=== PATIENT | male | born 1935 | race Caucasian/White ===

== ENCOUNTER → 2023-07-24 11:23 | Outpatient (REF) | payer OTHER, SELFPAY ==
[2023-07-24 15:39] LABS: INR 1.21; PT 15.4 Sec (11.4-14.6)
[2023-07-24 15:40] LABS: APTT 44.7 Sec (23.4-35.0)
== END ==
LOC: HWLAB 11:23
PROVIDERS: ATTENDING PHYSICIAN Internal Medicine Critical Care Medicine; FAMILY PHYSICIAN Student in an Organized Health Care Education/Training Program
DX: Z01.812 Encounter for preprocedural laboratory examination (principal)
CPT/HCPCS: 36415; 85610; 85730

== ENCOUNTER → 2023-09-29 08:44 | Outpatient (REF) | payer OTHER, SELFPAY ==
[2023-09-29 12:34] LABS: Hemoglobin 13.7 g/dL (13.0-18.0)
[2023-09-29 12:56] LABS: Blood Urea Nitrogen 29 mg/dl (9-20); Calcium 9.5 mg/dl (8.4-10.2); Carbon Dioxide 24 mmol/L (22-30); Chloride 104 mmol/L (98-107); Glucose 150 mg/dl (70-99); Phosphorus 3.7 mg/dl (2.5-4.5); Potassium 4.3 mmol/L (3.5-5.1); Sodium 135 mmol/L (135-145); eGFR 36.43
[2023-10-01 10:42] LABS: Intact PTH 110.9 pg/ml (13.6-85.8)
== END ==
LOC: HWLAB 08:44
PROVIDERS: ATTENDING PHYSICIAN Specialist; FAMILY PHYSICIAN Student in an Organized Health Care Education/Training Program
DX: N18.32 Chronic kidney disease, stage 3b (principal); I10 Essential (primary) hypertension; N25.81 Secondary hyperparathyroidism of renal origin
CPT/HCPCS: 36415; 80048; 83970; 84100; 85018

== ENCOUNTER → 2023-10-22 10:33 | Outpatient (REF) | payer OTHER, SELFPAY | LOC: RAD 10:33 | PROVIDERS: ATTENDING PHYSICIAN Internal Medicine; FAMILY PHYSICIAN Student in an Organized Health Care Education/Training Program | DX: I71.43 Infrarenal abdominal aortic aneurysm, without rupture (principal) | CPT/HCPCS: 76770 ==

== ENCOUNTER → 2023-11-05 09:59 | Outpatient (REF) | payer OTHER, SELFPAY | LOC: HWRAD 09:59 | PROVIDERS: ATTENDING PHYSICIAN Internal Medicine Critical Care Medicine; FAMILY PHYSICIAN Student in an Organized Health Care Education/Training Program | DX: R91.1 Solitary pulmonary nodule (principal); J94.8 Other specified pleural conditions; R94.2 Abnormal results of pulmonary function studies | CPT/HCPCS: 71250 ==

== ENCOUNTER → 2023-11-14 15:44 | Outpatient (REF) | payer OTHER, SELFPAY | LOC: HWRCS 15:44 | PROVIDERS: ATTENDING PHYSICIAN Internal Medicine; FAMILY PHYSICIAN Student in an Organized Health Care Education/Training Program | DX: R55 Syncope and collapse (principal) | CPT/HCPCS: 93306 ==

== ENCOUNTER → 2023-11-21 13:05 | Outpatient (REF) | payer OTHER, SELFPAY | LOC: RAD 13:05 | PROVIDERS: ATTENDING PHYSICIAN Surgery Vascular Surgery; FAMILY PHYSICIAN Student in an Organized Health Care Education/Training Program | DX: I73.9 Peripheral vascular disease, unspecified (principal); R55 Syncope and collapse | CPT/HCPCS: 93880; 93922; 93925 ==

== ENCOUNTER 2023-11-30 14:27 | Emergency (ER) | payer OTHER, SELFPAY ==
[2023-11-30] VITALS (9 sets, daily range): BP systolic 100–144; BP diastolic 58–69; PULSE 72–76; BMI 26.7
[2023-11-30 14:59] LABS: % Basophils 0.6 % (0-2); % Eosinophils 3.4 % (0-6); % Immature Granulocytes 0.6 % (0-0.5); % Lymphocytes 22.6 % (20.5-51.1); % Monocytes 11.8 % (1.7-9.3); Absolute Basophils 0.1 10^3/uL (0-0.2); Absolute Eosinophils 0.3 10^3/uL (0-0.7); Absolute Immature Granulocytes 0.1 10^3/uL (0-0.05); Absolute Lymphocytes 2.2 10^3/uL (1.2-3.4); Absolute Monocytes 1.1 10^3/uL (0.1-0.6); Absolute Neutrophils 5.8 10^3/uL (1.4-6.5); Hematocrit 38.8 % (39.0-52.0); Hemoglobin 13.8 g/dL (13.0-18.0); Mean Corp Hgb Conc. 35.6 g/dL (33.0-37.0); Mean Corpuscular Hgb 31.9 pg (27.0-31.0); Mean Corpuscular Volume 89.8 fL (80.0-94.0); Mean Platelet Volume 10.4 fL (7.4-10.4); Nucleated Red Blood Cells % 0 % (-); Platelet Count 177 10^3/uL (130-400); Red Blood Cell Count 4.32 10^6/uL (4.70-6.10); Red Cell Dist. Width 13.7 % (11.5-14.5); White Blood Cell Count 9.5 10^3/uL (4.8-10.8)
[2023-11-30 15:14] LABS: INR 1.17; PT 14.7 Sec (11.4-14.6)
[2023-11-30 15:20] LABS: ALT (SGPT) 20 U/L (0-50); AST (SGOT) 29 U/L (17-59); Albumin 4.3 g/dl (3.5-5.0); Alkaline Phosphatase 83 U/L (38-126); Blood Urea Nitrogen 34 mg/dl (9-20); Calcium 9.7 mg/dl (8.4-10.2); Carbon Dioxide 21 mmol/L (22-30); Chloride 104 mmol/L (98-107); Glucose 119 mg/dl (70-99); Potassium 4.2 mmol/L (3.5-5.1); Sodium 139 mmol/L (135-145); Total Bilirubin 0.9 mg/dl (0.2-1.3); Total Protein 7.7 g/dl (6.3-8.2); eGFR 33.93
[2023-11-30 15:25] LABS: Troponin I 0.016 ng/ml
--- NOTE | 2023-11-30 16:33 | ED.GENMED ---
History of Present Illness
General
Chief Complaint: Dizziness
Source: patient
Exam Limitations: none
Time Seen by Provider: 11/30/23 16:06
Travel History
Have you had any contact with someone who has COVID-19?: No
Do you have any symptoms of coronavirus? Fever > 100 degrees, chills, cough, shortness of breath, sore throat, loss of taste or smell, muscle aches, or headache?: No
History of Present Illness
History of Present Illness:
88-year-old male presents lightheadedness with exertion and chest discomfort starting this morning. He does have a history of atrial fibrillation on Eliquis follows with Dr. Candelaria. He states while sitting he has no symptoms of discomfort or
lightheadedness. He does have a history of heart failure. He recently finished wearing a heart monitor for 2 weeks and is awaiting the results. He last had an echocardiogram last month.
Past History
Past History
ED Past Medical History: Arrthythmia (Bigeminy), CAD, CHF, COPD, HTN, Hypercholesterolemia and NIDDM
ED Past Surgical History: Cholecystectomy
Social History
Tobacco: Former smoker
Phy Exam
Physical Exam
Physical Exam:
General: Well-appearing male no acute respiratory distress
HEENT: Normocephalic atraumatic neck is supple
Heart: Regular rate and rhythm with holosystolic ejection murmur noted
Lungs: Clear no wheeze or rales
Abdomen is soft nontender
Extremities: No cyanosis or edema
Course
Orders/Labs/Results
Orders:
Orders
11/30/23 14:40
Electrocardiogram (*1) Urgent
Reason for Study: Chest Pain
EKG- Treatment ONCE
11/30/23 14:46
Complete Blood Count/With Diff Urgent
Comprehensive Metabolic Panel Urgent
Prothrombin Time Urgent
Troponin I Urgent
11/30/23 16:27
Orthostatic VS- Treatment ONCE
Nursing to Place Non Medication Order As Directed
Physician Order: Ambulate with pulse ox
Above order entered?: Yes
CR Chest - 2 Views Urgent
Comment:
Reason For Exam: gold
Abnormal Lab Results
11/30/23
14:46
RBC 4.32 L 10^6/uL
(4.70-6.10)
Hct 38.8 L %
(39.0-52.0)
MCH 31.9 H pg
(27.0-31.0)
Abs Immat Gran (auto) 0.1 H 10^3/uL
(0-0.05)
Absolute Monos (auto) 1.1 H 10^3/uL
(0.1-0.6)
Immature Gran % 0.6 H %
(0-0.5)
Monocytes % 11.8 H %
(1.7-9.3)
PT 14.7 H Sec
(11.4-14.6)
Carbon Dioxide 21 L mmol/L
(22-30)
BUN 34 H mg/dl
(9-20)
Creatinine 1.9 H mg/dL
(0.7-1.3)
Glucose 119 H mg/dl
(70-99)
11/30/23 14:46
11/30/23 14:46
Vital Signs
Initial and Last Documented VS:
Initial Vital Signs
Temp Pulse Resp BP Pulse Ox
97.6 F 86 16 112/58 96
11/30/23 14:36 11/30/23 14:36 11/30/23 14:36 11/30/23 14:36 11/30/23 14:36
Last Documented Vital Signs
Temp Pulse Resp BP Pulse Ox
97.6 F 72 14 135/68 98
11/30/23 14:36 11/30/23 18:35 11/30/23 18:35 11/30/23 18:35 11/30/23 17:45
MDM/Problems Addressed
Differential Diagnosis Includes:
Lightheadedness and discomfort with exertion. Consider arrhythmia versus volume depletion versus hypotension versus anemia.
I reviewed prior hospital records which demonstrates an echocardiogram that was done about 2 weeks ago which showed ejection fraction about 50% but mild to moderate aortic stenosis.
He has a history of atrial fibrillation but is not currently in atrial fibrillation now he is in sinus rhythm. He is rate controlled. Will check labs to assess kidney function and check x-ray. Orthostatic vital signs pending patient will ambulate
as well
*Critical Care Note
Total Time (30-74mins, 75-104mins- exclusive of procedures): Not Applicable
Update Note
Update Note:
Chest x-ray clear. No acute findings noted on the chest x-ray. Patient ambulatory here without any symptoms. Orthostatic vital signs reviewed. I suspect symptoms may be multifactorial including overdiuresis and potential worsening aortic
stenosis. Had long discussion with patient and daughter regarding treatment options. Prefers to go home. Risks and benefits were both were discussed. Will tie-in cardiology team through discharge. Advised patient avoid morning dose of Lasix
tomorrow morning.
ED Attending Note
-
Portions of this chart may have been created with voice recognition software.� Occasional wrong word or��sound alike� substitutions may have occurred due to the inherent limitations of voice recognition software.
Discharge Plan
Departure
Patient Disposition: Home (Routine Discharge)
Date of Disposition: 11/30/23
Time of Disposition: 18:57
Patient with high blood pressure during this ER visit?: No
Discharge Problem:
Lightheadedness
Instructions: Chest Pain CBC Follow Up
Prescriptions:
No Action
cyanocobalamin (vitamin B-12) 1,000 MCG tablet
1,000 mcg PO DAILY
cholecalciferol (vitamin D3) 2,000 UNITS tablet
2,000 units PO DAILY
diphenhydramine HCl [Banophen] 25 MG capsule
25 mg PO HS
atorvastatin 80 MG tablet
80 mg PO HS
metoprolol succinate 50 mg Tablet Extended Release 24 Hr
50 mg PO BID
furosemide [Lasix] 40 mg Tablet
40 mg PO DAILY
Jardiance 25 mg Tablet
12.5 mg PO DAILY
Rx Instructions:
[facility] using the [facility]
glipizide 5 mg Tablet Extended Release 24hr
5 mg PO DAILY
terazosin 2 mg Capsule
2 mg PO HS
finasteride 5 mg Tablet
5 mg PO DAILY
Eliquis 2.5 mg Tablet
2.5 mg PO BID Qty: 30 0RF
zinc acetate 50 mg (zinc) Capsule
50 mg PO DAILY
omega 2-ivd-xpk-fish oil [Fish Oil] 1,000 mg (120 mg-180 mg) Capsule
1 cap PO BID
Referrals:
Kenia Correa DO [Family Provider] -
Activity Restrictions/Additional Instructions:
Avoid Lasix tomorrow morning. Follow-up with cardiology team for further evaluation. Return here for worsening symptoms.
Interventions
Interventions:
*Risk Screen - Suicide Last Done: 11/30/23 16:39
*General Assessment Last Done: 11/30/23 14:36
*Neglect/Abuse Screening Last Done: 11/30/23 16:39
ED- Fall Risk Assessment Last Done: 11/30/23 16:39
*ED COVID-19 Vaccine History Last Done: 11/30/23 14:36
ED- Cardiac Assessment Last Done: 11/30/23 16:39
ED- Neurological Assessment Last Done: 11/30/23 16:39
ED Swallowing Screen Last Done: 11/30/23 16:39
Discharge Date and Time
Print Language: JAPANESE
== END 2023-11-30 19:25 | disposition home or self-care (01) ==
LOC: EMR 14:27
PROVIDERS: EMERGENCY PHYSICIAN Emergency Medicine; FAMILY PHYSICIAN Student in an Organized Health Care Education/Training Program
DX: R42 Dizziness and giddiness (principal); I48.91 Unspecified atrial fibrillation; I50.9 Heart failure, unspecified; Z87.891 Personal history of nicotine dependence; Z79.01 Long term (current) use of anticoagulants
CPT/HCPCS: 99285; 71046; 80053; 84484; 85025; 85610; 93005

== ENCOUNTER → 2023-12-16 07:35 | Outpatient (REF) | payer OTHER, SELFPAY ==
[2023-12-16 09:33] LABS: % Basophils 0.7 % (0-2); % Immature Granulocytes 0.5 % (0-0.5); % Lymphocytes 19.7 % (20.5-51.1); % Monocytes 10.6 % (1.7-9.3); % Neutrophils 63.5 % (42.2-75.2); Absolute Basophils 0.1 10^3/uL (0-0.2); Absolute Eosinophils 0.5 10^3/uL (0-0.7); Absolute Immature Granulocytes 0.1 10^3/uL (0-0.05); Absolute Monocytes 1.1 10^3/uL (0.1-0.6); Absolute Neutrophils 6.5 10^3/uL (1.4-6.5); Hematocrit 39.6 % (39.0-52.0); Mean Corp Hgb Conc. 32.8 g/dL (33.0-37.0); Mean Corpuscular Hgb 31.3 pg (27.0-31.0); Mean Corpuscular Volume 95.4 fL (80.0-94.0); Mean Platelet Volume 10.8 fL (7.4-10.4); Nucleated Red Blood Cells % 0 % (-); Platelet Count 181 10^3/uL (130-400); Red Blood Cell Count 4.15 10^6/uL (4.70-6.10); Red Cell Dist. Width 13.9 % (11.5-14.5); White Blood Cell Count 10.2 10^3/uL (4.8-10.8)
[2023-12-16 10:06] LABS: ALT (SGPT) 19 U/L (0-50); AST (SGOT) 29 U/L (17-59); Alkaline Phosphatase 131 U/L (38-126); Blood Urea Nitrogen 35 mg/dl (9-20); Calcium 9.6 mg/dl (8.4-10.2); Carbon Dioxide 21 mmol/L (22-30); Chloride 110 mmol/L (98-107); Glucose 147 mg/dl (70-99); HDL Cholesterol 36 mg/dl; LDL Cholesterol, Calculated 47 mg/dl; Potassium 4.8 mmol/L (3.5-5.1); Sodium 142 mmol/L (135-145); Total Bilirubin 0.7 mg/dl (0.2-1.3); Total Cholesterol 114 mg/dl (50-199); Triglyceride 158 mg/dl (10-149); Very Low Density Lipoprotein 31 mg/dl (0-30); eGFR 36.21
[2023-12-16 10:17] LABS: Microalbumin, Random Urine 5.5 mg/dl (0.6-1.7); Microalbumin/creatinine Ratio 50.9 mg/g
[2023-12-16 10:31] LABS: TSH Reflex To Free T4 2.73 uIU/ml (0.47-4.68)
[2023-12-16 11:18] LABS: Glycohemoglobin (HgbA1c) 6.4 % (4.0-5.6)
== END ==
LOC: HWLAB 07:35
PROVIDERS: ATTENDING PHYSICIAN Student in an Organized Health Care Education/Training Program
DX: E11.22 Type 2 diabetes mellitus with diabetic chronic kidney disease (principal); I50.32 Chronic diastolic (congestive) heart failure; I70.91 Generalized atherosclerosis; I10 Essential (primary) hypertension; I48.0 Paroxysmal atrial fibrillation
CPT/HCPCS: 36415; 80053; 80061; 82043; 82570; 83036; 84443; 85025

== ENCOUNTER → 2024-01-06 11:16 | Day surgery (SDC) | payer OTHER, SELFPAY ==
--- NOTE | 2024-01-06 12:58 | ITS.CL.IMPLP ---
Pack Out Operator - Implant Loop
Implant Loop
Procedure Report:
Procedure: Insertion of Loop Recorder.�
Date of the procedure: 01/06/24
Procedure Physician: Romina Moore MD [facility]
Indication: Syncope and atrial fibrillation
Description of the procedure:
Patient was brought to the holding area after informed consent was obtained from the patient. The time out was performed immediately before the procedure.
The left parasternal chest area was prepped and draped in sterile fashion with chlorhexidine prep x 3 times. Lidocaine 1% was injected subcutaneously for local anesthesia. The loop recorder was tunneled and then injected into the subcutaneous
tissue. The tunneling tool was removed leaving the loop recorder in place. The dermis was closed with steristrips and a pressure Tegaderm dressing was placed. There were no immediate complications.
Post procedure, the device was interrogated and showed good detectable P and R waves.
There were no immediate complications.
Device:
OCP CollectiveQII; Model: [id number]; Serial #:[id number]
R wave amplitude: 0.42 mV
Final Programming:
��������������� Tachycardia Detection: >182 bpm for 16 beats
��������������� Bradycardia Detection: 30 bpm for 12 beats, Asystole for 5 seconds.
��������������� Atrial fibrillation detection: On with > 10 min duration
Conclusion:
Successful insertion of loop recorder.
Recommendation:
Routine post-insert loop care.
== END | disposition home or self-care (01) ==
LOC: CATH 11:16
PROVIDERS: ATTENDING PHYSICIAN Internal Medicine Cardiovascular Disease; FAMILY PHYSICIAN Student in an Organized Health Care Education/Training Program; OTHER PHYSICIAN Internal Medicine
DX: Z09 Encounter for follow-up examination after completed treatment for conditions other than malignant neoplasm (principal); R55 Syncope and collapse; I48.0 Paroxysmal atrial fibrillation; I25.10 Atherosclerotic heart disease of native coronary artery without angina pectoris; I11.0 Hypertensive heart disease with heart failure; I50.9 Heart failure, unspecified; E78.5 Hyperlipidemia, unspecified; E11.9 Type 2 diabetes mellitus without complications; Z87.891 Personal history of nicotine dependence; Z79.84 Long term (current) use of oral hypoglycemic drugs; Z79.01 Long term (current) use of anticoagulants
CPT/HCPCS: 33285; C1764

== ENCOUNTER → 2024-02-16 12:42 | Outpatient (REF) | payer OTHER, SELFPAY | LOC: RAD 12:42 | PROVIDERS: ATTENDING PHYSICIAN Family Medicine | DX: R06.02 Shortness of breath (principal) | CPT/HCPCS: 71046 ==

== ENCOUNTER → 2024-02-20 13:09 | Outpatient (REF) | payer OTHER, SELFPAY | LOC: RAD 13:09 | PROVIDERS: ATTENDING PHYSICIAN Nurse Practitioner Family; FAMILY PHYSICIAN Family Medicine | DX: R06.02 Shortness of breath (principal) | CPT/HCPCS: 71046; 78582; A9540; A9567 ==

== ENCOUNTER → 2024-03-08 09:22 | Outpatient (REF) | payer OTHER, SELFPAY | LOC: HWRAD 09:22 | PROVIDERS: ATTENDING PHYSICIAN Internal Medicine Critical Care Medicine; FAMILY PHYSICIAN Family Medicine | DX: R91.8 Other nonspecific abnormal finding of lung field (principal) | CPT/HCPCS: 71250 ==

== ENCOUNTER 2024-03-13 19:18 | Inpatient (IN) | payer OTHER, SELFPAY ==
[2024-03-13] VITALS (9 sets, daily range): BP systolic 136–176; BP diastolic 76–90; PULSE 76–84; BMI 25.6; BMI 25.7
[2024-03-13 15:27] LABS: % Basophils 0.5 % (0-2); % Immature Granulocytes 0.7 % (0-0.5); % Lymphocytes 15.1 % (20.5-51.1); % Monocytes 12.7 % (1.7-9.3); Absolute Eosinophils 0.4 10^3/uL (0-0.7); Absolute Immature Granulocytes 0.1 10^3/uL (0-0.05); Absolute Lymphocytes 1.3 10^3/uL (1.2-3.4); Absolute Monocytes 1.1 10^3/uL (0.1-0.6); Absolute Neutrophils 5.8 10^3/uL (1.4-6.5); Hematocrit 39.9 % (39.0-52.0); Hemoglobin 13.6 g/dL (13.0-18.0); Mean Corp Hgb Conc. 34.1 g/dL (33.0-37.0); Mean Corpuscular Hgb 31.8 pg (27.0-31.0); Mean Corpuscular Volume 93.2 fL (80.0-94.0); Mean Platelet Volume 10.5 fL (7.4-10.4); Nucleated Red Blood Cells % 0 % (-); Platelet Count 161 10^3/uL (130-400); Red Blood Cell Count 4.28 10^6/uL (4.70-6.10); Red Cell Dist. Width 13.9 % (11.5-14.5); White Blood Cell Count 8.7 10^3/uL (4.8-10.8)
--- NOTE | 2024-03-13 15:38 | ED.GENMED ---
History of Present Illness
General
Chief Complaint: Fainting/Passed Out
Source: patient
Exam Limitations: none
Time Seen by Provider: 03/13/24 14:52
Nursing documentation reviewed up to this point in time: agreed with
History of Present Illness
History of Present Illness:
88-year-old male presents emergency room complaining of a syncope episode while he was at grocery store. He is wearing a cardiac sonographer.
Past History
Past History
ED Past Medical History: Arrthythmia (Bigeminy), CAD, CHF, COPD, HTN, Hypercholesterolemia and NIDDM
ED Past Surgical History: Cholecystectomy
Social History
Tobacco: Former smoker
Alcohol: None
Drug: None
Employment: Retired
Review of Systems
Review of Systems
Allergies reviewed?: Yes
All Other Systems: Not applicable
EENT: Reports no symptoms
Respiratory: Reports no symptoms
Cardiac: Reports syncope
ABD/GI: Reports no symptoms
: Reports incontinence
Musculoskeletal: Reports no symptoms
Skin: Reports no symptoms
Neurological: Reports no symptoms
Endocrine: Reports no symptoms
Hematologic/Lymphatic: Reports no symptoms
Psychiatric: Reports no symptoms
Phy Exam
Physical Exam
Physical Exam:
Physical Exam
General: no apparent distress, not acutely ill
Neck: supple. no meningeal signs. normal posterior pharynx
Heart: s1/s2 regular rate and rhythm, no murmur. equal radial
pulses.
HEENT: Pupils equal round reactive to light, EOMI
Lungs: no acute respiratory distress. clear bilaterally
Abdomen: normal bowel sounds. not tender. no CVAT
Neuro: alert and oriented. no focal neurological deficits cranial nerves II through XII intact
Skin: no rash
Psychiatric: well kept. interactive and cooperative
Extremities: no edema. no calf tenderness. negative homans. good distal pulses
Course
Orders/Labs/Results
Orders:
Orders
03/13/24 14:35
Electrocardiogram (*1) Urgent
Reason for Study: Syncope
EKG- Treatment ONCE
03/13/24 Dinner
Cholesterol Lowering
At Your Request: Limited Participation
Does patient need a safe tray?: No
Cholesterol Lowering: Sodium, 2 Gram
03/13/24 15:10
Complete Blood Count/With Diff Urgent
Comprehensive Metabolic Panel Urgent
03/13/24 15:34
CT Cervical Spine W/o Iv Contr Urgent
Comment:
Reason For Exam: fall, syncope, neck pain
03/13/24 15:37
CT Head W/o Iv Contrast Urgent
Comment:
Reason For Exam: fall, syncope
03/13/24 18:37
Admit/Transfer Patient As Directed
Co-Sign Provider:
Level of Care: Inpatient admission
Assign to:: Telemetry
Physician / Group: gavino
Diagnosis: syncope
Reason for Telemetry: Arrhythmia
Date to Stop Telemetry: 03/16/24
Time to Stop Telemetry: 11:00
Reason for Hospitalization: syncope
Expected length of stay greater than two midnights?: Yes
ELOS- Estimated Length of Stay in days: 2
I certify the patient meets the requirements for IP care: Yes
03/13/24 18:38
Code Status As Directed
Resuscitation Status: Full Code
PRN Pain Medication Management As Directed
May give lesser potent ordered pain med per pt: Yes
preference::
Protocol:: Medication orders for pain may be administered in a
manner that supports deferring to patient preference
when the pt is:
- Requesting an ordered lesser potent pain medication.
Least to most potent pain medications are defined
as: acetaminophen < NSAID < tramadol < opioids
(morphine, oxycodone, hydromorphone).
- Requesting a lesser dose of the same medication IF
ORDERED.
- Requesting a less intrusive route of administration
if both routes are prescribed by the provider (PO <
IV).
03/13/24 19:55
Dextrose 50%-Water [Dextrose 50% Syringe] 12.5 grams IV [id number] PRN
Glucagon [GlucaGen] 1 mg IM PRN PRN
03/13/24 19:55
VTE Contraindication Routine
VTE Mechanical Device Contraindication: Medical Contraindication
Pharmocologic Contraindication: Medical Contraindication
Activity As Directed
Activity Level: As Tolerated
Bedside Glucose Monitoring As Directed
Frequency: AC&HS
Additional Instructions:: Change to q6h if pt on TPN, tube feeding or not eating
Orthostatic Vital Signs As Directed
Orthostatic VS Frequency: Daily
Vital Signs As Directed
Frequency: Per unit guidelines
03/13/24 20:00
Apixaban [Eliquis] 2.5 mg PO BID
Metoprolol Xl [Toprol Xl] 50 mg PO BID
03/13/24 22:00
Atorvastatin [Lipitor] 80 mg PO HS
Diphenhydramine [Benadryl] 25 mg PO HS
03/14/24 06:00
Complete Blood Count/With Diff IN AM
Comprehensive Metabolic Panel IN AM
Glycohemoglobin (HgbA1c) IN AM
03/14/24 07:30
Insulin Aspart Corrective Low [Novolog Flexpen-Low Resistance] See Protocol SC AC
03/14/24 08:00
Cholecalciferol (Vitamin D3) [VITAMIN D3 (cholecalciferol)] 50 mcg PO DAILY
Cyanocobalamin [Vitamin B-12] 1,000 mcg PO DAILY
Dapagliflozin [Farxiga] 10 mg PO DAILY
Finasteride [Proscar] 5 mg PO DAILY
Furosemide [Lasix] 20 mg PO DAILY
Glipizide Extended Release [Glucotrol Xl (Extended Release)] 5 mg PO DAILY
Zinc 50mg (Zinc Sulfate 220mg) [Zinc] 50 mg PO DAILY
03/14/24 21:00
Metformin Extended Release [Glucophage Xr Extended Release] 500 mg PO BID@0800,1700
03/16/24 11:00
DC Protocol for Telemetry ONCE
Abnormal Lab Results
03/13/24
15:10
RBC 4.28 L 10^6/uL
(4.70-6.10)
MCH 31.8 H pg
(27.0-31.0)
MPV 10.5 H fL
(7.4-10.4)
Abs Immat Gran (auto) 0.1 H 10^3/uL
(0-0.05)
Absolute Monos (auto) 1.1 H 10^3/uL
(0.1-0.6)
Immature Gran % 0.7 H %
(0-0.5)
Lymphocytes % 15.1 L %
(20.5-51.1)
Monocytes % 12.7 H %
(1.7-9.3)
BUN 24 H mg/dl
(9-20)
Creatinine 1.7 H mg/dL
(0.7-1.3)
Glucose 119 H mg/dl
(70-99)
03/13/24 15:10
03/13/24 15:10
Vital Signs
Initial and Last Documented VS:
Initial Vital Signs
Pulse Resp BP
85 20 144/78
03/13/24 14:35 03/13/24 14:35 03/13/24 14:35
Last Documented Vital Signs
Temp Pulse Resp BP Pulse Ox
97.5 F 87 18 163/91 92
03/13/24 19:55 03/13/24 21:26 03/13/24 19:55 03/13/24 21:26 03/13/24 19:55
MDM/Problems Addressed
Differential Diagnosis Includes:
Dysrhythmia, hypotension
MDM/Problems Addressed:
88-year-old male with syncope episode, unclear etiology. No signs of dysrhythmia. Admit to hospitalist for further evaluation.
Chronic conditions affecting care: COPD
*Radiology
Radiology exam reviewed: radiology read reviewed (CT head and cervical spine no acute findings)
*Pulse Oximetry
Patient hypoxic: no
*EKG
Interpreted by ED Provider?: Yes
EKG Intrepretation Date: 03/13/24
EKG Intrepretation Time: 14:51
Interpretation: abnormal
Comparison EKG: no changes
Heart Rate: 80
Rate: normal
Rhythm: sinus
Tiline: normal axis
Interval: normal interval
QRS Pattern: right bundle branch block
Ischemia: no ischemia
*[employer] Interpretation
Rate: normal
Interpretation: normal
Heart Rate: 80
Rhythm: sinus
*Critical Care Note
Total Time (30-74mins, 75-104mins- exclusive of procedures): Not Applicable
Data Reviewed
Review of Other/Old Records Reveals: Labs
Patient Management
Social determinants of health affecting care: Living situation
Escalation/DeEscalation of care consider admission/obs:
admit indicated
ED Attending Note
-
Portions of this chart may have been created with voice recognition software.� Occasional wrong word or��sound alike� substitutions may have occurred due to the inherent limitations of voice recognition software.
Discharge Plan
Departure
Patient Disposition: Admit
Date of Disposition: 03/13/24
Time of Disposition: 18:07
Admit to: Telemetry
Presentation/result/management discussed w/ accepting MD/DO: Hospitalist
Patient with high blood pressure during this ER visit?: Yes
Condition: Good
Discharge Problem:
Syncope, Stage 3b chronic kidney disease
Interventions
Interventions:
*Risk Screen - Suicide Last Done: 03/13/24 14:43
*General Assessment Last Done: 03/13/24 14:43
*Neglect/Abuse Screening Last Done: 03/13/24 14:43
ED- Fall Risk Assessment Last Done: 03/13/24 19:45
*ED COVID-19 Vaccine History Last Done: 03/13/24 15:01
*Nursing Disposition Last Done: 03/13/24 19:45
ED- Cardiac Assessment Last Done: 03/13/24 15:01
ED- Neurological Assessment Last Done: 03/13/24 15:01
Discharge Date and Time
Discharge Date/Time: 03/13/24 19:48
[2024-03-13 15:40] LABS: ALT (SGPT) 21 U/L (0-50); AST (SGOT) 30 U/L (17-59); Albumin 3.9 g/dl (3.5-5.0); Alkaline Phosphatase 85 U/L (38-126); Blood Urea Nitrogen 24 mg/dl (9-20); Calcium 9.4 mg/dl (8.4-10.2); Carbon Dioxide 23 mmol/L (22-30); Chloride 105 mmol/L (98-107); Estimated Creatinine Clearance 32 ml/min; Glucose 119 mg/dl (70-99); Sodium 140 mmol/L (135-145); Total Bilirubin 0.9 mg/dl (0.2-1.3); Total Protein 6.7 g/dl (6.3-8.2); eGFR 38.78
--- NOTE | 2024-03-13 18:40 | HPS.HSE ---
Family Physician
-
Family Physician: Haresh Lilly DO
Chief Complaint
-
syncope
History of Present Illness
88-year-old male past medical history paroxysmal atrial fibrillation, ventricular tachycardia status post ablation, PVCs,, CAD with stent in 2003, HFpEF, PAD with iliac stents, COPD, hypertension, hypercholesteremia, diabetes, BPH CKD 3, lung cancer
status post radiation, enterococcal bacteremia, spinal stenosis, presenting with syncopal Episode while he was at the grocery store.
Patient has been having recurrent shortness of breath and lightheadedness with exertion. Today while exerting himself he had a syncopal episode and passed out. Afterwards he denies any pain in his head or neck.
He has had a history of multiple syncopal episodes. He had ventricular tachycardia/PVCs status post ablation last year. This December he had a loop recorder to evaluate for further arrhythmias.
He was recommended by his palliative care doctor to be hypoxic with ambulation and wants to be evaluated for home oxygen. He has chronic cough which is at baseline. He denies any chest pain. Denies any new recent medications.
He is a former smoker. Denies alcohol use.
Medical History
Past Medical History
Past Medical History: Reports Other (paroxysmal atrial fibrillation, ventricular tachycardia status post ablation, PVCs,, CAD with stent in 2003, HFpEF, PAD with iliac stents, COPD, hypertension, hypercholesteremia, diabetes, BPH CKD 3, lung cancer
status post radiation, enterococcal bacteremia, spinal stenosis,)
Past Surgical History: Reports Other (Cholecystectomy, CAD with stent, right groin stent, eye surgery, heart ablation)
Social History
Tobacco: Former Smoker
Alcohol: None
Drug: None
Family History
Family History: Not pertinent
Allergies / Home Medications
Allergies reflects when Allergies were last updated in [place].
Home Medications with original date entered in [place]
Allergy/Medication List:
Allergies
Allergy/AdvReac Type Severity Reaction Status Date / Time
No Known Allergies Allergy Verified 03/13/24 14:42
Home Medications
cyanocobalamin (vitamin B-12) 1,000 mcg tablet 1,000 mcg PO DAILY Supplement 08/23/18
diphenhydramine HCl 25 mg capsule (Banophen) 25 mg PO HS Allergies 02/02/19
atorvastatin 80 mg tablet 80 mg PO HS High cholesterol 03/20/20
empagliflozin 25 mg tablet (Jardiance) 12.5 mg PO DAILY Diabetes 09/04/22
metoprolol succinate 50 mg tablet,extended release 24 hr 50 mg PO BID Blood Pressure 09/10/22
finasteride 5 mg tablet 5 mg PO DAILY prostate issue 03/11/23
glipizide 5 mg tablet, extended release 24 hr 5 mg PO DAILY Diabetes 03/11/23
apixaban 2.5 mg tablet (Eliquis) 2.5 mg PO BID #30 tabs 06/17/23
omega 4-ykl-gqz-fish oil 1,000 mg (120 mg-180 mg) capsule (Fish Oil) 1 cap PO BID 07/24/23
zinc acetate 50 mg (zinc) capsule 50 mg PO DAILY 07/24/23
cholecalciferol (vitamin D3) 50 mcg (2,000 unit) tablet 50 mcg PO DAILY 03/13/24
furosemide 20 mg tablet 20 mg PO DAILY 03/13/24
metformin 500 mg tablet,extended release 24 hr 500 mg PO BID 03/13/24
Review of Systems
-
History Source: Patient
A 12 point ROS was completed and negative except as noted: Yes
Constitutional: Reports No Symptoms
EENT: Reports No Symptoms
Respiratory: Reports See HPI
Cardiac: Reports See HPI
Abdomen/GI: Reports No Symptoms
: Reports No Symptoms
Musculoskeletal: Reports No Symptoms
Skin: Reports No Symptoms
Neurological: Reports No Symptoms
Endocrine: Reports No Symptoms
Hematologic/Lymphatic: Reports No Symptoms
Psych: Reports No Symptoms
Physical Exam
Vital Signs
Vital Signs
Temp Pulse Resp BP Pulse Ox
97.6 F 74 25 152/84 95
03/13/24 14:43 03/13/24 18:15 03/13/24 18:15 03/13/24 18:00 03/13/24 18:15
Physical Exam
General: Well Developed, Well Nourished and No Apparent Distress
HEENT: NormoCephalic, Moist mucous membranes and Atraumatic
Respiratory: Clear
Cardiac: S1/S2 and Regular Rhythm; No Murmur or Rub
GI: Soft, Non Tender, Non Distended and Normal Bowel Sounds; No Organomegaly
Rectal: Deferred by Provider
Musculoskeletal: No Clubbing, No Cyanosis and No Edema
Skin: No Rash
Neuro: Nonfocal/grossly intact
Laboratory Results
-
03/13/24 15:10
03/13/24 15:10
Laboratory Results
Total Bilirubin 0.9 mg/dl (0.2-1.3) 03/13/24 15:10
AST 30 U/L (17-59) 03/13/24 15:10
ALT 21 U/L (0-50) 03/13/24 15:10
Alkaline Phosphatase 85 U/L (38-126) 03/13/24 15:10
Data Reviewed
-
Lab Data: Labs Reviewed by me
Old Records: Reviewed
Impression/Plan
-
IMPRESSION:
PLAN:
# Recurrent syncopal episodes/Exertional dyspnea/lightheadedness unclear etiology possibly could be multifactorial due to hypoxemia secondary to COPD/mild to moderate aortic stenosis
# History of syncopal episode secondary to ventricular tachycardia/PVCs status post ablation with loop recorder
-Loop recorder shows no events at this time
-CT head, C-spine shows no acute abnormality
-EKG shows sinus rhythm with first-degree AV block, right bundle branch block which is old
-Recently had echo in October, do not think repeat is necessary
-Check orthostatic vital signs
-Evaluate for home oxygen
-Cardiology consulted
-Pulmonology consulted
Moderate aortic stenosis
Paroxysmal atrial fibrillation
-Continue Eliquis
CAD with stenting 2003
-Continue metoprolol
Chronic HFpEF
-Continue Lasix
Chronic right bundle branch block
PAD with history of iliac stents
COPD
Essential hypertension
Hypercholesterolemia
-Continue statin
Type 2 diabetes
-Continue glipizide
-Continue metformin
-Continue Jardiance
-Insulin sliding scale
BPH
-Continue finasteride
CKD 3b
-Renal function at baseline
Lung cancer status post radiation
History of enterococcal bacteremia
Spinal stenosis
Full code
DVT prophylaxis-Eliquis
Cardiac/diabetic diet
[2024-03-13] MEDS: LIPITOR 80 MG PO (21:23)
[2024-03-13] MEDS: TOPROL XL 50 MG PO (21:26)
[2024-03-13] MEDS: ELIQUIS 2.5 MG PO (21:26)
[2024-03-13 21:46] LABS: Glucose - Point of Care 100 mg/dl (70-99)
--- NOTE | 2024-03-13 21:49 | PTCARENOTE ---
Receive pt from ER. Pt alert oriented X3, pleasant and cooperative. Pt has no complaint of dizziness, chest pain, or headache. Pt reports dyspnea on exertion. Pt assist X1 to his bed. Reports weakness to B/L legs. Pt oriented to the room, call pierce
within reach. Pt on NSR w/first degree HB on telemonitor. WC=564/83, HR=81, SpO2=92-93% on RA, T=97.5, RR=18. Pt's blood cccgg=443, asks for something to eat. Bernie provided. Pt resting comfortably in his bed. Will monitor the pt.
[2024-03-13] MEDS: BENADRYL 25 MG PO (23:02)
[2024-03-14] VITALS (7 sets, daily range): BP systolic 131–161; BP diastolic 63–88; PULSE 70–75; BMI 25.8
[2024-03-14 07:18] LABS: Glucose - Point of Care 113 mg/dl (70-99)
--- NOTE | 2024-03-14 07:19 | CON.PUL ---
Consultation
Consultation Request
Date/Time Consultation Requested: 03/14/2024-7 AM
Date/Time Consultation Performed: 03/14/2024-8 AM
Requesting Provider: Hospitalist
Performing Provider: Dr. Jessica
Reason for Consultation: Shortness of breath and syncope
Medical History
-
Chief Complaint: Syncope, shortness of breath
History of Present Illness:
88-year-old male with a history of lung cancer status post radiation, COPD, hypertension, hyperlipidemia, diabetes, atrial fibrillation, ventricular tachycardia/ablation presented with progressive shortness of breath and syncopal episode-pulmonary
consulted for his underlying COPD/abnormal pulmonary radiographs and syncope 03/14/2024. Patient reports that he had significant shortness of breath when walking in the grocery store but was not 'panting' and he needed to sit down, upon trying to
walk again he syncopized. It did not appear as though there was an obvious pulmonary etiology to his syncope. He currently denies any shortness of breath at rest, chest pain, chest tightness, pleurisy, productive cough, mopped assist, abdominal
pain, nausea, weakness or increased lower extremity swelling.
Past Medical History
Past Medical History: None (Hypertension. Hyperlipidemia. Diabetes. BPH. CAD/stent. Atrial fibrillation. Ventricular tachycardia/ablation. Heart failure preserved EF. PAD/iliac stents. COPD. Lung cancer status post XRT. Pulmonary nodules.
Spinal stenosis. Enterococcal bacteremia.)
Past Surgical History: None (Cholecystectomy. CAD stents. Right groin stent. Eye surgery. Heart ablation.)
Social History
Tobacco: Former Smoker (Quit 32 years ago)
Alcohol: None
Drug: None
Living: With Family
Occupational Exposures: No known asbestos exposure
Environmental Exposures: No known tuberculosis exposure
Family History
Family History: Reviewed & Not Pertinent and Other (Father-CAD. Mother-aortic aneurysm. Sister-lung cancer)
Allergies / Home Medications
Allergies
Allergy/AdvReac Type Severity Reaction Status Date / Time
No Known Allergies Allergy Verified 03/13/24 14:42
Home Medications
�Medication �Instructions �Recorded �Confirmed �Last Taken �Type
cyanocobalamin (vitamin B-12) 1,000 mcg PO DAILY Supplement 08/23/18 03/13/24 03/13/24 History
1,000 mcg tablet
diphenhydramine HCl 25 mg capsule 25 mg PO HS Allergies 02/02/19 03/13/24 03/12/24 History
(Banophen)
atorvastatin 80 mg tablet 80 mg PO HS High cholesterol 03/20/20 03/13/24 03/12/24 History
empagliflozin 25 mg tablet 12.5 mg PO DAILY Diabetes 09/04/22 03/13/24 03/13/24 History
(Jardiance)
metoprolol succinate 50 mg 50 mg PO BID Blood Pressure 09/10/22 03/13/24 03/13/24 History
tablet,extended release 24 hr
finasteride 5 mg tablet 5 mg PO DAILY prostate issue 03/11/23 03/13/24 03/13/24 History
glipizide 5 mg tablet, extended 5 mg PO DAILY Diabetes 03/11/23 03/13/24 03/13/24 History
release 24 hr
apixaban 2.5 mg tablet (Eliquis) 2.5 mg PO BID #30 tabs 06/17/23 03/13/24 03/13/24 Rx
omega 9-zcf-afi-fish oil 1,000 mg 1 cap PO BID 07/24/23 03/13/24 03/13/24 History
(120 mg-180 mg) capsule (Fish Oil)
zinc acetate 50 mg (zinc) capsule 50 mg PO DAILY 07/24/23 03/13/24 03/13/24 History
cholecalciferol (vitamin D3) 50 50 mcg PO DAILY 03/13/24 03/13/24 03/13/24 History
mcg (2,000 unit) tablet
furosemide 20 mg tablet 20 mg PO DAILY 03/13/24 03/13/24 03/13/24 History
metformin 500 mg tablet,extended 500 mg PO BID 03/13/24 03/13/24 03/13/24 History
release 24 hr
Review of Systems
-
Unable to Obtain full review of systems at this time due to: Other (Per HPI)
Vitals / Labs / Diagnostic Testing
Vital Signs
Temp Pulse Resp BP Pulse Ox
97.8 F 72 18 157/81 92
03/14/24 03:46 03/14/24 03:46 03/14/24 03:46 03/14/24 03:46 03/14/24 03:46
Diagnostic Testing:
Physical Exam
-
Exam:
Well-nourished and well-developed in no apparent distress
HEENT-atraumatic, normocephalic
Neck-supple, no JVD, no bruit
Heart-regular rate and rhythm-no murmurs, rubs or gallops
Chest with diminished breath sounds, rare basilar crackles and no wheezes
Back without tenderness
Abdomen-soft, nontender, nondistended, no hepatosplenomegaly
Extremities-no cyanosis, clubbing, trace lower extremity edema
Integument-intact, no rashes, lesions or ecchymosis
Neurology-alert and oriented, nonfocal motor and sensory exam
Assessment
-
88-year-old male with a history of lung cancer status post radiation, COPD, hypertension, hyperlipidemia, diabetes, atrial fibrillation, ventricular tachycardia/ablation presented with progressive shortness of breath and syncopal episode-pulmonary
consulted for his underlying COPD/abnormal pulmonary radiographs and syncope 03/14/2024.
Recurrent syncopal episodes
Has a loop recorder-no obvious arrhythmias during these episodes
Doubt pulmonary etiology-yes has lung disease with dyspnea on exertion but not panting or in severe distress when syncope occurs
Hyperglycemia
Conditions present prior to admission:
Hypertension.
Hyperlipidemia.
Diabetes.
BPH.
CAD/stent.
Atrial fibrillation
Ventricular tachycardia status post ablation
Aortic stenosis-moderate
Chronic kidney disease-stage III
AAA
Heart failure preserved EF.
PAD/iliac stents.
COPD.
Lung cancer status post XRT.
Pulmonary nodules.
Spinal stenosis.
Left renal cyst
Enterococcal bacteremia.
Recovering alcoholic
Cholecystectomy 2008. CAD stents 2003. Right groin stent. Eye surgery 2020. Heart ablation 2022.
Plan
The patient has a long and complicated pulmonary history and is radiographs which include chest x-rays, CTs of the chest, PET scans, lung biopsies, pulmonary function tests, and cardiac workup are summarized below
He does have lung disease that causes dyspnea on exertion, ever, it is not clear to me that he exerts himself to a point where he syncopized because of underlying lung disease
Assess discharge supplemental oxygen needs-he has been assessed multiple times in the outpatient setting and has not 'qualified'
He reports noticing on his pulse oximetry that he drops up to 84%-hopefully we can qualify him for oxygen and discharge him on home oxygen
Nebulizers if needed-currently not bronchospastic
Aspiration precautions
Incentive spirometry
Cardiology evaluation
Loop recorder information reviewed-no events were recorded or detected
Repeat orthostatics-if positive trial off Lasix
Nuclear stress test 03/15/2024
Monitor blood sugar
Insulin supplementation as needed
Avoid hypoglycemia
DVT prophylaxis-on Eliquis 2.5 mg twice daily
Patient has known nodule and CT chest, PET scan are summarized below-very difficult location for biopsy-currently stable and will be watched radiographically
Patient was last seen by Dr. Jessica 11/07/2023 and Ciara Leigh NP on 02/18/2024-has appointment 03/15/2024 at 9 AM with PFT-will need to cancel as in the hospital-told to reschedule in the next 2 weeks
Diagnostic data:
Chest x-ray 02/04/19-, No pneumothorax, unchanged right upper lobe lung nodule and left lower lobe subsegmental atelectasis.���
Chest x-ray 02/20/2024-postradiation changes, no acute cardiopulmonary process����
PET scan 07/01/19-Right upper lobe nodule has initial time point. Maximum SUV value of present exam without change from previous with decrrease in maximum SUV value on delayed imaging, which would suggest biological response to radiation therapy, mild
patchy groundglass mild increased uptake in the adjacent right upper lung, no evidence for FDG avid metastases. The rest of the scan.�������
PET scan 02/10/20-Minimal/mild diffuse FDG uptake throughout the large portion of the upper lobe of the right lung corresponding to interstitial groundglass opacifications which anatomically has significantly progressed in comparison to prior PET
scan most likely representing progression of post radiation changes, no new significant focus of FDG uptake suspicious for malignancy.�������
CT chest 03/20/20-Small ill-defined known right upper lobe lung malignancy without overall significant change, coronary artery calcifications seen, no pneumothorax�������
Perfusion lung scan 03/20/20-Nonsegmental zone of decreased perfusion right upper lobe, most likely corresponding, with suspected post radiation changes�������
Lower extremity ultrasound 03/20/20-No sonographic evidence for lower extremity venous thrombosis�������
CT chest 08/30/20-Complex appearance of the right upper lobe in the area of known malignancy and previous radiation therapy, overall no significant change, no new areas of abnormalities, no new masses or adenopathy.�������
Chest x-ray 10/02/21-NAD.�������
Chest x-ray 03/13/22-Stable bandlike chronic scarring/treated neoplasm. The right upper lobe�������
Chest x-ray 08/03/22 with right upper lobe consolidation and perihilar interstitial infiltrate�������
CT of the chest 08/04/22 with right upper lobe masslike consolidation measuring 4.7 x 4.3 cm with adjacent bronchial dilation. Recommended follow-up in 4-6 weeks to demonstrate resolution. Diffuse pulmonary edema as well as small right and trace left
pleural effusions.�������
Chest x-ray 09/04/22-Band of scarring right upper lobe without change, no new focal rectum opacifications .�������
CT chest ION 07/16/23-4 x 5 x 1.5 cm nodular and bandlike area of parenchymal opacification right upper lobe significantly enlarged compared to 08/30/20-patient notified-bronchoscopic biopsy recommended-tentatively arranged for 07/28/23-will see
Jaskaran in office 07/25/23 .�������
PET scan 08/07/23-right upper lobe bandlike density without significant uptake-SUV 2.4, probable scarring, right upper lobe anterior and superior to this region near pleura increased uptake suspicious for recurrence-SUV 3.2, delayed 3.7, new left
lower lobe nodular uptake suspicious for malignancy-SUV 4.1, delayed 6.2-patient notified-Dr. Jessica, reviewed findings, increased uptake and recommended biopsy-Dr. Carrington will review PET scan and see if biopsy via bronchoscopy is possible�������
CT chest- ION -11/05/23-grossly unchanged irregular solid and cystic nodule medial left lower lobe measuring up to 12 mm, which demonstrated FDG activity. On prior PET, unchanged focal thickening of the anterior pleural surface adjacent to the right
upper lobe measuring 8.8 mm in thickness also similar compared to prior CT which also revealed increased FDG activity, unchanged masslike band of scarring/airspace disease, right upper lobe compatible with radiation fibrosis, no gross hilar
lymphadenopathy-patiient notify-repeat in 4 months-prescription sent
CT chest ION 03/08/2024-stable appearance of treated lung cancer with nodular bandlike opacifications right upper lobe unchanged, stable 1.2 cm cavitary medial left lower lobe lesion
CT cervical spine 03/13/2024-no acute fracture or dislocation
CT head 03/13/2024-no acute intracranial abnormalities
VQ scan 02/20/2024-low probability for pulmonary embolism
Spirometry 04/26/22-FEV1 3 L-114%, FVC 3.95 L-104%. Normal spirometry.�������
PFT 06/26/22-FEV1 2.92 L-111%, FVC 3.99 L-106%, TLC 91%, RV 81%, DLCO 39%. Normal spirometry, normal lung volumes and severe reduction in diffusing capacity.�������
Spirometry08/07/22- FEV1 2.56-97%,FVC 3.56 or 94%, Ratio 71�������
Spirometry 10/16/22-FEV1 2.22-84%, FVC 3.56-94%, no significant BD response. Mild obstruction.�������
PFT 04/04/23-FEV1 2.94-113%, FVC 3.95-106%, TLC 89%, RV 58%, DLCO 41%, DLCO/VA 49%. Moderate reduction in diffusing capacity.�������
Spirometry 07/25/23-FEV1 2.66-105%, FVC3.5-96%. Normal spirometry.
Echocardiogram 04/19/22-EF 60-65%, normal right ventricular size and function, PA systolic 56, increased from 34 on 09/27/20�������
Nuclear stress test 04/19/22-EF 66%, moderate risk study�����������
ECHO 08/07/22- normal left ventricular size and function. EF of 60%. Aortic valve is trileaflet with moderate sclerosis. Mild aortic valve stenosis. Tricuspid valve regurgitation. RVSP is moderately elevated at 55 mmHg. Left atrium is severely
dilated. Right atrium is moderately dilated.�������
Echocardiogram 09/05/22-EF 50-55%, mild biatrial dilation, mild mitral regurgitation, Moderate aortic stenosis,PA systolic 47
Echocardiogram 11/14/2023-�����EF 55-60%, moderate aortic stenosis, PA systolic 40, aortic stenosis has progressed from mild to moderate
Cardiac [id number]-7/21/23-symptomatic high PVC burden 47%
CT needle biopsy right upper lobe mass 02/02/19-scattered foci poorly differentiated carcinoma, PD-L1-not expressed
Data Reviewed
-
PFT: Report reviewed by me
EKG: Report reviewed by me
Radiology: Report reviewed by me
CT Scan: Image personally visualized and interpreted and Report reviewed by me
Medical Tests (Nuc Med, Echo etc): Report reviewed by me
Labs: Labs reviewed by me
Old Records: Reviewed
Total Time Spent with Patient (in minutes): 65
[2024-03-14] MEDS: ELIQUIS 2.5 MG PO ×2 (08:38→20:51)
[2024-03-14] MEDS: VITAMIN B-12 1000 MCG PO (08:39)
[2024-03-14] MEDS: GLUCOTROL XL (EXTENDED RELEASE) 5 MG PO (08:39)
[2024-03-14] MEDS: ZINC 50 MG PO (08:39)
[2024-03-14] MEDS: LASIX 20 MG PO (08:39)
[2024-03-14] MEDS: FARXIGA 10 MG PO (08:39)
[2024-03-14] MEDS: PROSCAR 5 MG PO (08:39)
[2024-03-14] MEDS: TOPROL XL 50 MG PO ×2 (08:39→20:52)
[2024-03-14] MEDS: VITAMIN D3 (cholecalciferol) 50 MCG PO (08:39)
[2024-03-14 08:42] LABS: % Basophils 0.5 % (0-2); % Eosinophils 4.3 % (0-6); % Immature Granulocytes 0.5 % (0-0.5); % Lymphocytes 18.8 % (20.5-51.1); % Monocytes 13.5 % (1.7-9.3); % Neutrophils 62.4 % (42.2-75.2); Absolute Basophils 0.1 10^3/uL (0-0.2); Absolute Eosinophils 0.4 10^3/uL (0-0.7); Absolute Immature Granulocytes 0.1 10^3/uL (0-0.05); Absolute Lymphocytes 1.9 10^3/uL (1.2-3.4); Absolute Monocytes 1.3 10^3/uL (0.1-0.6); Absolute Neutrophils 6.1 10^3/uL (1.4-6.5); Hematocrit 38.6 % (39.0-52.0); Hemoglobin 13.3 g/dL (13.0-18.0); Mean Corp Hgb Conc. 34.5 g/dL (33.0-37.0); Mean Corpuscular Hgb 30.8 pg (27.0-31.0); Mean Corpuscular Volume 89.4 fL (80.0-94.0); Mean Platelet Volume 10.6 fL (7.4-10.4); Nucleated Red Blood Cells % 0 % (-); Platelet Count 173 10^3/uL (130-400); Red Blood Cell Count 4.32 10^6/uL (4.70-6.10); Red Cell Dist. Width 13.7 % (11.5-14.5); White Blood Cell Count 9.8 10^3/uL (4.8-10.8)
[2024-03-14 09:18] LABS: ALT (SGPT) 20 U/L (0-50); AST (SGOT) 31 U/L (17-59); Albumin 3.8 g/dl (3.5-5.0); Alkaline Phosphatase 81 U/L (38-126); Blood Urea Nitrogen 25 mg/dl (9-20); Calcium 9.2 mg/dl (8.4-10.2); Carbon Dioxide 20 mmol/L (22-30); Chloride 102 mmol/L (98-107); Estimated Creatinine Clearance 37 ml/min; Glucose 173 mg/dl (70-99); Sodium 136 mmol/L (135-145); Total Bilirubin 1.1 mg/dl (0.2-1.3); Total Protein 6.6 g/dl (6.3-8.2); eGFR 45.06
--- NOTE | 2024-03-14 09:39 | CON.CAR ---
Consultation
Consultation Request
Date/Time Consultation Requested: 03/14/24, 8am
Date/Time Consultation Performed: 03/14/24, 845am
Requesting Provider: Miguelito
Performing Provider: Bari
Reason for Consultation: syncope
Medical History
-
Chief Complaint: syncope
History of Present Illness:
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
He was shopping at the grocery store. [place] dizzy and SOB. No chest pain. Sat down; felt a little better; then stood up and passed out.
He does have an ILR/LINQ in place: no events were detected.
Past Medical History
Past Medical History: Arrhythmias (PVC's, paroxysmal A fib), CHF (chronic HFPEF), COPD, HTN, Hypercholesterolemia, NIDDM, Renal Failure (CKD3b) and Valvular Disease (mild/moderate )
Past Surgical History: Cardiac (ILR implant, iliac stenting) and Other (gallbladder resection)
Social History
Tobacco: Former Smoker
Family History
Family History: Other (aortic aneurysm in mother)
Allergies / Home Medications
Allergy/AdvReac Type Severity Reaction Status Date / Time
No Known Allergies Allergy Verified 03/13/24 14:42
�Medication �Instructions �Recorded �Confirmed �Type
cyanocobalamin (vitamin B-12) 1,000 mcg PO DAILY Supplement 08/23/18 03/13/24 History
1,000 mcg tablet
diphenhydramine HCl 25 mg capsule 25 mg PO HS Allergies 02/02/19 03/13/24 History
(Banophen)
atorvastatin 80 mg tablet 80 mg PO HS High cholesterol 03/20/20 03/13/24 History
empagliflozin 25 mg tablet 12.5 mg PO DAILY Diabetes 09/04/22 03/13/24 History
(Jardiance)
metoprolol succinate 50 mg 50 mg PO BID Blood Pressure 09/10/22 03/13/24 History
tablet,extended release 24 hr
finasteride 5 mg tablet 5 mg PO DAILY prostate issue 03/11/23 03/13/24 History
glipizide 5 mg tablet, extended 5 mg PO DAILY Diabetes 03/11/23 03/13/24 History
release 24 hr
apixaban 2.5 mg tablet (Eliquis) 2.5 mg PO BID #30 tabs 06/17/23 03/13/24 Rx
omega 7-kki-bvz-fish oil 1,000 mg 1 cap PO BID 07/24/23 03/13/24 History
(120 mg-180 mg) capsule (Fish Oil)
zinc acetate 50 mg (zinc) capsule 50 mg PO DAILY 07/24/23 03/13/24 History
cholecalciferol (vitamin D3) 50 50 mcg PO DAILY 03/13/24 03/13/24 History
mcg (2,000 unit) tablet
furosemide 20 mg tablet 20 mg PO DAILY 03/13/24 03/13/24 History
metformin 500 mg tablet,extended 500 mg PO BID 03/13/24 03/13/24 History
release 24 hr
Review of Systems
-
History Source: Patient
Constitutional: Fatigue
Respiratory: Trouble Breathing
Cardiac: Syncope
Neurological: Dizzy and Weakness
Physical Exam
Vital Signs
Temp Pulse Resp BP Pulse Ox
97.5 F 76 20 160/85 95
03/14/24 08:35 03/14/24 08:35 03/14/24 08:35 03/14/24 08:35 03/14/24 08:35
Lab Results
03/14/24 08:01
03/14/24 08:01
Physical Exam
General: Well Developed and Well Nourished
HEENT: Normocephalic
Respiratory: Clear and Non Labored Respirations
Cardiac: S1/S2 (normal), Regular Rhythm, Murmur (II/ systolic at RUSB), Peripheral Edema (none) and JVD (none)
Musculoskeletal: No Clubbing, No Cyanosis and No Edema
Skin: Warm and Dry
Neuro: AO x 3
Psych: Calm
Impression / Plan
-
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
He was shopping at the grocery store. [place] dizzy and SOB. No chest pain. Sat down; felt a little better; then stood up and passed out. He does have an ILR/LINQ in place: no events were detected.
# Syncope
-recurrent
-no events on ILR
-may be due to orthostatic hypotension
-HTN at baseline with drop from SBP 173 to 148 on admit; but did not report sxs at the time
-repeat orthostatics today
-if remain positive, can do trial off of lasix
-echo 10/2023: EF 55-60%, mild/moderate (33/17, 1.3)
-given exertional component and known CAD, will arrange for nuclear stress tomorrow
# CAD s/p stenting over 15 yrs ago
-stress testing as above
-not on ASA since on eliquis for A fib
-cont statin
# Left carotid stenosis
-greater than 70%, but right is under 50%, and antegrade flow noted in vertebrals; so not thought to be etiology of syncope
-managed by vascular
#Paroxysmal A fib. NSR on tele. Continue Toprol XL 50mg bid. CHADS2-VASC = 6. Eliquis 2.5 mg bid (age, Cr).
#s/p PVC ablation. Stable. Continue Toprol XL 50mg bid.
#Chronic HFPEF. With mild/moderate and mild/mod TR. Continue lasix 20mg daily and SGLT2i (also with DM and CKD3b).
#CAD: stable without angina. Not on ASA since on eliquis for A fib. Continue atorvastatin 80mg for lipid management.
#AAA. Small infrarenal 3.5 cm. Chronic
#PAD stable. Continue statin. Not on ASA since on eliquis for A fib.
# 1st degree AVB, RBBB: chronic
Data Reviewed
-
EKG: Tracing Personally Visualized and interpreted (SR, 1st degree AVB, RBBB)
Medical Tests (Nuc Med, Echo etc): Report Reviewed by me (echo 10/2023: EF 55-60%, mild/moderate (33/17, 1.3))
Labs: Labs Reviewed by me
Old Records: Reviewed
[2024-03-14 11:02] LABS: Troponin I 0.036 ng/ml
[2024-03-14 12:00] LABS: Glucose - Point of Care 118 mg/dl (70-99)
[2024-03-14 12:59] LABS: Glycohemoglobin (HgbA1c) 6.2 % (4.0-5.6)
--- NOTE | 2024-03-14 15:08 | W.PN.UPDATE ---
Update Note
Progress Note Update
Seen and examined by me independently in collaboration with the medical health researcher.
Lab data and imaging data reviewed.
Addendum as below :
Patient presented with syncope
He has a history of prior recurrent syncope has a Linq in place ; disease status post ablation 2022. History of paroxysmal atrial fibrillation on Eliquis. Also has CAD s/p prior stenting.
At this time he was in his usual state of health. Went out grocery shopping. After third round in the [place] he felt a little woozy lightheaded. He checked out his groceries and they went onset and a large ended sort of passed. He stood up again
and then he immediately felt lightheaded passed out onto the floor he thinks less than a minute. He was immediately aware about his surroundings.
His orthostatics are positive here on further questioning he does admit to having lightheadedness wooziness sometimes when he gets up first thing in the morning from the bed and as noted at other x 2. But never given a diagnosis of orthostatic
hypotension.
No palpitations. No rapid A-fib here. He seems to be in sinus rhythm.
Syncope possibly related orthostatic hypotension related or cardiac. Doubt any acute pulmonary issues ongoing. Not hypoxic. No active bronchospasms. No prodrome of respiratory symptoms. No extra renal losses. Complete cardiac workup. Put on
sequential teds. Check TSH and cortisol. If all turns negative will consider midodrine. Little worried about supine hypertension at this time to start midodrine. Will follow the blood pressures closely.
--- NOTE | 2024-03-14 15:37 | W.PN.HOSP.TC ---
Today's Communication/Plan
-
f/u telemetry
f/u orthostatic vitals
Assessment / Plan
Assessment / Plan
Syncope
Cardiac vs orthostatic vs endocrine:
- Keep checking supine blood pressure and observe before administering midodrine
- ordered sequential TEDS (03/14)
- Ordered TSH and cortisol (03/14)
- Orthostatic vitals are positive (03/14)
- Has a history of prior recurrent syncope
- Has a history of Afib on Eliquis, no rapid afib on telemetry, seems to be in sinus rhythm.
Hypertension:
- Todays blood pressure is 143/70
- Currently on metoprolol succinate 50 mg
- Trend the blood pressure closely over next couple of days
PMH:
Hypertension.
Hyperlipidemia.
Diabetes.
BPH.
CAD/stent.
trial fibrillation. V
entricular tachycardia/ablation.
Heart failure preserved EF.
PAD/iliac stents.
COPD.
Lung cancer status post XRT.
Pulmonary nodules.
Spinal stenosis.
Enterococcal bacteremia.)
Anticipated Discharge: 24 - 48 hours
Subjective/Interval History
-
Date of Service: March 14, 2024
Went grocery shopping when he started feeling lightheaded, sat down, stood back up and immediately felt lightheaded then followed an episode of syncope.
Objective Data
-
Labs:
Laboratory Results
03/14/24
08:01
WBC 9.8
Hgb 13.3
Hct 38.6 L
Plt Count 173
Sodium 136
Potassium 4.0
Chloride 102
Carbon Dioxide 20 L
BUN 25 H
Creatinine 1.5 H
Glucose 173 H
Calcium 9.2
Total Bilirubin 1.1
AST 31
ALT 20
Alkaline Phosphatase 81
Vital Signs:
Vital Signs
Temp Pulse Resp BP Pulse Ox
98.2 F 69 16 143/70 93
03/14/24 11:50 03/14/24 11:50 03/14/24 11:50 03/14/24 11:50 03/14/24 11:50
I&O
03/13/24 03/14/24 03/15/24
06:59 06:59 06:59
Intake Total 480 / 480
Output Total 600 / 600
Balance -120 / -120
Review of Systems
-
History Source: Patient
Constitutional: Reports Fatigue
Cardiac: Reports Syncope
Neuro: Reports Dizzy and Weakness
Physical Exam
-
General: Well Developed and Well Nourished
HEENT: Normocephalic
Respiratory: Clear to Auscultation
Cardiac: Regular Rhythm, S1/S2 and Murmur (systolic at the aortic area )
Musculoskeletal: No Clubbing, No Cyanosis and No Edema
Skin: Warm and Dry
Neuro: Awake, Alert, Oriented and AO x 3
Psych: Calm
Data Reviewed
-
Labs: Labs Reviewed by me and Discussed with Physician
--- NOTE | 2024-03-14 15:43 | CM ---
Patient seen at bedside. Patient stated that he lives with his daughter and grandson. Patient stated it is a town home and he stays on the first floor. Patient has a cleaning lady and a cane. Patient PCP is dr. Curtis and [facility] [place]. Patient states he qualified for home O2, however, unable to locate documentation. Nursing to look as well patient does not have any preference for provider. CM will send referral for home health O2 as soon
as documentation obtained. Patient wants a [employer] as he is to go on a trip with [place] friends in March. CM will continue to follow for discharge planning needs.
Plan; home with VN and watch for O2 documentation
[2024-03-14 17:13] LABS: Glucose - Point of Care 130 mg/dl (70-99)
[2024-03-14] MEDS: GLUCOPHAGE XR EXTENDED RELEASE 500 MG PO (20:52)
[2024-03-14] MEDS: LIPITOR 80 MG PO (21:01)
[2024-03-14] MEDS: BENADRYL 25 MG PO (21:07)
[2024-03-14 21:18] LABS: Glucose - Point of Care 122 mg/dl (70-99)
[2024-03-15 02:47] VITALS: BP 130/71
[2024-03-15 06:00] VITALS: BMI 25.5
--- NOTE | 2024-03-15 07:22 | W.PN.HOSP.TC ---
Addendum entered and electronically signed by Winsome Dudley MD 03/15/24 17:40:
I saw and evaluated the patient independently. I reviewed the resident�s note and agree with findings and plan as documented by Dr. Marcos.
GENERAL: well developed, well nourished, male in no apparent distress
HEENT: NC/AT
HEART: regular rate and rhythm, +S1, +S2
LUNGS : clear to auscultation bilaterally
ABDOM: soft, nontender, nondistended, + bowel sounds
EXT: no cyanosis, clubbing, or edema
NEUROLOGIC: grossly intact
Syncope--likely due to vasovagal/orthostatic hypotension--spoke with pt that stress test negative and pt should wear compression stockings, slow changes with position and not push himself--TSH and cortisol are negative--has known left carotid
stenosis but not thought to be causing symptoms
Paroxysmal atrial fibrillation and V. tach--s/p ablation in past--cont on Eliquis, no rapid afib on telemetry, seems to be in sinus rhythm
Essential Hypertension--cont on metoprolol succinate 50 mg--lasix stopped and changed to as needed
acute hypoxemic resp failure--pt meets criteria for oxygen with exertion due to room air pulse ox down to 87%--follow up with pulm as outpt--getting O2 for d/c home at this time
HLD--cont statin
Type 2 Diabetes mellitus--cont jardiance, glipizide, metformin
BPH-- cont finasteride
CAD/stent--stress test neg for ischemia
Heart failure preserved EF-- no exacerbation
code status -- DNR
OK for d/c
Original Note:
Today's Communication/Plan
-
Hold lasix, nuclear stress test resulted negative, home oxygen use was recommended to the patient.
Assessment / Plan
Assessment / Plan
Assessment and Plan
Impression: 88 yo old male who presented to ER complaining from unexplained syncope. He was admitted to the hospital due these recurrent episodes and had further studies. The patient diagnosed with Orthostatic hypotension and chronic hypoxemia.
Assessment:
Syncope
CAD with stent
Atrial fibrillation. Ventricular tachycardia post ablation.
Heart Failure preserved EF
PAD/iliac stents
COPD
Hypoxemia
Lung cancer status post XRT.
Pulmonary nodules.
Hypertension
Hyperlipidemia
Diabetes
BPH
Spinal stenosis
Plan:
Syncope: (Cardiac vs orthostatic vs endocrine)
-Regarding Endocrine issues:TSH and cortisol levels are in normal limits
-Regarding cardiac assessment:
Paroxysmal AF and Ventricular tachycardia post ablation: no events on ILR, on Eliquis, Continue Toprol XL 50mg bid.
CAD with stent: nuclear stress test shows no evidence of ischemia on 03/15, continue statin
Heart failure preserved EF: echo 10/2023: EF 55-60%, mild/moderate (33/17, 1.3)
Orthostatic hypotension: HTN at baseline with drop from SBP 173 to 148 on admit; but did not report symptoms at the time, hold lasix
DM:Continue SGLT2i ( Jardiance 12.5 mg), glipizide 5 mg, metformin 500 mg BID
Hypoxemia:Patient is in need of oxygen on exertion due to pulse oximetry of 95% on room air at rest; 87% on room air with exertion.
Patient was placed on 2L O2 via nasal cannula with saturation of 95%. Oxygen will help to improve hypoxemia.
Patient is mobile within the home. Albuterol therapy has been discussed and is ineffective in treating hypoxemia-related symptoms.
Oxygen will improve the patient's symptoms.
DVT Prophylaxis: TEDS
BPH:Finasteride 5mg
HL:Atorvastatin 80 mg
Anticipated Discharge: Today
Subjective/Interval History
-
Date of Service: March 15, 2024
The patient has tress test today and results come back negative.
Objective Data
-
Vital Signs:
Vital Signs
Temp Pulse Resp BP Pulse Ox
98.2 F 65 18 130/71 96
03/15/24 02:47 03/15/24 02:47 03/15/24 02:47 03/15/24 02:47 03/15/24 02:47
I&O
03/14/24 03/15/24 03/16/24
06:59 06:59 06:59
Intake Total 480 / 480 480 / 480
Output Total 600 / 600 2825 / 2825
Balance -120 / -120 -2345 / -2345
Review of Systems
-
Respiratory: Reports No Symptoms
Cardiac: Reports No Symptoms
Abdomen/GI: Reports No Symptoms
Neuro: Reports No Symptoms
Physical Exam
-
HEENT: Normocephalic and Atraumatic
Respiratory: Clear to Auscultation
Cardiac: Regular Rhythm
GI: Soft and Nontender
Skin: Warm and Dry
Neuro: Awake, Alert, Oriented and AO x 3
--- NOTE | 2024-03-15 09:28 | W.PN.PUL3 ---
Today's Communication / Plan
-
O2 eval showing need for home O2 use with exertion, CM to set up
Stress testing results pending, cards management for meds, likely vasovagal
Further w/u as OP can be done, reviewed with patient and son
Discharge planning per team
Outpatient FU with Dr Jessica to be rescheduled
Assessment
-
88-year-old male with a history of lung cancer status post radiation, COPD, hypertension, hyperlipidemia, diabetes, atrial fibrillation, ventricular tachycardia/ablation presented with progressive shortness of breath and syncopal episode-pulmonary
consulted for his underlying COPD/abnormal pulmonary radiographs and syncope 03/14/2024.
Recurrent syncopal episodes
Has a loop recorder-no obvious arrhythmias during these episodes
Doubt pulmonary etiology-yes has lung disease with dyspnea on exertion but not panting or in severe distress when syncope occurs
Hyperglycemia
Conditions present prior to admission:
Hypertension.
Hyperlipidemia.
Diabetes.
BPH.
CAD/stent.
Atrial fibrillation
Ventricular tachycardia status post ablation
Aortic stenosis-moderate
Chronic kidney disease-stage III
AAA
Heart failure preserved EF.
PAD/iliac stents.
COPD.
Lung cancer status post XRT.
Pulmonary nodules.
Spinal stenosis.
Left renal cyst
Enterococcal bacteremia.
Recovering alcoholic
Cholecystectomy 2008. CAD stents 2003. Right groin stent. Eye surgery 2020. Heart ablation 2022.
Plan
The patient has a long and complicated pulmonary history and is radiographs which include chest x-rays, CTs of the chest, PET scans, lung biopsies, pulmonary function tests, and cardiac workup are summarized below
He does have lung disease that causes dyspnea on exertion, ever, it is not clear to me that he exerts himself to a point where he syncopized because of underlying lung disease
We had a long discussion regarding cause, with son present
Overexertion and vasovagal syncope seems most likely, but can seek neurologic eval as OP as well for completeness
Assess discharge supplemental oxygen needs-he has been assessed multiple times in the outpatient setting and has not 'qualified'
He reports noticing on his pulse oximetry that he drops up to 84%
Home O2 eval reviewed: 94% on RA, 87% alessandro noted, 2L needed to maintain sat >90%
Can set up O2 at home, family requested POC
CM to set up
Nebulizers if needed-currently not bronchospastic
Aspiration precautions
Incentive spirometry
Cardiology evaluation
Loop recorder information reviewed-no events were recorded or detected
Repeat orthostatics-if positive trial off Lasix
Nuclear stress test 03/15/2024, results pending
Monitor blood sugar
Insulin supplementation as needed
Avoid hypoglycemia
DVT prophylaxis-on Eliquis 2.5 mg twice daily
Patient has known nodule and CT chest, PET scan are summarized below-very difficult location for biopsy-currently stable and will be watched radiographically
Patient was last seen by Dr. Jessica 11/07/2023 and Ciara Leigh NP on 02/18/2024-has appointment 03/15/2024 at 9 AM with PFT-will need to cancel as in the hospital-told to reschedule in the next 2 weeks
Diagnostic data:
Chest x-ray 02/04/19-, No pneumothorax, unchanged right upper lobe lung nodule and left lower lobe subsegmental atelectasis.���
Chest x-ray 02/20/2024-postradiation changes, no acute cardiopulmonary process����
PET scan 07/01/19-Right upper lobe nodule has initial time point. Maximum SUV value of present exam without change from previous with decrrease in maximum SUV value on delayed imaging, which would suggest biological response to radiation therapy, mild
patchy groundglass mild increased uptake in the adjacent right upper lung, no evidence for FDG avid metastases. The rest of the scan.�������
PET scan 02/10/20-Minimal/mild diffuse FDG uptake throughout the large portion of the upper lobe of the right lung corresponding to interstitial groundglass opacifications which anatomically has significantly progressed in comparison to prior PET
scan most likely representing progression of post radiation changes, no new significant focus of FDG uptake suspicious for malignancy.�������
CT chest 03/20/20-Small ill-defined known right upper lobe lung malignancy without overall significant change, coronary artery calcifications seen, no pneumothorax�������
Perfusion lung scan 03/20/20-Nonsegmental zone of decreased perfusion right upper lobe, most likely corresponding, with suspected post radiation changes�������
Lower extremity ultrasound 03/20/20-No sonographic evidence for lower extremity venous thrombosis�������
CT chest 08/30/20-Complex appearance of the right upper lobe in the area of known malignancy and previous radiation therapy, overall no significant change, no new areas of abnormalities, no new masses or adenopathy.�������
Chest x-ray 10/02/21-NAD.�������
Chest x-ray 03/13/22-Stable bandlike chronic scarring/treated neoplasm. The right upper lobe�������
Chest x-ray 08/03/22 with right upper lobe consolidation and perihilar interstitial infiltrate�������
CT of the chest 08/04/22 with right upper lobe masslike consolidation measuring 4.7 x 4.3 cm with adjacent bronchial dilation. Recommended follow-up in 4-6 weeks to demonstrate resolution. Diffuse pulmonary edema as well as small right and trace left
pleural effusions.�������
Chest x-ray 09/04/22-Band of scarring right upper lobe without change, no new focal rectum opacifications .�������
CT chest ION 07/16/23-4 x 5 x 1.5 cm nodular and bandlike area of parenchymal opacification right upper lobe significantly enlarged compared to 08/30/20-patient notified-bronchoscopic biopsy recommended-tentatively arranged for 07/28/23-will see
Jaskaran in office 07/25/23 .�������
PET scan 08/07/23-right upper lobe bandlike density without significant uptake-SUV 2.4, probable scarring, right upper lobe anterior and superior to this region near pleura increased uptake suspicious for recurrence-SUV 3.2, delayed 3.7, new left
lower lobe nodular uptake suspicious for malignancy-SUV 4.1, delayed 6.2-patient notified-Dr. Jessica, reviewed findings, increased uptake and recommended biopsy-Dr. Carrington will review PET scan and see if biopsy via bronchoscopy is possible�������
CT chest- ION -11/05/23-grossly unchanged irregular solid and cystic nodule medial left lower lobe measuring up to 12 mm, which demonstrated FDG activity. On prior PET, unchanged focal thickening of the anterior pleural surface adjacent to the right
upper lobe measuring 8.8 mm in thickness also similar compared to prior CT which also revealed increased FDG activity, unchanged masslike band of scarring/airspace disease, right upper lobe compatible with radiation fibrosis, no gross hilar
lymphadenopathy-patiient notify-repeat in 4 months-prescription sent
CT chest ION 03/08/2024-stable appearance of treated lung cancer with nodular bandlike opacifications right upper lobe unchanged, stable 1.2 cm cavitary medial left lower lobe lesion
CT cervical spine 03/13/2024-no acute fracture or dislocation
CT head 03/13/2024-no acute intracranial abnormalities
VQ scan 02/20/2024-low probability for pulmonary embolism
Spirometry 04/26/22-FEV1 3 L-114%, FVC 3.95 L-104%. Normal spirometry.�������
PFT 06/26/22-FEV1 2.92 L-111%, FVC 3.99 L-106%, TLC 91%, RV 81%, DLCO 39%. Normal spirometry, normal lung volumes and severe reduction in diffusing capacity.�������
Spirometry08/07/22- FEV1 2.56-97%,FVC 3.56 or 94%, Ratio 71�������
Spirometry 10/16/22-FEV1 2.22-84%, FVC 3.56-94%, no significant BD response. Mild obstruction.�������
PFT 04/04/23-FEV1 2.94-113%, FVC 3.95-106%, TLC 89%, RV 58%, DLCO 41%, DLCO/VA 49%. Moderate reduction in diffusing capacity.�������
Spirometry 07/25/23-FEV1 2.66-105%, FVC3.5-96%. Normal spirometry.
Echocardiogram 04/19/22-EF 60-65%, normal right ventricular size and function, PA systolic 56, increased from 34 on 09/27/20�������
Nuclear stress test 04/19/22-EF 66%, moderate risk study�����������
ECHO 08/07/22- normal left ventricular size and function. EF of 60%. Aortic valve is trileaflet with moderate sclerosis. Mild aortic valve stenosis. Tricuspid valve regurgitation. RVSP is moderately elevated at 55 mmHg. Left atrium is severely
dilated. Right atrium is moderately dilated.�������
Echocardiogram 09/05/22-EF 50-55%, mild biatrial dilation, mild mitral regurgitation, Moderate aortic stenosis,PA systolic 47
Echocardiogram 11/14/2023-�����EF 55-60%, moderate aortic stenosis, PA systolic 40, aortic stenosis has progressed from mild to moderate
Cardiac htlzkcprehefyuj-hzxatzlw-5/21/23-symptomatic high PVC burden 47%
CT needle biopsy right upper lobe mass 02/02/19-scattered foci poorly differentiated carcinoma, PD-L1-not expressed
Subjective Data
-
Date of Service:
Date of Service: March 15, 2024
Chief Complaint: Pulmonary Follow Up
Subjective:
No acute events ON, remains stable on RA at rest, ambulatory testing showed need for O2 with exertion
Otherwise, no new complaints
Son at bedside
Objective Data
Data Reviewed
Vital Signs / I&O / Oxygen:
Vital Signs
Temp Pulse Resp BP Pulse Ox
98.2 F 65 18 130/71 96
03/15/24 02:47 03/15/24 02:47 03/15/24 02:47 03/15/24 02:47 03/15/24 02:47
Intake and Output
03/14/24 03/15/24 03/16/24
06:59 06:59 06:59
Intake Total 480 / 480 480 / 480
Output Total 600 / 600 2825 / 2825
Balance -120 / -120 -2345 / -2345
SaO2 96
Nasal Cannula flow liters per 2
minute
Physical Exam
General: Comfortable and Other (NAD)
HEENT: Normocephalic, Anicteric and Moist Mucous Membranes
Cardiovascular: S1-S2 and Regular Rhythm
Respiratory: Clear and Non-Labored Respirations
GI: Soft, Non Distended and Non Tender
Neurology: Awake, Alert, Oriented, AO x 3 and No Motor Deficits
Skin: Warm, Dry and Good Color
Labs/Micro/Reports
Lab Data
03/14/24 08:01
03/14/24 08:01
--- NOTE | 2024-03-15 09:58 | W.PN.CD ---
Today's Communication / Plan
-
hold lasix
nuclear stress test
Impression / Plan
-
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
He was shopping at the grocery store. Strawberry dizzy and SOB. No chest pain. Sat down; felt a little better; then stood up and passed out. He does have an ILR/LINQ in place: no events were detected.
# Syncope
-recurrent
-no events on ILR
-echo 10/2023: EF 55-60%, mild/moderate (33/17, 1.3)
-may be due to orthostatic hypotension
-HTN at baseline with drop from SBP 173 to 148 on admit; but did not report sxs at the time
-hold lasix
-echo 10/2023: EF 55-60%, mild/moderate (33/17, 1.3)
-given exertional component and known CAD, will arrange for nuclear stress tomorrow
# CAD s/p stenting over 15 yrs ago
-stress testing as above
-not on ASA since on eliquis for A fib
-cont statin
# Left carotid stenosis
-greater than 70%, but right is under 50%, and antegrade flow noted in vertebrals; so not thought to be etiology of syncope
-managed by vascular
#Paroxysmal A fib. NSR on tele. Continue Toprol XL 50mg bid. CHADS2-VASC = 6. Eliquis 2.5 mg bid (age, Cr).
#s/p PVC ablation. Stable. Continue Toprol XL 50mg bid.
#Chronic HFPEF. With mild/moderate and mild/mod TR. Hold lasix; continue SGLT2i (also with DM and CKD3b).
#CAD: stable without angina. Not on ASA since on eliquis for A fib. Continue atorvastatin 80mg for lipid management.
#AAA. Small infrarenal 3.5 cm. Chronic
#PAD stable. Continue statin. Not on ASA since on eliquis for A fib.
# 1st degree AVB, RBBB: chronic
Physical Exam
Vital Signs/Labs
Vital Signs
Temp Pulse Resp BP Pulse Ox
98.2 F 65 18 130/71 96
03/15/24 02:47 03/15/24 02:47 03/15/24 02:47 03/15/24 02:47 03/15/24 02:47
03/14/24 03/15/24 03/16/24
06:59 06:59 06:59
Actual Weight 81.42 kg 80.558 kg
03/14/24 08:01
03/14/24 08:01
LAB Results
03/14/24
09:41
Troponin I 0.036 H*
Physical Exam
Constitutional: No acute distress and Comfortable
EENT: Moist mucous membranes
Cardiovascular: Rhythm & rate is regular, Pedal edema is absent, JVD pressure is normal and Systolic murmur present
Respiratory: Respiratory effort normal and Lungs clear to auscul.
Neuro/Psych: AO x 3
Data Reviewed
-
Date of Service: March 15, 2024
EKG: Other (Tele: SR 70s)
[2024-03-15] MEDS: LEXISCAN 0.4 MG IV (10:26)
[2024-03-15] MEDS: ZINC 50 MG PO (12:01)
[2024-03-15] MEDS: TOPROL XL 50 MG PO (12:02)
[2024-03-15] MEDS: GLUCOTROL XL (EXTENDED RELEASE) 5 MG PO (12:02)
[2024-03-15] MEDS: VITAMIN B-12 1000 MCG PO (12:02)
[2024-03-15] MEDS: PROSCAR 5 MG PO (12:02)
[2024-03-15] MEDS: VITAMIN D3 (cholecalciferol) 50 MCG PO (12:02)
[2024-03-15] MEDS: GLUCOPHAGE XR EXTENDED RELEASE 500 MG PO (12:02)
[2024-03-15] MEDS: ELIQUIS 2.5 MG PO (12:02)
[2024-03-15] MEDS: FARXIGA 10 MG PO (12:03)
--- NOTE | 2024-03-15 12:27 | W.PN.UPDATE ---
Update Note
Progress Note Update
nuclear stress test shows no evidence of ischemia. full report to follow.
--- NOTE | 2024-03-15 12:30 | CM ---
Addendum entered by Gemini Krishnamurthy 03/15/24 16:23:
Per [facility] oxygen delivered.
Plan: home with [facility]
IMM completed.
Addendum entered by Gemini Krishnamurthy 03/15/24 13:47:
Patient had [facility] in the past and [facility] prior to that. He would prefer [facility]. referral via [facility].
Addendum entered by Gemini Krishnamurthy 03/15/24 13:41:
Unable to get in touch with [facility].
Referral sent to [facility].
Patient would like referral for VN.
Original Note:
Patient seen bedside.
Spoke with daughter Areli, she wants a portable concentrator for her dad. CM explained, the portable would need to be done outpatient, however she again said she wants it done prior to discharge.
TC to [facility], [facility] [employer], and [facility] [employer], they do not accept his insurance.
TC to [facility] portable concentrators out of stock for approx 6 months.
Referral to be faxed to [facility], await physician documentation.
Plan: home with oxygen and VN.
[2024-03-15 13:01] VITALS: BP 140/81
[2024-03-15 13:01] LABS: TSH 2.66 uIU/ml (0.47-4.68)
[2024-03-15 13:22] LABS: Glucose - Point of Care 160 mg/dl (70-99)
--- NOTE | 2024-03-15 14:20 | VNURNOTE ---
Home Health Liaison met with patient and Tayler at 1600 to discuss [facility] nurse/therapy, visits, schedule and homebound status. Patient is agreeable and understands that visits at home will be 2-3 x per week to assess and teach medical
management. Patient being set up w/[facility]. [facility] brochure provided with contact information. Patient is aware that [facility] will contact them for start of care in 1-2 days after discharge from . [facility] referral completed in [facility]
Port.
[2024-03-15 15:14] LABS: Cortisol, Random 11.7 ug/dl
--- NOTE | 2024-03-15 15:57 | W.DCSUMMARY ---
Addendum entered and electronically signed by Winsome Dudley MD 03/15/24 18:27:
Read, reviewed, and agree. See same day progress note for additional details. Time spent coordinating care, DC planning, review of DC plan of care with resident, transition of care, review of records in EMR, med rec, consults, notes, d/w
consultants, nursing, family, and CM = 45 minutes.
Principal Discharge diagnosis : Syncope, acute hypoxemic respiratory failure
Chronic Discharge diagnosis : Paroxysmal atrial fibrillation and history of ventricular tachycardia status post ablation in past, essential hypertension, hyperlipidemia, type 2 diabetes mellitus, benign prostatic hyperplasia, coronary artery disease
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
Hospital Course : Patient was an 88-year-old male with the above medical issues who presented with recurrent shortness of breath and lightheadedness with exertion. While exerting himself he had a syncopal episode and passed out. He denied any neck
or head pain. He stated he has had a history of multiple syncopal episodes. He has had ventricular tachycardia in the past with premature ventricular complexes and had an ablation last year. In December of this year, he had a loop recorder to
evaluate for further arrhythmias. Apparently, there were no arrhythmias noted which would cause his symptoms. Patient was admitted.
Problem #1: Syncope. Multiple etiologies were considered. Patient did not have any signs of a stroke, with normal imaging studies on admission. Patient did drop his blood pressure and became orthostatic. For completeness, stress test was
obtained through cardiology. This showed no ischemic issues. Based on this finding, cardiology has decided to hold his Lasix to be given only as needed. No other medications were changed. I also spoke to the patient regarding not to change
positions quickly but to stay in a seated position and/or standing position prior to getting up and moving. We also discussed the possibility of using compression stockings to help. He has known left carotid stenosis and is followed by vascular;
but this was thought not to be causing his symptoms. 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
preserved ejection fraction.
Problem #2: Acute hypoxemic respiratory failure. Patient has a history of lung cancer status post radiation therapy and was assessed for home oxygen needs. He was also seen in consultation by pulmonary. His assessment for oxygen indicated that he
does qualify for oxygen with exertion as his room air pulse ox was 87% with exertion. Case management was consulted to assist with obtaining home oxygen at discharge. Patient and his family have been instructed regarding [employer] versus regular
oxygen tanks. He can follow-up with pulmonology as an outpatient to consider trying to obtain the imaging through insurance.
Problem #3: All other medical issues. These include Paroxysmal atrial fibrillation and history of ventricular tachycardia status post ablation in past, essential hypertension, hyperlipidemia, type 2 diabetes mellitus, benign prostatic hyperplasia,
coronary artery disease status post stent placement in the past, chronic congestive heart failure with preserved ejection fraction without exacerbation. These medical issues were stable during his hospitalization. Medications were continued as
able.
Patient is stable for discharge home at this time with oxygen. If there are any questions regarding this dictation or his hospital stay, please not hesitate to call. Our office number is [phone].
Time for discharge 45 minutes.
Important imaging findings :
HEAD CT IMPRESSION: No acute intracranial abnormality.
CERVICAL SPINE CT SCAN IMPRESSION:
1. No acute fracture or dislocation.
2. 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
Original Note:
Discharge Summary
Discharge Data
Date of Admission: 03/13/24
Date of Discharge: 03/15/24
-
Pending Results: No
Hospital Course
The patient is a 88-year-old male with a history of lung cancer status post radiation, COPD, hypertension, hyperlipidemia, diabetes, atrial fibrillation, ventricular tachycardia/ablation presented with progressive shortness of breath and syncopal
episode. He had a head CT in ER and it showed:No acute intracranial abnormality. The patient was admitted for further studies. Cardiology and pulmonology assessed the patient. Cardiology did a stress test today and the results come back negative,
likely vasovagal syncope was considered and Lasix decided to be stopped. He has been carrying a loop recorder-no obvious arrhythmias were sen during these syncope episodes. Additionally a neurologic evaluation was recommended for the patient as
OP as well for completeness. Pulmonology did assess the patient and recommended supplemental oxygen with POC and use Incentive spirometry.
Problem list:
Syncope: (Cardiac vs orthostatic vs endocrine)
-Regarding Endocrine issues:TSH and cortisol levels are in normal limits
-Regarding cardiac assessment:
Paroxysmal AF and Ventricular tachycardia post ablation: no events on ILR, on Eliquis, Continue Toprol XL 50mg bid.no rapid afib on telemetry, seems to be in sinus rhythm
CAD with stent: nuclear stress test shows no evidence of ischemia on 03/15, continue statin
Heart failure preserved EF: echo 10/2023: EF 55-60%, mild/moderate (33/17, 1.3)
Orthostatic hypotension: HTN at baseline with drop from SBP 173 to 148 on admit; but did not report symptoms at the time, hold lasix
Essential Hypertension--cont on metoprolol succinate 50 mg--lasix stopped and changed to as needed
DM:Continue SGLT2i ( Jardiance 12.5 mg), glipizide 5 mg, metformin 500 mg BID
Hypoxemia:Patient is in need of oxygen on exertion due to pulse oximetry of 95% on room air at rest; 87% on room air with exertion.
Patient was placed on 2L O2 via nasal cannula with saturation of 95%. Oxygen will help to improve hypoxemia.
Patient is mobile within the home. Albuterol therapy has been discussed and is ineffective in treating hypoxemia-related symptoms.
Oxygen will improve the patient's symptoms.
hypoxemic resp failure--pt meets criteria for oxygen with exertion due to room air pulse ox down to 87%
DVT Prophylaxis: TEDS
BPH:Finasteride 5mg
HL:Atorvastatin 80 mg
Discharge Plan
-
Patient Disposition: Home (Routine Discharge)
Discharge Diagnosis/Procedures: Syncope-think vasovagal/orthostatic, essential hypertension, hyperlipidemia, type 2 diabetes mellitus, benign prostatic hyperplasia, coronary artery disease status post stent, paroxysmal atrial fibrillation, chronic
heart failure with preserved ejection fraction, peripheral arterial disease status post iliac stents, chronic obstructive pulmonary disease, history of lung cancer status post radiation therapy, stage IIIb chronic kidney disease,
Condition: Good
Diet: 2 Gram Sodium
Activity: As tolerated
Driving Restrictions: As prior to admission
Bathing Restrictions: None
Other Services: VN
Specialty Instructions: Weigh Daily- Call MD for wt gain/loss 3 lbs overnight/5 lbs in 1 week
Referrals:
Awilda Lopez CRNP [Specified Professional Personl] - 03/31/24 8:40 am
Haresh Lilly DO [Family Provider] - in less than 1 week
Rizwan Jessica MD [Active] - in two to three weeks (PFTs, 6MWT)
Additional Discharge Medication Instructions: Your furosemide (Lasix) will be changed to as needed. You will take it if you gain 2-3 pounds overnight or 5 pounds in 5 days.
Prescriptions:
Continued
cyanocobalamin (vitamin B-12) 1,000 MCG tablet
1,000 mcg PO DAILY
diphenhydramine HCl [Banophen] 25 MG capsule
25 mg PO HS
atorvastatin 80 MG tablet
80 mg PO HS
metoprolol succinate 50 mg Tablet Extended Release 24 Hr
50 mg PO BID
Jardiance 25 mg Tablet
12.5 mg PO DAILY
Rx Instructions:
[facility]
glipizide 5 mg Tablet Extended Release 24hr
5 mg PO DAILY
finasteride 5 mg Tablet
5 mg PO DAILY
Eliquis 2.5 mg Tablet
2.5 mg PO BID Qty: 30 0RF
zinc acetate 50 mg (zinc) Capsule
50 mg PO DAILY
omega 1-gzh-bsw-fish oil [Fish Oil] 1,000 mg (120 mg-180 mg) Capsule
1 cap PO BID
metformin 500 mg tablet extended release 24 hr
500 mg PO BID
cholecalciferol (vitamin D3) 50 mcg (2,000 unit) Tablet
50 mcg PO DAILY
Discontinued
furosemide 20 mg tablet
20 mg PO DAILY
Discharge Orders:
Discharge Patient (As Directed); Ordered 03/15/24
Ordered By: Dori Marcos
Discharge Date and Time
Discharge Date/Time: 03/15/24 17:03
Print Language: MALTESE
[2024-03-15 16:33] VITALS: BP 140/74
== END 2024-03-15 17:03 | disposition home health service (06) | DRG 312 ==
LOC: 4 EAST ACU 19:18
PROVIDERS: Internal Medicine; Student in an Organized Health Care Education/Training Program; ADMITTING PHYSICIAN Hospitalist; ATTENDING PHYSICIAN Internal Medicine; CONSULT PHYSICIAN Internal Medicine; CONSULT PHYSICIAN Internal Medicine Critical Care Medicine; EMERGENCY PHYSICIAN Emergency Medicine; FAMILY PHYSICIAN Family Medicine
DX: I95.1 Orthostatic hypotension (principal); J96.01 Acute respiratory failure with hypoxia; I13.0 Hypertensive heart and chronic kidney disease with heart failure and stage 1 through stage 4 chronic kidney disease, or unspecified chronic kidney disease; I50.32 Chronic diastolic (congestive) heart failure; I08.2 Rheumatic disorders of both aortic and tricuspid valves; E11.22 Type 2 diabetes mellitus with diabetic chronic kidney disease; E11.51 Type 2 diabetes mellitus with diabetic peripheral angiopathy without gangrene; E11.65 Type 2 diabetes mellitus with hyperglycemia; F10.21 Alcohol dependence, in remission; I65.22 Occlusion and stenosis of left carotid artery; I71.40 Abdominal aortic aneurysm, without rupture, unspecified; J44.9 Chronic obstructive pulmonary disease, unspecified; N18.32 Chronic kidney disease, stage 3b; E78.00 Pure hypercholesterolemia, unspecified; I25.10 Atherosclerotic heart disease of native coronary artery without angina pectoris; Z95.5 Presence of coronary angioplasty implant and graft; I44.0 Atrioventricular block, first degree; I45.10 Unspecified right bundle-branch block; I48.0 Paroxysmal atrial fibrillation; M47.812 Spondylosis without myelopathy or radiculopathy, cervical region; N28.1 Cyst of kidney, acquired; N40.0 Benign prostatic hyperplasia without lower urinary tract symptoms; Z79.01 Long term (current) use of anticoagulants; Z79.84 Long term (current) use of oral hypoglycemic drugs; Z79.899 Other long term (current) drug therapy; Z86.19 Personal history of other infectious and parasitic diseases; Z85.118 Personal history of other malignant neoplasm of bronchus and lung; Z86.79 Personal history of other diseases of the circulatory system; Z80.1 Family history of malignant neoplasm of trachea, bronchus and lung; Z87.891 Personal history of nicotine dependence; Z90.49 Acquired absence of other specified parts of digestive tract; Z92.3 Personal history of irradiation
CPT/HCPCS: 70450; 72125; 78452; 80053; 82533; 82962; 83036; 84443; 84484; 85025; 93005; 93017; 99285; A9500; J2785

== ENCOUNTER 2024-04-27 13:10 | Inpatient (IN) | payer OTHER, SELFPAY ==
[2024-04-27] VITALS (7 sets, daily range): BP systolic 113–171; BP diastolic 59–129; PULSE 76–80; BMI 25.7; BMI 25.0
[2024-04-27 08:29] LABS: % Basophils 0.6 % (0-2); % Eosinophils 3.8 % (0-6); % Immature Granulocytes 0.5 % (0-0.5); % Monocytes 10.2 % (1.7-9.3); % Neutrophils 64.9 % (42.2-75.2); Absolute Basophils 0.1 10^3/uL (0-0.2); Absolute Eosinophils 0.3 10^3/uL (0-0.7); Absolute Lymphocytes 1.7 10^3/uL (1.2-3.4); Absolute Monocytes 0.9 10^3/uL (0.1-0.6); Absolute Neutrophils 5.5 10^3/uL (1.4-6.5); Hematocrit 39.5 % (39.0-52.0); Hemoglobin 13.9 g/dL (13.0-18.0); Mean Corp Hgb Conc. 35.2 g/dL (33.0-37.0); Mean Corpuscular Hgb 32.2 pg (27.0-31.0); Mean Corpuscular Volume 91.4 fL (80.0-94.0); Mean Platelet Volume 10.5 fL (7.4-10.4); Nucleated Red Blood Cells % 0 % (-); Platelet Count 190 10^3/uL (130-400); Red Blood Cell Count 4.32 10^6/uL (4.70-6.10); Red Cell Dist. Width 14.1 % (11.5-14.5); White Blood Cell Count 8.5 10^3/uL (4.8-10.8)
--- NOTE | 2024-04-27 08:48 | ED.GENMED ---
History of Present Illness
General
Chief Complaint: Breathing Problem
Source: patient
Exam Limitations: none
Time Seen by Provider: 04/27/24 08:28
Nursing documentation reviewed up to this point in time: agreed with
History of Present Illness
History of Present Illness:
88-year-old male with past medical history of previous A-fib CHF hypertension hyperlipidemia, previous lung cancer presenting to the emergency department with an episode of chest pressure lightheadedness shortness of breath pulse ox in the 70s with
a small amount of ambulation today. He claims that he has had this many times in the past but it has been gradually worsening recently. Denies ongoing chest pain now that he is resting.
Past History
Past History
ED Past Medical History: Arrthythmia (Bigeminy), CAD, CHF, COPD, HTN, Hypercholesterolemia and NIDDM
ED Past Surgical History: Cholecystectomy
Social History
Tobacco: Former smoker
Alcohol: None
Drug: None
Employment: Retired
Review of Systems
Review of Systems
Allergies reviewed?: Yes
All Other Systems: ROS reviewed and negative except as documented in HPI and ROS
Phy Exam
Physical Exam
Physical Exam:
GENERAL: Alert , in no apparent distress
EYE: pupils equal and reactive
NECK: Supple, no significant adenopathy.
ENT: o/p clr, mmm.
CARDIAC: Pansystolic murmur, regular rate and rhythm .
LUNGS: Clear breath sounds bilaterally, no acute respiratory distress, no wheezes/rales/rhonchi
ABDOMEN: Soft, without focal tenderness, no r/g, no cvat
NEUROLOGICAL: Alert and oriented, no focal neuro deficits
SKIN: Warm and dry, skin intact.
MUSCULOSKELETAL: No edema, well perfused.
PSYCH: Normal and appropriate interaction.
Scores
Heart Failure Risk
Heart Failure Risk Score: Not Applicable
Course
Orders/Labs/Results
Orders:
Orders
04/27/24 08:15
Electrocardiogram (*1) Urgent
Reason for Study: Shortness of Breath
04/27/24 08:16
EKG- Treatment ONCE
04/27/24 08:18
Complete Blood Count/With Diff Urgent
Comprehensive Metabolic Panel Urgent
Magnesium Urgent
Comment: ADD ON
Pro-BNP [NT-proBNP] Urgent
Troponin I Urgent
04/27/24 08:24
TSH Reflex To Free T4 Urgent
Comment: ADD ON
04/27/24 08:29
Chest [CR Chest - 2 Views ] Urgent
Comment:
Reason For Exam: cp
04/27/24 12:06
Troponin I Urgent
04/27/24 12:23
Orthostatic Vital Signs As Directed
Orthostatic VS Frequency: Now
04/27/24 12:25
Admit/Transfer Patient As Directed
Co-Sign Provider:
Level of Care: Inpatient admission
Assign to:: Telemetry
Physician / Group: abhishek mancia
Diagnosis: cp w/ lightheadedness concern cad,sob hypoxia likely due to CHF
Reason for Telemetry: Arrhythmia
Date to Stop Telemetry: 04/30/24
Time to Stop Telemetry: 11:00
Reason for Hospitalization: cp w/ lightheadedness concern cad,sob hypoxia likely due to CHF
Expected length of stay greater than two midnights?: Yes
ELOS- Estimated Length of Stay in days: 4
I certify the patient meets the requirements for IP care: Yes
04/27/24 12:27
Code Status As Directed
Resuscitation Status: Full Code
04/27/24 12:31
PRN Pain Medication Management As Directed
May give lesser potent ordered pain med per pt: Yes
preference::
Protocol:: Medication orders for pain may be administered in a
manner that supports deferring to patient preference
when the pt is:
- Requesting an ordered lesser potent pain medication.
Least to most potent pain medications are defined
as: acetaminophen < NSAID < tramadol < opioids
(morphine, oxycodone, hydromorphone).
- Requesting a lesser dose of the same medication IF
ORDERED.
- Requesting a less intrusive route of administration
if both routes are prescribed by the provider (PO <
IV).
04/27/24 12:33
Add On- LAB Urgent
Tests Added?: tsh with free t4 reflex, magnesium level
04/30/24 11:00
DC Protocol for Telemetry ONCE
Abnormal Lab Results
04/27/24
08:18
RBC 4.32 L 10^6/uL
(4.70-6.10)
MCH 32.2 H pg
(27.0-31.0)
MPV 10.5 H fL
(7.4-10.4)
Absolute Monos (auto) 0.9 H 10^3/uL
(0.1-0.6)
Lymphocytes % 20.0 L %
(20.5-51.1)
Monocytes % 10.2 H %
(1.7-9.3)
Carbon Dioxide 18 L mmol/L
(22-30)
BUN 23 H mg/dl
(9-20)
Creatinine 1.6 H mg/dL
(0.7-1.3)
Glucose 143 H mg/dl
(70-99)
04/27/24 08:18
04/27/24 08:18
Vital Signs
Initial and Last Documented VS:
Initial Vital Signs
Pulse Resp BP
78 21 156/78
04/27/24 08:16 04/27/24 08:16 04/27/24 08:16
Last Documented Vital Signs
Temp Pulse Resp BP Pulse Ox
97.6 F 67 14 127/82 94
04/27/24 08:19 04/27/24 09:00 04/27/24 09:00 04/27/24 09:00 04/27/24 10:40
MDM/Problems Addressed
MDM/Problems Addressed:
88-year-old male presenting to the emergency department today with concerns of chest pressure lightheadedness shortness of breath associated with a small mount of activity including going to the bathroom and brushing his teeth. Upon arrival here
vital signs are normal patient no distress pulse ox in the low 90s. He claims that he is had similar symptoms in the past but it has been gradually worsening to the point where his exercise tolerance is very minimal. Here BNP elevated in the
3000's above his baseline troponin negative chest x-ray without acute abnormalities. EKG without specific changes other than new PACs. Concern the patient significant decreased exercise tolerance and the fact that he is alone for most of the day
in a private residence plan to admit for further assessment.
*Critical Care Note
Total Time (30-74mins, 75-104mins- exclusive of procedures): Not Applicable
ED Attending Note
-
Portions of this chart may have been created with voice recognition software.� Occasional wrong word or��sound alike� substitutions may have occurred due to the inherent limitations of voice recognition software.
Discharge Plan
Departure
Patient Disposition: Admit
Date of Disposition: 04/27/24
Time of Disposition: 12:54
Admit to: Telemetry
Admit to doctor: Beau
Presentation/result/management discussed w/ accepting MD/DO: Hospitalist
Patient with high blood pressure during this ER visit?: No
Condition: Good
Covid-19: Not Applicable
Discharge Problem:
Chest pain, Shortness of breath
Prescriptions:
No Action
cyanocobalamin (vitamin B-12) 1,000 MCG tablet
1,000 mcg PO DAILY
diphenhydramine HCl [Banophen] 25 MG capsule
25 mg PO HS
atorvastatin 80 MG tablet
80 mg PO HS
metoprolol succinate 50 mg Tablet Extended Release 24 Hr
50 mg PO BID
Jardiance 25 mg Tablet
12.5 mg PO DAILY
Rx Instructions:
[facility]
glipizide 5 mg Tablet Extended Release 24hr
5 mg PO DAILY
finasteride 5 mg Tablet
5 mg PO DAILY
Eliquis 2.5 mg Tablet
2.5 mg PO BID Qty: 30 0RF
zinc acetate 50 mg (zinc) Capsule
50 mg PO DAILY
omega 3-bqn-qnf-fish oil [Fish Oil] 1,000 mg (120 mg-180 mg) Capsule
1 cap PO BID
metformin 500 mg tablet extended release 24 hr
500 mg PO BID
cholecalciferol (vitamin D3) 50 mcg (2,000 unit) Tablet
50 mcg PO DAILY
Referrals:
Giles Nails DO [Family Provider] -
Interventions
Interventions:
*Risk Screen - Suicide Last Done: 04/27/24 08:19
*General Assessment Last Done: 04/27/24 08:19
*Neglect/Abuse Screening Last Done: 04/27/24 08:19
ED- Fall Risk Assessment Last Done: 04/27/24 10:40
*ED COVID-19 Vaccine History Last Done: 04/27/24 08:19
ED- Cardiac Assessment Last Done: 04/27/24 10:40
ED- Pulmonary Assessment Last Done: 04/27/24 10:40
Discharge Date and Time
Print Language: UKRAINIAN
[2024-04-27 08:56] LABS: ALT (SGPT) 19 U/L (0-50); AST (SGOT) 25 U/L (17-59); Albumin 3.6 g/dl (3.5-5.0); Alkaline Phosphatase 78 U/L (38-126); Blood Urea Nitrogen 23 mg/dl (9-20); Calcium 9.2 mg/dl (8.4-10.2); Carbon Dioxide 18 mmol/L (22-30); Chloride 106 mmol/L (98-107); Estimated Creatinine Clearance 34 ml/min; Glucose 143 mg/dl (70-99); Potassium 4.4 mmol/L (3.5-5.1); Sodium 137 mmol/L (135-145); Total Protein 6.4 g/dl (6.3-8.2)
[2024-04-27 08:57] LABS: NT-proBNP 3960 pg/ml; Troponin I 0.018 ng/ml
[2024-04-27 12:46] LABS: Troponin I 0.019 ng/ml
--- NOTE | 2024-04-27 12:48 | HPS.HSE ---
Family Physician
-
Family Physician: Giles Nails
Chief Complaint
-
shortness of breath
History of Present Illness
This is an addendum to the H&P written by Zee Puentes on 04/27/2024
88-year-old male past medical history paroxysmal atrial fibrillation, ventricular tachycardia status post ablation, PVCs,, CAD with stent in 2003, HFpEF, PAD with iliac stents, COPD, hypertension, hypercholesteremia, diabetes, BPH CKD 3, lung cancer
status post radiation, enterococcal bacteremia, spinal stenosis, presenting for continued symptoms of dizziness, near syncope and shortness of breath on exertion with chest pressure. He was at [employer] the other day and almost passed out. His
symptoms have been getting worse. He had hypoxemia 79% at home.
Patient was recently admitted for shortness of breath and lightheadedness with exertion resulting in a syncopal episode and passing out. Was found to be orthostatic. Cardiology was consulted and stress test was performed which was unremarkable.
Lasix was held and decided to be given only as needed. Orthostatic precautions were recommended.
Patient states that his weight has been stable. He denies any lower extremity edema except 1 send he took 1 dose of Lasix.
Patient was also seen by pulmonary due to hypoxemic respiratory failure. He did qualify for home oxygen which she has been using.
Medical History
Past Medical History
Past Medical History: Reports Other (paroxysmal atrial fibrillation, ventricular tachycardia status post ablation, PVCs,, CAD with stent in 2003, HFpEF, PAD with iliac stents, COPD, hypertension, hypercholesteremia, diabetes, BPH CKD 3, lung cancer
status post radiation, enterococcal bacteremia, spinal stenosis,)
Past Surgical History: Reports Cholecystectomy and Other ((Cholecystectomy, CAD with stent, right groin stent, eye surgery, heart ablation))
Social History
Tobacco: Non-smoker
Alcohol: None
Drug: None
Family History
Family History: Not pertinent
Allergies / Home Medications
Allergies reflects when Allergies were last updated in [employer].
Home Medications with original date entered in [employer] [facility] [employer]
Allergy/Medication List:
Allergies
Allergy/AdvReac Type Severity Reaction Status Date / Time
No Known Allergies Allergy Verified 03/13/24 14:42
Home Medications
cyanocobalamin (vitamin B-12) 1,000 mcg tablet 1,000 mcg PO DAILY Supplement 08/23/18
diphenhydramine HCl 25 mg capsule (Banophen) 25 mg PO HS Allergies 02/02/19
atorvastatin 80 mg tablet 80 mg PO HS High cholesterol 03/20/20
empagliflozin 25 mg tablet (Jardiance) 12.5 mg PO DAILY Diabetes 09/04/22
metoprolol succinate 50 mg tablet,extended release 24 hr 50 mg PO BID Blood Pressure 09/10/22
finasteride 5 mg tablet 5 mg PO DAILY prostate issue 03/11/23
glipizide 5 mg tablet, extended release 24 hr 5 mg PO DAILY Diabetes 03/11/23
apixaban 2.5 mg tablet (Eliquis) 2.5 mg PO BID #30 tabs 06/17/23
omega 0-cwt-fck-fish oil 1,000 mg (120 mg-180 mg) capsule (Fish Oil) 1 cap PO BID Supplement 07/24/23
zinc acetate 50 mg (zinc) capsule 50 mg PO DAILY Supplement 07/24/23
cholecalciferol (vitamin D3) 50 mcg (2,000 unit) tablet 50 mcg PO DAILY Supplement 03/13/24
metformin 500 mg tablet,extended release 24 hr 500 mg PO BID Diabetes 03/13/24
Review of Systems
-
History Source: Patient
A 12 point ROS was completed and negative except as noted: Yes
Constitutional: Reports No Symptoms
EENT: Reports No Symptoms
Respiratory: Reports See HPI
Cardiac: Reports See HPI
Abdomen/GI: Reports No Symptoms
: Reports No Symptoms
Musculoskeletal: Reports No Symptoms
Skin: Reports No Symptoms
Neurological: Reports No Symptoms
Endocrine: Reports No Symptoms
Hematologic/Lymphatic: Reports No Symptoms
Psych: Reports No Symptoms
Physical Exam
Vital Signs
Vital Signs
Temp Pulse Resp BP Pulse Ox
97.6 F 67 14 127/82 94
04/27/24 08:19 04/27/24 09:00 04/27/24 09:00 04/27/24 09:00 04/27/24 10:40
Physical Exam
General: Well Developed, Well Nourished and No Apparent Distress
HEENT: NormoCephalic, Moist mucous membranes and Atraumatic
Respiratory: Clear
Cardiac: S1/S2 and Regular Rhythm; No Murmur or Rub
GI: Soft, Non Tender, Non Distended and Normal Bowel Sounds; No Organomegaly
Rectal: Deferred by Provider
Musculoskeletal: No Clubbing, No Cyanosis and No Edema
Skin: No Rash
Neuro: Nonfocal/grossly intact
Laboratory Results
-
04/27/24 08:18
04/27/24 08:18
Laboratory Results
Total Bilirubin 1.0 mg/dl (0.2-1.3) 04/27/24 08:18
AST 25 U/L (17-59) 04/27/24 08:18
ALT 19 U/L (0-50) 04/27/24 08:18
Alkaline Phosphatase 78 U/L (38-126) 04/27/24 08:18
Troponin I 0.019 ng/ml 04/27/24 12:06
Data Reviewed
-
Lab Data: Labs Reviewed by me
Old Records: Reviewed
Impression/Plan
-
IMPRESSION:
PLAN:
# Ongoing dizziness/near syncope/exertional dyspnea with chest pressure unclear etiology possibly multifactorial secondary to underlying lung cancer status post radiation/COPD versus orthostatic hypotension/CHF/moderate aortic stenosis
-Lungs sound clear
-Cardiac BNP of 4000 although weight has been stable with no edema
-Chest x-ray without evidence of cardiopulmonary disease
-Interrogate loop recorder
-EKG shows sinus rhythm with first-degree AV block, right bundle branch block which is old with PVCs
-Patiently recently had stress test which was unremarkable for ischemia
-Check orthostatics
-Trend troponins
-Hesitant to diurese given orthostatic hypotension and prone to syncopal episodes
-Patient recently qualified for home oxygen and using 2L
-Cardiology consulted
-Pulmonary consulted
# History of syncopal episode secondary to ventricular tachycardia/PVCs status post ablation with loop recorder
# History of syncopal episodes secondary to orthostatic hypotension
Moderate aortic stenosis
Paroxysmal atrial fibrillation
-Continue Eliquis
History of PVCs status post ablation
CAD with stenting 2003
-Continue metoprolol
-Continue statin
Left carotid stenosis
Chronic HFpEF
-hold lasix
Chronic right bundle branch block
Small infrarenal abdominal aortic aneurysm
PAD with history of iliac stents
COPD
Essential hypertension
Hypercholesterolemia
-Continue statin
Type 2 diabetes
-hold glipizide
-hold metformin
-hold Jardiance
-Insulin sliding scale
BPH
-Continue finasteride
CKD 3b
-Renal function at baseline
Lung cancer status post radiation
History of enterococcal bacteremia
Spinal stenosis
Full code
DVT prophylaxis-Eliquis
Cardiac/diabetic diet
--- NOTE | 2024-04-27 13:03 | CON.CAR ---
Addendum entered and electronically signed by Santiago Washington MD 04/27/24 21:44:
-
-
I reviewed case with Dr. Box and discussed with interventional cardiology. I have offered Mr. Dial cath/possible PCI. I do not think him to be an acceptable candidate for open heart surgery. I explained to the patient the rational to
proceed, the increased risks of complications including kidney failure. He wishes to proceed. Pulmonary thinks a RHC will add important information and that seems appropriate and I will review with interventional cardiology.
Addendum entered and electronically signed by Santiago Washington MD 04/27/24 14:56:
I saw and examined the patient.
The SCHOOL CLERK's note was reviewed and I agree with the note.
Comment: He has had recurrent symptoms of exertional CP/dyspnea/lightheadedness since at least 2018. He has had unremarkable stress tests and echos. Orthostatic vital signs show modest orthostatic hypotension w/o symptoms.
I would suggest PT/OT and more exercise at home. We await the interrogation results of his Linq to exclude arrhythmia (none seen with Feb 2024 admit with same symptoms).
At 88 with stable symptoms I would be reluctant to send to him to the laboratory chief but that can be considered. For now we will trend troponin/EKG in AM. Both Dr. Candelaria and Dr. Box have seen the patient in the office and I will reach out to them to
see if they have thoughts.
Original Note:
Consultation
Consultation Request
Date/Time Consultation Requested: 04/27/2024 12:50
Date/Time Consultation Performed: 04/27/2024 13:00
Requesting Provider: NATALI Tong
Performing Provider: NATALI Pavon for Dr. Washington
Reason for Consultation: Hypoxia
Medical History
-
Chief Complaint: Shortness of breath, presyncope/lightheadedness
History of Present Illness:
Ric Dial is an 88 year old male (known to Dr. Box & Dr. 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
PAD s/p bilateral iliac stenting, chronic HFPEF, mild/moderate , mild/mod TR, HTN, dyslipidemia, 1st degree AVB, RBBB, AAA (3.4cm, infrarenal), DM, CKD3b, COPD, former tobacco, RUL lung cancer s/p radiation presented with dizziness, near syncope,
and CAMPA. He had a recent admission in February with syncope. No events on ILR. He had a Lexiscan nuclear stress test which did not demonstrate ischemia. His presentation today was for dizziness with near syncope. He endorsed associated
shortness of breath. He reports his pulse ox was 79% at home. He is currently asymptomatic laying in the stretcher. SpO2 94% at rest on room air in the emergency department. He is chest pain-free.
Past Medical History
Past Medical History: Arrhythmias (PVC status post ablation, paroxysmal atrial fibrillation), CAD, Cancer (Lung s/p XRT), CHF (chronic HFPEF), COPD, HTN, Hypercholesterolemia, NIDDM, Renal Failure (CKD3b), Valvular Disease (mild/moderate ,
mild/moderate TR) and Other (Recurrent syncope with ILR)
Past Surgical History: Cardiac (ILR implant, iliac stenting) and Cholecystectomy
Social History
Tobacco: Former Smoker
Alcohol: Former (Sobriety for nearly 40 years.)
Personal: (Since 2021)
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
Family History
Family History: Other (Aortic aneurysm in mother)
Allergies / Home Medications
Allergy/AdvReac Type Severity Reaction Status Date / Time
No Known Allergies Allergy Verified 03/13/24 14:42
�Medication �Instructions �Recorded �Confirmed �Type
cyanocobalamin (vitamin B-12) 1,000 mcg PO DAILY Supplement 08/23/18 03/13/24 History
1,000 mcg tablet
diphenhydramine HCl 25 mg capsule 25 mg PO HS Allergies 02/02/19 03/13/24 History
(Banophen)
atorvastatin 80 mg tablet 80 mg PO HS High cholesterol 03/20/20 03/13/24 History
empagliflozin 25 mg tablet 12.5 mg PO DAILY Diabetes 09/04/22 03/13/24 History
(Jardiance)
metoprolol succinate 50 mg 50 mg PO BID Blood Pressure 09/10/22 03/13/24 History
tablet,extended release 24 hr
finasteride 5 mg tablet 5 mg PO DAILY prostate issue 03/11/23 03/13/24 History
glipizide 5 mg tablet, extended 5 mg PO DAILY Diabetes 03/11/23 03/13/24 History
release 24 hr
apixaban 2.5 mg tablet (Eliquis) 2.5 mg PO BID #30 tabs 06/17/23 03/13/24 Rx
omega 8-vhv-ugd-fish oil 1,000 mg 1 cap PO BID Supplement 07/24/23 03/13/24 History
(120 mg-180 mg) capsule (Fish Oil)
zinc acetate 50 mg (zinc) capsule 50 mg PO DAILY Supplement 07/24/23 03/13/24 History
cholecalciferol (vitamin D3) 50 50 mcg PO DAILY Supplement 03/13/24 03/13/24 History
mcg (2,000 unit) tablet
metformin 500 mg tablet,extended 500 mg PO BID Diabetes 03/13/24 03/13/24 History
release 24 hr
Review of Systems
-
History Source: Patient
All other systems: Negative unless noted
Constitutional: Fatigue
EENT: No Symptoms
Respiratory: Trouble Breathing
Cardiac: No Symptoms
Abdomen/GI: No Symptoms
: No Symptoms
Musculoskeletal: No Symptoms
Skin: No Symptoms
Neurological: Dizzy and Weakness
Endocrine: No Symptoms
Hematologic/Lymphatic: No Symptoms
Physical Exam
Vital Signs
Temp Pulse Resp BP Pulse Ox
97.6 F 67 14 127/82 94
04/27/24 08:19 04/27/24 09:00 04/27/24 09:00 04/27/24 09:00 04/27/24 10:40
Lab Results
04/27/24 08:18
04/27/24 08:18
Troponin I 0.019 ng/ml 04/27/24 12:06
Lyp-S-Zuxpqymnats Pept 3960 pg/ml 04/27/24 08:18
Physical Exam
General: Well Developed, Well Nourished, No Apparent Distress and Comfortable
HEENT: Normocephalic, Anicteric and Moist Mucous Membranes
Respiratory: Clear and Non Labored Respirations
Cardiac: S1/S2, Regular Rhythm and Murmur (II/)
Breast: Deferred by me
GI: Soft, Non Tender, Non Distended and Normal Bowel Sounds
Rectal: Deferred by Provider
Genito-urinary: No Costovertebral Tender
Musculoskeletal: No Clubbing, No Cyanosis and No Edema
Skin: Warm and Dry
Neuro: AO x 3
Hematologic/Lymphatic: No Lymphadenopathy
Psych: Calm
Impression / Plan
-
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
, mild/mod TR, HTN, dyslipidemia, 1st degree AVB, RBBB, AAA (3.4cm, infrarenal), DM, CKD3b, COPD, former tobacco, RUL lung cancer s/p radiation presented with dizziness, near syncope, and CAMPA with hypoxia
IMPRESSION/PLAN:
Exertional dyspnea
-On home oxygen
-No hypoxia at rest in the emergency department
HFpEF, chronic
-Furosemide as needed, he only required one dose since prior discharge
-proBNP above baseline but he denies PND and orthopnea
-On SGLT2i, continue
Presyncope
-ILR to be interrogated
-Orthostatic vital signs ordered by primary service, incomplete
-Lower extremity compression was recommended at his most recent office visit for the possibility of orthostasis
-Echocardiogram pending
CAD
-Ischemic evaluation in February
-Denies chest pain, EKG stable
Paroxysmal atrial fibrillation
-Stable in sinus rhythm
-Oral Anticoagulation: Apixaban 2.5 mg twice daily (age 88, creatinine >1.5), he denies missed doses and abnormal bleeding
-[id number]: Score at least 6 (Heart failure, HTN, age 75 or more, Diabetes Mellitus, Vascular disease)
Moderate aortic stenosis, update echocardiogram
PVCs, status post ablation
Decreased lung capacity, on home O2, follows with Dr. Jessica
CKD, stage IIIb, follows with Dr. Huff
Left carotid artery stenosis
AAA (3.5 cm infrarenal)
NIDDM, per primary
Right upper lobe lung cancer status post XRT, managed by Dr. Feliz
Data Reviewed
-
EKG: Report Reviewed by me (Sinus rhythm, PACs, RBBB, rate 68)
Radiology: Report Reviewed by me (CXR: No acute cardiopulmonary process)
Labs: Labs Reviewed by me
Old Records: Reviewed
[2024-04-27 13:17] LABS: Magnesium 1.6 mg/dl (1.6-2.3)
--- NOTE | 2024-04-27 15:08 | CON.PUL ---
Consultation
Consultation Request
Date/Time Consultation Requested: 04/27/2024 - 1425
Date/Time Consultation Performed: 04/27/2024 - 150
Requesting Provider: NATALI Tong
Performing Provider: Awais Blake MD
Reason for Consultation: Hypoxia
Medical History
-
Chief Complaint: Chest pressure, dizziness and shortness of breath
History of Present Illness:
88-year-old male former tobacco smoker ([id number]-[id number] history, quit 30 years ago) with a past medical history of CAD s/p stents, chronic HFpEF, AAA, chronic hypoxic respiratory failure on 2 L/min with activity, PAD s/p stent to right groin,
hypertension, hyperlipidemia, former alcoholic, history of RUL lung cancer s/p XRT, PH, CKD, DM type II, A-fib on Eliquis with history of ablation, history of COPD, and history of enterococcal bacteremia who presents with chest pressure, dizziness
and shortness of breath. His oxygen levels apparently dropped to the 70s on room air. He was brought here to the ER for further evaluation. He apparently was at the grocery store the other day and almost passed out, and his symptoms have been
progressively worsening. In the ER he was afebrile to 97.6 �F, pulse rate 78, breathing at 21 breaths/min, BP 156/78 and saturating 94% on room air. Labs showed Hb 13.9, WBC 8.5, absolute eosinophil count 300, creatinine 1.6, glucose 143, proBNP
3960, troponin negative at 0.018, and TSH WNL at 2.39. CXR showed no acute cardiopulmonary process with evidence of previously treated RUL lung cancer. He was admitted to telemetry under the hospitalist and pulmonary service consulted for
additional management/recommendations.
When I saw the patient he was on room air breathing comfortably. He says has been short of breath with activity with accompanying chest heaviness which wiped him out. He even gets symptoms despite being on oxygen. He says he also gets his 'hot
feeling' when his symptoms start. He denies any lower extremity swelling, abdominal swelling, or engorged neck veins. No recent sick contacts, no recent travel, no cough, fevers or chills. I thoroughly discussed his case with his daughter,
Areli over the phone and answered all of her questions.
Of note patient follows with us in the [facility] office with Dr. Jessica, last visit on 03/18/2024. His respiratory status was stable at that time. He was on albuterol as needed. He was advised to continue with supplemental oxygen 2 L/min with
activity. He has tried inhalers and mucus clearing devices in the past which did not improve him clinically. He follows with Dr. Candelaria from cardiology and his Lasix has been adjusted given his history of orthostatic hypotension. He has a history
of ablation for symptomatic PVCs. He had an episode of CHF requiring hospitalization at [facility] in September 2023. He has had imaging with recent CT chest on 03/08/2024 showing a stable 1.2 cm cavitary lesion in the medial left lower lobe with evidence of
treated lung cancer with nodular bandlike opacification in the right upper lobe. He is continuing with radiographic surveillance. He has been advised to enroll into pulmonary or cardiac rehab however he says that he does 'not like to exercise' and
has declined rehab. He was told to follow-up in May 2024 with repeat PFT at that time. Last PFT performed on 03/18/2024 showed no evidence of obstruction or restriction, with severely reduced gas exchange capacity (DLco: 39%) with DLco/VA: 45%
predicted. Prior PFT on 04/04/2023 showed no evidence of obstruction, no restriction, and moderate gas exchange capacity defect (DLco: 41%; DLco/VA: 49% predicted).
PMHx: History of RUL lung cancer s/p XRT, pulmonary hypertension, former tobacco smoker, CAD s/p stents, hypertension, CKD, PAD, DM type II, hyperlipidemia, former alcoholic, orthostatic hypotension, CHF, AAA, PAD s/p stent to right groin, COPD,
lumbar spinal stenosis, aortic stenosis, history of A-fib on Eliquis, left kidney cyst, history of enterococcal bacteremia
PSHx: Cholecystectomy (2008), coronary stent (2003), right groin stent, eye surgery, cardiac ablation (08/2022), loop recorder procedure (December 2023)
Past Medical History
Past Medical History: Other (Above as per HPI)
Past Surgical History: Other (Above as per HPI)
Social History
Tobacco: Former Smoker (72-[id number] history, quit 38 years ago)
Alcohol: Former
Drug: None
Personal: ( in 2021 - ovarian cancer)
Employment: Retired (Worked in [employer])
Occupational Exposures: Former [employer]
Family History
Family History: CAD (Father) and Cancer (Sister: Lung cancer)
Allergies / Home Medications
Allergies
Allergy/AdvReac Type Severity Reaction Status Date / Time
No Known Allergies Allergy Verified 03/13/24 14:42
Home Medications
�Medication �Instructions �Recorded �Confirmed �Last Taken �Type
cyanocobalamin (vitamin B-12) 1,000 mcg PO DAILY Supplement 08/23/18 04/27/24 04/26/24 History
1,000 mcg tablet
diphenhydramine HCl 25 mg capsule 25 mg PO HS Allergies 02/02/19 04/27/24 04/26/24 History
(Banophen)
atorvastatin 80 mg tablet 80 mg PO HS High cholesterol 03/20/20 04/27/24 04/26/24 History
empagliflozin 25 mg tablet 12.5 mg PO DAILY Diabetes 09/04/22 04/27/24 04/26/24 History
(Jardiance)
metoprolol succinate 50 mg 50 mg PO BID Blood Pressure 09/10/22 04/27/24 04/26/24 History
tablet,extended release 24 hr
finasteride 5 mg tablet 5 mg PO DAILY prostate issue 03/11/23 04/27/24 04/26/24 History
glipizide 5 mg tablet, extended 5 mg PO DAILY Diabetes 03/11/23 04/27/24 04/26/24 History
release 24 hr
apixaban 2.5 mg tablet (Eliquis) 2.5 mg PO BID #30 tabs 06/17/23 04/27/24 04/26/24 Rx
omega 2-kww-pcn-fish oil 1,000 mg 1 cap PO BID Supplement 07/24/23 04/27/24 04/26/24 History
(120 mg-180 mg) capsule (Fish Oil)
zinc acetate 50 mg (zinc) capsule 50 mg PO DAILY Supplement 07/24/23 04/27/24 04/26/24 History
cholecalciferol (vitamin D3) 50 50 mcg PO DAILY Supplement 03/13/24 04/27/24 04/26/24 History
mcg (2,000 unit) tablet
metformin 500 mg tablet,extended 500 mg PO BID Diabetes 03/13/24 04/27/24 04/26/24 History
release 24 hr
Review of Systems
-
History Source: Patient
All other systems: Negative unless noted
Vitals / Labs / Diagnostic Testing
Vital Signs
Temp Pulse Resp BP Pulse Ox
98.3 F 80 18 171/79 95
04/27/24 14:21 04/27/24 14:21 04/27/24 14:21 04/27/24 14:21 04/27/24 15:13
Lab Data
04/27/24 08:18
04/27/24 08:18
Diagnostic Testing:
Physical Exam
-
HEENT: Normocephalic and Anicteric
Cardiovascular: S1/S2 and Peripheral Edema (negative)
Respiratory: Wheeze (negative), Rales (negative), Rhonchi (negative) and Non-Labored Respirations
GI: Soft, Non Distended, Non Tender and Normal Bowel Sounds
Neurology: AO x 3 and Tremors (negative)
Skin: Warm and Dry
General: Respiratory Distress (negative), Comfortable, Fever (negative) and Chills (negative)
Assessment
-
Assessment: 88-year-old male former tobacco smoker (77-[id number]-dkym history, quit 30 years ago) with a past medical history of CAD s/p stents, chronic HFpEF, AAA, chronic hypoxic respiratory failure on 2 L/min with activity, PAD s/p stent to right
groin, hypertension, hyperlipidemia, former alcoholic, history of RUL lung cancer s/p XRT, PH, CKD, DM type II, A-fib on Eliquis with history of ablation, history of COPD, and history of enterococcal bacteremia who presents with chest pressure,
dizziness and shortness of breath. His oxygen levels apparently dropped to the 70s on room air. He was brought here to the ER for further evaluation. He apparently was at the grocery store the other day and almost passed out, and his symptoms
have been progressively worsening. In the ER he was afebrile to 97.6 �F, pulse rate 78, breathing at 21 breaths/min, BP 156/78 and saturating 94% on room air. Labs showed Hb 13.9, WBC 8.5, absolute eosinophil count 300, creatinine 1.6, glucose
143, proBNP 3960, troponin negative at 0.018, and TSH WNL at 2.39. CXR showed no acute cardiopulmonary process with evidence of previously treated RUL lung cancer. He was admitted to telemetry under the hospitalist and pulmonary service consulted
for additional management/recommendations.
Chronic conditions SCHEDULE MANAGER: History of RUL lung cancer s/p XRT, pulmonary hypertension, former tobacco smoker, CAD s/p stents, hypertension, CKD, PAD, DM type II, hyperlipidemia, former alcoholic, orthostatic hypotension, CHF, AAA, PAD s/p stent to
right groin, COPD, lumbar spinal stenosis, aortic stenosis, history of A-fib on Eliquis, left kidney cyst, history of enterococcal bacteremia
Impression:
#Presyncope with lightheadedness and dyspnea on exertion with orthostatic positive vital signs on admission
#Elevated proBNP (3960 on 04/27/2024 which is the highest that he has been compared to prior lab measurements over the past several years) - could be due to worsening PH as he clinically is not behaving as left sided heart failure
#Chronic diastolic heart failure with stage II diastolic dysfunction with moderate aortic stenosis and moderate pulmonary hypertension (no significant echocardiographic changes compared to prior TTE in October 2023)
#CKD (baseline creatinine 1.4�1.7)
#Centrilobular/paraseptal emphysema
#Former tobacco smoker (79-[id number] history, quit 30 years ago)
#History of RUL lung cancer s/p XRT with stable postradiation changes seen on imaging (measures approximately 4.4 x 5.4 x 1.4 cm)
#Subpleural reticular opacities with bronchial wall thickening in the lower lobes with stable 1.2 cm cavitary lesion in the medial LLL
#Paroxysmal A-fib currently in NSR on Eliquis
#Moderate aortic stenosis with history of heavy posterior mitral annular calcification with trace MR
Plan:
- Patient is orthostatic positive with SBP dropping >20 mmHg upon standing
- Given his elevated proBNP, would encourage PO intake and consider midodrine with holding parameters if symptoms continue
- He is also denying PND or orthopnea hence no need to initiate diuresis at this time
- He may benefit from small bolus of IVF, however a RHC would be useful to better assess volume status and PH severity
- Cardiology consulted and recommendations appreciated
- Echo performed today shows preserved LVEF at 50% with stage II diastolic function and moderate aortic stenosis, with PASP 40 mmHg. No significant change compared to prior TTE in October 2023
- Interrogation of ILR is pending
- Awaiting C tomorrow; keep NPO past midnight
- Continue ASA + lipitor
- Although he has a reported history of COPD, his last several pulmonary function tests did not show any evidence of COPD/obstructive lung defect or restrictive lung defect, although his gas exchange capacity was moderate�severely reduced
- He does have moderate-severity pulmonary hypertension but it is stable compared to prior echo in October 2023. Current TTE from today shows an intact interatrial septum hence a PFO is also unlikely
- He is not anemic hence this is not what is driving down his diffusing capacity
- I do not see that he is ever obtained a right heart catheterization but I would recommend this to assess severity of PH and obtain mPAP, PVR, CO, CI and PCWP values, as right-sided heart failure will cause DLco to decrease; however clinically he
is not presenting with acute right sided heart failure
- Maintain SpO2 >90-94% with supplemental O2 as needed
- Incentive spirometer encouraged
- Replete electrolytes with K>4, Mg>2
- Maintain euglycemia with goal BG >100 and <180
- prn nebulized bronchodilators - not currently bronchospastic
- He does not qualify for lung cancer screening given he quit smoking >15 years ago
- DVT ppx: Eliquis
I extensively discussed the patient's case with the daughter, Areli ([phone]), and answered all of her questions. She would like to be updated throughout his hospitalization.
Pulmonary service will continue to follow along. We will arrange for post-hospitalization follow-up with our office as last visit was on 03/18/[address] Jessica.
Data:
Transthoracic echocardiogram 04/27/2024:
Low normal left ventricular systolic function.
Left ventricular ejection fraction is 50%.
Stage II diastolic dysfunction suggestive of abnormal relaxation and increased
filling pressures.
Mild biatrial enlargement.
Mild mitral regurgitation.
Moderate aortic stenosis (mean 20 mmHg, TAVIA 1.1 cmsq).
Estimated PASP 40 mmHg, assuming a right atrial pressure of 3 mmHg.
No significant change since the prior study of 11/14/2023 when the mean gradient
was 17 mmHg and the TAVIA was estimated at 1.3 cm2.
CXR 04/27/2024:
No active cardiopulmonary disease.
Stable treated neoplasm in the right upper lobe
Total time spent today was 57 minutes for this encounter. Time includes reviewing laboratory test/imaging results, reviewing pertinent medical records, obtaining and reviewing medical history, performing an appropriate exam, ordering medications,
tests and procedures. Time also includes documentation of this encounter, coordinating patient care and communicating with other healthcare professionals. Total time does not include separately billed tests performed on this date of service.
--- NOTE | 2024-04-27 15:09 | PTCARENOTE ---
Received pt from ER.Pt awake,alert and oriented x3. Pt has no c/o chest pain at this time, does c/o some right above the knee pain, tolerable at this time. Thinks its from a previous fall. Pt Orthos completed as ordered bp initially 171/79 lying,
166/129 sitting but did drop to 139 with standing. Pts other VSS 95% on RA. Pt NSR with 1st degree av block and BBBc on tele. Pt oriented to room, call pierce within reach, instructed to ring for assistance, verbalized understanding. Pt oriented to
room, call pierce within reach, plan of care continues.
[2024-04-27 15:19] LABS: TSH Reflex To Free T4 2.39 uIU/ml (0.47-4.68)
[2024-04-27 16:17] LABS: Glucose - Point of Care 117 mg/dl (70-99)
[2024-04-27] MEDS: NOVOLOG FLEXPEN-LOW RESISTANCE SC (16:41)
[2024-04-27] MEDS: LOW STRENGTH ASPIRIN 324 MG PO (16:41)
--- NOTE | 2024-04-27 17:57 | VATNOTE ---
first pt stated IV was started in ambulance and then said IV was started in our ED. Son confirmed it was started in ED. However ER record states IV was started prior to arrival. Current IV left in per pt's request.
[2024-04-27 18:33] LABS: Troponin I 0.015 ng/ml
[2024-04-27] MEDS: TOPROL XL 50 MG PO (20:09)
[2024-04-27] MEDS: ELIQUIS 2.5 MG PO (20:09)
[2024-04-27] MEDS: LIPITOR 80 MG PO (20:10)
[2024-04-27] MEDS: BENADRYL 25 MG PO (20:10)
[2024-04-27 21:09] LABS: Glucose - Point of Care 126 mg/dl (70-99)
[2024-04-28] VITALS (15 sets, daily range): BP systolic 114–167; BP diastolic 57–93; PULSE 64–89; O2SAT 92–93; BMI 25.4
[2024-04-28 05:43] LABS: Glucose - Point of Care 115 mg/dl (70-99)
[2024-04-28] MEDS: NOVOLOG FLEXPEN-LOW RESISTANCE SC ×3 (07:30→16:45)
[2024-04-28 07:33] LABS: % Basophils 0.5 % (0-2); % Eosinophils 4.1 % (0-6); % Immature Granulocytes 0.5 % (0-0.5); % Lymphocytes 17.8 % (20.5-51.1); % Monocytes 9.3 % (1.7-9.3); % Neutrophils 67.8 % (42.2-75.2); Absolute Basophils 0.1 10^3/uL (0-0.2); Absolute Eosinophils 0.5 10^3/uL (0-0.7); Absolute Immature Granulocytes 0.1 10^3/uL (0-0.05); Absolute Neutrophils 7.4 10^3/uL (1.4-6.5); Hematocrit 40.6 % (39.0-52.0); Hemoglobin 14.2 g/dL (13.0-18.0); Mean Corpuscular Hgb 31.6 pg (27.0-31.0); Mean Corpuscular Volume 90.2 fL (80.0-94.0); Mean Platelet Volume 10.5 fL (7.4-10.4); Nucleated Red Blood Cells % 0 % (-); Platelet Count 186 10^3/uL (130-400); Red Cell Dist. Width 14.3 % (11.5-14.5)
[2024-04-28 08:01] LABS: ALT (SGPT) 20 U/L (0-50); AST (SGOT) 26 U/L (17-59); Albumin 3.7 g/dl (3.5-5.0); Alkaline Phosphatase 84 U/L (38-126); Blood Urea Nitrogen 26 mg/dl (9-20); Calcium 9.1 mg/dl (8.4-10.2); Carbon Dioxide 20 mmol/L (22-30); Chloride 106 mmol/L (98-107); Estimated Creatinine Clearance 37 ml/min; Glucose 123 mg/dl (70-99); HDL Cholesterol 35 mg/dl; LDL Cholesterol, Calculated 56 mg/dl; Potassium 4.5 mmol/L (3.5-5.1); Sodium 139 mmol/L (135-145); Total Cholesterol 110 mg/dl (50-199); Total Protein 6.7 g/dl (6.3-8.2); Triglyceride 96 mg/dl (10-149); Very Low Density Lipoprotein 19 mg/dl (0-30); eGFR 45.06
--- NOTE | 2024-04-28 08:36 | W.PN.HOSP.TC ---
Today's Communication/Plan
-
Plan for cardiac cath
Assessment / Plan
Assessment / Plan
Physical exam:
General: Well Developed, Well Nourished and No Apparent Distress
HEENT: Normocephalic, Atraumatic and Moist Mucous Membranes
Respiratory: Clear to Auscultation; Negative Wheezes, Rales or Rhonchi
Cardiac: Regular Rhythm and S1/S2
GI: Soft, Nontender and Nondistended
Musculoskeletal: No Clubbing, No Cyanosis and No Edema
Neuro: Awake, Alert and Oriented
Psych: Calm
A/P:
Dyspnea:
Workup in progress
Cardiology & pulmonary consult
Plan for echo
Plan for cardiac cath
Syncope:
Plan to interrogate ILR
Plan for echocardiogram
Cardiac monitoring
Chronic HFpEF:
Continue diuresis as needed
Continue beta-blockers
Continue SGLT2 inhibitor
CAD:
Plan for cardiac cath
Continue antiplatelet, beta-iram, anticoagulant, and statin
Paroxysmal atrial fibrillation:
Continue rate control, metoprolol succinate 50 mg twice a day
Continue anticoagulant, Eliquis 2.5 mg twice a day
Moderate aortic stenosis:
Plan to update echo
CKD stage IIIb:
Avoid nephrotoxic
Monitor renal function
Lung cancer, RUL:
Status post radiation
Diabetes mellitus type 2:
Insulin sliding scale
DVT prophylaxis:
Eliquis
CODE STATUS:
Full code
Anticipated Discharge: 24 - 48 hours
Subjective/Interval History
-
Date of Service: April 28, 2024
Patient complains of exertional dyspnea. No chest pain at rest. Afebrile
Objective Data
-
Labs:
Laboratory Results
04/28/24
07:21
WBC 11.0 H
Hgb 14.2
Hct 40.6
Plt Count 186
Sodium 139
Potassium 4.5
Chloride 106
Carbon Dioxide 20 L
BUN 26 H
Creatinine 1.5 H
Glucose 123 H
Calcium 9.1
Total Bilirubin 1.0
AST 26
ALT 20
Alkaline Phosphatase 84
Vital Signs:
Vital Signs
Temp Pulse Resp BP Pulse Ox
97.5 F 69 18 163/85 94
04/28/24 07:25 04/28/24 07:25 04/28/24 07:25 04/28/24 07:25 04/28/24 07:25
I&O
04/27/24 04/28/24 04/29/24
06:59 06:59 06:59
Intake Total 240 / 240
Output Total 1250 / 1250
Balance -1010 / -1010
[2024-04-28] MEDS: TOPROL XL 50 MG PO ×2 (08:54→20:31)
[2024-04-28] MEDS: ASPIR LOW (ENTERIC COATED) 81 MG PO (08:54)
[2024-04-28] MEDS: VITAMIN D3 (cholecalciferol) 50 MCG PO (08:54)
[2024-04-28] MEDS: VITAMIN B-12 1000 MCG PO (08:54)
[2024-04-28] MEDS: ZINC 50 MG PO (08:54)
[2024-04-28 08:55] LABS: Glycohemoglobin (HgbA1c) 6.1 % (4.0-5.6)
--- NOTE | 2024-04-28 09:10 | VNURNOTE ---
Chart reviewed.� [facility] is [facility] and [facility].� Will continue to follow hospital course and DC plans.
--- NOTE | 2024-04-28 09:37 | W.PN.PUL3 ---
Today's Communication / Plan
-
Patient has moderate severity PH with severe symptoms --> start pulmonary vasodilator with low-dose labetalol and monitor for improved clinical status
Currently he appears to be functional class III
Outpatient follow-up with the pulmonary hypertension treatment center at [place] which hopefully can be expedited
All RHC/LHC tracings and paperwork from today should be transferred to [place] for they review, in addition to our consult notes, echo findings, blood work and imaging
Check an ambulatory pulse oximetry prior to discharge
Defer workup for TAVR to cardiology
Pulmonary service will continue to follow along
Assessment
-
Assessment: 88-year-old male former tobacco smoker ([id number] history, quit 30 years ago) with a past medical history of CAD s/p stents, chronic HFpEF, AAA, chronic hypoxic respiratory failure on 2 L/min with activity, PAD s/p stent to right
groin, hypertension, hyperlipidemia, former alcoholic, history of RUL lung cancer s/p XRT, PH, CKD, DM type II, A-fib on Eliquis with history of ablation, history of COPD, and history of enterococcal bacteremia who presents with chest pressure,
dizziness and shortness of breath. His oxygen levels apparently dropped to the 70s on room air. He was brought here to the ER for further evaluation. He apparently was at the grocery store the other day and almost passed out, and his symptoms
have been progressively worsening. In the ER he was afebrile to 97.6 �F, pulse rate 78, breathing at 21 breaths/min, BP 156/78 and saturating 94% on room air. Labs showed Hb 13.9, WBC 8.5, absolute eosinophil count 300, creatinine 1.6, glucose
143, proBNP 3960, troponin negative at 0.018, and TSH WNL at 2.39. CXR showed no acute cardiopulmonary process with evidence of previously treated RUL lung cancer. He was admitted to telemetry under the hospitalist and pulmonary service consulted
for additional management/recommendations.
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
right groin, COPD, lumbar spinal stenosis, aortic stenosis, history of A-fib on Eliquis, left kidney cyst, history of enterococcal bacteremia
Impression:
#Presyncope with lightheadedness and dyspnea on exertion with orthostatic positive vital signs on admission - due to PH
#PH with severe symptoms - PH etiology appears mixed between group I (suspected idiopathic), II (valvular heart disease + diastolic CHF) and III (emphysema)
#Elevated proBNP (3960 on 04/27/2024 which is the highest that he has been compared to prior lab measurements over the past several years) - likely due to worsening PH as he clinically is not behaving as left sided heart failure
#Chronic diastolic heart failure with stage II diastolic dysfunction with moderate aortic stenosis and moderate pulmonary hypertension (no significant echocardiographic changes compared to prior TTE in October 2023)
#CKD (baseline creatinine 1.4�1.7)
#Centrilobular/paraseptal emphysema
#Former tobacco smoker ([id number] history, quit 30 years ago)
#History of RUL lung cancer s/p XRT with stable postradiation changes seen on imaging (measures approximately 4.4 x 5.4 x 1.4 cm)
#Subpleural reticular opacities with bronchial wall thickening in the lower lobes with stable 1.2 cm cavitary lesion in the medial LLL
#Paroxysmal A-fib currently in NSR on Eliquis
#Moderate aortic stenosis with history of heavy posterior mitral annular calcification with trace MR -concern for paradoxical low-flow, low gradient aortic valve stenosis s/p LHC/RHC on 04/28/2024
Plan:
- On admission, patient was orthostatic positive with SBP dropping >20 mmHg upon standing
- Given his elevated proBNP, would encourage PO intake and consider midodrine with holding parameters if symptoms continue
- He was denying PND or orthopnea hence no need to initiate diuresis at this time
- LHC/RHC performed today showing moderate severity pulmonary hypertension with an PAP: 43 mmHg with PVR 6.6 Wood units and TP mmHg, with LVEDP 10 mmHg + PCWP: 15 mmHg. Coronary artery show no culprit lesion with patent stent in the body of
OM 2 and 30% lesion in the distal RCA. CO/CI is 4.25/2.14 and there is concern for paradoxical low-flow, low gradient
- I attempted to transfer patient to [facility] at [place], and spoke with PH specialist, Dr. Zavala, and we have agreed to start sildenafil, and perform CTD workup and also check TSH and HIV
- If Sx persist despite being started on sildenafil, then would consider small bolus of IVF given he was orthostatic positive on admission
- Cardiology consulted and recommendations appreciated
- Echo performed on 04/27/2024, showing preserved LVEF at 50% with stage II diastolic function and moderate aortic stenosis, with PASP 40 mmHg. No significant change compared to prior TTE in October 2023
- Interrogation of ILR done today showing low burden of A-fib with no pauses
- Continue ASA + lipitor
- Defer TAVR workup to cardiology
- Although he has a reported history of COPD, his last several pulmonary function tests did not show any evidence of COPD/obstructive lung defect or restrictive lung defect, although his gas exchange capacity was moderate�severely reduced
- He does have moderate-severity pulmonary hypertension but it is stable compared to prior echo in October 2023. Current TTE from 04/27/2024 shows an intact interatrial septum hence a PFO is also unlikely
- He is not anemic hence this is not what is driving down his diffusing capacity
- Low DLco is due to PH
- Maintain SpO2 >90-94% with supplemental O2 as needed; re-check ambulatory pulse oximetry prior to discharge
- Incentive spirometer encouraged
- Replete electrolytes with K>4, Mg>2
- Maintain euglycemia with goal BG >100 and <180
- prn nebulized bronchodilators - not currently bronchospastic
- He does not qualify for lung cancer screening given he quit smoking >15 years ago
- PT/OT --> rec'd home health
- DVT ppx: Eliquis
I extensively discussed the patient's case with the daughter, Areli ([phone]), and answered all of her questions. She would like to be updated throughout his hospitalization.
If patient feels improved tomorrow on sildenafil with no pre-syncope, chest discomfort or shortness of breath, then he can be discharged with planned outpatient follow-up with our office and the pulmonary hypertension treatment center at [place]. I
supplied the patient with the number for the PH center at [place] so that he can call tomorrow and make an appointment which hopefully can be expedited per my discussion today with Dr. Zavala.
Pulmonary service will continue to follow along. We will arrange for post-hospitalization follow-up with our office as last visit was on 03/18/[address] Jessica.
Data:
Transthoracic echocardiogram 04/27/2024:
Low normal left ventricular systolic function.
Left ventricular ejection fraction is 50%.
Stage II diastolic dysfunction suggestive of abnormal relaxation and increased
filling pressures.
Mild biatrial enlargement.
Mild mitral regurgitation.
Moderate aortic stenosis (mean 20 mmHg, TAVIA 1.1 cmsq).
Estimated PASP 40 mmHg, assuming a right atrial pressure of 3 mmHg.
No significant change since the prior study of 11/14/2023 when the mean gradient
was 17 mmHg and the TAVIA was estimated at 1.3 cm2.
CXR 04/27/2024:
No active cardiopulmonary disease.
Stable treated neoplasm in the right upper lobe
Total time spent today was 51 minutes for this encounter. Time includes reviewing laboratory test/imaging results, reviewing pertinent medical records, obtaining and reviewing medical history, performing an appropriate exam, ordering medications,
tests and procedures. Time also includes documentation of this encounter, coordinating patient care and communicating with other healthcare professionals. Total time does not include separately billed tests performed on this date of service.
Subjective Data
-
Date of Service:
Date of Service: April 28, 2024
Chief Complaint: Pulmonary Follow Up
Subjective:
Patient was seen and evaluated this morning. Currently on room air breathing comfortably and says he feels fine. He normally has no issues at rest, it is only when he exerts himself when he feels like he is going to pass out, gets chest discomfort
with severe generalized weakness. Currently denies nausea, vomiting, cough, fevers or chills.
Review of Systems
General: Other (Negative unless mentioned above)
Objective Data
Data Reviewed
Vital Signs / I&O / Oxygen:
Vital Signs
Temp Pulse Resp BP Pulse Ox
97.5 F 70 18 164/85 94
04/28/24 07:25 04/28/24 08:54 04/28/24 07:25 04/28/24 08:54 04/28/24 07:25
Intake and Output
04/27/24 04/28/24 04/29/24
06:59 06:59 06:59
Intake Total 240 / 240
Output Total 1250 / 1250
Balance -1010 / -1010
SaO2 94
Physical Exam
General: Respiratory Distress (negative), Comfortable, Chills (negative) and Sweats (negative)
HEENT: Normocephalic and Anicteric
Cardiovascular: S1-S2 and Murmur (SELVIN heard across precordium, greatest in RUSB)
Respiratory: Wheeze (negative), Crackles (Faint rales heard in bibasilar regions (L>R)), Rhonchi (negative) and Non-Labored Respirations
GI: Soft, Non Distended, Non Tender and Normal Bowel Sounds
Neurology: AO x 3 and Tremors (negative)
Skin: Warm, Dry, Cyanosis (negative) and Jaundice (negative)
Labs/Micro/Reports
Lab Data
04/28/24 07:21
04/28/24 07:21
--- NOTE | 2024-04-28 11:09 | W.PN.CD ---
Today's Communication / Plan
-
R/L cardiac catheterization today.
Further medical management pending these results.
Impression / Plan
-
Impression/Plan: 88M unexplained syncope s/p ILR, frequent PVC's s/p ablation 09/10/22, PAC's, paroxysmal atrial fibrillation (on apixaban), CAD s/p stent 15 yrs ago, left carotid stenosis, PAD s/p bilateral iliac stenting, chronic HFPEF,
mild/moderate , mild/mod TR, HTN, dyslipidemia, 1st degree AVB, RBBB, AAA (3.4cm, infrarenal), DM, CKD3b, COPD, former tobacco, RUL lung cancer s/p radiation presented with dizziness, near syncope, and CAMPA with hypoxia.
#Exertional dyspnea
-On home oxygen (2LNC with activity).
-No hypoxia at rest.
-Pulmonology following.
#HFpEF
-Chronic. Unclear volume status in the context of hypoxic respiratory failure and primary pulmonary disease.
-Furosemide as needed, he only required one dose since prior discharge.
-GDMT as hemodynamics will tolerate. Continue
-Invasive clarification of volume/hemodynamics today.
#Presyncope
-ILR to be interrogated.
-Orthostatic vital signs are positive, but the patient is not hypotensive.
-Lower extremity compression was recommended at his most recent office visit for the possibility of orthostasis.
-Echocardiogram pending.
#CAD
-Chronic.
-Prior PCI.
-Ischemic evaluation in February stable.
-Denies chest pain, EKG stable.
-Clarification of coronary anatomy today.
#Paroxysmal atrial fibrillation
-Currently stable in sinus rhythm.
-Rate/rhythm control with metoprolol.
-[id number]: Score at least 6 (Heart failure, HTN, age 75 or more, Diabetes Mellitus, Vascular disease)
-Oral Anticoagulation: Apixaban 2.5 mg twice daily (age 88, creatinine >1.5), he denies missed doses and abnormal bleeding
#Moderate aortic stenosis
-Chronic, stable.
-Updated echocardiogram shows TAVIA 1.1 cm2, mean gradient 20 mmHg.
-Invasive evaluation today.
#PVCs
-Chronic, stable.
-Status post ablation.
#Decreased lung capacity
-Chronic.
-On home O2.
-Clarify filling pressures, pulmonary pressures today.
-Follows with Dr. Jessica.
#CKD
-Chronic, stage IIIb
-Follows with Dr. Huff.
#Left carotid artery stenosis
#AAA (3.5 cm infrarenal)
#NIDDM, per primary
#Right upper lobe lung cancer status post XRT, managed by Dr. Feliz
Subjective/Interval History:
Weight is stable.
Orthostatic vital signs are positive (laying = 161/87, 64; sitting = 166/129, 76; standing = 139/72, 77).
Feels well this AM.
DATA:
TTE, 04/27/2024:
CONCLUSIONS
Low normal left ventricular systolic function.
Left ventricular ejection fraction is 50%.
Stage II diastolic dysfunction suggestive of abnormal relaxation and increased
filling pressures.
Mild biatrial enlargement.
Mild mitral regurgitation.
Moderate aortic stenosis (mean 20 mmHg, TAVIA 1.1 cmsq).
Estimated PASP 40 mmHg, assuming a right atrial pressure of 3 mmHg.
No significant change since the prior study of 11/14/2023 when the mean gradient
was 17 mmHg and the TAVIA was estimated at 1.3 cm2.
Physical Exam
Vital Signs/Labs
Vital Signs
Temp Pulse Resp BP Pulse Ox
36.4 C 70 18 164/85 94
04/28/24 07:25 04/28/24 08:54 04/28/24 07:25 04/28/24 08:54 04/28/24 07:25
04/26/24 04/27/24 04/28/24
11:59 11:59 11:59
Actual Weight 81.3 kg 80.314 kg
04/28/24 07:21
04/28/24 07:21
Magnesium 1.6 mg/dl (1.6-2.3) 04/27/24 08:18
Triglycerides 96 mg/dl (10-149) 04/28/24 07:21
LDL Cholesterol, Calc 56 mg/dl 04/28/24 07:21
VLDL Cholesterol, Calc 19 mg/dl (0-30) 04/28/24 07:21
HDL Cholesterol 35 mg/dl 04/28/24 07:21
04/27/24
08:18
Npr-I-[id number] Pept 3960
LAB Results
04/27/24 04/27/24 04/27/24
08:18 12:06 18:00
Troponin I 0.018 0.019 0.015
Physical Exam
Constitutional: No acute distress and Comfortable
EENT: Anicteric and Moist mucous membranes
Cardiovascular: Rhythm & rate is regular, Pedal edema is absent, JVD pressure is normal, Systolic murmur present and S1S2 is normal
Respiratory: Respiratory effort normal and Other (Decreased throughout.)
GI: Soft, Distention absent, Flat, Non tender and Normal bowel sounds
Neuro/Psych: AO x 3
Data Reviewed
-
Date of Service: April 28, 2024
Medical Decision Making: Reviewed Test Results, Independent Historian Assessment and Test Interpretation
EKG: Tracing Personally Visualized and interpreted and Report Reviewed by me
Echo: Tracing Personally Visualized and interpreted and Report Reviewed by me
X-Ray/CT/US/MRI/NUC/PET: Image Personally Visualized and interpreted and Report Reviewed by me
Medical Tests (PFT, Pathology etc): Image Personally Visualized and interpreted and Report Reviewed by me
Labs: Labs Reviewed by me
Old Records: Reviewed
--- NOTE | 2024-04-28 12:20 | CM ---
CONTRERAS met with Ric at bedside to complete IA. He lives with his daughter and grandson in a 1 story home and stays on the first floor.
DME: [facility]
PCP: Dr. Marquez
Pharmacy: [facility] or [facility] in [place].
--- NOTE | 2024-04-28 12:51 | ITS.CL.CATH ---
Metrology Technician - Catheterization
Cardiac Catheterization
Procedure Report:
CARDIAC CATHETERIZATION REPORT
Date of Procedure: 04/28/2024
Referring: Santiago Washington M.D.
Indication: Known coronary artery disease, exertional chest pressure/syncope.
PROCEDURE:
1. Right heart catheterization.
2. Left heart catheterization.
3. Coronary angiography.
4. Aortic valve interrogation.
ACCESS:
6 Burkinan right radial artery.
5 Burkinan right antecubital vein.
CATHETERS:
1. 5 Burkinan balloon wedge.
2. 5 Burkinan JL 3.5.
3. 5 Burkinan JR4.
4. 6 Burkinan Harvard dual-lumen pigtail.
HEMODYNAMIC DATA
Weight (kg): 80.3
AO (s/d/x mmHg): 130/60/89
LV (s/x mmHg): 165/10
PCWP (a/v/x mmHg): 16/16/15
PA (s/d/x mmHg): 74/28/43
RV (s/x mmHg): 74/11
RA (a/v/x mmHg): 13/11
SVC SvO2 (%): 69.3
PA SvO2 (%): 63.7
SaO2 (%): 90.4
Hbg (g/dL): 14.8
CO (L/min): 4.25
CI (L/min/m2): 2.14
TPG (mmHg): 28
PVR (Cai Units): 6.6
SVR (dynes*seconds*cm^-5): 1468
AVO2 Diff (Volume %): 5.37
AV gradient (x, mmHg): 22.1
AV area (cm2): 1.0
LEFT VENTRICULOGRAPHY: Not performed.
CORONARY ANGIOGRAPHY
Dominance: Right.
Left Main: Normal size, bifurcating vessel. There is no coronary artery disease.
LAD: Normal size vessel giving rise to 1 significant diagonal. There are minor luminal irregularities.
Ramus: Congenitally absent.
Circumflex: Normal size, nondominant vessel that is essentially 2 obtuse marginals. A patent stent is visible in the body of OM 2. There is no other coronary artery disease.
RCA: Large size, dominant vessel with a small RPDA. The distal inferoseptum is supplied by a branch from the RV marginal. There is a 30% lesion in the distal RCA, proximal to the RPDA origin.
INTERVENTIONS
None.
Closure Device: Vascular band for the right radial artery, manual pressure for the right antecubital vein.
Radiation dose (mGy): 375.81
DAP (cm2.Gy): 35.8041
Fluoroscopy time (minutes): 4.7
Sedation time (minutes): 7
CONCLUSIONS:
1. Right dominant circulation with a 30% lesion in the distal RCA, a patent stent in the body of OM 2 and luminal irregularities in the LAD.
2. Normal filling pressures (LVEDP = 10 mmHg, PCWP = 15 mmHg at 80.3 kg).
3. Moderate to severe, paradoxical low-flow, low gradient aortic valve stenosis (mean gradient = 22.1 mmHg, TAVIA = 1.0 cm�, SVI = 32.5 mL, LVEF = 50% on TTE).
4. 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
RECOMMENDATIONS:
1. Expectant management after cardiac catheterization via right radial/antecubital approach.
2. Limited weight bearing on the right wrist for one week.
3. Continue aggressive secondary prevention with high-dose, high potency statin.
4. No obvious ischemic culprit for chest pressure/exertional syncope.
5. Pulmonary hypertension would explain chest pressure and presyncope with exertion. Consider sildenafil and referral to pulmonary hypertension center.
Copy to: Santiago Washington M.D., Giles Nails D.O.
Joni Victoria DO, FACC, FACP
[2024-04-28 13:20] LABS: Glucose - Point of Care 107 mg/dl (70-99)
[2024-04-28] MEDS: PROSCAR 5 MG PO (14:02)
--- NOTE | 2024-04-28 15:40 | W.PN.UPDATE ---
Addendum entered and electronically signed by Awais Blake MD 04/28/24 16:36:
Spoke with pulmonary HTN specialist, Dr. Nancy Zavala at [facility]. Right heart cath data personally reviewed with her. She suspects given the borderline elevated PCWP that there is likely a component of postcapillary pH also ongoing.
Given he is not class IV functional status and on room air at rest, believes that this should be addressed in the office to better facilitate a thoughtful plan. Recommended to start sildenafil 20 mg TID in the interim as well as perform
rheumatological workup with CTD panel, HIV + TSH. I will advise to the family to call the PH center at [place] ([phone]) to make an appointment. A note will be put into the patient's chart documenting that I spoke with them today and that
outpatient follow-up is pending. This will be discussed with the patient and daughter. Primary hospitalist made aware.
Original Note:
Update Note
Progress Note Update
LHC plus RHC data personally reviewed showing moderate severity pulmonary hypertension with PAP: 43 mmHg with high PVR of 6.6 Wood units. TP mmHg indicating precapillary pulmonary hypertension. Coronary vasculature shows patent stent in the
body of the OM 2 and left-sided pressures were WNL with LVEDP 10 mmHg + PCWP 15 mmHg. Also has moderate to severe paradoxical low-flow, low gradient aortic valve stenosis. Recent VQ scan performed on 02/20/2024 showed low probability for PE, making
CHF unlikely, indicating that patient has PAH. Recommend transfer to pulmonary hypertension center for continued management and initiation of pulmonary vasodilators and possibly epoprostenol. Given that he has symptoms of dizziness, chest pressure
and shortness of breath, believe that he has severe symptoms in the setting of his PH, and transfer will be arranged to [place] for continued management.
[2024-04-28 16:43] LABS: Glucose - Point of Care 133 mg/dl (70-99)
[2024-04-28] MEDS: REVATIO 20 MG PO ×2 (17:52→20:32)
--- NOTE | 2024-04-28 18:36 | PTCARENOTE ---
Received patient this am AAOx3. Pt NPO this am for Cardiac Cath. Pt off unit for cardiac cath this am. Pt returned from labeling machine operator at 12:55. Please see post angioplasty flow sheet. Pt tolerated diet this evening. Pt voided post cath clear yellow
urine. Pt offered no complaints. Made patient comfortable. Cont to assess patient status.
[2024-04-28] MEDS: ELIQUIS 2.5 MG PO (20:31)
[2024-04-28] MEDS: LIPITOR 80 MG PO (20:32)
[2024-04-28] MEDS: BENADRYL 25 MG PO (20:32)
[2024-04-28 21:16] LABS: Glucose - Point of Care 115 mg/dl (70-99)
[2024-04-29] VITALS (8 sets, daily range): BP systolic 119–152; BP diastolic 56–81; PULSE 68; O2SAT 92–97
--- NOTE | 2024-04-29 07:53 | W.PN.CD ---
Today's Communication / Plan
-
Monitor response to sildenafil.
Autoimmune disease workup.
TAVR workup.
Referral to [facility].
Discharge planning.
Impression / Plan
-
Impression/Plan: 88M unexplained syncope s/p ILR, frequent PVC's s/p ablation 09/10/22, PAC's, paroxysmal atrial fibrillation (on apixaban), CAD s/p stent 15 yrs ago, left carotid stenosis, PAD s/p bilateral iliac stenting, chronic HFPEF,
mild/moderate , mild/mod TR, HTN, dyslipidemia, 1st degree AVB, RBBB, AAA (3.4cm, infrarenal), DM, CKD3b, COPD, former tobacco, RUL lung cancer s/p radiation presented with dizziness, near syncope, and CAMPA with hypoxia.
#Pulmonary hypertension/exertional hypoxia
-Severe, new diagnosis.
-Normal SaO2 at rest. He requires 2LNC at home.
-Precapillary, PVR = 6.6 Cai units. Initially, TN thought to be WHO group 3, but CT scans and PFT's are not consistent with this chronic lung disease/hypoxia. I suspect this is group 1 (primary) or 5 (multifactorial, unclear).
-This level of pulmonary hypertension would certainly explain his exertional dyspnea and syncope/near syncope episodes, probably better than the aortic valve stenosis.
-Pulmonology (Dr. Blake) is following and reached out to [facility] yesterday. They do not see a role for transfer at this time, but did provide recommendations and will see the patient in the office.
-Sildenafil 20 mg TID started.
-Connective tissue disease/auto-immune disease workup has been started.
#HFpEF
-Chronic - likely primarily right sided.
-Cardiac catheterization showed LVEDP of 10 mmHg and PCWP of 15 mmHg. No evidence of left sided heart failure.
-Furosemide as needed. He may need volume as the RV is likely preload dependent.
-GDMT as hemodynamics will tolerate.
#Presyncope
-ILR negative for any pauses/arrhythmia.
-Orthostatic vital signs are positive, but the patient is not hypotensive (during BP's in hospital).
-Agree with compression stockings.
-This all seems to be consistent with preload dependence and severe pulmonary hypertension --> changing position leads to decreased venous return, leads to decrease RV flow to LV, leads to orthostasis.
#CAD
-Chronic.
-Prior PCI.
-Non-invasive ischemic evaluation in February was stable.
-Denies chest pain, EKG stable.
-Cardiac catheterization shows no new CAD, widely patent stent.
#Paroxysmal atrial fibrillation
-Currently stable in sinus rhythm.
-Rate/rhythm control with metoprolol.
-[id number]: Score at least 6 (Heart failure, HTN, age 75 or more, Diabetes Mellitus, Vascular disease).
-Oral Anticoagulation: Apixaban 2.5 mg twice daily (age 88, creatinine >1.5), he denies missed doses and abnormal bleeding.
#Moderate/severe, low flow, low gradient aortic stenosis
-Chronic, stable.
-Updated echocardiogram shows TAVIA 1.1 cm2, mean gradient 20 mmHg.
-Invasive evaluation confirms moderate/severe, low-flow, low gradient .
-We will work this up in parallel.
#PVCs
-Chronic, stable.
-Status post ablation.
-ILR interrogation shows PVC burden = 3.7% (scanned in [facility] 'Patient DOCs', 04/28/2024).
#CKD
-Chronic, stage IIIb
-Follows with Dr. Huff.
#Left carotid artery stenosis
#AAA (3.5 cm infrarenal)
#NIDDM, per primary
#Right upper lobe lung cancer status post XRT, managed by Dr. Feliz
Subjective/Interval History:
Weight is stable.
Feels well this AM.
Cath shows stable CAD, patent stent, severe pulmonary hypertension.
DATA:
Cardiac Catheterization, 04/28/2024:
CONCLUSIONS:
1. Right dominant circulation with a 30% lesion in the distal RCA, a patent stent in the body of OM 2 and luminal irregularities in the LAD.
2. Normal filling pressures (LVEDP = 10 mmHg, PCWP = 15 mmHg at 80.3 kg).
3. Moderate to severe, paradoxical low-flow, low gradient aortic valve stenosis (mean gradient = 22.1 mmHg, TAVIA = 1.0 cm�, SVI = 32.5 mL, LVEF = 50% on TTE).
4. 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
TTE, 04/27/2024:
CONCLUSIONS
Low normal left ventricular systolic function.
Left ventricular ejection fraction is 50%.
Stage II diastolic dysfunction suggestive of abnormal relaxation and increased
filling pressures.
Mild biatrial enlargement.
Mild mitral regurgitation.
Moderate aortic stenosis (mean 20 mmHg, TAVIA 1.1 cmsq).
Estimated PASP 40 mmHg, assuming a right atrial pressure of 3 mmHg.
No significant change since the prior study of 11/14/2023 when the mean gradient
was 17 mmHg and the TAVIA was estimated at 1.[address] Chest, 03/08/2024:
IMPRESSION:
1. Stable CT appearance of treated lung cancer with a nodular bandlike opacity in the right upper lobe that is unchanged compared to the chest CT from 11/05/2023.
2. Stable 1.2 cm cavitary lesion in the medial left lower lobe.
3. Mild bilateral emphysema (taken from body of report).
VQ Scan, 02/20/2024:
IMPRESSION:
Low probability study for pulmonary embolism.
Physical Exam
Vital Signs/Labs
Vital Signs
Temp Pulse Resp BP Pulse Ox
36.4 C 66 18 132/60 94
04/29/24 03:36 04/29/24 03:36 04/29/24 03:36 04/29/24 03:36 04/29/24 03:36
04/27/24 04/28/24 04/29/24
11:59 11:59 11:59
Actual Weight 81.3 kg 80.314 kg
Magnesium 1.6 mg/dl (1.6-2.3) 04/27/24 08:18
Triglycerides 96 mg/dl (10-149) 04/28/24 07:21
LDL Cholesterol, Calc 56 mg/dl 04/28/24 07:21
VLDL Cholesterol, Calc 19 mg/dl (0-30) 04/28/24 07:21
HDL Cholesterol 35 mg/dl 04/28/24 07:21
04/27/24
08:18
[id number] Pept 3960
LAB Results
04/27/24 04/27/24 04/27/24
08:18 12:06 18:00
Troponin I 0.018 0.019 0.015
Physical Exam
Constitutional: No acute distress and Comfortable
EENT: Anicteric and Moist mucous membranes
Cardiovascular: Rhythm & rate is regular, Pedal edema is absent, JVD pressure is normal, S1S2 is normal and Murmur/rub/gallop absent
Respiratory: Respiratory effort normal, Lungs clear to auscul., Wheeze Absent, Crackles Absent and Rhonchi Absent
GI: Soft, Distention absent, Flat, Non tender and Normal bowel sounds
Neuro/Psych: AO x 3
Other: Cath Site (Right radial/antecubital access sites are C/D/I.)
Data Reviewed
-
Date of Service: April 29, 2024
Medical Decision Making: Reviewed Test Results, Independent Historian Assessment and Test Interpretation
EKG: Tracing Personally Visualized and interpreted and Report Reviewed by me
Echo: Report Reviewed by me
X-Ray/CT/US/MRI/NUC/PET: Image Personally Visualized and interpreted and Report Reviewed by me
Medical Tests (PFT, Pathology etc): Image Personally Visualized and interpreted and Report Reviewed by me
Labs: Labs Reviewed by me
Old Records: Reviewed
[2024-04-29 08:02] LABS: Glucose - Point of Care 154 mg/dl (70-99)
[2024-04-29 08:18] LABS: % Basophils 0.6 % (0-2); % Immature Granulocytes 0.3 % (0-0.5); % Lymphocytes 20.4 % (20.5-51.1); % Monocytes 10.9 % (1.7-9.3); % Neutrophils 63.8 % (42.2-75.2); Absolute Basophils 0.1 10^3/uL (0-0.2); Absolute Eosinophils 0.4 10^3/uL (0-0.7); Absolute Neutrophils 6.1 10^3/uL (1.4-6.5); Hematocrit 41.1 % (39.0-52.0); Hemoglobin 14.4 g/dL (13.0-18.0); Mean Corpuscular Hgb 31.6 pg (27.0-31.0); Mean Corpuscular Volume 90.1 fL (80.0-94.0); Mean Platelet Volume 10.9 fL (7.4-10.4); Nucleated Red Blood Cells % 0 % (-); Platelet Count 195 10^3/uL (130-400); Red Blood Cell Count 4.56 10^6/uL (4.70-6.10); Red Cell Dist. Width 14.4 % (11.5-14.5); White Blood Cell Count 9.5 10^3/uL (4.8-10.8)
[2024-04-29 08:46] LABS: ALT (SGPT) 19 U/L (0-50); AST (SGOT) 26 U/L (17-59); Albumin 3.6 g/dl (3.5-5.0); Alkaline Phosphatase 76 U/L (38-126); Blood Urea Nitrogen 32 mg/dl (9-20); Calcium 9.1 mg/dl (8.4-10.2); Carbon Dioxide 21 mmol/L (22-30); Chloride 104 mmol/L (98-107); Estimated Creatinine Clearance 32 ml/min; Glucose 129 mg/dl (70-99); Potassium 4.6 mmol/L (3.5-5.1); Sodium 138 mmol/L (135-145); Total Bilirubin 1.1 mg/dl (0.2-1.3); Total Protein 6.6 g/dl (6.3-8.2); eGFR 38.78
[2024-04-29 08:53] LABS: Rheumatoid Agglutinin Less Than 10 IU (<10 IU)
[2024-04-29] MEDS: VITAMIN B-12 1000 MCG PO (08:58)
[2024-04-29] MEDS: VITAMIN D3 (cholecalciferol) 50 MCG PO (08:58)
[2024-04-29] MEDS: TOPROL XL 50 MG PO ×2 (08:59→21:36)
[2024-04-29] MEDS: REVATIO 20 MG PO ×3 (08:59→21:35)
[2024-04-29] MEDS: ZINC 50 MG PO (08:59)
[2024-04-29] MEDS: PROSCAR 5 MG PO (08:59)
[2024-04-29] MEDS: ASPIR LOW (ENTERIC COATED) 81 MG PO (09:02)
[2024-04-29] MEDS: ELIQUIS 2.5 MG PO ×2 (09:03→21:36)
[2024-04-29] MEDS: NOVOLOG FLEXPEN-LOW RESISTANCE 1 UNITS SC (09:04)
[2024-04-29 09:06] LABS: Erythrocyte Sed Rate 21 mm/hour (0-20)
--- NOTE | 2024-04-29 09:34 | W.PN.HOSP.TC ---
Today's Communication/Plan
-
Sildenafil. TAVR workup. Pulmonary hypertension eval/referral
Assessment / Plan
Assessment / Plan
Physical exam:
General: Well Developed, Well Nourished and No Apparent Distress
HEENT: Normocephalic, Atraumatic and Moist Mucous Membranes
Respiratory: Clear to Auscultation; Negative Wheezes, Rales or Rhonchi
Cardiac: Regular Rhythm and S1/S2
GI: Soft, Nontender and Nondistended
Musculoskeletal: No Clubbing, No Cyanosis and No Edema
Neuro: Awake, Alert and Oriented
Psych: Calm
A/P:
Dyspnea:
Related to pulmonary hypertension
Appreciated pulmonary and cardiology input
Pulmonary reach out to [place] [employer] specialist
Started on sildenafil
Status post echo and cardiac cath
Autoimmune workup in progress
Syncope:
Status post interrogated ILR
Status post echocardiogram
Cardiac monitoring
Chronic HFpEF:
Continue diuresis as needed
Continue beta-blockers
Continue SGLT2 inhibitor
CAD:
Plan for cardiac cath
Continue antiplatelet, beta-iram, anticoagulant, and statin
Paroxysmal atrial fibrillation:
Continue rate control, metoprolol succinate 50 mg twice a day
Continue anticoagulant, Eliquis 2.5 mg twice a day
Moderate to severe low-flow low gradient aortic stenosis:
Plan for TAVR workup
Echo showed TAVIA 1.1 cm� with mean gradient about 20 mmHg and invasive evaluation shows moderate to severe low-flow low gradient AAS
CKD stage IIIb:
Avoid nephrotoxic
Monitor renal function
Lung cancer, RUL:
Status post radiation
Diabetes mellitus type 2:
Insulin sliding scale
DVT prophylaxis:
Eliquis
CODE STATUS:
Full code
Anticipated Discharge: Within 24 hours
Subjective/Interval History
-
Date of Service: April 29, 2024
Patient still having dyspnea on exertion. No chest pain or shortness of breath at rest
Objective Data
-
Labs:
Laboratory Results
04/29/24
07:27
WBC 9.5
Hgb 14.4
Hct 41.1
Plt Count 195
Sodium 138
Potassium 4.6
Chloride 104
Carbon Dioxide 21 L
BUN 32 H
Creatinine 1.7 H
Glucose 129 H
Calcium 9.1
Total Bilirubin 1.1
AST 26
ALT 19
Alkaline Phosphatase 76
Vital Signs:
Vital Signs
Temp Pulse Resp BP Pulse Ox
97.4 F 64 20 152/70 95
04/29/24 07:24 04/29/24 08:59 04/29/24 07:24 04/29/24 08:59 04/29/24 07:24
I&O
04/28/24 04/29/24 04/30/24
06:59 06:59 06:59
Intake Total 240 / 240 970 / 970
Output Total 1250 / 1250 1325 / 1325
Balance -1010 / -1010 -355 / -355
--- NOTE | 2024-04-29 09:54 | W.PN.PUL3 ---
Today's Communication / Plan
-
Patient has moderate severity PH with severe symptoms --> on 04/28 I started a pulmonary vasodilator with low-dose sildenafil and he has responded positively with improved clinical status
If patient is tolerating sildenafil but still with presyncope and remains symptomatic with exertion then I will uptitrate sildenafil as tolerated
On admission he was functional class III, however I would like him to be at least functional class II prior to discharge
Outpatient follow-up with the pulmonary hypertension treatment center at [place] which hopefully can be expedited pending their receipt of his current hospital medical records/reports/studies/notes/etc
All RHC/LHC tracings and paperwork from this hospitalization should be transferred to [place] for their review, in addition to our consult notes, echo findings, blood work and imaging
Check an ambulatory pulse oximetry prior to discharge
Defer workup for TAVR to cardiology
Pulmonary service will continue to follow along
Assessment
-
Assessment: 88-year-old male former tobacco smoker ([id number] history, quit 30 years ago) with a past medical history of CAD s/p stents, chronic HFpEF, AAA, chronic hypoxic respiratory failure on 2 L/min with activity, PAD s/p stent to right
groin, hypertension, hyperlipidemia, former alcoholic, history of RUL lung cancer s/p XRT, PH, CKD, DM type II, A-fib on Eliquis with history of ablation, history of COPD, and history of enterococcal bacteremia who presents with chest pressure,
dizziness and shortness of breath. His oxygen levels apparently dropped to the 70s on room air. He was brought here to the ER for further evaluation. He apparently was at the grocery store the other day and almost passed out, and his symptoms
have been progressively worsening. In the ER he was afebrile to 97.6 �F, pulse rate 78, breathing at 21 breaths/min, BP 156/78 and saturating 94% on room air. Labs showed Hb 13.9, WBC 8.5, absolute eosinophil count 300, creatinine 1.6, glucose
143, proBNP 3960, troponin negative at 0.018, and TSH WNL at 2.39. CXR showed no acute cardiopulmonary process with evidence of previously treated RUL lung cancer. He was admitted to telemetry under the hospitalist and pulmonary service consulted
for additional management/recommendations.
Chronic conditions [employer]ER: History of RUL lung cancer s/p XRT, pulmonary hypertension, former tobacco smoker, CAD s/p stents, hypertension, CKD, PAD, DM type II, hyperlipidemia, former alcoholic, orthostatic hypotension, CHF, AAA, PAD s/p stent to
right groin, COPD, lumbar spinal stenosis, aortic stenosis, history of A-fib on Eliquis, left kidney cyst, history of enterococcal bacteremia
Impression:
#Presyncope with lightheadedness and dyspnea on exertion with orthostatic positive vital signs on admission - due to PH - improved on sildenafil
#PH with severe symptoms - PH etiology appears mixed between group I (suspected idiopathic), II (valvular heart disease + diastolic CHF) and III (emphysema)
#Elevated proBNP (3960 on 04/27/2024 which is the highest that he has been compared to prior lab measurements over the past several years) - likely due to worsening PH as he clinically is not behaving as left sided heart failure
#Chronic diastolic heart failure with stage II diastolic dysfunction with moderate aortic stenosis and moderate pulmonary hypertension (no significant echocardiographic changes compared to prior TTE in October 2023)
#CKD (baseline creatinine 1.4�1.7)
#Centrilobular/paraseptal emphysema
#Former tobacco smoker ([id number] history, quit 30 years ago)
#History of RUL lung cancer s/p XRT with stable postradiation changes seen on imaging (measures approximately 4.4 x 5.4 x 1.4 cm)
#Subpleural reticular opacities with bronchial wall thickening in the lower lobes with stable 1.2 cm cavitary lesion in the medial LLL
#Paroxysmal A-fib currently in NSR on Eliquis
#Moderate aortic stenosis with history of heavy posterior mitral annular calcification with trace MR -concern for paradoxical low-flow, low gradient aortic valve stenosis s/p LHC/RHC on 04/28/2024
Plan:
- On admission, patient was orthostatic positive with SBP dropping >20 mmHg upon standing
- Given his elevated proBNP, we initially encouraged PO intake and we can consider midodrine with holding parameters if symptoms continue despite sildenafil
- He was denying PND or orthopnea hence we did not initiate diuresis
- LHC/RHC performed on 04/28/2024 showed moderate severity pulmonary hypertension with a mPAP: 43 mmHg, with PVR 6.6 Wood Units and TP mmHg, with LVEDP 10 mmHg + PCWP: 15 mmHg. LHC showed no culprit lesion with patent stent in the body of OM-2
and 30% lesion in the distal RCA. CO/CI is 4.25/2.14, respectively, & there is concern for paradoxical low-flow, low gradient
- I attempted to transfer patient to [facility] at [place], and spoke with PH specialist, Dr. Zavala, and we have agreed to start sildenafil, and perform CTD workup and also check TSH and HIV
-TSH is WNL at 2.4, rheumatoid factor is WNL at <10; HIV Ag/Ab combo is negative; remainder of blood work is pending
- If Sx persist despite being started on sildenafil, then would consider small bolus of IVF given he was orthostatic positive on admission --> thankfully he is improving on sildenafil 20mg TID
- Cardiology consulted and recommendations appreciated
- Echo performed on 04/27/2024, showing preserved LVEF at 50% with stage II diastolic function and moderate aortic stenosis, with PASP 40 mmHg. No significant change compared to prior TTE in October 2023
- Interrogation of ILR done today showing low burden of A-fib with no pauses
- Continue ASA + lipitor
- Defer TAVR workup to cardiology
- Although he has a reported history of COPD, his last several pulmonary function tests did not show any evidence of COPD/obstructive lung defect or restrictive lung defect, although his gas exchange capacity was moderate�severely reduced
- He does have moderate-severity pulmonary hypertension but it is stable compared to prior echo in October 2023. Current TTE from 04/27/2024 shows an intact interatrial septum hence a PFO is also unlikely - refer to RHC #'s as above for details
- He is not anemic hence this is not what is driving down his diffusing capacity
- Low DLco is due to PH
- Maintain SpO2 >90-94% with supplemental O2 as needed; check ambulatory pulse oximetry prior to discharge
- Incentive spirometer encouraged
- Replete electrolytes with K>4, Mg>2
- Maintain euglycemia with goal BG >100 and <180
- prn nebulized bronchodilators - not currently bronchospastic
- He does not qualify for lung cancer screening given he quit smoking >15 years ago
- PT/OT --> rec'd home health
- DVT ppx: Eliquis
On 04/28, I extensively discussed the patient's case with the daughter, Areli ([phone]), and answered all of her questions. She would like to be updated throughout his hospitalization.
Disposition efforts; as long as patient remains stable by tomorrow with no pre-syncope, chest discomfort or shortness of breath, then he can be discharged with planned outpatient follow-up with our office and the pulmonary hypertension treatment
center at [place]. I will try to get his medical records sent over to the [place] PH center to help expedite an outpatient office follow-up visit. I supplied the patient with the number for the PH center at [place] so that he can call and make an
appointment which hopefully can be expedited per my discussion today with Dr. Zavala. Of note, the pt. did call on 04/29/2024 but the office at [place] needs his records from this hospitalization first before an appt can be made
Pulmonary service will continue to follow along. We will arrange for post-hospitalization follow-up with our office as last visit was on 03/18/[address] Jessica.
Data:
Transthoracic echocardiogram 04/27/2024:
Low normal left ventricular systolic function.
Left ventricular ejection fraction is 50%.
Stage II diastolic dysfunction suggestive of abnormal relaxation and increased
filling pressures.
Mild biatrial enlargement.
Mild mitral regurgitation.
Moderate aortic stenosis (mean 20 mmHg, TAVIA 1.1 cmsq).
Estimated PASP 40 mmHg, assuming a right atrial pressure of 3 mmHg.
No significant change since the prior study of 11/14/2023 when the mean gradient
was 17 mmHg and the TAVIA was estimated at 1.3 cm2.
CXR 04/27/2024:
No active cardiopulmonary disease.
Stable treated neoplasm in the right upper lobe
Total time spent today was 56 minutes for this encounter. Time includes reviewing laboratory test/imaging results, reviewing pertinent medical records, obtaining and reviewing medical history, performing an appropriate exam, ordering medications,
tests and procedures. Time also includes documentation of this encounter, coordinating patient care and communicating with other healthcare professionals. Total time does not include separately billed tests performed on this date of service.
Subjective Data
-
Date of Service:
Date of Service: April 29, 2024
Chief Complaint: Pulmonary Follow Up
Subjective:
Patient seen and evaluated this morning. He is actually feeling better with less symptoms during exercise, meaning less short of breath, less lightheadedness and no episodes of feeling like he is going to pass out. When I saw him he was on room
air breathing comfortably. SpO2 96% and he has been afebrile overnight. He is eager to go home. He denies chest pain, YEPEZ, abdominal pain, nausea, fevers or chills.
Review of Systems
General: Other (Negative unless mentioned above)
Objective Data
Data Reviewed
Vital Signs / I&O / Oxygen:
Vital Signs
Temp Pulse Resp BP Pulse Ox
97.7 F 60 20 132/68 98
04/29/24 11:21 04/29/24 11:21 04/29/24 11:21 04/29/24 11:21 04/29/24 11:21
Intake and Output
04/28/24 04/29/24 04/30/24
06:59 06:59 06:59
Intake Total 240 / 240 970 / 970
Output Total 1250 / 1250 1325 / 1325
Balance -1010 / -1010 -355 / -355
SaO2 98
Physical Exam
General: Respiratory Distress (negative), Comfortable, Chills (negative) and Sweats (negative)
HEENT: Normocephalic, Anicteric and Moist Mucous Membranes
Cardiovascular: S1-S2, Murmur (SELVIN heard across precordium, greatest in RUSB) and Peripheral Edema (negative)
Respiratory: Wheeze (negative), Crackles (Bibasilar), Rhonchi (negative) and Non-Labored Respirations
GI: Soft, Non Distended, Non Tender and Normal Bowel Sounds
Neurology: AO x 3 and Tremors (negative)
Skin: Warm, Dry, Cyanosis (negative) and Jaundice (negative)
Labs/Micro/Reports
Lab Data
04/29/24 07:27
04/29/24 07:27
[2024-04-29 11:29] LABS: HIV Combo Negative (Negative)
[2024-04-29 11:47] LABS: Glucose - Point of Care 105 mg/dl (70-99)
[2024-04-29] MEDS: NOVOLOG FLEXPEN-LOW RESISTANCE SC ×2 (12:52→16:43)
--- NOTE | 2024-04-29 14:59 | PN.CDI ---
CDI
- -
CDI:
Physician Documentation Request
Admit Date: 04/27/24 13:10
Dear Doctor Isi,
Clinical Indicators:
Patient admitted with near syncope and shortness of breath.
PMH includes CKD IIIb
Serum bicarbonate trend:
04/27/24 04/28/24 04/29/24
08:18 07:21 07:27
Carbon Dioxide 18 L 20 L 21 L
Based on the above, could you clarify in the progress notes, the appropriate diagnosis, if significant, that supports the above abnormalities and additional evaluation, monitoring and/or treatment rendered:
Metabolic acidosis
Abnormal lab values, clinically insignificant
Other
Use of terms such as suspected, likely, concern for, or probable (associated with a specific diagnosis that is being evaluated, monitored, or treated as if it exists) are acceptable and can be coded in the inpatient setting, when documented at the
time of discharge.
Thank you,
Yulia Decker RN
CDI Specialist
available via tiger text
Please use your independent medical judgment in providing your response.
[2024-04-29 16:40] LABS: Glucose - Point of Care 123 mg/dl (70-99)
[2024-04-29] MEDS: BENADRYL 25 MG PO (21:35)
[2024-04-29] MEDS: LIPITOR 80 MG PO (21:35)
[2024-04-30 00:55] LABS: Glucose - Point of Care 117 mg/dl (70-99)
[2024-04-30 03:46] VITALS: BP 104/83
[2024-04-30 06:00] VITALS: BMI 26.0
[2024-04-30 07:00] LABS: Glucose - Point of Care 138 mg/dl (70-99)
[2024-04-30 07:05] VITALS: BP 136/69
[2024-04-30] MEDS: NOVOLOG FLEXPEN-LOW RESISTANCE SC ×2 (07:33→11:59)
[2024-04-30] MEDS: ZINC 50 MG PO (07:34)
[2024-04-30] MEDS: ASPIR LOW (ENTERIC COATED) 81 MG PO (07:34)
[2024-04-30] MEDS: TOPROL XL 50 MG PO (07:34)
[2024-04-30] MEDS: ELIQUIS 2.5 MG PO (07:34)
[2024-04-30] MEDS: VITAMIN D3 (cholecalciferol) 50 MCG PO (07:34)
[2024-04-30] MEDS: PROSCAR 5 MG PO (07:34)
[2024-04-30] MEDS: REVATIO 20 MG PO (07:37)
[2024-04-30] MEDS: VITAMIN B-12 1000 MCG PO (07:37)
[2024-04-30 07:38] LABS: % Basophils 0.6 % (0-2); % Eosinophils 4.5 % (0-6); % Immature Granulocytes 0.3 % (0-0.5); % Lymphocytes 20.1 % (20.5-51.1); % Monocytes 11.1 % (1.7-9.3); % Neutrophils 63.4 % (42.2-75.2); Absolute Basophils 0.1 10^3/uL (0-0.2); Absolute Eosinophils 0.4 10^3/uL (0-0.7); Absolute Monocytes 1.1 10^3/uL (0.1-0.6); Absolute Neutrophils 6.2 10^3/uL (1.4-6.5); Hematocrit 41.9 % (39.0-52.0); Hemoglobin 14.8 g/dL (13.0-18.0); Mean Corp Hgb Conc. 35.3 g/dL (33.0-37.0); Mean Corpuscular Hgb 31.9 pg (27.0-31.0); Mean Corpuscular Volume 90.3 fL (80.0-94.0); Nucleated Red Blood Cells % 0 % (-); Platelet Count 192 10^3/uL (130-400); Red Blood Cell Count 4.64 10^6/uL (4.70-6.10); Red Cell Dist. Width 14.3 % (11.5-14.5); White Blood Cell Count 9.8 10^3/uL (4.8-10.8)
--- NOTE | 2024-04-30 07:53 | W.PN.CD ---
Today's Communication / Plan
-
Follow up labs.
No role for urgent/expedited TAVR.
Symptoms are almost certainly from severe pHTN.
Discharge planning.
Impression / Plan
-
Impression/Plan: 88M unexplained syncope s/p ILR, frequent PVC's s/p ablation 09/10/22, PAC's, paroxysmal atrial fibrillation (on apixaban), CAD s/p stent 15 yrs ago, left carotid stenosis, PAD s/p bilateral iliac stenting, chronic HFPEF,
mild/moderate , mild/mod TR, HTN, dyslipidemia, 1st degree AVB, RBBB, AAA (3.4cm, infrarenal), DM, CKD3b, COPD, former tobacco, RUL lung cancer s/p radiation presented with dizziness, near syncope, and CAMPA with hypoxia.
#Pulmonary hypertension/exertional hypoxia
-Severe, new diagnosis.
-Normal SaO2 at rest. He requires 2LNC with activity.
-Precapillary, PVR = 6.6 Cai units, WHO group 1 vs. 5 (PCWP = 15, no significant obstruction/restriction of PFTs, negative VQ).
-This level of pulmonary hypertension explains his exertional dyspnea and syncope/near syncope episodes.
-Pulmonology (Dr. Blake) is following.
-Sildenafil 20 mg TID started.
-Connective tissue disease/auto-immune disease workup has been started.
-Outpatient [place] pHTN follow up.
#HFpEF
-Chronic - likely primarily right sided.
-Cardiac catheterization showed LVEDP of 10 mmHg and PCWP of 15 mmHg. No evidence of left sided heart failure.
-Furosemide as needed. He may need volume as the RV is likely preload dependent.
-GDMT as hemodynamics will tolerate.
#Presyncope
-ILR negative for any pauses/arrhythmia.
-Orthostatic vital signs are positive, but the patient is not hypotensive (during BP's in hospital).
-Agree with compression stockings.
-This all seems to be consistent with preload dependence and severe pulmonary hypertension --> changing position leads to decreased venous return, leads to decrease RV flow to LV, leads to orthostasis.
#CAD
-Chronic.
-Prior PCI.
-Non-invasive ischemic evaluation in February was stable.
-Denies chest pain, EKG stable.
-Cardiac catheterization shows no new CAD, widely patent stent.
#Paroxysmal atrial fibrillation
-Currently stable in sinus rhythm.
-Rate/rhythm control with metoprolol.
-[id number]: Score at least 6 (Heart failure, HTN, age 75 or more, Diabetes Mellitus, Vascular disease).
-Oral Anticoagulation: Apixaban 2.5 mg twice daily (age 88, creatinine >1.5), he denies missed doses and abnormal bleeding.
#Moderate/severe, low flow, low gradient aortic stenosis
-Chronic, stable.
-Updated echocardiogram shows TAVIA 1.1 cm2, mean gradient 20 mmHg.
-Invasive evaluation confirms moderate/severe, low-flow, low gradient .
-Discussed in multidisciplinary team meeting this morning. Unanimous agreement that the aortic stenosis is on the more moderate side and is not the culprit for syncope/presyncope.
-We will continue to monitor over time, but no indication for urgent/expedited TAVR workup.
#PVCs
-Chronic, stable.
-Status post ablation.
-ILR interrogation shows PVC burden = 3.7% (scanned in [facility] 'Patient DOCs', 04/28/2024).
#CKD
-Chronic, stage IIIb
-Follows with Dr. Huff.
#Left carotid artery stenosis
#AAA (3.5 cm infrarenal)
#NIDDM, per primary
#Right upper lobe lung cancer status post XRT, managed by Dr. Feliz
Subjective/Interval History:
Weight is stable.
Significant improvement in symptoms. He was able to ambulate around the unit 3x without chest pressure/presyncope. He reports this SaO2 remained > 90%.
Feels well this AM.
Cath shows stable CAD, patent stent, severe pulmonary hypertension.
DATA:
Cardiac Catheterization, 04/28/2024:
CONCLUSIONS:
1. Right dominant circulation with a 30% lesion in the distal RCA, a patent stent in the body of OM 2 and luminal irregularities in the LAD.
2. Normal filling pressures (LVEDP = 10 mmHg, PCWP = 15 mmHg at 80.3 kg).
3. Moderate to severe, paradoxical low-flow, low gradient aortic valve stenosis (mean gradient = 22.1 mmHg, TAVIA = 1.0 cm�, SVI = 32.5 mL, LVEF = 50% on TTE).
4. 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
TTE, 04/27/2024:
CONCLUSIONS
Low normal left ventricular systolic function.
Left ventricular ejection fraction is 50%.
Stage II diastolic dysfunction suggestive of abnormal relaxation and increased
filling pressures.
Mild biatrial enlargement.
Mild mitral regurgitation.
Moderate aortic stenosis (mean 20 mmHg, TAVIA 1.1 cmsq).
Estimated PASP 40 mmHg, assuming a right atrial pressure of 3 mmHg.
No significant change since the prior study of 11/14/2023 when the mean gradient
was 17 mmHg and the TAVIA was estimated at 1.[address] Chest, 03/08/2024:
IMPRESSION:
1. Stable CT appearance of treated lung cancer with a nodular bandlike opacity in the right upper lobe that is unchanged compared to the chest CT from 11/05/2023.
2. Stable 1.2 cm cavitary lesion in the medial left lower lobe.
3. Mild bilateral emphysema (taken from body of report).
VQ Scan, 02/20/2024:
IMPRESSION:
Low probability study for pulmonary embolism.
Physical Exam
Vital Signs/Labs
Vital Signs
Temp Pulse Resp BP Pulse Ox
36.8 C 66 16 136/69 93
04/30/24 03:46 04/30/24 07:34 04/30/24 03:46 04/30/24 07:34 04/30/24 03:46
04/28/24 04/29/24 04/30/24
11:59 11:59 11:59
Actual Weight 80.314 kg 82.185 kg
04/30/24 06:55
Magnesium 1.6 mg/dl (1.6-2.3) 04/27/24 08:18
Triglycerides 96 mg/dl (10-149) 04/28/24 07:21
LDL Cholesterol, Calc 56 mg/dl 04/28/24 07:21
VLDL Cholesterol, Calc 19 mg/dl (0-30) 04/28/24 07:21
HDL Cholesterol 35 mg/dl 04/28/24 07:21
04/27/24
08:18
[id number] Pept 3960
LAB Results
04/27/24 04/27/24 04/27/24
08:18 12:06 18:00
Troponin I 0.018 0.019 0.015
Physical Exam
Constitutional: No acute distress and Comfortable
EENT: Anicteric and Moist mucous membranes
Cardiovascular: Rhythm & rate is regular, Pedal edema is absent, JVD pressure is normal, S1S2 is normal and Murmur/rub/gallop absent
Respiratory: Respiratory effort normal, Lungs clear to auscul., Wheeze Absent, Crackles Absent and Rhonchi Absent
GI: Soft, Distention absent, Flat, Non tender and Normal bowel sounds
Neuro/Psych: AO x 3
Data Reviewed
-
Date of Service: April 30, 2024
Medical Decision Making: Reviewed Test Results, Independent Historian Assessment and Test Interpretation
EKG: Tracing Personally Visualized and interpreted and Report Reviewed by me
Echo: Tracing Personally Visualized and interpreted and Report Reviewed by me
X-Ray/CT/US/MRI/NUC/PET: Image Personally Visualized and interpreted and Report Reviewed by me
Medical Tests (PFT, Pathology etc): Image Personally Visualized and interpreted and Report Reviewed by me
Labs: Labs Reviewed by me
Old Records: Reviewed
[2024-04-30 09:13] LABS: ALT (SGPT) 20 U/L (0-50); AST (SGOT) 27 U/L (17-59); Albumin 3.9 g/dl (3.5-5.0); Alkaline Phosphatase 79 U/L (38-126); Blood Urea Nitrogen 32 mg/dl (9-20); Calcium 9.6 mg/dl (8.4-10.2); Carbon Dioxide 21 mmol/L (22-30); Chloride 104 mmol/L (98-107); Estimated Creatinine Clearance 32 ml/min; Glucose 136 mg/dl (70-99); Potassium 4.8 mmol/L (3.5-5.1); Sodium 137 mmol/L (135-145); Total Bilirubin 1.1 mg/dl (0.2-1.3); eGFR 38.78
--- NOTE | 2024-04-30 09:35 | W.PN.HOSP.TC ---
Addendum entered and electronically signed by Ralf Snowden MD 04/30/24 14:25:
Metabolic acidosis
Original Note:
Today's Communication/Plan
-
Discharge planning
Assessment / Plan
Assessment / Plan
Physical exam:
General: Well Developed, Well Nourished and No Apparent Distress
HEENT: Normocephalic, Atraumatic and Moist Mucous Membranes
Respiratory: Clear to Auscultation; Negative Wheezes, Rales or Rhonchi
Cardiac: Regular Rhythm and S1/S2
GI: Soft, Nontender and Nondistended
Musculoskeletal: No Clubbing, No Cyanosis and No Edema
Neuro: Awake, Alert and Oriented
Psych: Calm
A/P:
Dyspnea:
Related to pulmonary hypertension
Appreciated pulmonary and cardiology input
Pulmonary reach out to [place] study specialist
Started on sildenafil
Status post echo and cardiac cath
Autoimmune workup in progress
Cleared by cardiology and pulmonary for discharge today
Syncope:
Status post interrogated ILR
Status post echocardiogram
Cardiac monitoring
Chronic HFpEF:
Continue diuresis as needed
Continue beta-blockers
Continue SGLT2 inhibitor
CAD:
Plan for cardiac cath
Continue antiplatelet, beta-iram, anticoagulant, and statin
Paroxysmal atrial fibrillation:
Continue rate control, metoprolol succinate 50 mg twice a day
Continue anticoagulant, Eliquis 2.5 mg twice a day
Moderate to severe low-flow low gradient aortic stenosis:
Defer TAVR workup to cardiology if needed as outpatient
Echo showed TAVIA 1.1 cm� with mean gradient about 20 mmHg and invasive evaluation shows moderate to severe low-flow low gradient AAS
CKD stage IIIb:
Avoid nephrotoxic
Monitor renal function
Lung cancer, RUL:
Status post radiation
Diabetes mellitus type 2:
Insulin sliding scale
DVT prophylaxis:
Eliquis
CODE STATUS:
Full code
Anticipated Discharge: Today
Subjective/Interval History
-
Date of Service: April 30, 2024
Patient doing well and improved dyspnea.
Objective Data
-
Labs:
Laboratory Results
04/30/24
06:55
WBC 9.8
Hgb 14.8
Hct 41.9
Plt Count 192
Sodium 137
Potassium 4.8
Chloride 104
Carbon Dioxide 21 L
BUN 32 H
Creatinine 1.7 H
Glucose 136 H
Calcium 9.6
Total Bilirubin 1.1
AST 27
ALT 20
Alkaline Phosphatase 79
Vital Signs:
Vital Signs
Temp Pulse Resp BP Pulse Ox
97.7 F 66 18 136/69 97
04/30/24 07:05 04/30/24 07:34 04/30/24 07:05 04/30/24 07:34 04/30/24 09:17
I&O
04/29/24 04/30/24 05/01/24
06:59 06:59 06:59
Intake Total 970 / 970 720 / 720
Output Total 1325 / 1325 1500 / 1500
Balance -355 / -355 -780 / -780
--- NOTE | 2024-04-30 09:50 | W.PN.PUL3 ---
Today's Communication / Plan
-
Patient has moderate severity PH with severe symptoms --> on 04/28 I started a pulmonary vasodilator with low-dose sildenafil and he has responded positively with improved clinical status
Outpatient follow-up with the pulmonary hypertension treatment center at [place] which hopefully can be expedited pending their receipt of his current hospital medical records/reports/studies/notes/etc
All RHC/LHC tracings and paperwork from this hospitalization should be transferred to [facility] for their review, in addition to our consult notes, echo findings, blood work and imaging
Ambulatory pulse oximetry checked today and shows he does not need O2 upon discharge --> alessandro SpO2 92% and he walked 350 feet
Defer workup for TAVR to cardiology
Patient being prepared for discharge home today. No additional pulmonary recommendations at this time. Patient will follow-up with our office in addition to [facility] pulmonary hypertension treatment center. Pulmonary service will now sign off.
Please reconsult if there are any additional questions/concerns, or if patient's respiratory status deteriorates.
Assessment
-
Assessment: 88-year-old male former tobacco smoker (42-[id number]-dubf history, quit 30 years ago) with a past medical history of CAD s/p stents, chronic HFpEF, AAA, chronic hypoxic respiratory failure on 2 L/min with activity, PAD s/p stent to right
groin, hypertension, hyperlipidemia, former alcoholic, history of RUL lung cancer s/p XRT, PH, CKD, DM type II, A-fib on Eliquis with history of ablation, history of COPD, and history of enterococcal bacteremia who presents with chest pressure,
dizziness and shortness of breath. His oxygen levels apparently dropped to the 70s on room air. He was brought here to the ER for further evaluation. He apparently was at the grocery store the other day and almost passed out, and his symptoms
have been progressively worsening. In the ER he was afebrile to 97.6 �F, pulse rate 78, breathing at 21 breaths/min, BP 156/78 and saturating 94% on room air. Labs showed Hb 13.9, WBC 8.5, absolute eosinophil count 300, creatinine 1.6, glucose
143, proBNP 3960, troponin negative at 0.018, and TSH WNL at 2.39. CXR showed no acute cardiopulmonary process with evidence of previously treated RUL lung cancer. He was admitted to telemetry under the hospitalist and pulmonary service consulted
for additional management/recommendations.
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
right groin, COPD, lumbar spinal stenosis, aortic stenosis, history of A-fib on Eliquis, left kidney cyst, history of enterococcal bacteremia
Impression:
#Presyncope with lightheadedness and dyspnea on exertion with orthostatic positive vital signs on admission - due to PH - improved on sildenafil
#PH with severe symptoms - PH etiology appears mixed between group I (suspected idiopathic), II (valvular heart disease + diastolic CHF) and III (emphysema)
#Elevated proBNP (3960 on 04/27/2024 which is the highest that he has been compared to prior lab measurements over the past several years) - likely due to worsening PH as he clinically is not behaving as left sided heart failure
#Chronic diastolic heart failure with stage II diastolic dysfunction with moderate aortic stenosis and moderate pulmonary hypertension (no significant echocardiographic changes compared to prior TTE in October 2023)
#CKD (baseline creatinine 1.4�1.7)
#Centrilobular/paraseptal emphysema
#Former tobacco smoker ([id number] history, quit 30 years ago)
#History of RUL lung cancer s/p XRT with stable postradiation changes seen on imaging (measures approximately 4.4 x 5.4 x 1.4 cm)
#Subpleural reticular opacities with bronchial wall thickening in the lower lobes with stable 1.2 cm cavitary lesion in the medial LLL
#Paroxysmal A-fib currently in NSR on Eliquis
#Moderate aortic stenosis with history of heavy posterior mitral annular calcification with trace MR -concern for paradoxical low-flow, low gradient aortic valve stenosis s/p LHC/RHC on 04/28/2024
Plan:
- On admission, patient was orthostatic positive with SBP dropping >20 mmHg upon standing
- Given his elevated proBNP, we initially encouraged PO intake and we can consider midodrine with holding parameters if symptoms continue despite sildenafil
- He was denying PND or orthopnea hence we did not initiate diuresis
- LHC/RHC performed on 04/28/2024 showed moderate severity pulmonary hypertension with a mPAP: 43 mmHg, with PVR 6.6 Wood Units and TP mmHg, with LVEDP 10 mmHg + PCWP: 15 mmHg. LHC showed no culprit lesion with patent stent in the body of OM-2
and 30% lesion in the distal RCA. CO/CI is 4.25/2.14, respectively, & there is concern for paradoxical low-flow, low gradient
- I attempted to transfer patient to [facility], and spoke with PH specialist, Dr. Zavala, and we have agreed to start sildenafil, and perform CTD workup and also check TSH and HIV
-TSH is WNL at 2.4, rheumatoid factor is WNL at <10; HIV Ag/Ab combo is negative; remainder of blood work is pending
- If Sx persist despite being started on sildenafil, then would consider small bolus of IVF given he was orthostatic positive on admission --> thankfully he is improving on sildenafil 20mg TID
- Cardiology consulted and recommendations appreciated
- Echo performed on 04/27/2024, showing preserved LVEF at 50% with stage II diastolic function and moderate aortic stenosis, with PASP 40 mmHg. No significant change compared to prior TTE in October 2023
- Interrogation of ILR done yesterday showed low burden of A-fib with no pauses
- Continue ASA + lipitor
- Defer TAVR workup to cardiology --> no urgency for this given Sx are due to PH and not his
- Although he has a reported history of COPD, his last several pulmonary function tests did not show any evidence of COPD/obstructive lung defect or restrictive lung defect, although his gas exchange capacity was moderate�severely reduced
- He does have moderate-severity pulmonary hypertension but it is stable compared to prior echo in October 2023. Current TTE from 04/27/2024 shows an intact interatrial septum hence a PFO is also unlikely - refer to RHC #'s as above for details
- He is not anemic hence this is not what is driving down his diffusing capacity
- Low DLco is due to PH
- Maintain SpO2 >90-94% with supplemental O2 as needed; check ambulatory pulse oximetry prior to discharge --> checked today and alessandro SpO2 92% and he walked 350 ft. No O2 needed
- Incentive spirometer encouraged
- Replete electrolytes with K>4, Mg>2
- Maintain euglycemia with goal BG >100 and <180
- prn nebulized bronchodilators - not currently bronchospastic
- He does not qualify for lung cancer screening given he quit smoking >15 years ago
- PT/OT --> rec'd home health
- DVT ppx: Eliquis
On 04/28, I extensively discussed the patient's case with the daughter, Areli ([phone]), and answered all of her questions. She would like to be updated throughout his hospitalization.
I called and spoke with the daughter, Areli, today and again answered all her questions. Medical records transferred to [facility] pulmonary hypertension treatment center.
Patient being prepared for discharge home today. No additional pulmonary recommendations at this time. Patient will follow-up with our office in addition to [facility] pulmonary hypertension treatment center. Pulmonary service will now sign off. Thank
you for allowing us to be involved in the care of this patient. Please reconsult if there are any additional questions/concerns, or if patient's respiratory status deteriorates.
Data:
Transthoracic echocardiogram 04/27/2024:
Low normal left ventricular systolic function.
Left ventricular ejection fraction is 50%.
Stage II diastolic dysfunction suggestive of abnormal relaxation and increased
filling pressures.
Mild biatrial enlargement.
Mild mitral regurgitation.
Moderate aortic stenosis (mean 20 mmHg, TAVIA 1.1 cmsq).
Estimated PASP 40 mmHg, assuming a right atrial pressure of 3 mmHg.
No significant change since the prior study of 11/14/2023 when the mean gradient
was 17 mmHg and the TAVIA was estimated at 1.3 cm2.
CXR 04/27/2024:
No active cardiopulmonary disease.
Stable treated neoplasm in the right upper lobe
Total time spent today was 37 minutes for this encounter. Time includes reviewing laboratory test/imaging results, reviewing pertinent medical records, obtaining and reviewing medical history, performing an appropriate exam, ordering medications,
tests and procedures. Time also includes documentation of this encounter, coordinating patient care and communicating with other healthcare professionals. Total time does not include separately billed tests performed on this date of service.
Subjective Data
-
Date of Service:
Date of Service: April 30, 2024
Chief Complaint: Pulmonary Follow Up
Subjective:
Patient seen and evaluated today at bedside. His shortness of breath has improved and he feels well. No overnight events reported from overnight. Being prepared for discharge home today. He currently denies chest pain, YEPEZ, abdominal pain,
nausea, fevers or chills.
Review of Systems
General: Other (negative unless mentioned above)
Objective Data
Data Reviewed
Vital Signs / I&O / Oxygen:
Vital Signs
Temp Pulse Resp BP Pulse Ox
97.7 F 56 18 108/55 96
04/30/24 11:00 04/30/24 11:00 04/30/24 11:00 04/30/24 11:00 04/30/24 11:00
Intake and Output
04/29/24 04/30/24 05/01/24
06:59 06:59 06:59
Intake Total 970 / 970 720 / 720
Output Total 1325 / 1325 1500 / 1500
Balance -355 / -355 -780 / -780
SaO2 96
Physical Exam
General: Respiratory Distress (negative), Comfortable, Chills (negative) and Sweats (negative)
HEENT: Normocephalic, Anicteric and Moist Mucous Membranes
Cardiovascular: S1-S2, Murmur (SELVIN heard across precordium, greatest in RUSB) and Peripheral Edema (negative)
Respiratory: Wheeze (negative), Crackles (Bibasilar), Rhonchi (negative) and Non-Labored Respirations
GI: Soft, Non Distended, Non Tender and Normal Bowel Sounds
Neurology: AO x 3 and Tremors (negative)
Skin: Warm, Dry, Cyanosis (negative) and Jaundice (negative)
Labs/Micro/Reports
Lab Data
04/30/24 06:55
04/30/24 06:55
[2024-04-30 11:00] VITALS: BP 108/55
[2024-04-30 11:55] VITALS: BP 108/55
[2024-04-30 11:55] LABS: Glucose - Point of Care 130 mg/dl (70-99)
--- NOTE | 2024-04-30 12:15 | W.DCSUMMARY ---
Discharge Summary
Discharge Data
Date of Admission: 04/27/24
Date of Discharge: 04/30/24
-
Pending Results: No
Hospital Course
Patient 88-year-old male history of ex-smoker, CAD, CHF, AAA, chronic hypoxic respiratory failure, PVD, hypertension, hyperlipidemia, alcohol use disorder in the past, lung cancer s/p radiation, CKD, diabetes mellitus type 2, A-fib, COPD, came into
the hospital with shortness of breath on exertion. Cardiology and pulmonary were consulted. Etiology of his dyspnea was unclear so he underwent further workup. He was found to have moderate to severe low-flow low gradient aortic stenosis and
further workup for TAVR will be pursued as outpatient by cardiology. He also underwent cardiac catheterization and no evidence of new obstructive CAD but it did show evidence of pulmonary hypertension. Pulmonary reach out to tertiary care center
at [place] and he will be reevaluated as outpatient there. He was started on sildenafil 20 mg 3 times daily and he has noticed some improvement. Connective tissue disease and autoimmune disease workup has been initiated. He was evaluated for home
oxygen needs as well and he did not require any oxygen at the moment. Pulmonary cardiology have cleared him for discharge he will be discharged in stable condition today.
Discharge duration: 35 minutes
Discharge Plan
-
Patient Disposition: Home (Routine Discharge)
Discharge Diagnosis/Procedures: Pulmonary hypertension. Moderate to severe aortic stenosis. Chronic diastolic congestive heart failure. Syncope. Paroxysmal atrial fibrillation. Chronic kidney disease stage IIIb. Hypertension. Diabetes
mellitus type 2. Cardiac cath
Condition: Good
Diet: Low Cholesterol and Diabetic, Carb Controlled
Activity: As tolerated
Driving Restrictions: No driving for 24 hours
Blood Work: Please PCP to order CBC, BMP within 1 week
Specialty Instructions: Weigh Daily- Call MD for wt gain/loss 3 lbs overnight/5 lbs in 1 week
Stand Alone Forms: DC Instructions- Cath/EP Lab
Referrals:
Giles Nails DO [Family Provider] - in less than 1 week
Evy Guzman CRNP [Specified Professional Personl] - 05/14/24 3:40 pm
Rizwan Jessica MD [Active] - in two to four weeks
Prescriptions:
New
sildenafil (pulm.hypertension) 20 mg Tablet
20 mg PO TID 30 Days Qty: 90 0RF
Continued
cyanocobalamin (vitamin B-12) 1,000 MCG tablet
1,000 mcg PO DAILY
diphenhydramine HCl [Banophen] 25 MG capsule
25 mg PO HS
atorvastatin 80 MG tablet
80 mg PO HS
metoprolol succinate 50 mg Tablet Extended Release 24 Hr
50 mg PO BID
Jardiance 25 mg Tablet
12.5 mg PO DAILY
Rx Instructions:
[facility] using the [facility]
glipizide 5 mg Tablet Extended Release 24hr
5 mg PO DAILY
finasteride 5 mg Tablet
5 mg PO DAILY
Eliquis 2.5 mg Tablet
2.5 mg PO BID Qty: 30 0RF
zinc acetate 50 mg (zinc) Capsule
50 mg PO DAILY
omega 4-jxh-nbv-fish oil [Fish Oil] 1,000 mg (120 mg-180 mg) Capsule
1 cap PO BID
metformin 500 mg tablet extended release 24 hr
500 mg PO BID
cholecalciferol (vitamin D3) 50 mcg (2,000 unit) Tablet
50 mcg PO DAILY
Discharge Orders:
Discharge Patient (As Directed); Ordered 04/30/24
Ordered By: Ralf Snowdne
Discharge Date and Time
Discharge Date/Time: 04/30/24 14:27
Print Language: RUSSIAN
--- NOTE | 2024-04-30 12:39 | PTCARENOTE ---
Reviewed discharge instructions with patient. Patient verbalizes understanding teaching. Answered all patient questions. Tele and IV removed. Patient awaiting son for transport home.
--- NOTE | 2024-04-30 16:39 | CM ---
MD entered order for discharge.
Spoke with pt in room .
He said he was ready for dc.
His son Yogi will drive him home.
Offered Vn he requested [facility] . [facility] Liaison notified of referral.
PLAN Home with [facility] if accepted
[2024-04-30 23:43] LABS: ds-DNA Ab, IgG Reflex To Titer 4 IU (0-24)
[2024-05-01 01:58] LABS: ANA, IgG Reflex to HEp-2 None Detected (None Detected)
[2024-05-01 02:28] LABS: CCP Antibody IgG/IgA 4 Units (0-19)
[2024-05-01 16:06] LABS: Centromere Antibody 1 AU/mL (0-40); Jo-1 Antibodies 1 AU/mL (0-40); SSA 52 (Ro)(ENA) Ab, IgG 3 AU/mL (0-40); SSA 60 (Ro)(ENA) Ab, IgG 0 AU/mL (0-40); SSB (La)(ENA) Ab, IgG 0 AU/mL (0-40); Scleroderma Antibody (Scl-70) 2 AU/mL (0-40)
== END 2024-04-30 14:27 | disposition home health service (06) | DRG 287 ==
LOC: 4 EAST ACU 13:10
PROVIDERS: Clinical Nurse Specialist Family Health; Internal Medicine Cardiovascular Disease; Physician Assistant; ADMITTING PHYSICIAN Hospitalist; ATTENDING PHYSICIAN Hospitalist; CONSULT PHYSICIAN Internal Medicine Cardiovascular Disease; CONSULT PHYSICIAN Internal Medicine Critical Care Medicine; EMERGENCY PHYSICIAN Emergency Medicine; FAMILY PHYSICIAN Family Medicine
PROC: B3101ZZ Fluoroscopy of Thoracic Aorta using Low Osmolar Contrast (ICD-10-PCS; 2024-04-27)
PROC: B2111ZZ Fluoroscopy of Multiple Coronary Arteries using Low Osmolar Contrast (ICD-10-PCS; 2024-04-27)
PROC: 4A023N8 Measurement of Cardiac Sampling and Pressure, Bilateral, Percutaneous Approach (ICD-10-PCS; 2024-04-27)
DX: I27.20 Pulmonary hypertension, unspecified (principal); C34.11 Malignant neoplasm of upper lobe, right bronchus or lung; I13.0 Hypertensive heart and chronic kidney disease with heart failure and stage 1 through stage 4 chronic kidney disease, or unspecified chronic kidney disease; I50.32 Chronic diastolic (congestive) heart failure; J96.11 Chronic respiratory failure with hypoxia; E87.20 Acidosis, unspecified; E11.22 Type 2 diabetes mellitus with diabetic chronic kidney disease; N18.32 Chronic kidney disease, stage 3b; F10.21 Alcohol dependence, in remission; I08.0 Rheumatic disorders of both mitral and aortic valves; I71.43 Infrarenal abdominal aortic aneurysm, without rupture; J43.8 Other emphysema; I65.22 Occlusion and stenosis of left carotid artery; Z99.81 Dependence on supplemental oxygen; E78.00 Pure hypercholesterolemia, unspecified; I25.10 Atherosclerotic heart disease of native coronary artery without angina pectoris; Z95.5 Presence of coronary angioplasty implant and graft; I44.0 Atrioventricular block, first degree; I45.10 Unspecified right bundle-branch block; I48.0 Paroxysmal atrial fibrillation; I95.1 Orthostatic hypotension; M48.061 Spinal stenosis, lumbar region without neurogenic claudication; N40.0 Benign prostatic hyperplasia without lower urinary tract symptoms; Z79.01 Long term (current) use of anticoagulants; Z79.84 Long term (current) use of oral hypoglycemic drugs; Z79.899 Other long term (current) drug therapy; Z86.19 Personal history of other infectious and parasitic diseases; Z87.891 Personal history of nicotine dependence; Z90.49 Acquired absence of other specified parts of digestive tract; Z92.3 Personal history of irradiation; Z86.79 Personal history of other diseases of the circulatory system; Z80.1 Family history of malignant neoplasm of trachea, bronchus and lung; Z82.49 Family history of ischemic heart disease and other diseases of the circulatory system
CPT/HCPCS: 71046; 80053; 80061; 82962; 83036; 83516; 83735; 83880; 84443; 84484; 85025; 85652; 86038; 86140; 86200; 86225; 86235; 86430; 87389; 93005; 93306; 93460; 97116; 97161; 97166; 99285; C1894; Q9967

== ENCOUNTER → 2024-05-06 13:19 | Outpatient (REF) | payer OTHER, SELFPAY ==
[2024-05-06 16:44] LABS: % Basophils 0.9 % (0-2); % Eosinophils 4.8 % (0-6); % Immature Granulocytes 0.4 % (0-0.5); % Monocytes 10.4 % (1.7-9.3); % Neutrophils 59.5 % (42.2-75.2); Absolute Basophils 0.1 10^3/uL (0-0.2); Absolute Eosinophils 0.4 10^3/uL (0-0.7); Absolute Lymphocytes 2.2 10^3/uL (1.2-3.4); Absolute Monocytes 0.9 10^3/uL (0.1-0.6); Absolute Neutrophils 5.3 10^3/uL (1.4-6.5); Hematocrit 41.6 % (39.0-52.0); Hemoglobin 13.8 g/dL (13.0-18.0); Mean Corp Hgb Conc. 33.2 g/dL (33.0-37.0); Mean Corpuscular Hgb 31.4 pg (27.0-31.0); Mean Corpuscular Volume 94.5 fL (80.0-94.0); Nucleated Red Blood Cells % 0 % (-); Platelet Count 201 10^3/uL (130-400); Red Cell Dist. Width 14.6 % (11.5-14.5)
[2024-05-06 16:47] LABS: Blood Urea Nitrogen 29 mg/dl (9-20); Calcium 9.2 mg/dl (8.4-10.2); Carbon Dioxide 23 mmol/L (22-30); Chloride 106 mmol/L (98-107); Glucose 181 mg/dl (70-99); Potassium 5.1 mmol/L (3.5-5.1); Sodium 143 mmol/L (135-145)
== END ==
LOC: CLAB 13:19
PROVIDERS: ATTENDING PHYSICIAN Family Medicine
DX: Z09 Encounter for follow-up examination after completed treatment for conditions other than malignant neoplasm (principal); D64.9 Anemia, unspecified; E11.22 Type 2 diabetes mellitus with diabetic chronic kidney disease
CPT/HCPCS: 36415; 80048; 85025

== ENCOUNTER → 2024-05-07 06:41 | Outpatient (REF) | payer OTHER, SELFPAY | LOC: RAD 06:41 | PROVIDERS: ATTENDING PHYSICIAN Surgery Vascular Surgery; FAMILY PHYSICIAN Family Medicine | DX: I71.43 Infrarenal abdominal aortic aneurysm, without rupture (principal); Z82.49 Family history of ischemic heart disease and other diseases of the circulatory system | CPT/HCPCS: 76770 ==

== ENCOUNTER → 2024-05-10 12:58 | Outpatient (REF) | payer OTHER, SELFPAY | LOC: RAD 12:58 | PROVIDERS: ATTENDING PHYSICIAN Surgery Vascular Surgery; FAMILY PHYSICIAN Family Medicine | DX: I71.43 Infrarenal abdominal aortic aneurysm, without rupture (principal); R55 Syncope and collapse | CPT/HCPCS: 93880; 93922; 93925 ==

== ENCOUNTER → 2024-05-14 08:27 | Outpatient (REF) | payer OTHER, SELFPAY ==
[2024-05-14 10:08] LABS: Blood Urea Nitrogen 29 mg/dl (9-20); Calcium 9.3 mg/dl (8.4-10.2); Carbon Dioxide 22 mmol/L (22-30); Chloride 105 mmol/L (98-107); Glucose 132 mg/dl (70-99); Potassium 4.6 mmol/L (3.5-5.1); Sodium 141 mmol/L (135-145); eGFR 38.78
== END ==
LOC: HWLAB 08:27
PROVIDERS: ATTENDING PHYSICIAN Family Medicine
DX: R79.89 Other specified abnormal findings of blood chemistry (principal)
CPT/HCPCS: 36415; 80048

== ENCOUNTER 2024-05-27 14:00 | Inpatient (IN) | payer OTHER, SELFPAY ==
[2024-05-25] VITALS (12 sets, daily range): BP systolic 90–163; BP diastolic 57–107; BMI 26.7
--- NOTE | 2024-05-25 12:14 | ED.GENMED ---
ED Provider Triage
<Sherrell Langston PA-C - Last Filed: 05/25/24 12:24>
-
Patient seen by provider in Triage?: Seen in Triage
Attestation: A medical screening examination has been initiated by a qualified medical provider. Based on the assessment performed at this time, it has been determined that an emergent medical condition may exist and the patient has been informed
that further medical evaluation and possible additional diagnostic testing may be needed.
HPI: 88yoM here after a syncopal episode. In the shower at 9am. Started having chest pain/burning afterwards and passed out. +Bowel incontinence. +Head strike. Recent cardiac cath on 04/28 showed moderate to severe aortic stenosis and severe
pulmonary HTN. Referred to [facility] who recommended a TAVR.
GENERAL: Alert , in no apparent distress
EYE: No visual abnormalities.
NECK: Trachea midline
ENT: No visible abnormalities.
LUNGS: No acute respiratory distress
NEUROLOGICAL: Alert and oriented
SKIN: Skin intact. No visible changes.
MUSCULOSKELETAL: Moving extremities normally
PSYCH: Normal and appropriate interaction.
This is a medical evaluation conducted in person to initiate diagnostic evaluation and provide initial therapeutics. Please see further documentation by the treating clinician.
Cardiac labs, EKG, and CT head ordered.
History of Present Illness
<Sherrell Langston PA-C - Last Filed: 05/25/24 12:24>
General
Chief Complaint: Fainting/Passed Out
Time Seen by Provider: 05/25/24 13:12
<Candelario Ta PA-C - Last Filed: 05/25/24 18:31>
History of Present Illness
History of Present Illness:
88-year-old male presents to the emergency department for evaluation after a syncopal event. He states while taking shower he developed a burning sensation in the chest, this sensation is not abnormal for him but this primarily occurs along with
exertion. This symptom escalated and he was able to get out of the shower then sat down on the toilet, woke up on the ground with no memory of the event. He states he was not attempting to have a bowel movement when he sat down but did defecate on
himself. Struck his head on the ground, currently on Eliquis. Patient was recently admitted to this hospital last month for syncope/presyncope and chest pain, at that time cardiac catheterization did reveal some residual coronary artery disease as
well as moderate to severe aortic stenosis and severe pulmonary hypertension. It was felt that the pulmonary hypertension was the most likely etiology for his exertional syncope.
He was referred to [facility], where it was felt that the pulmonary hypertension was not to the etiology for his symptoms and they recommended discontinuation of his sildenafil, as it was not providing any symptomatic improvement. He
was noted to also have 70% carotid stenosis however this was also not felt ot require intervention
Past History
<Sherrell Langston PA-C - Last Filed: 05/25/24 12:24>
Past History
ED Past Medical History: Arrthythmia (Bigeminy), CAD, CHF, COPD, HTN, Hypercholesterolemia and NIDDM
ED Past Surgical History: Cholecystectomy
Social History
Tobacco: Former smoker
Alcohol: None
Drug: None
Employment: Retired
Review of Systems
<Candelario Ta PA-C - Last Filed: 05/25/24 18:31>
Review of Systems
Allergies reviewed?: Yes
All Other Systems: ROS reviewed and negative except as documented in HPI and ROS
Phy Exam
<Candelario Ta PA-C - Last Filed: 05/25/24 18:31>
Physical Exam
Physical Exam:
GEN: Well appearing, NAD, WDWN
Eyes: PERRLA, EOMs intact, no scleral icterus
HENT: NCAT, oral mucosa moist, no JVD
Lungs: CTAB, no wheezes, rales, rhonchi, normal chest wall excursion
Cardiac: Irregular, controlled rate, moderate systolic murmur
Abdomen: S, NT, ND, NABS, no masses or hepatosplenomegaly
Neuro: AO x 3
MSK: No gross deformity or ecchymosis. No edema. No digital clubbing
Skin: No rashes, petechiae. Normal color, no pallor or jaundice.
Psych: Calm, cooperative, proper hygiene
Course
<Sherrell Langston PA-C - Last Filed: 05/25/24 12:24>
Orders/Labs/Results
Orders:
Orders
05/25/24 11:59
EKG [Electrocardiogram (*1)] Urgent
Reason for Study: Chest Pain
EKG- Treatment ONCE
05/25/24 12:20
CT Head W/o Iv Contrast Urgent
Comment:
Reason For Exam: Fall on blood thinners
05/25/24 12:30
Complete Blood Count/With Diff Urgent
Comprehensive Metabolic Panel Urgent
Magnesium Urgent
Comment: MAG ADDED ON BY FLOOR 1:30PM 05-25-24
Troponin I Urgent
05/25/24 13:33
Add On- LAB Urgent
Tests Added?: Magnesium
05/25/24 Dinner
Cholesterol Lowering
At Your Request: Full Participation
Cholesterol Lowering: Sodium, 2 Gram
2000 rena/17 CHO Diabetic
05/25/24 16:18
Admit/Transfer Patient As Directed
Co-Sign Provider:
Level of Care: Observation services
Assign to:: Telemetry
Physician / Group: Heide Yanez
Transfer to: Telemetry
Diagnosis: syncope
Reason for Telemetry: Syncope
Date to Stop Telemetry: 05/27/24
Time to Stop Telemetry: 11:00
PRN Pain Medication Management As Directed
May give lesser potent ordered pain med per pt: Yes
preference::
Protocol:: Medication orders for pain may be administered in a
manner that supports deferring to patient preference
when the pt is:
- Requesting an ordered lesser potent pain medication.
Least to most potent pain medications are defined
as: acetaminophen < NSAID < tramadol < opioids
(morphine, oxycodone, hydromorphone).
- Requesting a lesser dose of the same medication IF
ORDERED.
- Requesting a less intrusive route of administration
if both routes are prescribed by the provider (PO <
IV).
05/25/24 16:20
Code Status As Directed
Resuscitation Status: Full Code
05/27/24 11:00
DC Protocol for Telemetry ONCE
Abnormal Lab Results
05/25/24
12:30
WBC 10.9 H 10^3/uL
(4.8-10.8)
RBC 4.56 L 10^6/uL
(4.70-6.10)
MCH 31.6 H pg
(27.0-31.0)
MPV 10.6 H fL
(7.4-10.4)
Abs Immat Gran (auto) 0.1 H 10^3/uL
(0-0.05)
Absolute Neuts (auto) 8.3 H 10^3/uL
(1.4-6.5)
Absolute Monos (auto) 0.9 H 10^3/uL
(0.1-0.6)
Neutrophils % 75.6 H %
(42.2-75.2)
Lymphocytes % 13.4 L %
(20.5-51.1)
Carbon Dioxide 18 L mmol/L
(22-30)
BUN 34 H mg/dl
(9-20)
Creatinine 2.0 H mg/dL
(0.7-1.3)
Glucose 175 H mg/dl
(70-99)
05/25/24 12:30
05/25/24 12:30
Vital Signs
Initial and Last Documented VS:
Initial Vital Signs
Temp Pulse Resp BP Pulse Ox
97.4 F 87 20 163/76 98
05/25/24 12:10 05/25/24 12:10 05/25/24 12:10 05/25/24 12:10 05/25/24 12:10
Last Documented Vital Signs
Temp Pulse Resp BP Pulse Ox
97.4 F 82 9 132/78 99
05/25/24 12:10 05/25/24 18:15 05/25/24 13:08 05/25/24 18:00 05/25/24 18:15
<Candelario Ta PA-C - Last Filed: 05/25/24 18:31>
Orders/Labs/Results
Orders:
Orders
05/25/24 11:59
EKG [Electrocardiogram (*1)] Urgent
Reason for Study: Chest Pain
EKG- Treatment ONCE
05/25/24 12:20
CT Head W/o Iv Contrast Urgent
Comment:
Reason For Exam: Fall on blood thinners
05/25/24 12:30
Complete Blood Count/With Diff Urgent
Comprehensive Metabolic Panel Urgent
Magnesium Urgent
Comment: MAG ADDED ON BY FLOOR 1:30PM 05-25-24
Troponin I Urgent
05/25/24 13:33
Add On- LAB Urgent
Tests Added?: Magnesium
05/25/24 Dinner
Cholesterol Lowering
At Your Request: Full Participation
Cholesterol Lowering: Sodium, 2 Gram
1999 rena/17 CHO Diabetic
05/25/24 16:18
Admit/Transfer Patient As Directed
Co-Sign Provider:
Level of Care: Observation services
Assign to:: Telemetry
Physician / Group: Heide Yanez
Transfer to: Telemetry
Diagnosis: syncope
Reason for Telemetry: Syncope
Date to Stop Telemetry: 05/27/24
Time to Stop Telemetry: 11:00
PRN Pain Medication Management As Directed
May give lesser potent ordered pain med per pt: Yes
preference::
Protocol:: Medication orders for pain may be administered in a
manner that supports deferring to patient preference
when the pt is:
- Requesting an ordered lesser potent pain medication.
Least to most potent pain medications are defined
as: acetaminophen < NSAID < tramadol < opioids
(morphine, oxycodone, hydromorphone).
- Requesting a lesser dose of the same medication IF
ORDERED.
- Requesting a less intrusive route of administration
if both routes are prescribed by the provider (PO <
IV).
05/25/24 16:20
Code Status As Directed
Resuscitation Status: Full Code
05/27/24 11:00
DC Protocol for Telemetry ONCE
Abnormal Lab Results
05/25/24
12:30
WBC 10.9 H 10^3/uL
(4.8-10.8)
RBC 4.56 L 10^6/uL
(4.70-6.10)
MCH 31.6 H pg
(27.0-31.0)
MPV 10.6 H fL
(7.4-10.4)
Abs Immat Gran (auto) 0.1 H 10^3/uL
(0-0.05)
Absolute Neuts (auto) 8.3 H 10^3/uL
(1.4-6.5)
Absolute Monos (auto) 0.9 H 10^3/uL
(0.1-0.6)
Neutrophils % 75.6 H %
(42.2-75.2)
Lymphocytes % 13.4 L %
(20.5-51.1)
Carbon Dioxide 18 L mmol/L
(22-30)
BUN 34 H mg/dl
(9-20)
Creatinine 2.0 H mg/dL
(0.7-1.3)
Glucose 175 H mg/dl
(70-99)
05/25/24 12:30
05/25/24 12:30
Vital Signs
Initial and Last Documented VS:
Initial Vital Signs
Temp Pulse Resp BP Pulse Ox
97.4 F 87 20 163/76 98
05/25/24 12:10 05/25/24 12:10 05/25/24 12:10 05/25/24 12:10 05/25/24 12:10
Last Documented Vital Signs
Temp Pulse Resp BP Pulse Ox
97.4 F 82 9 132/78 99
05/25/24 12:10 05/25/24 18:15 05/25/24 13:08 05/25/24 18:00 05/25/24 18:15
<Candelario Ta PA-C - Last Filed: 05/25/24 18:31>
MDM/Problems Addressed
MDM/Problems Addressed:
At this time the cause of the patient's syncope is not clear, he has significant risk with pulmonary hypertension as well as known aortic stenosis and it seems there is some discordance regarding which of these etiologies is the prime charter driver of his
symptoms. Nevertheless he is high risk for discharge home thus we will admit for further monitoring and cardiology consultation to determine plan of care
<Candelario Ta PA-C - Last Filed: 05/25/24 18:31>
Comment
Comment:
EKG independently interpreted by me reveals atrial fibrillation with a right bundle branch block, rate controlled
[employer] device interrogated showing 18 events of atrial arrhythmias over the past 48 hours with maximum sustained rates of 170, however there were no tacky or bradycardia episodes that correlated with his syncopal event based on times reported
from the [employer] rep.
*Critical Care Note
Total Time (30-74mins, 75-104mins- exclusive of procedures): Not Applicable
ED Attending Note
<Sherrell Langston PA-C - Last Filed: 05/25/24 12:24>
-
Portions of this chart may have been created with voice recognition software.� Occasional wrong word or��sound alike� substitutions may have occurred due to the inherent limitations of voice recognition software.
Discharge Plan
Departure
Patient Disposition: Admit
Date of Disposition: 05/25/24
Time of Disposition: 15:13
Admit to: Telemetry
Presentation/result/management discussed w/ accepting MD/DO: Hospitalist
Discharge Problem:
Syncope
Interventions
Interventions:
*Risk Screen - Suicide Last Done: 05/25/24 13:05
*General Assessment Last Done: 05/25/24 13:05
*Neglect/Abuse Screening Last Done: 05/25/24 13:05
ED- Fall Risk Assessment Last Done: 05/25/24 15:50
*ED COVID-19 Vaccine History Last Done: 05/25/24 13:05
ED- Cardiac Assessment Last Done: 05/25/24 13:05
ED- Neurological Assessment Last Done: 05/25/24 13:05
[2024-05-25 12:44] LABS: % Basophils 0.7 % (0-2); % Eosinophils 1.6 % (0-6); % Immature Granulocytes 0.5 % (0-0.5); % Lymphocytes 13.4 % (20.5-51.1); % Monocytes 8.2 % (1.7-9.3); % Neutrophils 75.6 % (42.2-75.2); Absolute Basophils 0.1 10^3/uL (0-0.2); Absolute Eosinophils 0.2 10^3/uL (0-0.7); Absolute Immature Granulocytes 0.1 10^3/uL (0-0.05); Absolute Lymphocytes 1.5 10^3/uL (1.2-3.4); Absolute Monocytes 0.9 10^3/uL (0.1-0.6); Absolute Neutrophils 8.3 10^3/uL (1.4-6.5); Hematocrit 42.2 % (39.0-52.0); Hemoglobin 14.4 g/dL (13.0-18.0); Mean Corp Hgb Conc. 34.1 g/dL (33.0-37.0); Mean Corpuscular Hgb 31.6 pg (27.0-31.0); Mean Corpuscular Volume 92.5 fL (80.0-94.0); Mean Platelet Volume 10.6 fL (7.4-10.4); Nucleated Red Blood Cells % 0 % (-); Platelet Count 184 10^3/uL (130-400); Red Blood Cell Count 4.56 10^6/uL (4.70-6.10); Red Cell Dist. Width 14.4 % (11.5-14.5); White Blood Cell Count 10.9 10^3/uL (4.8-10.8)
[2024-05-25 13:03] LABS: ALT (SGPT) 24 U/L (0-50); AST (SGOT) 33 U/L (17-59); Alkaline Phosphatase 85 U/L (38-126); Blood Urea Nitrogen 34 mg/dl (9-20); Calcium 9.2 mg/dl (8.4-10.2); Carbon Dioxide 18 mmol/L (22-30); Chloride 106 mmol/L (98-107); Glucose 175 mg/dl (70-99); Potassium 4.9 mmol/L (3.5-5.1); Sodium 138 mmol/L (135-145); Total Bilirubin 0.9 mg/dl (0.2-1.3)
[2024-05-25 13:10] LABS: Troponin I 0.031 ng/ml
--- NOTE | 2024-05-25 15:17 | HPS.HSE ---
Family Physician
-
Family Physician: Haresh Lilly DO
Chief Complaint
-
syncope
History of Present Illness
Patient is a 88-year-old male with past medical history significant for paroxysmal atrial fibrillation, ventricular tachycardia status post ablation, PVCs, CAD with stent in 2003, HFpEF, PAD with iliac stents, COPD, hypertension, hypercholesteremia,
diabetes, BPH CKD 3, lung cancer status post radiation, enterococcal bacteremia, mild to moderate aortic stenosis with mild to moderate tricuspid regurgitation and spinal stenosis who presented to [facility] s/p syncopal episode. Patient states
he got in shower around 0900 and after he got out and dried off he had burning/tightness sensation in chest associated with shortness of breath and then recalls waking up on floor having had bowel incontinence. Patient with head strike. Patient
denies fever, chills, cough, nausea, vomiting, constipation, diarrhea or urinary symptoms. Patient with recent hospitalization at [facility] for Pulmonary HTN workup where it was recommended to schedule TAVR work up, this has not been scheduled.
Medical History
Past Medical History
Past Medical History: Reports Other
Additional Past Medical History:
paroxysmal atrial fibrillation
ventricular tachycardia status post ablation
PVCs
CAD with stent in 2003
HFpEF
left carotid stenosis
mild to moderate aortic stenosis with mild to moderate tricuspid regurgitation with preserved ejection fraction
PAD with iliac stents
COPD
hypertension
hypercholesteremia
diabetes
BPH
CKD 3
lung cancer status post radiation
enterococcal bacteremia
spinal stenosis
Past Surgical History: Reports Other
Additional Past Surgical History:
Cholecystectomy
CAD with stent
right groin stent
eye surgery
heart ablation
Social History
Tobacco: Former Smoker
Alcohol: None
Drug: None
Family History
Family History: Not pertinent
Allergies / Home Medications
Allergies reflects when Allergies were last updated in [employer].
Home Medications with original date entered in [employer]
Allergy/Medication List:
Allergies
Allergy/AdvReac Type Severity Reaction Status Date / Time
No Known Allergies Allergy Verified 05/25/24 12:19
Home Medications
cyanocobalamin (vitamin B-12) 1,000 mcg tablet 1,000 mcg PO DAILY Supplement 08/23/18
atorvastatin 80 mg tablet 80 mg PO HS High cholesterol 03/20/20
metoprolol succinate 50 mg tablet,extended release 24 hr 50 mg PO BID Blood Pressure 09/10/22
finasteride 5 mg tablet 5 mg PO DAILY prostate issue 03/11/23
glipizide 5 mg tablet, extended release 24 hr 5 mg PO DAILY Diabetes 03/11/23
apixaban 2.5 mg tablet (Eliquis) 2.5 mg PO BID #30 tabs 06/17/23
omega 0-mke-zqr-fish oil 1,000 mg (120 mg-180 mg) capsule (Fish Oil) 1 cap PO BID Supplement 07/24/23
cholecalciferol (vitamin D3) 50 mcg (2,000 unit) tablet 50 mcg PO DAILY Supplement 03/13/24
metformin 500 mg tablet,extended release 24 hr 500 mg PO BID Diabetes 03/13/24
acetaminophen 500 mg tablet (Tylenol Extra Strength) 1,000 mg PO Q6HPRN PRN mild pain 05/25/24
furosemide 20 mg tablet 20 mg PO DAILYPRN PRN swelling 05/25/24
zinc sulfate 50 mg zinc (220 mg) tablet 50 mg PO DAILY 05/25/24
Review of Systems
-
History Source: Patient
Constitutional: Reports No Symptoms
EENT: Reports No Symptoms
Respiratory: Reports Trouble Breathing (shortness of breath)
Cardiac: Reports Chest Pain (described as burning and tightness) and Syncope
Abdomen/GI: Reports Other (bowel incontinence with syncopal episode)
: Reports No Symptoms
Musculoskeletal: Reports No Symptoms
Skin: Reports Other (abrasion to left forehead and left elbow)
Neurological: Reports No Symptoms
Endocrine: Reports No Symptoms
Hematologic/Lymphatic: Reports No Symptoms
Psych: Reports No Symptoms
Physical Exam
Vital Signs
Vital Signs
Temp Pulse Resp BP Pulse Ox
97.4 F 84 9 141/69 100
05/25/24 12:10 05/25/24 15:00 05/25/24 13:08 05/25/24 15:00 05/25/24 15:00
Physical Exam
General: Well Developed, Well Nourished, No Apparent Distress, Conversant and Morbidly Obese
HEENT: NormoCephalic, Moist mucous membranes, Atraumatic, PERRLA, [place] Conjunctivae, Nose Appears Normal and Ears Appear Normal
Respiratory: Clear and Decreased Breath Sounds
Cardiac: S1/S2 and Irregular Rhythm; No Murmur, Rub or Gallop
Breast: Deferred by me
GI: Soft, Non Tender, Non Distended and Normal Bowel Sounds; No Organomegaly
Rectal: Deferred by Provider
Genito-urinary: Deferred by me
Musculoskeletal: No Clubbing, No Cyanosis and No Edema
Skin: Warm, IV/Catheter Site and Other (abrasion to left forehead and left elbow s/p fall ); No Rash
Neuro: Awake, Alert, AO x 3 and Nonfocal/grossly intact
Hematologic/Lymphatic: No Lymphadenopathy
Psych: Calm and Intact Judgment/Insight
Laboratory Results
-
05/25/24 12:30
05/25/24 12:30
Laboratory Results
Total Bilirubin 0.9 mg/dl (0.2-1.3) 05/25/24 12:30
AST 33 U/L (17-59) 05/25/24 12:30
ALT 24 U/L (0-50) 05/25/24 12:30
Alkaline Phosphatase 85 U/L (38-126) 05/25/24 12:30
Troponin I 0.031 ng/ml 05/25/24 12:30
Data Reviewed
-
CT Scan: Report Reviewed by me (Head: No acute intracranial abnormality. No interval change.)
Medical Tests (Nuc Med, Echo, EKG etc): Report Reviewed by me (EKG: ATRIAL FIBRILLATION RIGHT BUNDLE BRANCH BLOCK POSSIBLE INFERIOR INFARCT (CITED ON OR BEFORE 11-SEP-2022) ABNORMAL ECG WHEN COMPARED WITH ECG OF 28-APR-2024 05:34, ATRIAL
FIBRILLATION HAS REPLACED SINUS RHYTHM T WAVE INVERSION NOW EVIDENT IN ANTERIOR LEADS)
Lab Data: Labs Reviewed by me (WBC 10.9, BUN 34, Creat 2.0)
Impression/Plan
-
IMPRESSION/PLAN:
#syncopal episode
#History of syncopal episode secondary to ventricular tachycardia/PVCs status post ablation with loop recorder
#History of syncopal episodes secondary to orthostatic hypotension
EKG: ATRIAL FIBRILLATION
RIGHT BUNDLE BRANCH BLOCK
POSSIBLE INFERIOR INFARCT (CITED ON OR BEFORE 11-SEP-2022)
ABNORMAL ECG
WHEN COMPARED WITH ECG OF 28-APR-2024 05:34,
ATRIAL FIBRILLATION HAS REPLACED SINUS RHYTHM
T WAVE INVERSION NOW EVIDENT IN ANTERIOR LEADS
abrasion to left forehead and left elbow s/p fall
[employer] device interrogated showing 18 events of atrial arrhythmias over the past 48 hours with maximum sustained rates of 170, however there were no tacky or bradycardia episodes that correlated with his syncopal event based on times reported
from the [employer] rep.
- Admit to telemetry
- Cardiology consult
- check orthostatic VS
- recent [facility] stay with recommendation for TAVR workup
#Paroxysmal atrial fibrillation
- Continue Eliquis and metoprolol
#CAD with stenting 2003
- Continue metoprolol and atorvastatin
#Chronic HFpEF
patient reports stable weights at home and no observed edema although up 2kg since last admission
- Continue metoprolol and furosemide PRN
#Hypercholesterolemia
- Continue atorvastatin
#Essential hypertension
- continue metoprolol
#Pulmonary hypertension
newly diagnosed severe pulmonary hypertension on patients last admission 04/2024
- continue Sildenafil
#Type 2 diabetes
- hold glipizide
- hold metformin
- Insulin sliding scale
#BPH
- Continue finasteride
#CKD 3b
BUN 34, Creat 2.0
#Left carotid stenosis
#Mild to moderate aortic stenosis with mild to moderate tricuspid regurgitation with preserved ejection fraction
#History of PVCs status post ablation
#Chronic right bundle branch block
#Small infrarenal abdominal aortic aneurysm
#PAD with history of iliac stents
#COPD
#Lung cancer status post radiation
#History of enterococcal bacteremia
#Spinal stenosis
Code Status: Full code
DVT prophylaxis: Eliquis
--- NOTE | 2024-05-25 16:52 | W.PN.UPDATE ---
Update Note
Progress Note Update
This is an addendum to the H&P written by Erika Monge on 05/25/2024. Patient seen and examined independently with [employer]LE DR[employer] OPERATOR.
88-year-old male past medical history paroxysmal atrial fibrillation, ventricular tachycardia status post ablation, PVCs,, CAD with stent in 2003, HFpEF, PAD with iliac stents, COPD, hypertension, hypercholesteremia, diabetes, BPH CKD 3, lung cancer
status post radiation, enterococcal bacteremia, spinal stenosis presenting with recurrent syncopal episodes.
Patient has been admitted several times for syncopal episodes and shortness of breath. He was recently admitted from 04/27 to 04/30 and underwent cardiac catheterization which did not show obstructive CAD which showed severe pulmonary hypertension.
He was also found to have moderate to severe low-flow gradient aortic stenosis with recommendation for further TAVR workup. He was recommended outpatient follow-up with [place] for pulmonary hypertension with workup for connective tissue
disease/autoimmune disease. He was started on sildenafil.
He was recently hospitalized at [place] for syncopal episode. Sildenafil, Benadryl, terazosin was stopped. They thought the aortic stenosis was responsible for symptoms.
Etiology of syncope is due to RV failure/pulmonary hypertension and aortic stenosis. Patient may need expedited workup for TAVR. Cardiology consulted.
[2024-05-25] MEDS: ELIQUIS 2.5 MG PO (20:18)
[2024-05-25] MEDS: TOPROL XL 50 MG PO (20:18)
[2024-05-25] MEDS: LIPITOR 80 MG PO (22:25)
[2024-05-26] VITALS (10 sets, daily range): BP systolic 105–136; BP diastolic 56–83; PULSE 79–93; BMI 25.7
--- NOTE | 2024-05-26 01:12 | TRANSFER ---
Pt admitted to unit at ED. Pt ambulated to bed with nursing staff on 2L NC. Pt reported 'slight' lightheadedness while ambulating to bed. Pt denies dizziness, SOB, difficulty breathing, and chest pain. Pt reported lightheadedness resolved once
sitting in bed. AAXO3. Educated to use urinal. Pt oriented to room with call pierce in reach. Plan of care ongoing.
[2024-05-26] MEDS: TOPROL XL 50 MG PO ×2 (08:30→20:24)
[2024-05-26] MEDS: VITAMIN D3 (cholecalciferol) 50 MCG PO (08:30)
[2024-05-26] MEDS: GLUCOTROL XL (EXTENDED RELEASE) 5 MG PO (08:30)
[2024-05-26] MEDS: ELIQUIS 2.5 MG PO ×2 (08:30→20:24)
[2024-05-26] MEDS: VITAMIN B-12 1000 MCG PO (08:30)
[2024-05-26] MEDS: PROSCAR 5 MG PO (08:30)
[2024-05-26] MEDS: ZINC 50 MG PO (08:30)
[2024-05-26 08:54] LABS: Hematocrit 42.4 % (39.0-52.0); Mean Platelet Volume 10.8 fL (7.4-10.4); Platelet Count 186 10^3/uL (130-400); Red Blood Cell Count 4.37 10^6/uL (4.70-6.10); Red Cell Dist. Width 14.3 % (11.5-14.5)
[2024-05-26 09:25] LABS: Blood Urea Nitrogen 34 mg/dl (9-20); Calcium 9.2 mg/dl (8.4-10.2); Carbon Dioxide 23 mmol/L (22-30); Chloride 106 mmol/L (98-107); Estimated Creatinine Clearance 27 ml/min; Glucose 150 mg/dl (70-99); Potassium 4.6 mmol/L (3.5-5.1); Sodium 143 mmol/L (135-145)
--- NOTE | 2024-05-26 10:47 | CON.CAR ---
Addendum entered and electronically signed by Santiago Washington MD 05/26/24 15:39:
I saw and examined the patient.
The BLADDER TRIMMER's note was reviewed and I agree with the note.
Comment:
The Linq monitor had no arrhythmia of significance at the time of his clinical event that prompted this admission.
I have communicated with Dr. Candelaria and Dr. Victoira. Dr. Candelaria will meet with the patient.
He has had over 1 year of progressive symptoms that are all similar. I know that Dr. Candelaria and Dr. Victoria have not been convinced that his AoV stenosis is the culprit.
He has had abnormal orthostatic vitals. At [facility] recently several meds were stopped yet he had recurrent symptoms and orthostatic vitals this admission are negative.
We will repeat orthostatic vitals.
Original Note:
Consultation
Consultation Request
Date/Time Consultation Requested: 05/25/241848
Date/Time Consultation Performed: 05/26/24 1005
Requesting Provider: Rowena Reed NP
Performing Provider: Evy HURST for Dr. Washington
Reason for Consultation: Syncope
Medical History
-
Chief Complaint: syncope
History of Present Illness:
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
CKD3B, COPD, lung ca, NSVT, pulmonary hypertension, and recurrent syncope who is here for evaluation of recurrent syncope. Briefly, yesterday, he was in the shower around 9 AM and went to get out and felt light-headed, shortness of breath, and chest
discomfort and went to sit down (these are his typical prodromal symptoms). Then he stood up and passed out. He hit his head, but head CT negative fortunately. Loop recorder reviewed and he has AFIB, but no arrhythmia which would have caused syncope
yesterday AM on my review. He was hospitalized recently at [facility] for continued symptoms of presyncope and they stopped sildenafil, Jardiance, and terazosin. He tells me that they felt TAVR eval should be initiated. Of note, he was here last month and
had R+L heart cath with details below. He is in no distress at the time of my assessment.
Past Medical History
Past Medical History: Arrhythmias, CAD, CHF, COPD, HTN, Hypercholesterolemia, NIDDM and Valvular Disease
Social History
Tobacco: Former Smoker
Family History
Family History: Reviewed & Not Pertinent
Allergies / Home Medications
Allergy/AdvReac Type Severity Reaction Status Date / Time
No Known Allergies Allergy Verified 05/25/24 12:19
�Medication �Instructions �Recorded �Confirmed �Type
cyanocobalamin (vitamin B-12) 1,000 mcg PO DAILY Supplement 08/23/18 05/25/24 History
1,000 mcg tablet
atorvastatin 80 mg tablet 80 mg PO HS High cholesterol 03/20/20 05/25/24 History
metoprolol succinate 50 mg 50 mg PO BID Blood Pressure 09/10/22 05/25/24 History
tablet,extended release 24 hr
finasteride 5 mg tablet 5 mg PO DAILY prostate issue 03/11/23 05/25/24 History
glipizide 5 mg tablet, extended 5 mg PO DAILY Diabetes 03/11/23 05/25/24 History
release 24 hr
apixaban 2.5 mg tablet (Eliquis) 2.5 mg PO BID #30 tabs 06/17/23 05/25/24 Rx
omega [id number]-fish oil 1,000 mg 1 cap PO BID Supplement 07/24/23 05/25/24 History
(120 mg-180 mg) capsule (Fish Oil)
cholecalciferol (vitamin D3) 50 50 mcg PO DAILY Supplement 03/13/24 05/25/24 History
mcg (2,000 unit) tablet
metformin 500 mg tablet,extended 500 mg PO BID Diabetes 03/13/24 05/25/24 History
release 24 hr
acetaminophen 500 mg tablet 1,000 mg PO Q6HPRN PRN mild pain 05/25/24 05/25/24 History
(Tylenol Extra Strength)
furosemide 20 mg tablet 20 mg PO DAILYPRN PRN swelling 05/25/24 05/25/24 History
zinc sulfate 50 mg zinc (220 mg) 50 mg PO DAILY 05/25/24 05/25/24 History
tablet
Review of Systems
-
History Source: Patient
All other systems: Negative unless noted
Respiratory: Trouble Breathing
Cardiac: Chest Pain and Syncope
Physical Exam
Vital Signs
Temp Pulse Resp BP Pulse Ox
97.4 F 78 18 135/82 93
05/26/24 07:00 05/26/24 07:00 05/26/24 07:00 05/26/24 07:00 05/26/24 07:00
Lab Results
05/26/24 08:25
05/26/24 08:25
Troponin I 0.031 ng/ml 05/25/24 12:30
Physical Exam
General: Well Developed, Well Nourished and No Apparent Distress
HEENT: Normocephalic and Anicteric
Respiratory: Clear and Non Labored Respirations
Cardiac: Irregular Rhythm
Musculoskeletal: No Edema
Skin: Warm and Dry
Neuro: AO x 3
Psych: Calm
Impression / Plan
-
Recurrent syncope:
-orthos negative her, but have been positive in the past per chart
-no dangerous arrhythmias on monitor at time of syncope
-last admit, felt to be related to pulmonary HTN. However, patient also with significant , and was recently at [facility] who recommended TAVR w/u. Recent echo and cath as below.
Paroxysmal AFIB:
-currently in rate-controlled AFIB
-continue metoprolol and Eliquis and follow telemetry
Coronary artery disease:
-stable by recent cath as below
-Continue Eliquis, statin, and BB
Aortic stenosis: Moderate to severe
-recent echo and cath as below
-will discuss with team
HFpEF: chronic
-appears volume overloaded
Data:
Cath 04/27/24: Right dominant circulation with a 30% lesion in the distal RCA, a patent stent in the body of OM 2 and luminal irregularities in the LAD. Normal filling pressures (LVEDP = 10 mmHg, PCWP = 15 mmHg at 80.3 kg). Moderate to severe,
paradoxical low-flow, low gradient aortic valve stenosis (mean gradient = 22.1 mmHg, TAVIA = 1.0 cm�, SVI = 32.5 mL, LVEF = 50% on TTE). Severe precapillary pulmonary hypertension (mean PA = 43 mmHg, cardiac output = 4.25 L/min, PVR = 6.6 Cai
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
Echo 04/27/24: Low normal left ventricular systolic function. Left ventricular ejection fraction is 50%. Stage II diastolic dysfunction. Moderate aortic stenosis (mean 20 mmHg, TAVIA 1.1 cmsq). Estimated PASP 40 mmHg, assuming a right atrial pressure
of 3 mmHg.
Data Reviewed
-
EKG: Tracing Personally Visualized and interpreted (AFIB, RBBB)
CT Scan: Report Reviewed by me (head: No acute intracranial abnormality. No interval change.)
Medical Tests (Nuc Med, Echo etc): Report Reviewed by me
Labs: Labs Reviewed by me
--- NOTE | 2024-05-26 15:36 | W.PN.HOSP.TC ---
Today's Communication/Plan
-
TAVR evaluation
Assessment / Plan
Assessment / Plan
Assessment/plan
#syncopal episode
#History of syncopal episode secondary to ventricular tachycardia/PVCs status post ablation with loop recorder
#History of syncopal episodes secondary to orthostatic hypotension
EKG: ATRIAL FIBRILLATION
RIGHT BUNDLE BRANCH BLOCK
POSSIBLE INFERIOR INFARCT (CITED ON OR BEFORE 11-SEP-2022)
ABNORMAL ECG
WHEN COMPARED WITH ECG OF 28-APR-2024 05:34,
ATRIAL FIBRILLATION HAS REPLACED SINUS RHYTHM
T WAVE INVERSION NOW EVIDENT IN ANTERIOR LEADS
abrasion to left forehead and left elbow s/p fall
[employer] device interrogated showing 18 events of atrial arrhythmias over the past 48 hours with maximum sustained rates of 170, however there were no tacky or bradycardia episodes that correlated with his syncopal event based on times reported
from the [employer] rep.
- Admit to telemetry
- Cardiology consulted , will discuss with TAVR team.
- negative orthostatic VS
Paroxysmal atrial fibrillation
- Continue Eliquis and metoprolol
CAD with stenting 2003
- Continue metoprolol and atorvastatin
Chronic HFpEF
patient reports stable weights at home and no observed edema although up 2kg since last admission
- Continue metoprolol and furosemide PRN
Hypercholesterolemia
- Continue atorvastatin
Essential hypertension
- continue metoprolol
Pulmonary hypertension
newly diagnosed severe pulmonary hypertension on patients last admission 04/2024
- continue Sildenafil
Type 2 diabetes
- hold glipizide
- hold metformin
- Insulin sliding scale
BPH
- Continue finasteride
CKD 3b
BUN 34, Creat 2.0
#Left carotid stenosis
#Mild to moderate aortic stenosis with mild to moderate tricuspid regurgitation with preserved ejection fraction
#History of PVCs status post ablation
#Chronic right bundle branch block
#Small infrarenal abdominal aortic aneurysm
#PAD with history of iliac stents
#COPD
#Lung cancer status post radiation
#History of enterococcal bacteremia
#Spinal stenosis
CODE STATUS: Full code
DVT prophylaxis: Eliquis
Diet: Cardiac diet
I spent 65 minutes giving direct care to the patient including chart review, talking to consultants, talking to treatment team, family communication.
Anticipated Discharge: Within 24 hours
Subjective/Interval History
-
Date of Service: May 26, 2024
Patient seen and examined at bedside, denies any chest pain or shortness of breath, no abdominal pain, no nausea, no vomiting, no diarrhea or constipation.
Seen by cardiology team, will check with TAVR team.
No arrhythmia at time of syncope seen.
Patient has negative orthostatic.
Objective Data
-
Labs:
Laboratory Results
05/26/24
08:25
WBC 11.0 H
Hgb 14.0
Hct 42.4
Plt Count 186
Sodium 143
Potassium 4.6
Chloride 106
Carbon Dioxide 23
BUN 34 H
Creatinine 2.0 H
Glucose 150 H
Calcium 9.2
Vital Signs:
Vital Signs
Temp Pulse Resp BP Pulse Ox
98 F 82 18 121/74 97
05/26/24 15:19 05/26/24 15:19 05/26/24 15:19 05/26/24 15:19 05/26/24 15:19
I&O
05/25/24 05/26/24 05/27/24
06:59 06:59 06:59
Intake Total 120 / 120
Output Total 380 / 380
Balance -260 / -260
Physical Exam
-
General: Well Developed, Well Nourished, No Apparent Distress and Comfortable
HEENT: Normocephalic, Moist Mucous Membranes, No Ptosis, PERRLA and Nose Appears Normal; Negative Atraumatic (Right forehead bruises)
Respiratory: Clear to Auscultation and Non Labored Respirations
Cardiac: S1/S2 and Irregular Rhythm
Breast: Deferred by me
GI: Soft, Nontender, Nondistended and Normal Bowel Sounds
Genito-urinary: No Costovertebral Tender
Musculoskeletal: No Clubbing, No Cyanosis and No Edema
Skin: Warm
Neuro: Awake, Alert, Oriented, AO x 3 and No Motor Deficits
Psych: Calm
Data Reviewed
-
Diagnostic Radiology: Image personally visualized and interpreted and Report Reviewed by me
CT Scan: Image personally visualized and interpreted and Report Reviewed by me
Ultrasound: Image personally visualized and interpreted and Report Reviewed by me
MRI: Image personally visualized and interpreted and Report Reviewed by me
Medical Tests (Nuc Med, Echo etc): Image personally visualized and interpreted and Report Reviewed by me
Labs: Labs Reviewed by me
Old Records: Reviewed
[2024-05-27] VITALS (8 sets, daily range): BP systolic 105–138; BP diastolic 61–86; PULSE 79–92; BMI 25.7
[2024-05-27] MEDS: LIPITOR 80 MG PO ×2 (00:14→20:27)
[2024-05-27 08:01] LABS: Glucose - Point of Care 210 mg/dl (70-99)
[2024-05-27] MEDS: ZINC 50 MG PO (08:40)
[2024-05-27] MEDS: ELIQUIS 2.5 MG PO ×2 (08:40→20:27)
[2024-05-27] MEDS: VITAMIN B-12 1000 MCG PO (08:41)
[2024-05-27] MEDS: VITAMIN D3 (cholecalciferol) 50 MCG PO (08:41)
[2024-05-27] MEDS: TOPROL XL 50 MG PO ×2 (08:41→20:27)
[2024-05-27] MEDS: GLUCOTROL XL (EXTENDED RELEASE) 5 MG PO (08:42)
[2024-05-27] MEDS: PROSCAR 5 MG PO (08:42)
[2024-05-27 09:25] LABS: Hematocrit 39.5 % (39.0-52.0); Hemoglobin 13.3 g/dL (13.0-18.0); Mean Corp Hgb Conc. 33.7 g/dL (33.0-37.0); Mean Corpuscular Hgb 32.1 pg (27.0-31.0); Mean Corpuscular Volume 95.4 fL (80.0-94.0); Mean Platelet Volume 10.8 fL (7.4-10.4); Platelet Count 176 10^3/uL (130-400); Red Blood Cell Count 4.14 10^6/uL (4.70-6.10); Red Cell Dist. Width 14.2 % (11.5-14.5); White Blood Cell Count 9.5 10^3/uL (4.8-10.8)
[2024-05-27 09:45] LABS: Blood Urea Nitrogen 35 mg/dl (9-20); Calcium 8.6 mg/dl (8.4-10.2); Carbon Dioxide 23 mmol/L (22-30); Chloride 102 mmol/L (98-107); Estimated Creatinine Clearance 32 ml/min; Glucose 188 mg/dl (70-99); Magnesium 1.8 mg/dl (1.6-2.3); Potassium 5.1 mmol/L (3.5-5.1); Sodium 135 mmol/L (135-145); eGFR 38.78
--- NOTE | 2024-05-27 10:15 | CM ---
Patient seen bedside, initial assessment completed. Patient resides with his daughter and grandson in a multiple story home, first floor living set-up. Patient reports two steps to enter, has a walker with a seat and a cane at home. Patient reports
he has had [facility] in the past, denies SNF history. Patient confirms PCP Haresh Lilly, pharmacy [facility] or [facility] mail in pharmacy. Patient denies insecurities at home. CM reviewed [facility] form, signed, placed in chart, patient
provided with copy. TT to Hospitalist for PT evals. CM will continue to follow for all discharge planning needs.
Plan; home no needs, watch for PT evals for recommendations.
[2024-05-27 11:56] LABS: Glucose - Point of Care 133 mg/dl (70-99)
[2024-05-27] MEDS: TYLENOL 650 MG PO (13:32)
--- NOTE | 2024-05-27 13:51 | W.PN.CD ---
Today's Communication / Plan
-
to discuss at TAVR meeting in AM
PT/OT eval
Impression / Plan
-
Recurrent syncope:
-orthostatics negative here
-no dangerous arrhythmias on monitor at time of syncope
-patient had evaluation at [facility]. It was thought symptoms were related to , and not due to pulmonary HTN
-pulmonary HTN meds were stopped
-TAVR evaluation was recommended
-to discuss at TAVR meeting in AM
Paroxysmal AFIB:
-currently in rate-controlled AFIB
-continue metoprolol and Eliquis and follow telemetry
Coronary artery disease:
-stable by recent cath as below
-Continue Eliquis, statin, and BB
Aortic stenosis: Moderate to severe
-recent echo and cath as below
-will discuss with team
HFpEF: chronic
-appears volume overloaded
Left carotid stenosis
-managed by vascular surgery, Dr Brooks
Data:
Cath 04/27/24: Right dominant circulation with a 30% lesion in the distal RCA, a patent stent in the body of OM 2 and luminal irregularities in the LAD. Normal filling pressures (LVEDP = 10 mmHg, PCWP = 15 mmHg at 80.3 kg). Moderate to severe,
paradoxical low-flow, low gradient aortic valve stenosis (mean gradient = 22.1 mmHg, TAVIA = 1.0 cm�, SVI = 32.5 mL, LVEF = 50% on TTE). Severe precapillary pulmonary hypertension (mean PA = 43 mmHg, cardiac output = 4.25 L/min, PVR = 6.6 Cai
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
Echo 04/27/24: Low normal left ventricular systolic function. Left ventricular ejection fraction is 50%. Stage II diastolic dysfunction. Moderate aortic stenosis (mean 20 mmHg, TAVIA 1.1 cmsq). Estimated PASP 40 mmHg, assuming a right atrial pressure
of 3 mmHg.
Physical Exam
Vital Signs/Labs
Vital Signs
Temp Pulse Resp BP Pulse Ox
97.9 F 84 18 138/79 93
05/27/24 11:46 05/27/24 11:46 05/27/24 11:46 05/27/24 11:46 05/27/24 11:46
05/26/24 05/27/24 05/28/24
06:59 06:59 06:59
Actual Weight 81.193 kg 81.193 kg
05/27/24 09:07
05/27/24 09:07
Magnesium 1.8 mg/dl (1.6-2.3) 05/27/24 09:07
LAB Results
05/25/24
12:30
Troponin I 0.031
Physical Exam
Constitutional: No acute distress and Comfortable
EENT: Moist mucous membranes
Cardiovascular: Pedal edema is absent, JVD pressure is normal, Rhythm/rate is irregular and Systolic murmur present
Respiratory: Respiratory effort normal and Lungs clear to auscul.
Neuro/Psych: AO x 3
Data Reviewed
-
Date of Service: May 27, 2024
EKG: Other (Tele: A fib 70s)
Labs: Labs Reviewed by me
--- NOTE | 2024-05-27 14:03 | W.PN.HOSP.TC ---
Today's Communication/Plan
-
Discussed with TAVR team tomorrow
Assessment / Plan
Assessment / Plan
Assessment/plan
#syncopal episode
#History of syncopal episode secondary to ventricular tachycardia/PVCs status post ablation with loop recorder
#History of syncopal episodes secondary to orthostatic hypotension
EKG: ATRIAL FIBRILLATION
RIGHT BUNDLE BRANCH BLOCK
POSSIBLE INFERIOR INFARCT (CITED ON OR BEFORE 11-SEP-2022)
ABNORMAL ECG
WHEN COMPARED WITH ECG OF 28-APR-2024 05:34,
ATRIAL FIBRILLATION HAS REPLACED SINUS RHYTHM
T WAVE INVERSION NOW EVIDENT IN ANTERIOR LEADS
abrasion to left forehead and left elbow s/p fall
[employer] device interrogated showing 18 events of atrial arrhythmias over the past 48 hours with maximum sustained rates of 170, however there were no tacky or bradycardia episodes that correlated with his syncopal event based on times reported
from the [employer] rep.
- Admit to telemetry
- Cardiology consulted , will discuss with TAVR team.
- negative orthostatic VS
05/27
Cattle Driver discussed with the TAVR team tomorrow.
Paroxysmal atrial fibrillation
- Continue Eliquis and metoprolol
CAD with stenting 2003
- Continue metoprolol and atorvastatin
Chronic HFpEF
patient reports stable weights at home and no observed edema although up 2kg since last admission
- Continue metoprolol and furosemide PRN
Hypercholesterolemia
- Continue atorvastatin
Essential hypertension
- continue metoprolol
Pulmonary hypertension
newly diagnosed severe pulmonary hypertension on patients last admission 04/2024
- continue Sildenafil
Type 2 diabetes
- hold glipizide
- hold metformin
- Insulin sliding scale
BPH
- Continue finasteride
CKD 3b
BUN 34, Creat 2.0
#Left carotid stenosis
#Mild to moderate aortic stenosis with mild to moderate tricuspid regurgitation with preserved ejection fraction
#History of PVCs status post ablation
#Chronic right bundle branch block
#Small infrarenal abdominal aortic aneurysm
#PAD with history of iliac stents
#COPD
#Lung cancer status post radiation
#History of enterococcal bacteremia
#Spinal stenosis
CODE STATUS: Full code
DVT prophylaxis: Eliquis
Diet: Cardiac diet
I spent 65 minutes giving direct care to the patient including chart review, talking to consultants, talking to treatment team, family communication.
Anticipated Discharge: 24 - 48 hours
Subjective/Interval History
-
Date of Service: May 27, 2024
Patient seen and examined at bedside, denies any chest pain or shortness of breath, no abdominal pain, no nausea, no vomiting, no diarrhea or constipation.
Cardiology plan to meet with TAVR team tomorrow.
Patient will be upgraded to full inpatient.
PT consulted.
Objective Data
-
Labs:
Laboratory Results
05/27/24
09:07
WBC 9.5
Hgb 13.3
Hct 39.5
Plt Count 176
Sodium 135 D
Potassium 5.1
Chloride 102
Carbon Dioxide 23
BUN 35 H
Creatinine 1.7 H
Glucose 188 H
Calcium 8.6
Vital Signs:
Vital Signs
Temp Pulse Resp BP Pulse Ox
97.9 F 84 18 138/79 93
05/27/24 11:46 05/27/24 11:46 05/27/24 11:46 05/27/24 11:46 05/27/24 11:46
I&O
05/26/24 05/27/24 05/28/24
06:59 06:59 06:59
Intake Total 120 / 120 1140 / 1140
Output Total 380 / 380 300 / 300
Balance -260 / -260 840 / 840
Physical Exam
-
General: Well Developed, Well Nourished, No Apparent Distress and Comfortable
HEENT: Normocephalic, Moist Mucous Membranes, No Ptosis, PERRLA and Nose Appears Normal; Negative Atraumatic (Right forehead bruises)
Respiratory: Clear to Auscultation and Non Labored Respirations
Cardiac: S1/S2 and Irregular Rhythm
Breast: Deferred by me
GI: Soft, Nontender, Nondistended and Normal Bowel Sounds
Genito-urinary: No Costovertebral Tender
Musculoskeletal: No Clubbing, No Cyanosis and No Edema
Skin: Warm
Neuro: Awake, Alert, Oriented, AO x 3 and No Motor Deficits
Psych: Calm
[2024-05-27 16:50] LABS: Glucose - Point of Care 153 mg/dl (70-99)
--- NOTE | 2024-05-27 17:24 | PTCARENOTE ---
Pt c/o chest pain, EKG completed, bp 141/[address] Hansen made aware who reached out to Dr. Candelaria. Troponin ordered, nitro ordered . will cont to monitor. Pt reports decrease in chest pain at this time.
[2024-05-27 18:01] LABS: Troponin I 0.029 ng/ml
[2024-05-27] MEDS: MIRALAX 17 GRAMS PO (18:31)
[2024-05-27 22:22] LABS: Glucose - Point of Care 114 mg/dl (70-99)
[2024-05-28] VITALS (8 sets, daily range): BP systolic 115–153; BP diastolic 65–89; PULSE 67–79; BMI 25.5
[2024-05-28 07:50] LABS: Glucose - Point of Care 116 mg/dl (70-99)
[2024-05-28 08:59] LABS: Hematocrit 40.2 % (39.0-52.0); Hemoglobin 13.2 g/dL (13.0-18.0); Mean Corp Hgb Conc. 32.8 g/dL (33.0-37.0); Mean Corpuscular Hgb 31.4 pg (27.0-31.0); Mean Corpuscular Volume 95.5 fL (80.0-94.0); Mean Platelet Volume 10.6 fL (7.4-10.4); Platelet Count 186 10^3/uL (130-400); Red Blood Cell Count 4.21 10^6/uL (4.70-6.10); Red Cell Dist. Width 14.3 % (11.5-14.5); White Blood Cell Count 8.3 10^3/uL (4.8-10.8)
[2024-05-28 09:36] LABS: Blood Urea Nitrogen 33 mg/dl (9-20); Calcium 8.9 mg/dl (8.4-10.2); Carbon Dioxide 24 mmol/L (22-30); Estimated Creatinine Clearance 29 ml/min; Glucose 121 mg/dl (70-99); Potassium 4.9 mmol/L (3.5-5.1); Sodium 137 mmol/L (135-145); eGFR 33.93
[2024-05-28 09:43] LABS: Chloride 104 mmol/L (98-107)
[2024-05-28] MEDS: MIRALAX PO (10:13)
[2024-05-28] MEDS: VITAMIN D3 (cholecalciferol) 50 MCG PO (10:16)
[2024-05-28] MEDS: ZINC 50 MG PO (10:16)
[2024-05-28] MEDS: TOPROL XL 50 MG PO ×2 (10:16→20:02)
[2024-05-28] MEDS: PROSCAR 5 MG PO (10:16)
[2024-05-28] MEDS: ELIQUIS 2.5 MG PO ×2 (10:17→19:50)
[2024-05-28] MEDS: VITAMIN B-12 1000 MCG PO (10:17)
[2024-05-28] MEDS: GLUCOTROL XL (EXTENDED RELEASE) 5 MG PO (10:19)
[2024-05-28] MEDS: NSS 1000 IV (10:29)
--- NOTE | 2024-05-28 11:58 | W.PN.UPDATE ---
Update Note
Progress Note Update
Ric Zuniga is a 88-year-old male with known progressive aortic valve stenosis as well as multiple other comorbidities and severe pulmonary hypertension. Their most recent echocardiogram demonstrated a peak/mean gradient of 41.5/20.0 mmHg,
respectively. TAVIA was calculated to be 1.1 and peak velocity was 3.22. Their left heart catheterization revealed mild non obstructive coronary disease. An invasive mean gradient was performed and found to be 22.1mmHg. Functionally, they are
independent and were evaluated at [facility] for their severe PHTN. Their recommendation was to move forward with TAVR work up and treamtent. He had a recurrent episode of syncope and would not be a candidate for further PHTN treatment with his . We
reviewed his imaging studies at conference and overall consensus is that she has a calcified valve, possible . Regardless, this would need to be addressed prior to any further treament for his pulmonary disease. He understands that he may not have
any relief clinically from this procedure. I believe they meet criteria for aortic valve stenosis and as a group we recommend moving forward with treatment provided their CT scan is appropriate. Given their age and risk factors, I would recommend a
transcatheter approach provided their imaging studies reveal safe and amenable anatomy.
RESCUE STATUS: Full, but understands his risk of is high with open heart surgery, I quoted him 25%. This was discussed with his Daughter Areli on the phone.
Plan:
1. I believe this patient would benefit from a TAVR procedure given their current findings and symptoms.
2. We will need to complete their work up including TAVR imaging and measurements.
3. The procedure, risks, and the benefits were explained in detail. this included but was not limited to: need for emergent PCI due to coronary obstruction, emergent operative intervention for hemorrhage, placement of a PPM, need for transfusion,
stroke, etc. Consent was obtained for the procedure and scanned into the chart. A total of 60mins was spent reviewing the patients chart and in consultation. They are aware that any procedure is pending our investive findings and multidisciplinary
structural heart team meeting.
4. The patient and family are aware that both I and my colleague, Dr. Farooq, perform this procedure and that one of us will be present as the cardiac surgeon on the day of their TAVR.
5. They were updated on any incidental findings on their CT scans and recommend follow up with their primary care provider.
Thank you for involving me in the care of this patient. Please feel free to contact me with any questions or concerns.
Ethan Kim MD, MS
Cardiothoracic Surgeon
[facility]
This operative dictation was created using the [employer] dictation system. Please excuse any grammatical, typographical, or 'sound alike' errors.
[2024-05-28 12:03] LABS: Glucose - Point of Care 182 mg/dl (70-99)
--- NOTE | 2024-05-28 12:35 | W.PN.CD ---
Today's Communication / Plan
-
discussed at TAVR conference: proceed with TAVR evaluation, including TAVR CT today
PT/OT eval
Impression / Plan
-
Recurrent syncope, aortic stenosis:
-orthostatics negative here
-no dangerous arrhythmias on monitor at time of syncope
-patient had evaluation at [facility]. It was thought symptoms were primarily related to , and not due to pulmonary HTN
-pulmonary HTN meds were stopped
-TAVR evaluation was recommended
-discussed at TAVR conference: proceed with TAVR evaluation, including TAVR CT today
Paroxysmal AFIB:
-in rate controlled A fib on admit; now back in sinus
-continue metoprolol and Eliquis and follow telemetry
Coronary artery disease:
-stable by recent cath as below
-Continue Eliquis, statin, and BB
Aortic stenosis: Moderate to severe
-recent echo and cath as below
-will discuss with team
HFpEF: chronic
-appears volume overloaded
Left carotid stenosis
-managed by vascular surgery, Dr Brooks
Data:
Cath 04/27/24: Right dominant circulation with a 30% lesion in the distal RCA, a patent stent in the body of OM 2 and luminal irregularities in the LAD. Normal filling pressures (LVEDP = 10 mmHg, PCWP = 15 mmHg at 80.3 kg). Moderate to severe,
paradoxical low-flow, low gradient aortic valve stenosis (mean gradient = 22.1 mmHg, TAVIA = 1.0 cm�, SVI = 32.5 mL, LVEF = 50% on TTE). Severe precapillary pulmonary hypertension (mean PA = 43 mmHg, cardiac output = 4.25 L/min, PVR = 6.6 Cai
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
Echo 04/27/24: Low normal left ventricular systolic function. Left ventricular ejection fraction is 50%. Stage II diastolic dysfunction. Moderate aortic stenosis (mean 20 mmHg, TAVIA 1.1 cmsq). Estimated PASP 40 mmHg, assuming a right atrial pressure
of 3 mmHg.
Physical Exam
Vital Signs/Labs
Vital Signs
Temp Pulse Resp BP Pulse Ox
97.4 F 75 18 151/76 92
05/28/24 12:15 05/28/24 12:15 05/28/24 12:15 05/28/24 12:15 05/28/24 12:15
05/27/24 05/28/24 05/29/24
06:59 06:59 06:59
Actual Weight 80.513 kg
05/28/24 07:59
05/28/24 07:59
Magnesium 2.0 mg/dl (1.6-2.3) 05/28/24 07:59
LAB Results
05/25/24 05/27/24
12:30 17:29
Troponin I 0.031 0.029
Physical Exam
Constitutional: Comfortable
EENT: Moist mucous membranes
Cardiovascular: Rhythm & rate is regular, Pedal edema is absent, JVD pressure is normal and Systolic murmur present
Respiratory: Respiratory effort normal and Lungs clear to auscul.
Neuro/Psych: AO x 3
Data Reviewed
-
Date of Service: May 28, 2024
EKG: Other (Tele: A fib-->NSR)
Labs: Labs Reviewed by me
Total Time Spent with Patient (in minutes): 55: discussed at TAVR conference; and also phone discussion with daughter
--- NOTE | 2024-05-28 12:53 | CONSULT.STRU ---
Addendum entered and electronically signed by NATALI Mcdonald 06/04/24 07:31:
Reviewed patient again with the heart team in the SDM meeting. Access appears to be a challenge from femoral, carotid, and axillary. The team discussed an attempt of left transfemoral access and if unsuccessful will abort the procedure. The team
will continue to discuss timing and will review with patient and family.
Original Note:
Consultation
-
Date/Time Consultation Requested: 05/27/2024
Date/Time Consultation Performed: 05/28/2024
Requesting Provider: Alirio Candelaria MD
Performing Provider: NATALI Mcdonald
Reason for Consultation: / TAVR
Patient History
Physicians
Family Physician: Giles Nails MD
Outpatient Auto Former Machine Operator: Santiago Washington MD
Primary Auto Former Machine Operator: Santiago Washington MD
History of Present Illness
Mr. Zuniga is a very pleasant 88 yom with known progressive aortic valve stenosis as well as multiple other comorbidities and severe pulmonary hypertension. His echocardiogram from 04/27/2024 is notable for an aortic valve peak/mean gradient of
41.5/20.0 mmHg, TAVIA 1.1 and peak velocity was 3.22. His LHC revealed mild non obstructive coronary disease. An invasive mean gradient was performed and found to be 22.1mmHg. Functionally, he is independent and was evaluated at [facility] for his severe
PHTN. Their recommendation was to move forward with TAVR work up and treatment. He had a recurrent episode of syncope and would not be a candidate for further PHTN treatment with his . We reviewed his imaging studies at in the structural heart SDM
meeting and overall consensus is that he has a calcified valve, possible . This will need to be addressed prior to any further treatment for his pulmonary disease. He understands that he may not have any relief clinically from this procedure.
Discussed the TAVR evaluation process comprising of split CT scan d/t RI (he had Chest CT while inpatient, will get labs next week and schedule abdomen/pelvis CT in 2 weeks), CT surgical consult (seen by Dr. Kim inpatient), dental clearance
(patient will need to find a dentist), and a final heart team discussion. Prescriptions, TAVR booklet, and contact information given to patient. Allowed for and answered questions at bedside.
Past Medical History
Past Medical History: Arrhythmias (VT), Atrial Fib, CAD (stent 2004), CHF (HFpEF), COPD, HTN, Hypercholesterolemia, NIDDM, Valvular Disease (aortic stenosis) and Other (PAD with iliac stents, CKD3, lung ca s/p radiation, enterococcal bacteremia,
spinal stenosis, PAH)
Past Surgical History
Past Surgical History: Cholecystectomy and Other (cardiac ablation, iliac stent, eye surgery)
Dental History
Patient will need to find a dentist
Family History
Mother: N/A
Father: N/A
Social History
Alcohol: Former (sober for 38 years)
Drug: None
Tobacco: Former Smoker
Personal:
Living: Alone
Employment: Retired ([employer])
Allergies
Allergy/AdvReac Type Severity Reaction Status Date / Time
No Known Allergies Allergy Verified 05/25/24 12:19
Home Medications
�Medication �Instructions �Recorded �Confirmed �Type
cyanocobalamin (vitamin B-12) 1,000 mcg PO DAILY Supplement 08/23/18 05/25/24 History
1,000 mcg tablet
atorvastatin 80 mg tablet 80 mg PO HS High cholesterol 03/20/20 05/25/24 History
metoprolol succinate 50 mg 50 mg PO BID Blood Pressure 09/10/22 05/25/24 History
tablet,extended release 24 hr
finasteride 5 mg tablet 5 mg PO DAILY prostate issue 03/11/23 05/25/24 History
glipizide 5 mg tablet, extended 5 mg PO DAILY Diabetes 03/11/23 05/25/24 History
release 24 hr
apixaban 2.5 mg tablet (Eliquis) 2.5 mg PO BID #30 tabs 06/17/23 05/25/24 Rx
omega 3-blg-bad-fish oil 1,000 mg 1 cap PO BID Supplement 07/24/23 05/25/24 History
(120 mg-180 mg) capsule (Fish Oil)
cholecalciferol (vitamin D3) 50 50 mcg PO DAILY Supplement 03/13/24 05/25/24 History
mcg (2,000 unit) tablet
metformin 500 mg tablet,extended 500 mg PO BID Diabetes 03/13/24 05/25/24 History
release 24 hr
acetaminophen 500 mg tablet 1,000 mg PO Q6HPRN PRN mild pain 05/25/24 05/25/24 History
(Tylenol Extra Strength)
furosemide 20 mg tablet 20 mg PO DAILYPRN PRN swelling 05/25/24 05/25/24 History
zinc sulfate 50 mg zinc (220 mg) 50 mg PO DAILY 05/25/24 05/25/24 History
tablet
STS%
STS %: 10.5
Review of Systems
-
History Source: Patient
General: Reports Fatigue
Respiratory: Reports CAMPA
Physical Exam
Vital Signs
Temp 97.4 F 05/28/24 12:15
Temp route: Oral 05/28/24 12:15
Pulse 75 05/28/24 12:15
Rhythm: Normal sinus rhythm 05/27/24 19:35
With- Bundle Branch Block Confi, First Degree Heart Block, Atrial fibrillation 05/27/24 19:35
Resp Rate 18 05/28/24 12:15
Blood pressure 151/76 05/28/24 12:15
Blood pressure extremity used: Left upper arm 05/28/24 12:15
Position: Sitting 05/28/24 12:15
MAP (cuff-Caesar Monitor) 87 05/26/24 00:00
SaO2 92 05/28/24 12:15
Nasal Cannula flow liters per minute 2 05/27/24 08:15
Oxygen Mode of Delivery Room air 05/28/24 12:15
Acceptable pain level during hospitalization? 0 05/25/24 12:10
Can the patient verbally communicate their pain? Yes 05/27/24 19:35
Pain scale ratin 05/27/24 14:32
Actual Weight 80.513 kg 05/28/24 06:00
Body Mass Index (BMI) 25.5 05/28/24 06:00
Supine- Blood Pressure 140/78 05/28/24 10:05
Supine- Pulse 67 05/28/24 10:05
Sitting- Blood Pressure 142/68 05/28/24 10:05
Sitting- Pulse 71 05/28/24 10:05
Standing- Blood Pressure 140/77 05/28/24 10:05
Standing- Pulse 76 05/28/24 10:05
Blood pressure extremity used: Right upper arm 05/28/24 10:05
Mode BP taken: Automatic 05/28/24 10:05
Blood pressure after activity 115/61 05/27/24 12:25
Labs
05/28/24 07:59
05/28/24 07:59
Troponin I 0.029 ng/ml 05/27/24 17:29
Diagnostic Studies
ECHOCARDIOGRAM 04/27/2024
CONCLUSIONS
Low normal left ventricular systolic function.
Left ventricular ejection fraction is 50%.
Stage II diastolic dysfunction suggestive of abnormal relaxation and increased
filling pressures.
Mild biatrial enlargement.
Mild mitral regurgitation.
Moderate aortic stenosis (mean 20 mmHg, TAVIA 1.1 cmsq).
Estimated PASP 40 mmHg, assuming a right atrial pressure of 3 mmHg.
No significant change since the prior study of 11/14/2023 when the mean gradient
was 17 mmHg and the TAVIA was estimated at 1.3 cm2.
CARDIAC CATHETERIZATION
CONCLUSIONS:
1. Right dominant circulation with a 30% lesion in the distal RCA, a patent stent in the body of OM 2 and luminal irregularities in the LAD.
2. Normal filling pressures (LVEDP = 10 mmHg, PCWP = 15 mmHg at 80.3 kg).
3. Moderate to severe, paradoxical low-flow, low gradient aortic valve stenosis (mean gradient = 22.1 mmHg, TAVIA = 1.0 cm�, SVI = 32.5 mL, LVEF = 50% on TTE).
4. 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
RECOMMENDATIONS:
1. Expectant management after cardiac catheterization via right radial/antecubital approach.
2. Limited weight bearing on the right wrist for one week.
3. Continue aggressive secondary prevention with high-dose, high potency statin.
4. No obvious ischemic culprit for chest pressure/exertional syncope.
5. Pulmonary hypertension would explain chest pressure and presyncope with exertion. Consider sildenafil and referral to pulmonary hypertension center.
Exam
General: Well Developed and Well Nourished
Respiratory: Clear
Cardiac: Murmur (II-III/ SELVIN)
GI: Soft and Non Tender
Neuro: Awake, Alert, Oriented and AO x 3
Psych: Calm
Assessment / Plan
-
Aortic Stenosis
Continue with TAVR evaluation.
Trend creatinine after contrast administration (RX given)
Staged TAVR CT scan (chest CT completed inpatient)
CT surgical consult (TT consult inpatient)
KCCQ12 (form given to patient)
Dental clearance (patient will need to find a dentist)
Will hold Eliquis x 48 hours prior to TAVR
Heart team discussion
Data Reviewed
-
Motorcycle Fabricator: Report Reviewed by me and Discussed with Physician (Reviewed with the heart team)
Echo: Report Reviewed by me and Discussed with Physician (Reviewed with the heart team)
Labs: Labs Reviewed by me
Old Records: Reviewed (outpatient OV and inpatient)
Total Time Spent with Patient (in minutes): 45
--- NOTE | 2024-05-28 14:58 | W.PN.HOSP.TC ---
Today's Communication/Plan
-
CT TAVR today
Assessment / Plan
Assessment / Plan
Assessment/plan
#syncopal episode
#History of syncopal episode secondary to ventricular tachycardia/PVCs status post ablation with loop recorder
#History of syncopal episodes secondary to orthostatic hypotension
EKG: ATRIAL FIBRILLATION
RIGHT BUNDLE BRANCH BLOCK
POSSIBLE INFERIOR INFARCT (CITED ON OR BEFORE 11-SEP-2022)
ABNORMAL ECG
WHEN COMPARED WITH ECG OF 28-APR-2024 05:34,
ATRIAL FIBRILLATION HAS REPLACED SINUS RHYTHM
T WAVE INVERSION NOW EVIDENT IN ANTERIOR LEADS
abrasion to left forehead and left elbow s/p fall
[employer] device interrogated showing 18 events of atrial arrhythmias over the past 48 hours with maximum sustained rates of 170, however there were no tacky or bradycardia episodes that correlated with his syncopal event based on times reported
from the [employer] rep.
- Admit to telemetry
- Cardiology consulted , will discuss with TAVR team.
- negative orthostatic VS
05/27
Rip And Groove Machine Operator discussed with the TAVR team tomorrow.
05/28
TAVR team recommending CT TAVR to be done today.
IV fluid hydration before and after CT scan.
Follow-up with cardiology recommendations.
Paroxysmal atrial fibrillation
- Continue Eliquis and metoprolol
CAD with stenting 2003
- Continue metoprolol and atorvastatin
Chronic HFpEF
patient reports stable weights at home and no observed edema although up 2kg since last admission
- Continue metoprolol and furosemide PRN
Hypercholesterolemia
- Continue atorvastatin
Essential hypertension
- continue metoprolol
Pulmonary hypertension
newly diagnosed severe pulmonary hypertension on patients last admission 04/2024
- continue Sildenafil
Type 2 diabetes
- hold glipizide
- hold metformin
- Insulin sliding scale
BPH
- Continue finasteride
CKD 3b
BUN 34, Creat 2.0
#Left carotid stenosis
#Mild to moderate aortic stenosis with mild to moderate tricuspid regurgitation with preserved ejection fraction
#History of PVCs status post ablation
#Chronic right bundle branch block
#Small infrarenal abdominal aortic aneurysm
#PAD with history of iliac stents
#COPD
#Lung cancer status post radiation
#History of enterococcal bacteremia
#Spinal stenosis
CODE STATUS: Full code
DVT prophylaxis: Eliquis
Diet: Cardiac diet
Disposition: Follows cardiology recommendations, if no further cardiac workup to be discharged home with home physical therapy.
I spent 65 minutes giving direct care to the patient including chart review, talking to consultants, talking to treatment team, family communication.
Anticipated Discharge: 24 - 48 hours
Subjective/Interval History
-
Date of Service: May 28, 2024
Patient seen and examined at bedside.
Patient had a chest pain last night which currently resolved.
Discussed with cardiology and TAVR team, patient for CT TAVR today.
Physical therapy recommending home physical therapy.
Ordered IV fluid hydration before CT angiogram.
Objective Data
-
Labs:
Laboratory Results
05/28/24
07:59
WBC 8.3
Hgb 13.2
Hct 40.2
Plt Count 186
Sodium 137
Potassium 4.9
Chloride 104
Carbon Dioxide 24
BUN 33 H
Creatinine 1.9 H
Glucose 121 H
Calcium 8.9
Vital Signs:
Vital Signs
Temp Pulse Resp BP Pulse Ox
97.4 F 75 18 151/76 92
05/28/24 12:15 05/28/24 12:15 05/28/24 12:15 05/28/24 12:15 05/28/24 12:15
I&O
05/27/24 05/28/24 05/29/24
06:59 06:59 06:59
Intake Total 1140 / 1140 960 / 960
Output Total 300 / 300 1625 / 1625
Balance 840 / 840 -665 / -665
Physical Exam
-
General: Well Developed, Well Nourished, No Apparent Distress and Comfortable
HEENT: Normocephalic, Moist Mucous Membranes, No Ptosis, PERRLA and Nose Appears Normal; Negative Atraumatic (Right forehead bruises)
Respiratory: Clear to Auscultation and Non Labored Respirations
Cardiac: S1/S2 and Irregular Rhythm
Breast: Deferred by me
GI: Soft, Nontender, Nondistended and Normal Bowel Sounds
Genito-urinary: No Costovertebral Tender
Musculoskeletal: No Clubbing, No Cyanosis and No Edema
Skin: Warm
Neuro: Awake, Alert, Oriented, AO x 3 and No Motor Deficits
Psych: Calm
--- NOTE | 2024-05-28 16:45 | PTCARENOTE ---
Assumed care of pt from previous nurse. Pt denies pain. Pt dizzy at times with ambulation. Pt call pierce is within reach, pt rings alea. tele running nsr with bbb and a first degree heart block
[2024-05-28 17:05] LABS: Glucose - Point of Care 118 mg/dl (70-99)
[2024-05-28] MEDS: LIPITOR 80 MG PO (19:50)
[2024-05-28 21:18] LABS: Glucose - Point of Care 119 mg/dl (70-99)
[2024-05-29] MEDS: NSS 1000 IV ×2 (02:33→14:49)
[2024-05-29 03:30] VITALS: BP 130/60
[2024-05-29 06:00] VITALS: BMI 25.6
[2024-05-29 07:00] LABS: Hematocrit 37.6 % (39.0-52.0); Mean Corp Hgb Conc. 34.6 g/dL (33.0-37.0); Mean Corpuscular Hgb 32.2 pg (27.0-31.0); Mean Corpuscular Volume 93.1 fL (80.0-94.0); Mean Platelet Volume 11.3 fL (7.4-10.4); Platelet Count 173 10^3/uL (130-400); Red Blood Cell Count 4.04 10^6/uL (4.70-6.10); Red Cell Dist. Width 13.9 % (11.5-14.5); White Blood Cell Count 9.5 10^3/uL (4.8-10.8)
[2024-05-29 07:25] LABS: Blood Urea Nitrogen 30 mg/dl (9-20); Calcium 8.6 mg/dl (8.4-10.2); Carbon Dioxide 23 mmol/L (22-30); Chloride 106 mmol/L (98-107); Estimated Creatinine Clearance 30 ml/min; Glucose 93 mg/dl (70-99); Magnesium 1.9 mg/dl (1.6-2.3); Potassium 4.5 mmol/L (3.5-5.1); Sodium 138 mmol/L (135-145); eGFR 36.21
[2024-05-29 07:55] LABS: Glucose - Point of Care 105 mg/dl (70-99)
[2024-05-29 08:13] VITALS: BP 150/77
[2024-05-29] MEDS: PROSCAR 5 MG PO (08:45)
[2024-05-29] MEDS: ZINC 50 MG PO (08:45)
[2024-05-29] MEDS: VITAMIN D3 (cholecalciferol) 50 MCG PO (08:45)
[2024-05-29] MEDS: ELIQUIS 2.5 MG PO ×2 (08:45→20:13)
[2024-05-29] MEDS: TOPROL XL 50 MG PO ×2 (08:45→20:13)
[2024-05-29] MEDS: MIRALAX 17 GRAMS PO (08:45)
[2024-05-29] MEDS: VITAMIN B-12 1000 MCG PO (08:45)
--- NOTE | 2024-05-29 08:59 | W.PN.CD ---
Addendum entered and electronically signed by Romina Moore MD 05/29/24 13:18:
88-year-old gentleman with history of atrial fibrillation and PVCs status post ablation on 09/10/2022 (3 different foci in the LV), status post ILR placement on 01/06/2024 who has been having multiple syncope episodes. Patient was initially sent to
[facility] for pulmonary hypertension evaluation and was thought to have low-flow low gradient aortic stenosis as a potential etiology of his symptoms. Patient was in sinus rhythm on 04/28/2024 and now presented in atrial fibrillation. Patient has
rare PVCs at the most. The current episode of syncope could be related to aortic stenosis as there is no significant pause noted on the loop recorder. I discussed case patient with patient, patient's [address] Kim has already evaluated
the patient and believes that TAVR procedure is acceptable. TAVR CT scan is done and reviewed. Continue TAVR workup as per TAVR team.
Original Note:
Today's Communication / Plan
-
Ambulate, check orthostatics
Lasix as Op was prn, weight stable
trend creat
await TAVR team work up
Impression / Plan
-
Recurrent syncope, aortic stenosis:
-orthostatics negative here
-no dangerous arrhythmias on monitor at time of syncope
-patient had evaluation at [facility]. It was thought symptoms were primarily related to , and not due to pulmonary HTN
-pulmonary HTN meds were stopped
-TAVR evaluation in progress
-discussed at TAVR conference: proceed with TAVR evaluation, TAVR CT done 05/28/24
Paroxysmal AFIB:
-in rate controlled A fib on admit; now back in sinus
-continue metoprolol and Eliquis
Coronary artery disease:
-stable by recent cath as below
-Continue Eliquis, statin, and BB
Aortic stenosis: Moderate to severe
-recent echo and cath as below
-TAVR w/u in progress
HFpEF: chronic
-weight stable , BP stable
-stop IVF
CKD:
- Creat 2 on admit 05/27 1.7, today 05/29 1.8
- monitor
Left carotid stenosis
-managed by vascular surgery, Dr Brooks
Subjective: Pt denies CP,palps, SOB at rest. usually just getting dressed caused him to feel exhausted and SOB.
Data:
Cath 04/27/24: Right dominant circulation with a 30% lesion in the distal RCA, a patent stent in the body of OM 2 and luminal irregularities in the LAD. Normal filling pressures (LVEDP = 10 mmHg, PCWP = 15 mmHg at 80.3 kg). Moderate to severe,
paradoxical low-flow, low gradient aortic valve stenosis (mean gradient = 22.1 mmHg, TAVIA = 1.0 cm�, SVI = 32.5 mL, LVEF = 50% on TTE). Severe precapillary pulmonary hypertension (mean PA = 43 mmHg, cardiac output = 4.25 L/min, PVR = 6.6 Cai
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
Echo 04/27/24: Low normal left ventricular systolic function. Left ventricular ejection fraction is 50%. Stage II diastolic dysfunction. Moderate aortic stenosis (mean 20 mmHg, TAVAI 1.1 cmsq). Estimated PASP 40 mmHg, assuming a right atrial pressure
of 3 mmHg.
Physical Exam
Vital Signs/Labs
Vital Signs
Temp Pulse Resp BP Pulse Ox
98.0 F 80 17 150/77 96
05/29/24 08:13 05/29/24 08:13 05/29/24 08:13 05/29/24 08:13 05/29/24 08:13
05/28/24 05/29/24 05/30/24
06:59 06:59 06:59
Actual Weight 80.513 kg 80.853 kg
05/29/24 06:12
05/29/24 06:12
Magnesium 1.9 mg/dl (1.6-2.3) 05/29/24 06:12
LAB Results
05/27/24
17:29
Troponin I 0.029
Physical Exam
Constitutional: No acute distress
Cardiovascular: Rhythm & rate is regular and Pedal edema is absent
Respiratory: Respiratory effort normal and Crackles Present (R base)
Neuro/Psych: AO x 3
Data Reviewed
-
Date of Service: May 29, 2024
EKG: Other (Tele: NSR)
Labs: Labs Reviewed by me
[2024-05-29 12:26] LABS: Glucose - Point of Care 94 mg/dl (70-99)
--- NOTE | 2024-05-29 13:33 | W.PN.HOSP.TC ---
Today's Communication/Plan
-
Assessment / Plan
Assessment / Plan
Physical Exam
NAD, resting comfortably in bed
Scleral anicteric
Moist mucous membranes
No JVD
CTA bilateral
Normal S1-S2 SELVIN at RUSB 07/29
Soft nontender nondistended bowel sounds active
No peripheral pitting edema
Moves extremities spontaneously
AAO x0
Assessment/plan
#syncopal episode
#History of syncopal episode secondary to ventricular tachycardia/PVCs status post ablation with loop recorder
#History of syncopal episodes secondary to orthostatic hypotension
[employer] device interrogated showing 18 events of atrial arrhythmias over the past 48 hours with maximum sustained rates of 170, however there were no tacky or bradycardia episodes that correlated with his syncopal event based on times reported
from the [employer] rep.
- Admit to telemetry
- Cardiology following
- TAVR work up ongoing
- negative orthostatic VS
05/27
Tipple Supervisor discussed with the TAVR team tomorrow.
05/28
TAVR team recommending CT TAVR to be done today.
IV fluid hydration before and after CT scan.
Follow-up with cardiology recommendations.
05/29
Continue TAVR work up
Dr Kim believe he is an acceptable candidate per cardiology note
Paroxysmal atrial fibrillation
- Continue Eliquis and metoprolol
CAD with stenting 2003
- Continue metoprolol and atorvastatin
Chronic HFpEF
patient reports stable weights at home and no observed edema although up 2kg since last admission
- Continue metoprolol and furosemide PRN
Hypercholesterolemia
- Continue atorvastatin
Essential hypertension
- continue metoprolol
Pulmonary hypertension
newly diagnosed severe pulmonary hypertension on patients last admission 04/2024
- continue Sildenafil
Type 2 diabetes
- hold glipizide
- hold metformin
- Insulin sliding scale
- cc diet
-accuchekcs
-bng 140-180
BPH
- Continue finasteride
CKD 3b
follow renal function
monitor uop
Anticipated Discharge: > 48 hours
Subjective/Interval History
-
Date of Service: May 29, 2024
seen an dexamined.
no new comaplints
no acute ovneringht evetns
Objective Data
-
Labs:
Laboratory Results
05/29/24
06:12
WBC 9.5
Hgb 13.0
Hct 37.6 L
Plt Count 173
Sodium 138
Potassium 4.5
Chloride 106
Carbon Dioxide 23
BUN 30 H
Creatinine 1.8 H
Glucose 93
Calcium 8.6
Vital Signs:
Vital Signs
Temp Pulse Resp BP Pulse Ox
98.0 F 80 17 150/77 96
05/29/24 08:13 05/29/24 08:13 05/29/24 08:13 05/29/24 08:13 05/29/24 08:13
I&O
05/28/24 05/29/24 05/30/24
06:59 06:59 06:59
Intake Total 960 / 960 1540 / 1540
Output Total 1625 / 1625 191 / 191
Balance -665 / -665 -370 / -370
[2024-05-29 17:08] VITALS: BP 152/81
[2024-05-29 17:27] LABS: Glucose - Point of Care 183 mg/dl (70-99)
[2024-05-29 19:54] VITALS: BP 160/75
[2024-05-29] MEDS: LIPITOR 80 MG PO (20:13)
[2024-05-29 21:19] LABS: Glucose - Point of Care 155 mg/dl (70-99)
[2024-05-30] VITALS (7 sets, daily range): BP systolic 128–174; BP diastolic 60–85; PULSE 72–73
[2024-05-30 07:11] LABS: Glucose - Point of Care 104 mg/dl (70-99)
[2024-05-30] MEDS: MIRALAX 17 GRAMS PO (09:48)
[2024-05-30] MEDS: GLUCOTROL XL (EXTENDED RELEASE) 5 MG PO (09:50)
[2024-05-30] MEDS: VITAMIN B-12 1000 MCG PO (09:51)
[2024-05-30] MEDS: ELIQUIS 2.5 MG PO ×2 (09:51→20:19)
[2024-05-30] MEDS: VITAMIN D3 (cholecalciferol) 50 MCG PO (09:51)
[2024-05-30] MEDS: TOPROL XL 50 MG PO ×2 (09:51→20:20)
[2024-05-30] MEDS: PROSCAR 5 MG PO (09:52)
[2024-05-30] MEDS: ZINC 50 MG PO (09:52)
[2024-05-30 12:12] LABS: Glucose - Point of Care 208 mg/dl (70-99)
--- NOTE | 2024-05-30 12:59 | W.PN.CD ---
Today's Communication / Plan
-
- TAVR evaluation
- disposition in AM
Impression / Plan
-
Recurrent syncope, aortic stenosis:
-orthostatics negative here
-no dangerous arrhythmias on monitor at time of syncope
-patient had evaluation at [facility]. It was thought symptoms were primarily related to , and not due to pulmonary HTN
-pulmonary HTN meds were stopped
-TAVR evaluation in progress
-discussed at TAVR conference: proceed with TAVR evaluation, TAVR CT done 05/28/24
- Dr. Kim has evaluated.
Paroxysmal AFIB:
-in rate controlled A fib on admit; now back in sinus
-continue metoprolol and Eliquis
- Plan for TAVR before AF ablation to avoid eliquis disruption
Coronary artery disease:
-stable by recent cath as below
-Continue Eliquis, statin, and BB
Aortic stenosis: Moderate to severe
-recent echo and cath as below
-TAVR w/u in progress
HFpEF: chronic
-weight stable , BP stable
-stop IVF
CKD:
- Creat 2 on admit 05/27 1.7,
- monitor
Left carotid stenosis
-managed by vascular surgery, Dr Brooks
Subjective: Pt denies CP, palps, SOB at rest. usually just getting dressed caused him to feel exhausted and SOB.
Data:
Cath 04/27/24: Right dominant circulation with a 30% lesion in the distal RCA, a patent stent in the body of OM 2 and luminal irregularities in the LAD. Normal filling pressures (LVEDP = 10 mmHg, PCWP = 15 mmHg at 80.3 kg). Moderate to severe,
paradoxical low-flow, low gradient aortic valve stenosis (mean gradient = 22.1 mmHg, TAVIA = 1.0 cm�, SVI = 32.5 mL, LVEF = 50% on TTE). Severe precapillary pulmonary hypertension (mean PA = 43 mmHg, cardiac output = 4.25 L/min, PVR = 6.6 Cai
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
Echo 04/27/24: Low normal left ventricular systolic function. Left ventricular ejection fraction is 50%. Stage II diastolic dysfunction. Moderate aortic stenosis (mean 20 mmHg, TAVIA 1.1 cmsq). Estimated PASP 40 mmHg, assuming a right atrial pressure
of 3 mmHg.
Physical Exam
Vital Signs/Labs
Vital Signs
Temp Pulse Resp BP Pulse Ox
98.5 F 67 16 128/60 94
05/30/24 07:05 05/30/24 09:51 05/30/24 07:05 05/30/24 09:51 05/30/24 07:05
05/29/24 05/30/24 05/31/24
06:59 06:59 06:59
Actual Weight 80.853 kg
05/29/24 06:12
05/29/24 06:12
Magnesium 1.9 mg/dl (1.6-2.3) 05/29/24 06:12
LAB Results
05/27/24
17:29
Troponin I 0.029
Physical Exam
Constitutional: No acute distress and Comfortable
EENT: Anicteric and Moist mucous membranes
Cardiovascular: Rhythm & rate is regular, Pedal edema is absent and JVD pressure is normal
Respiratory: Respiratory effort normal, Lungs clear to auscul. and Wheeze Absent
GI: Soft, Non tender and Normal bowel sounds
Neuro/Psych: Alert, Oriented and AO x 3
Data Reviewed
-
Date of Service: May 30, 2024
Medical Decision Making: Reviewed Test Results and Tests Ordered
EKG: Tracing Personally Visualized and interpreted
Echo: Report Reviewed by me
Labs: Labs Reviewed by me
Old Records: Reviewed
--- NOTE | 2024-05-30 13:50 | W.PN.HOSP.TC ---
Today's Communication/Plan
-
awaiting cardiology recs. family wants to speak with cardiothoriacic sugery about ct findings
Assessment / Plan
Assessment / Plan
Physical Exam
NAD, resting comfortably in bed
Scleral anicteric
Moist mucous membranes
No JVD
CTA bilateral
Normal S1-S2 SELVIN at RUSB 07/29
Soft nontender nondistended bowel sounds active
No peripheral pitting edema
Moves extremities spontaneously
AAO x0
Assessment/plan
#syncopal episode
#History of syncopal episode secondary to ventricular tachycardia/PVCs status post ablation with loop recorder
#History of syncopal episodes secondary to orthostatic hypotension
[employer] device interrogated showing 18 events of atrial arrhythmias over the past 48 hours with maximum sustained rates of 170, however there were no tacky or bradycardia episodes that correlated with his syncopal event based on times reported
from the [employer] rep.
- Admit to telemetry
- Cardiology following
- TAVR work up ongoing
- negative orthostatic VS
05/27
Advisory Internship discussed with the TAVR team tomorrow.
05/28
TAVR team recommending CT TAVR to be done today.
IV fluid hydration before and after CT scan.
Follow-up with cardiology recommendations.
05/29
Continue TAVR work up
Dr Kim believe he is an acceptable candidate per cardiology note
Paroxysmal atrial fibrillation
- Continue Eliquis and metoprolol
CAD with stenting 2003
- Continue metoprolol and atorvastatin
Chronic HFpEF
patient reports stable weights at home and no observed edema although up 2kg since last admission
- Continue metoprolol and furosemide PRN
Hypercholesterolemia
- Continue atorvastatin
Essential hypertension
- continue metoprolol
Pulmonary hypertension
newly diagnosed severe pulmonary hypertension on patients last admission 04/2024
- continue Sildenafil
Type 2 diabetes
- hold glipizide
- hold metformin
- Insulin sliding scale
- cc diet
-accuchekcs
-bng 140-180
BPH
- Continue finasteride
CKD 3b
follow renal function
monitor uop
Anticipated Discharge: 24 - 48 hours
Subjective/Interval History
-
Date of Service: May 30, 2024
seen and examined. no new compaitns.
Objective Data
-
Vital Signs:
Vital Signs
Temp Pulse Resp BP Pulse Ox
97.9 F 68 16 174/85 93
05/30/24 12:15 05/30/24 12:15 05/30/24 12:15 05/30/24 12:15 05/30/24 12:15
I&O
05/29/24 05/30/24 05/31/24
06:59 06:59 06:59
Intake Total 1540 / 1540 1060 / 1060
Output Total 1909 / 1909 1025 / 1025
Balance -370 / -370 35 / 35
[2024-05-30 16:59] LABS: Glucose - Point of Care 124 mg/dl (70-99)
[2024-05-30] MEDS: LIPITOR 80 MG PO (20:20)
[2024-05-30 21:15] LABS: Glucose - Point of Care 123 mg/dl (70-99)
[2024-05-31] VITALS (7 sets, daily range): BP systolic 136–165; BP diastolic 68–83; PULSE 64; BMI 26.0
[2024-05-31] MEDS: ELIQUIS 2.5 MG PO ×2 (07:51→21:05)
[2024-05-31] MEDS: PROSCAR 5 MG PO (07:51)
[2024-05-31] MEDS: GLUCOTROL XL (EXTENDED RELEASE) 5 MG PO (07:51)
[2024-05-31] MEDS: TOPROL XL 50 MG PO ×2 (07:51→21:05)
[2024-05-31] MEDS: VITAMIN B-12 1000 MCG PO (07:52)
[2024-05-31] MEDS: VITAMIN D3 (cholecalciferol) 50 MCG PO (07:52)
[2024-05-31] MEDS: MIRALAX 17 GRAMS PO (07:52)
[2024-05-31] MEDS: ZINC 50 MG PO (07:52)
[2024-05-31 07:56] LABS: Glucose - Point of Care 134 mg/dl (70-99)
--- NOTE | 2024-05-31 09:58 | W.PN.CD ---
Today's Communication / Plan
-
PT/OT
continue with TAVR eval
trend tele
Impression / Plan
-
Recurrent syncope, aortic stenosis: also with SOB and dizziness with minimal activity
-orthostatics negative here
-no dangerous arrhythmias on monitor at time of syncope
-patient had evaluation at [facility]. It was thought symptoms were primarily related to , and not due to pulmonary HTN
-pulmonary HTN meds were stopped
-TAVR evaluation in progress
-discussed at TAVR conference: proceeding with TAVR evaluation, 1st TAVR CT done 05/28/24
-given CKD3b, second TAVR CT to be staggered
-I reached out to team to discuss timing
-if patient unable to leave hospital due to symptoms, will need to consider inpatient TAVR
Paroxysmal AFIB:
-in rate controlled A fib on admit; now back in sinus
-SOB, dizziness also occurs in NSR
-continue metoprolol and Eliquis
-Plan for TAVR before AF ablation to avoid eliquis disruption (per EP eval)
Coronary artery disease:
-stable by recent cath as below
-Continue Eliquis, statin, and BB
Aortic stenosis: Moderate to severe
-recent echo and cath as below
-TAVR w/u in progress
HFpEF: chronic
-weight stable , BP stable
-lasix prn; SGLT2i stopped due to orthostatic hypotension
Left carotid stenosis
-managed by vascular surgery, Dr Brooks
Subjective:
Continue with significant dizziness and SOB with mild activity
Data:
Cath 04/27/24: Right dominant circulation with a 30% lesion in the distal RCA, a patent stent in the body of OM 2 and luminal irregularities in the LAD. Normal filling pressures (LVEDP = 10 mmHg, PCWP = 15 mmHg at 80.3 kg). Moderate to severe,
paradoxical low-flow, low gradient aortic valve stenosis (mean gradient = 22.1 mmHg, TAVIA = 1.0 cm�, SVI = 32.5 mL, LVEF = 50% on TTE). Severe precapillary pulmonary hypertension (mean PA = 43 mmHg, cardiac output = 4.25 L/min, PVR = 6.6 Cai
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
Echo 04/27/24: Low normal left ventricular systolic function. Left ventricular ejection fraction is 50%. Stage II diastolic dysfunction. Moderate aortic stenosis (mean 20 mmHg, TAVIA 1.1 cmsq). Estimated PASP 40 mmHg, assuming a right atrial pressure
of 3 mmHg.
Physical Exam
Vital Signs/Labs
Vital Signs
Temp Pulse Resp BP Pulse Ox
98.2 F 68 18 153/83 93
05/31/24 07:38 05/31/24 07:38 05/31/24 07:38 05/31/24 07:38 05/31/24 07:38
05/30/24 05/31/24 06/01/24
06:59 06:59 06:59
Actual Weight 82.327 kg
05/29/24 06:12
Magnesium 1.9 mg/dl (1.6-2.3) 05/29/24 06:12
Physical Exam
Constitutional: No acute distress
EENT: Moist mucous membranes
Cardiovascular: Rhythm & rate is regular, Pedal edema is absent, JVD pressure is normal and Systolic murmur present
Respiratory: Respiratory effort normal and Lungs clear to auscul.
Neuro/Psych: AO x 3
Data Reviewed
-
Date of Service: May 31, 2024
Critical Care Time (in minutes): 55
Total Time Spent with Patient (in minutes): discussion with patient, daughters on phone, TAVR team, hospitalist
--- NOTE | 2024-05-31 10:00 | CHAP ---
Msgr. Bruner anointed Denzel at his request. Time uncertain.
[2024-05-31 10:28] LABS: Blood Urea Nitrogen 24 mg/dl (9-20); Carbon Dioxide 25 mmol/L (22-30); Chloride 103 mmol/L (98-107); Estimated Creatinine Clearance 32 ml/min; Glucose 201 mg/dl (70-99); Potassium 4.8 mmol/L (3.5-5.1); Sodium 137 mmol/L (135-145); eGFR 38.78
--- NOTE | 2024-05-31 12:46 | CM ---
CM met with Ric at bedside this afternoon. His status was changed from OBS to IP; IMM provided, signed and placed in chart.
Ric is (I) amb and adl's; awaiting decision re: date for TAVR. He has had multiple hospitalizations for SOB at both [facility] and [facility] during 2023 and he is hopeful to have the procedure sooner than later.
Plan: CM will continue to follow for all discharge planning needs.
--- NOTE | 2024-05-31 16:33 | W.PN.HOSP.TC ---
Today's Communication/Plan
-
PT OT to see how his symptoms are
Assessment / Plan
Assessment / Plan
88-year-old male with syncope
CVS: S1-S2 normal, sm aa
Chest: CTA B/L
Abdomen: Soft, NT
Extremities: No edema
# Syncope
Prior history of syncope with ventricular tachycardia/PVC status post ablation with loop recorder
Also history of syncope secondary to orthostatic hypotension
Medtronic device interrogated showing 18 events of atrial arrhythmias with maximum sustained rates 170. No tachycardia or bradycardia episodes that correlated with syncopal event.
Cardiology following
TAVR workup ongoing
Negative orthostatic vital signs
PT OT
If patient is unable to leave the hospital because of symptoms to consider inpatient TAVR
He says he is symptomatic when he walks
# Mild to moderate aortic stenosis with mild to moderate TR
# Paroxysmal atrial fibrillation-on Eliquis, metoprolol
# Ventricular tachycardia status post ablation
# Coronary disease with stent in 2003-continue metoprolol and atorvastatin
# Chronic HFpEF-on as needed Lasix and metoprolol
# Newly diagnosed severe pulmonary hypertension 05/12/2024-was seen at [facility] and meds were stopped
# Peripheral artery disease with history of iliac stents
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
# Hyperlipidemia-continue statin
# Diabetes-continue glipizide. Hold metformin secondary to elevated creatinine. Accu-Cheks and sliding scale coverage ordered
# Enlarged prostate-continue finasteride
# ORAL on CKD stage III-creatinine better
# Left carotid stenosis-follows up with Dr. Brooks
# Lung cancer with history of radiation
# Spinal stenosis
# Ex-smoker
# DVT prophylaxis-Eliquis
# Full code
Discussed with cardiology
Anticipated Discharge: 24 - 48 hours
Subjective/Interval History
-
Date of Service: May 31, 2024
Objective Data
-
Labs:
Laboratory Results
05/31/24
09:16
Sodium 137
Potassium 4.8
Chloride 103
Carbon Dioxide 25
BUN 24 H
Creatinine 1.7 H
Glucose 201 H
Calcium 9.0
Vital Signs:
Vital Signs
Temp Pulse Resp BP Pulse Ox
97.5 F 67 18 141/71 92
05/31/24 16:19 05/31/24 16:19 05/31/24 16:19 05/31/24 15:14 05/31/24 16:19
I&O
05/30/24 05/31/24 06/01/24
06:59 06:59 06:59
Intake Total 1060 / 1060 220 / 220
Output Total 1025 / 1025 500 / 500
Balance 35 / 35 -280 / -280
[2024-05-31 17:38] LABS: Glucose - Point of Care 90 mg/dl (70-99)
[2024-05-31] MEDS: NOVOLOG FLEXPEN-LOW RESISTANCE SC (18:01)
[2024-05-31] MEDS: LIPITOR 80 MG PO (21:05)
[2024-05-31 21:16] LABS: Glucose - Point of Care 196 mg/dl (70-99)
[2024-06-01 03:00] VITALS: BP 108/55
--- NOTE | 2024-06-01 05:46 | W.PN.HOSP.TC ---
Today's Communication/Plan
-
cont TAVR work up
PT/OT
Assessment / Plan
Assessment / Plan
Physical Exam
General: No acute distress, appears comfortable at this time
CVS: S1-S2 normal, systolic murmur
Chest: CTA B/L
Abdomen: Soft, NT, bowel sounds present
Extremities: No edema
88-year-old male with syncope
# Syncope
# Mild to moderate aortic stenosis with mild to moderate TR
Prior history of syncope with ventricular tachycardia/PVC status post ablation with loop recorder
Also history of syncope secondary to orthostatic hypotension
Medtronic device interrogated showing 18 events of atrial arrhythmias with maximum sustained rates 170. No tachycardia or bradycardia episodes that correlated with syncopal event.
Cardiology eval appreciated
TAVR workup ongoing
Negative orthostatic vital signs
PT OT appreciated home health
patient remains symptomatic on short ambulation
OMF eval Orthopantomogram appreciated
# Paroxysmal atrial fibrillation-on Eliquis, metoprolol
# Ventricular tachycardia status post ablation
# Coronary disease with stent in 2003-continue metoprolol and atorvastatin
# Chronic HFpEF-on as needed Lasix and metoprolol
# Newly diagnosed severe pulmonary hypertension 05/12/2024-was seen at [facility] and meds were stopped
# Peripheral artery disease with history of iliac stents
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
# Hyperlipidemia-continue statin
# Diabetes-continue glipizide. Hold metformin secondary to elevated creatinine. Accu-Cheks and sliding scale coverage ordered
# Enlarged prostate-continue finasteride
# ORAL on CKD stage III-creatinine better
# Left carotid stenosis-follows up with Dr. Brooks
# Lung cancer with history of radiation
# Spinal stenosis
# Ex-smoker
# DVT prophylaxis-Eliquis
# Full code
I spent a total of 40 minutes with the patient or on the floor. More than 50% of this time involved counseling and coordination of care.
Anticipated Discharge: 24 - 48 hours
Subjective/Interval History
-
Date of Service: June 01, 2024
No acute distress appears well resting comfortably in bed. Dizziness lightheadedness persists on ambulation.
Objective Data
-
Labs:
Laboratory Results
06/01/24
06:00
WBC Pending
Hgb Pending
Hct Pending
Plt Count Pending
Sodium Pending
Potassium Pending
Chloride Pending
Carbon Dioxide Pending
BUN Pending
Creatinine Pending
Glucose Pending
Calcium Pending
Vital Signs:
Vital Signs
Temp Pulse Resp BP Pulse Ox
97.4 F 65 16 108/55 93
06/01/24 03:00 06/01/24 03:00 06/01/24 03:00 06/01/24 03:00 06/01/24 03:00
I&O
05/30/24 05/31/24 06/01/24
06:59 06:59 06:59
Intake Total 1060 / 1060 220 / 220 960 / 960
Output Total 1025 / 1025 500 / 500 850 / 850
Balance 35 / 35 -280 / -280 110 / 110
[2024-06-01 06:00] VITALS: BMI 25.8
[2024-06-01 08:00] VITALS: BP 158/80
[2024-06-01 08:25] LABS: Glucose - Point of Care 126 mg/dl (70-99)
[2024-06-01] MEDS: NOVOLOG FLEXPEN-LOW RESISTANCE SC ×2 (08:34→16:54)
[2024-06-01] MEDS: ZINC 50 MG PO (08:35)
[2024-06-01] MEDS: GLUCOTROL XL (EXTENDED RELEASE) 5 MG PO (08:35)
[2024-06-01] MEDS: TOPROL XL 50 MG PO ×2 (08:35→20:30)
[2024-06-01] MEDS: VITAMIN D3 (cholecalciferol) 50 MCG PO (08:35)
[2024-06-01] MEDS: VITAMIN B-12 1000 MCG PO (08:35)
[2024-06-01] MEDS: ELIQUIS 2.5 MG PO ×2 (08:35→20:30)
[2024-06-01] MEDS: PROSCAR 5 MG PO (08:35)
[2024-06-01] MEDS: MIRALAX PO (08:36)
[2024-06-01 08:59] LABS: Hematocrit 41.9 % (39.0-52.0); Hemoglobin 13.9 g/dL (13.0-18.0); Mean Corp Hgb Conc. 33.2 g/dL (33.0-37.0); Mean Corpuscular Hgb 31.2 pg (27.0-31.0); Mean Corpuscular Volume 93.9 fL (80.0-94.0); Platelet Count 176 10^3/uL (130-400); Red Blood Cell Count 4.46 10^6/uL (4.70-6.10); White Blood Cell Count 10.6 10^3/uL (4.8-10.8)
[2024-06-01 09:33] LABS: Blood Urea Nitrogen 29 mg/dl (9-20); Calcium 9.2 mg/dl (8.4-10.2); Carbon Dioxide 24 mmol/L (22-30); Chloride 104 mmol/L (98-107); Estimated Creatinine Clearance 34 ml/min; Glucose 129 mg/dl (70-99); Potassium 4.5 mmol/L (3.5-5.1); Sodium 138 mmol/L (135-145)
[2024-06-01 10:21] LABS: Glycohemoglobin (HgbA1c) 6.3 % (4.0-5.6)
--- NOTE | 2024-06-01 11:24 | VNURNOTE ---
Home Health Liaison spoke with patient to discuss [facility] nurse/therapy, visits, schedule and homebound status. Patient is agreeable and understands that visits at home will be 2-3 x per week to assess and teach medical management. He has had our
services in the past. He confirms he has a scale at home. Patient is aware that [facility] will contact them for start of care in 1-2 days after discharge from .
[facility] referral completed in [facility].
--- NOTE | 2024-06-01 11:24 | CM ---
CM reviewed chart, patient seen bedside. CM discussed PT recommendations of home health. Patient reports [facility] in past, agreeable to [facility] services upon discharge. CM will continue to follow for all discharge planning needs.
Plan; home with [facility] when stable
[2024-06-01 11:50] VITALS: BP 165/76
--- NOTE | 2024-06-01 12:19 | W.PN.CD ---
Today's Communication / Plan
-
CTA abdomen/pelvis with runoff.
Continue TAVR evaluation.
Impression / Plan
-
Impression/Plan: 88 y/o male with ROLF, non-obstructive CAD, PAF on OAT, moderate/severe paradoxical low flow, low gradient aortic valve stenosis and severe pHTN admitted with recurrent syncope. Patient has been seen in this hospital as well as
[facility] for syncope.
#Recurrent syncope
-Multifactorial (, pHTN).
-Orthostatics negative here.
-No significant arrhythmias on monitor at time of syncope.
-I remain unconvinced that (in isolation) is responsible for his syncopal episodes. Nevertheless, it is certainly contributing and unhelpful, limiting medication titration and treatment of pHTN.
-The patient has been discussed in TAVR conference. The decision has been made to move forward with TAVR evaluation and ultimately to procedure.
-The patient is in the process of TAVR workup. Chest CTA performed. Abdomen/Pelvis CTA with run off pending.
#Atrial fibrillation:
-Paroxysmal.
-Currently in NSR.
-Symptoms occur in NSR and AF - no difference.
-Rate control with metoprolol.
-CHADS2-Vasc = 3 (HTN, Age x2).
-Therapeutic anticoagulation with apixaban 2.5 mg BID (reduced dose for age, creatinine > 1.5).
-Plan for TAVR before AF ablation to avoid apixaban disruption (per EP eval).
#Pulmonary Hypertension
-Chronic.
-Discovered at last catheterization.
-PA = 74/28/43, CO = 4.25, PVR = 6.6 Cai units.
-Symptoms improved with sildenafil at last hospitalziation.
#Coronary artery disease
-Chronic, stable.
-Continue apixaban, statin, and BB.
#Aortic stenosis
-Moderate to severe, paradoxical, low flow, low gradient (mean gradient 22 mmHg, LVEF 50%, TAVIA 1.0 cm2, SVI 32.5 mL/m2).
-TAVR workup in progress.
-CTA chest - sizes to a #29 Harvey ADAMARIS S3.
-Abdomen/pelvis CTA with runoff for access planning.
#HFpEF
-Acute on chronic.
-Weight and BP stable.
-Furosemide PRN.
#Left carotid stenosis
-Chronic, stable.
-Managed by vascular surgery, Dr Costello.
-Continue statin.
Subjective/Interval History:
Weight is stable.
Patient remains CAMPA. I note that his CAMPA had largely resolved with the addition of sildenafil.
BP is variable, favoring mild/moderate hypertension.
SaO2 = 94% on RA.
Renal function remains stable.
Data:
Cath 04/27/24:
CONCLUSIONS:
1. Right dominant circulation with a 30% lesion in the distal RCA, a patent stent in the body of OM 2 and luminal irregularities in the LAD.
2. Normal filling pressures (LVEDP = 10 mmHg, PCWP = 15 mmHg at 80.3 kg).
3. Moderate to severe, paradoxical low-flow, low gradient aortic valve stenosis (mean gradient = 22.1 mmHg, TAVIA = 1.0 cm�, SVI = 32.5 mL, LVEF = 50% on TTE).
4. 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
Echo 04/27/24:
CONCLUSIONS
Low normal left ventricular systolic function.
Left ventricular ejection fraction is 50%.
Stage II diastolic dysfunction suggestive of abnormal relaxation and increased
filling pressures.
Mild biatrial enlargement.
Mild mitral regurgitation.
Moderate aortic stenosis (mean 20 mmHg, TAVIA 1.1 cmsq).
Estimated PASP 40 mmHg, assuming a right atrial pressure of 3 mmHg.
No significant change since the prior study of 11/14/2023 when the mean gradient
was 17 mmHg and the TAVIA was estimated at 1.3 cm2.
Chest CTA (TAVR), 05/28/2024:
IMPRESSION:
Measurements for proposed TAVR procedure, to be given as a separate addendum.
Band of increased opacity within the right upper lobe of the lung, unchanged from examination of March 08, 2024, and likely representing post therapy changes from previous radiation therapy.
Rounded contrast-filled protrusion from the posterior and inferior basal portion of the left ventricle, adjacent to prominent mitral annular calcification. This is compatible with a ventricular aneurysm.
ADDENDUM
Measurements for proposed TAVR procedure:
Trileaflet aortic valve. Moderate valvular calcification. No significant calcification within the left ventricular outflow tract.
Aortic annulus: 30.2 mm x 24.8 mm. Measured cross-sectional area of 554 sq mm.
Left ventricular outflow tract: Measured cross-sectional area 527 sq mm.
Sinuses of Valsalva: 36.3 mm x 34.4 mm x 36.4 mm.
Sinotubular junction: 32.6 mm x 32.1 mm.
Distance from aortic annulus to left coronary artery origin: 21.1 mm.
Distance from aortic annulus to right coronary artery origin: 15.8 mm.
Estimated coplanar angle: ROMANSH 8, caudal 10
Cusp overlap view: COSTELLO 10, caudal 25.
Physical Exam
Vital Signs/Labs
Vital Signs
Temp Pulse Resp BP Pulse Ox
36.6 C 71 16 158/80 94
06/01/24 08:00 06/01/24 08:00 06/01/24 08:00 06/01/24 08:00 06/01/24 08:00
05/31/24 06/01/24 06/02/24
11:59 11:59 11:59
Actual Weight 82.327 kg 81.465 kg
06/01/24 08:23
06/01/24 08:23
Magnesium 1.9 mg/dl (1.6-2.3) 05/29/24 06:12
Physical Exam
Constitutional: No acute distress and Comfortable
EENT: Anicteric and Moist mucous membranes
Cardiovascular: Rhythm & rate is regular, Pedal edema is absent, JVD pressure is normal, Systolic murmur present and S1S2 is normal
Respiratory: Respiratory effort normal, Lungs clear to auscul., Wheeze Absent, Crackles Absent and Rhonchi Absent
GI: Soft, Distention absent, Flat, Non tender and Normal bowel sounds
Neuro/Psych: AO x 3
Data Reviewed
-
Date of Service: June 01, 2024
Medical Decision Making: Reviewed Test Results, Independent Historian Assessment, Test Interpretation and Review of Case with other Provider
EKG: Tracing Personally Visualized and interpreted and Report Reviewed by me
Echo: Tracing Personally Visualized and interpreted and Report Reviewed by me
X-Ray/CT/US/MRI/NUC/PET: Image Personally Visualized and interpreted, Report Reviewed by me, Discussed with Physician and Discussed with Patient
Medical Tests (PFT, Pathology etc): Image Personally Visualized and interpreted, Report Reviewed by me, Discussed with Physician and Discussed with Patient
Labs: Labs Reviewed by me
Old Records: Reviewed
[2024-06-01 12:36] LABS: Glucose - Point of Care 159 mg/dl (70-99)
[2024-06-01] MEDS: NOVOLOG FLEXPEN-LOW RESISTANCE 1 UNITS SC (12:58)
--- NOTE | 2024-06-01 16:20 | W.CON.DEN ---
Dental Consultation
History of Present Illness
88 y.o M Examined for consult for dental clearance prior to heart surgery.
Pt reports having no pain in his mouth. his last visit to the dentist was about 3-4 years ago when his max. denture was fabricated.
Jiménez taken. Noted some periapical changes around #22.
upon clinical exam noted significantly broken down teeth #20 and #22. Both 6-7 mm pocket depth with some exudate around #22 and large mid buccal defect around #20.
recommended ext of both #22 and #20 prior to his heart surgery.
Rest of the probing is wnl.
Amina Moody DDS
Objective Data
Allergies
Allergy/AdvReac Type Severity Reaction Status Date / Time
No Known Allergies Allergy Verified 05/25/24 12:19
Vital Signs
Temp 97.7 F 06/01/24 11:50
Temp route: Oral 06/01/24 11:50
Pulse 60 06/01/24 11:50
Rhythm: Normal sinus rhythm 06/01/24 08:00
With- Bundle Branch Block Confi, First Degree Heart Block 06/01/24 08:00
Resp Rate 16 06/01/24 11:50
Blood pressure 165/76 06/01/24 11:50
Blood pressure extremity used: Left upper arm 06/01/24 11:50
Position: Lying 06/01/24 11:50
MAP (cuff-Caesar Monitor) 87 05/26/24 00:00
SaO2 96 06/01/24 11:50
Nasal Cannula flow liters per minute 2 05/27/24 08:15
Oxygen Mode of Delivery Room air 06/01/24 11:50
Acceptable pain level during hospitalization? 0 05/25/24 12:10
Can the patient verbally communicate their pain? Yes 06/01/24 08:00
Pain scale ratin 05/27/24 14:32
Actual Weight 179 lb 9.6 oz 06/01/24 06:00
Body Mass Index (BMI) 25.8 06/01/24 06:00
Supine- Blood Pressure 162/82 05/30/24 10:31
Supine- Pulse 72 05/30/24 10:31
Sitting- Blood Pressure 154/77 05/31/24 14:57
Sitting- Pulse 64 05/31/24 14:57
Standing- Blood Pressure 141/68 05/31/24 14:57
Standing- Pulse 73 05/30/24 10:31
Blood pressure extremity used: Right upper arm 05/30/24 10:31
Mode BP taken: Automatic 05/30/24 10:31
Blood pressure after activity 136/78 05/31/24 14:57
Assessment/Plan
year old *male/female* consulted for . Based on physical and radiographic examination, I have recommended. We have discussed all risks, benefits, complications and alternatives including but not limited to bleeding, pain, infection,
swelling, oroantral communication, temporary or permanent damage to inferior alveolar nerve resulting in paresthesia, hypoesthesia, anesthesia, dysesthesia, or loss of taste, fracture of jaw, damage to adjacent teeth or tissues, dislodgement of
adjacent crowns or fillings etc. Patient is aware and understands all risks and complications. Consent signed and in chart.
- Encouraged oral hygiene maintenance daily
- Recommended
[2024-06-01 16:32] VITALS: BP 163/82
[2024-06-01 16:52] LABS: Glucose - Point of Care 142 mg/dl (70-99)
[2024-06-01 20:15] VITALS: BP 166/95
[2024-06-01] MEDS: LIPITOR 80 MG PO (20:30)
[2024-06-01 21:35] LABS: Glucose - Point of Care 163 mg/dl (70-99)
[2024-06-01 23:32] VITALS: BP 124/67
[2024-06-02] VITALS (7 sets, daily range): BP systolic 105–165; BP diastolic 55–80; PULSE 68; BMI 25.5
[2024-06-02] MEDS: NSS 500 IV ×2 (05:47→10:44)
--- NOTE | 2024-06-02 07:00 | W.PN.HOSP.TC ---
Today's Communication/Plan
-
CTA Abd/Pel with runoff for TAVR planning
cont PT/OT
Glycemic control
Assessment / Plan
Assessment / Plan
Physical Exam
General: No acute distress, appears comfortable at this time
CVS: S1-S2 normal, systolic murmur
Chest: CTA B/L
Abdomen: Soft, NT, bowel sounds present
Extremities: No edema
88-year-old male with syncope
# Syncope
# Mild to moderate aortic stenosis with mild to moderate TR
Prior history of syncope with ventricular tachycardia/PVC status post ablation with loop recorder
Also history of syncope secondary to orthostatic hypotension
[employer]tr[employer] device interrogated showing 18 events of atrial arrhythmias with maximum sustained rates 170. No tachycardia or bradycardia episodes that correlated with syncopal event.
Cardiology eval appreciated
TAVR workup ongoing
Negative orthostatic vital signs
PT OT appreciated home health
patient remains symptomatic on short ambulation
OMF eval Orthopantomogram appreciated
CTA Abd/Pel with runoff for TAVR planning
# Paroxysmal atrial fibrillation-on Eliquis, metoprolol
# Ventricular tachycardia status post ablation
# Coronary disease with stent in 2003-continue metoprolol and atorvastatin
# Chronic HFpEF-on as needed Lasix and metoprolol
# Newly diagnosed severe pulmonary hypertension 05/12/2024-was seen at [place] and meds were stopped
# Peripheral artery disease with history of iliac stents
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
# Hyperlipidemia-continue statin
# Diabetes-continue glipizide. Hold metformin secondary to elevated creatinine. Accu-Cheks and sliding scale coverage ordered
# Enlarged prostate-continue finasteride
# ORAL on CKD stage III-creatinine better
# Left carotid stenosis-follows up with Dr. Brooks
# Lung cancer with history of radiation
# Spinal stenosis
# Ex-smoker
# DVT prophylaxis-Eliquis
# Full code
I spent a total of 40 minutes with the patient or on the floor. More than 50% of this time involved counseling and coordination of care.
Anticipated Discharge: > 48 hours
Subjective/Interval History
-
Date of Service: June 02, 2024
No acute distress, sitting up comfortably in chair. Dizziness lightheadedness persists on exertion/ambulation. Asymptomatic at rest
Objective Data
-
Labs:
Laboratory Results
06/02/24
06:56
WBC Pending
Hgb Pending
Hct Pending
Plt Count Pending
Sodium Pending
Potassium Pending
Chloride Pending
Carbon Dioxide Pending
BUN Pending
Creatinine Pending
Glucose Pending
Calcium Pending
Vital Signs:
Vital Signs
Temp Pulse Resp BP Pulse Ox
98.0 F 67 18 132/80 95
06/02/24 02:40 06/02/24 02:40 06/02/24 02:40 06/02/24 02:40 06/02/24 02:40
I&O
06/01/24 06/02/24 06/03/24
06:59 06:59 06:59
Intake Total 960 / 960 720 / 720
Output Total 1600 / 1600 1150 / 1150
Balance -640 / -640 -430 / -430
[2024-06-02 07:32] LABS: Glucose - Point of Care 146 mg/dl (70-99)
[2024-06-02 07:51] LABS: Hematocrit 40.4 % (39.0-52.0); Hemoglobin 13.7 g/dL (13.0-18.0); Mean Corp Hgb Conc. 33.9 g/dL (33.0-37.0); Mean Corpuscular Hgb 31.6 pg (27.0-31.0); Mean Corpuscular Volume 93.1 fL (80.0-94.0); Platelet Count 177 10^3/uL (130-400); Red Blood Cell Count 4.34 10^6/uL (4.70-6.10); White Blood Cell Count 9.5 10^3/uL (4.8-10.8)
--- NOTE | 2024-06-02 07:55 | W.PN.CD ---
Today's Communication / Plan
-
CTA Abd/Pel with runoff for TAVR planning.
Family discussion.
Impression / Plan
-
Impression/Plan: 88 y/o male with ROLF, non-obstructive CAD, PAF on OAT, moderate/severe paradoxical low flow, low gradient aortic valve stenosis and severe pHTN admitted with recurrent syncope. Patient has been seen in this hospital as well as
[facility] for syncope.
#Recurrent syncope
-Multifactorial (, pHTN).
-Orthostatics negative here.
-No significant arrhythmias on monitor at time of syncope.
-I remain unconvinced that (in isolation) is responsible for his syncopal episodes. Isabelle did not believe that pHTN was the culprit. Perhaps neither is the sole cause but result in syncope in combination.
-Nevertheless, the aortic stenosis is certainly contributing to syncope and limits medication titration and treatment of pHTN.
-The patient has been discussed in TAVR conference. The decision has been made to move forward with TAVR evaluation and ultimately to procedure.
-The patient is in the process of TAVR workup. Chest CTA performed. Abdomen/Pelvis CTA with run off pending.
#Atrial fibrillation:
-Paroxysmal.
-Currently in NSR.
-Symptoms occur in NSR and AF - no difference.
-Rate control with metoprolol.
-CHADS2-Vasc = 3 (HTN, Age x2).
-Therapeutic anticoagulation with apixaban 2.5 mg BID (reduced dose for age, creatinine > 1.5).
-Plan for TAVR before AF ablation to avoid apixaban disruption (per EP eval).
#Pulmonary Hypertension
-Chronic.
-Discovered at last catheterization.
-PA = 74/28/43, CO = 4.25, PVR = 6.6 Cai units.
-Symptoms improved with sildenafil at last hospitalization - though he admits to a presyncopal episode while on sildenafil and getting dressed at home.
-Sildenafil stopped by Isabelle. Syncope has recurred.
#Coronary artery disease
-Chronic, stable.
-Continue apixaban, statin, and BB.
#Aortic stenosis
-Moderate to severe, paradoxical, low flow, low gradient (mean gradient 22 mmHg, LVEF 50%, TAVIA 1.0 cm2, SVI 32.5 mL/m2).
-TAVR workup in progress.
-CTA chest - sizes to a #29 Harvey ADAMARIS S3.
-Abdomen/pelvis CTA with runoff for access planning.
#HFpEF
-Acute on chronic.
-Weight and BP stable.
-Furosemide PRN.
#Left carotid stenosis
-Chronic, stable.
-Managed by vascular surgery, Dr Costello.
-Continue statin.
Subjective/Interval History:
CTA abdomen/pelvis with runoff ordered yesterday for TAVR planning - not yet completed.
Dental consult recommends extractions of #20 and #22.
Some hypertension overnight, moderate.
He feels well.
Data:
Cath 04/27/24:
CONCLUSIONS:
1. Right dominant circulation with a 30% lesion in the distal RCA, a patent stent in the body of OM 2 and luminal irregularities in the LAD.
2. Normal filling pressures (LVEDP = 10 mmHg, PCWP = 15 mmHg at 80.3 kg).
3. Moderate to severe, paradoxical low-flow, low gradient aortic valve stenosis (mean gradient = 22.1 mmHg, TAVIA = 1.0 cm�, SVI = 32.5 mL, LVEF = 50% on TTE).
4. 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
Echo 04/27/24:
CONCLUSIONS
Low normal left ventricular systolic function.
Left ventricular ejection fraction is 50%.
Stage II diastolic dysfunction suggestive of abnormal relaxation and increased
filling pressures.
Mild biatrial enlargement.
Mild mitral regurgitation.
Moderate aortic stenosis (mean 20 mmHg, TAVIA 1.1 cmsq).
Estimated PASP 40 mmHg, assuming a right atrial pressure of 3 mmHg.
No significant change since the prior study of 11/14/2023 when the mean gradient
was 17 mmHg and the TAVIA was estimated at 1.3 cm2.
Chest CTA (TAVR), 05/28/2024:
IMPRESSION:
Measurements for proposed TAVR procedure, to be given as a separate addendum.
Band of increased opacity within the right upper lobe of the lung, unchanged from examination of March 08, 2024, and likely representing post therapy changes from previous radiation therapy.
Rounded contrast-filled protrusion from the posterior and inferior basal portion of the left ventricle, adjacent to prominent mitral annular calcification. This is compatible with a ventricular aneurysm.
ADDENDUM
Measurements for proposed TAVR procedure:
Trileaflet aortic valve. Moderate valvular calcification. No significant calcification within the left ventricular outflow tract.
Aortic annulus: 30.2 mm x 24.8 mm. Measured cross-sectional area of 554 sq mm.
Left ventricular outflow tract: Measured cross-sectional area 527 sq mm.
Sinuses of Valsalva: 36.3 mm x 34.4 mm x 36.4 mm.
Sinotubular junction: 32.6 mm x 32.1 mm.
Distance from aortic annulus to left coronary artery origin: 21.1 mm.
Distance from aortic annulus to right coronary artery origin: 15.8 mm.
Estimated coplanar angle: ITALIAN 8, caudal 10
Cusp overlap view: COSTELLO 10, caudal 25.
Orthopantogram, 06/01/2024:
IMPRESSION:
The patient is partially edentulous. No suspicious periapical lucencies. No displaced fractures. No suspicious calcifications seen to suggest sialolithiasis. Visualized sinuses appear clear.
Physical Exam
Vital Signs/Labs
Vital Signs
Temp Pulse Resp BP Pulse Ox
36.7 C 67 18 132/80 95
06/02/24 02:40 06/02/24 02:40 06/02/24 02:40 06/02/24 02:40 06/02/24 02:40
05/31/24 06/01/24 06/02/24
11:59 11:59 11:59
Actual Weight 82.327 kg 81.465 kg 80.739 kg
06/02/24 06:56
Magnesium 1.9 mg/dl (1.6-2.3) 05/29/24 06:12
Physical Exam
Constitutional: No acute distress and Comfortable
EENT: Anicteric and Moist mucous membranes
Cardiovascular: Rhythm & rate is regular, Pedal edema is absent, JVD pressure is normal, Systolic murmur present and S1S2 is normal
Respiratory: Respiratory effort normal, Lungs clear to auscul., Wheeze Absent, Crackles Absent and Rhonchi Absent
GI: Soft, Distention absent, Flat, Non tender and Normal bowel sounds
Neuro/Psych: AO x 3
Data Reviewed
-
Date of Service: June 02, 2024
Medical Decision Making: Reviewed Test Results, Tests Ordered, Independent Historian Assessment, Test Interpretation and Review of Case with other Provider
EKG: Tracing Personally Visualized and interpreted and Report Reviewed by me
Echo: Tracing Personally Visualized and interpreted and Report Reviewed by me
X-Ray/CT/US/MRI/NUC/PET: Image Personally Visualized and interpreted, Report Reviewed by me, Discussed with Physician and Discussed with Patient
Medical Tests (PFT, Pathology etc): Image Personally Visualized and interpreted, Report Reviewed by me, Discussed with Physician and Discussed with Patient
Labs: Labs Reviewed by me
Old Records: Reviewed
[2024-06-02] MEDS: GLUCOTROL XL (EXTENDED RELEASE) 5 MG PO (08:10)
[2024-06-02] MEDS: ZINC 50 MG PO (08:10)
[2024-06-02] MEDS: TOPROL XL 50 MG PO ×2 (08:10→20:25)
[2024-06-02] MEDS: PROSCAR 5 MG PO (08:10)
[2024-06-02] MEDS: ELIQUIS 2.5 MG PO ×2 (08:10→20:26)
[2024-06-02] MEDS: VITAMIN B-12 1000 MCG PO (08:10)
[2024-06-02] MEDS: VITAMIN D3 (cholecalciferol) 50 MCG PO (08:11)
[2024-06-02] MEDS: MIRALAX PO (08:12)
[2024-06-02 08:26] LABS: Blood Urea Nitrogen 27 mg/dl (9-20); Carbon Dioxide 23 mmol/L (22-30); Chloride 104 mmol/L (98-107); Estimated Creatinine Clearance 34 ml/min; Glucose 125 mg/dl (70-99); Magnesium 1.9 mg/dl (1.6-2.3); Potassium 4.4 mmol/L (3.5-5.1); Sodium 138 mmol/L (135-145)
[2024-06-02] MEDS: NOVOLOG FLEXPEN-LOW RESISTANCE SC ×2 (10:47→16:43)
--- NOTE | 2024-06-02 10:59 | CM ---
CM reviewed chart, patient seen bedside. Patient reports no needs to CM at this time. Continue with TAVR evaluation. CM will continue to follow for all discharge planning needs.
Plan; home with [facility] when stable.
[2024-06-02 12:26] LABS: Glucose - Point of Care 209 mg/dl (70-99)
[2024-06-02] MEDS: NOVOLOG FLEXPEN-LOW RESISTANCE 2 UNITS SC (12:43)
[2024-06-02] MEDS: NSS IV (13:05)
[2024-06-02 16:37] LABS: Glucose - Point of Care 95 mg/dl (70-99)
[2024-06-02] MEDS: LIPITOR 80 MG PO (20:26)
[2024-06-02 21:27] LABS: Glucose - Point of Care 115 mg/dl (70-99)
[2024-06-03 03:30] VITALS: BP 116/65
[2024-06-03 06:00] VITALS: BMI 25.7
[2024-06-03 07:00] VITALS: BP 126/70
--- NOTE | 2024-06-03 07:07 | W.PN.HOSP.TC ---
Today's Communication/Plan
-
cont PT/OT
Glycemic control
TAVR planning
Assessment / Plan
Assessment / Plan
Physical Exam
General: No acute distress, appears comfortable at this time
CVS: S1-S2 normal, systolic murmur
Chest: CTA B/L
Abdomen: Soft, NT, bowel sounds present
Extremities: No edema
Neuro: Awake Alert Conversant Coherent
Psych: Calm
88-year-old male with syncope
# Syncope
# Mild to moderate aortic stenosis with mild to moderate TR
Prior history of syncope with ventricular tachycardia/PVC status post ablation with loop recorder
Also history of syncope secondary to orthostatic hypotension
Medtr[employer] device interrogated showing 18 events of atrial arrhythmias with maximum sustained rates 170. No tachycardia or bradycardia episodes that correlated with syncopal event.
Cardiology eval appreciated
TAVR workup ongoing
Negative orthostatic vital signs
PT OT appreciated home health
patient remains symptomatic on short ambulation
OMF eval Orthopantomogram appreciated
CTA Abd/Pel with runoff for TAVR appreciated
-As described on recent CT of the chest, there is an aneurysm arising from the inferior base of the left ventricle, adjacent to prominent mitral annular calcification.
-Increased interstitial markings within the visualized lower lungs, likely mild interstitial fibrosis.
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 (outpt vascular follow up recommended)
-Severe calcification filling much of the lumen of the right common femoral artery at the level the mid femoral head (outpt vascular follow up recommended)
# Paroxysmal atrial fibrillation-on Eliquis, metoprolol
# Ventricular tachycardia status post ablation
# Coronary disease with stent in 2003-continue metoprolol and atorvastatin
# Chronic HFpEF-on as needed Lasix and metoprolol
# Newly diagnosed severe pulmonary hypertension 05/12/2024-was seen at [facility] and meds were stopped
# Peripheral artery disease with history of iliac stents
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
# Hyperlipidemia-continue statin
# Diabetes-continue glipizide. Hold metformin secondary to elevated creatinine. Accu-Cheks and sliding scale coverage ordered
# Enlarged prostate-continue finasteride
# ORAL on CKD stage III-creatinine better
# Left carotid stenosis-follows up with Dr. Brooks
# Lung cancer with history of radiation
# Spinal stenosis
# Ex-smoker
# DVT prophylaxis-Eliquis
# Full code
I spent a total of 40 minutes with the patient or on the floor. More than 50% of this time involved counseling and coordination of care.
Anticipated Discharge: > 48 hours
Subjective/Interval History
-
Date of Service: June 03, 2024
No acute distress. Overall reports feeling well when at rest. Symptomatic on exertion/ambulation.
Objective Data
-
Labs:
Laboratory Results
06/03/24
06:54
WBC Pending
Hgb Pending
Hct Pending
Plt Count Pending
Sodium Pending
Potassium Pending
Chloride Pending
Carbon Dioxide Pending
BUN Pending
Creatinine Pending
Glucose Pending
Calcium Pending
Vital Signs:
Vital Signs
Temp Pulse Resp BP Pulse Ox
97.8 F 65 16 116/65 96
06/03/24 03:30 06/03/24 03:30 06/03/24 03:30 06/03/24 03:30 06/03/24 03:30
I&O
06/02/24 06/03/24 06/04/24
06:59 06:59 06:59
Intake Total 720 / 720 1220 / 1220
Output Total 1150 / 1150 3000 / 3000
Balance -430 / -430 -1780 / -1780
[2024-06-03 07:34] LABS: Hematocrit 40.4 % (39.0-52.0); Hemoglobin 13.7 g/dL (13.0-18.0); Mean Corp Hgb Conc. 33.9 g/dL (33.0-37.0); Mean Corpuscular Hgb 31.5 pg (27.0-31.0); Mean Corpuscular Volume 92.9 fL (80.0-94.0); Mean Platelet Volume 10.9 fL (7.4-10.4); Platelet Count 181 10^3/uL (130-400); Red Blood Cell Count 4.35 10^6/uL (4.70-6.10); White Blood Cell Count 9.6 10^3/uL (4.8-10.8)
--- NOTE | 2024-06-03 07:40 | W.PN.CD ---
Today's Communication / Plan
-
Dentistry to pull #20 and #22 today vs. tomorrow.
TAVR workup complete.
Discuss in MDT team meeting tomorrow morning.
Disposition decision after that discussion.
Impression / Plan
-
Impression/Plan: 88 y/o male with ROLF, non-obstructive CAD, PAF on OAT, moderate/severe paradoxical low flow, low gradient aortic valve stenosis and severe pHTN admitted with recurrent syncope. Patient has been seen in this hospital as well as
[facility] for syncope.
#Recurrent syncope
-Multifactorial (, pHTN).
-Orthostatics negative here.
-No significant arrhythmias on monitor at time of syncope.
-I remain unconvinced that (in isolation) is responsible for his syncopal episodes. Isabelle did not believe that pHTN was the culprit. Perhaps neither is the sole cause but result in syncope in combination.
-Nevertheless, the aortic stenosis is certainly contributing to syncope and limits medication titration and treatment of pHTN.
-The patient has been discussed in TAVR conference. The decision has been made to move forward with TAVR evaluation and ultimately to procedure.
#Atrial fibrillation:
-Paroxysmal.
-Currently in NSR.
-Symptoms occur in NSR and AF - no difference.
-Rate control with metoprolol.
-CHADS2-Vasc = 3 (HTN, Age x2).
-Therapeutic anticoagulation with apixaban 2.5 mg BID (reduced dose for age, creatinine > 1.5).
-Plan for TAVR before AF ablation to avoid apixaban disruption (per EP eval).
#Aortic stenosis
-Moderate to severe, paradoxical, low flow, low gradient (mean gradient 22 mmHg, LVEF 50%, TAVIA 1.0 cm2, SVI 32.5 mL/m2).
-TAVR workup complete.
-CTA chest - sizes to a #29 Harvey ADAMARIS S3. CTA abdomen/pelvis shows significant PAD, but not prohibitive. Left sided access.
-Dental to pull teeth today vs. tomorrow.
-Discuss in multidisciplinary conference tomorrow. Disposition following that discussion.
#Pulmonary Hypertension
-Chronic.
-Discovered at last catheterization.
-PA = 74/28/43, CO = 4.25, PVR = 6.6 Cai units.
-Symptoms improved with sildenafil at last hospitalization - though he admits to a presyncopal episode while on sildenafil and getting dressed at home.
-Sildenafil stopped by Isabelle. Syncope has recurred.
#Coronary artery disease
-Chronic, stable.
-Continue apixaban, statin, and BB.
#HFpEF
-Acute on chronic.
-Weight and BP stable.
-Furosemide PRN.
#Left carotid stenosis
-Chronic, stable.
-Managed by vascular surgery, Dr Costello.
-Continue statin.
#PAD
-New diagnosis, but chronic.
-No symptoms of claudication.
-Continue statin, apixaban.
Subjective/Interval History:
CTA Abdomen/Pelvis done yesterday.
He has significant PAD which will make TAVR access challenging (including near total occlusion of the RCFA), thought not prohibitive.
Discussed situation with [facility] ([facility]).
The question will be disposition - inpatient TAVR vs. discharge and expedited outpatient TAVR.
After teeth are pulled, his workup is essentially complete.
Data:
Cath 04/27/24:
CONCLUSIONS:
1. Right dominant circulation with a 30% lesion in the distal RCA, a patent stent in the body of OM 2 and luminal irregularities in the LAD.
2. Normal filling pressures (LVEDP = 10 mmHg, PCWP = 15 mmHg at 80.3 kg).
3. Moderate to severe, paradoxical low-flow, low gradient aortic valve stenosis (mean gradient = 22.1 mmHg, TAVIA = 1.0 cm�, SVI = 32.5 mL, LVEF = 50% on TTE).
4. 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
Echo 04/27/24:
CONCLUSIONS
Low normal left ventricular systolic function.
Left ventricular ejection fraction is 50%.
Stage II diastolic dysfunction suggestive of abnormal relaxation and increased
filling pressures.
Mild biatrial enlargement.
Mild mitral regurgitation.
Moderate aortic stenosis (mean 20 mmHg, TAVIA 1.1 cmsq).
Estimated PASP 40 mmHg, assuming a right atrial pressure of 3 mmHg.
No significant change since the prior study of 11/14/2023 when the mean gradient
was 17 mmHg and the TAVIA was estimated at 1.3 cm2.
Chest CTA (TAVR), 05/28/2024:
IMPRESSION:
Measurements for proposed TAVR procedure, to be given as a separate addendum.
Band of increased opacity within the right upper lobe of the lung, unchanged from examination of March 08, 2024, and likely representing post therapy changes from previous radiation therapy.
Rounded contrast-filled protrusion from the posterior and inferior basal portion of the left ventricle, adjacent to prominent mitral annular calcification. This is compatible with a ventricular aneurysm.
ADDENDUM
Measurements for proposed TAVR procedure:
Trileaflet aortic valve. Moderate valvular calcification. No significant calcification within the left ventricular outflow tract.
Aortic annulus: 30.2 mm x 24.8 mm. Measured cross-sectional area of 554 sq mm.
Left ventricular outflow tract: Measured cross-sectional area 527 sq mm.
Sinuses of Valsalva: 36.3 mm x 34.4 mm x 36.4 mm.
Sinotubular junction: 32.6 mm x 32.1 mm.
Distance from aortic annulus to left coronary artery origin: 21.1 mm.
Distance from aortic annulus to right coronary artery origin: 15.8 mm.
Estimated coplanar angle: ALBANIAN 8, caudal 10
Cusp overlap view: COSTELLO 10, caudal 25.
Orthopantogram, 06/01/2024:
IMPRESSION:
The patient is partially edentulous. No suspicious periapical lucencies. No displaced fractures. No suspicious calcifications seen to suggest sialolithiasis. Visualized sinuses appear clear.
CTA Abdomen/Pelvis, 06/02/2024:
IMPRESSION
Measurements for proposed TAVR procedure, to be added as a separate addendum.
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
Increased interstitial markings within the visualized lower lungs, likely mild interstitial fibrosis.
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
Severe calcification filling much of the lumen of the right common femoral artery at the level the mid femoral head.
Bony degenerative changes as described.
Physical Exam
Vital Signs/Labs
Vital Signs
Temp Pulse Resp BP Pulse Ox
36.6 C 65 16 116/65 96
06/03/24 03:30 06/03/24 03:30 06/03/24 03:30 06/03/24 03:30 06/03/24 03:30
06/01/24 06/02/24 06/03/24
11:59 11:59 11:59
Actual Weight 81.465 kg 80.739 kg 81.25 kg
06/03/24 06:54
Magnesium 1.9 mg/dl (1.6-2.3) 06/02/24 06:56
Physical Exam
Constitutional: No acute distress and Comfortable
EENT: Anicteric and Moist mucous membranes
Cardiovascular: Rhythm & rate is regular, Pedal edema is absent, JVD pressure is normal, Systolic murmur present and S1S2 is normal
Respiratory: Respiratory effort normal, Lungs clear to auscul., Wheeze Absent, Crackles Absent and Rhonchi Absent
GI: Soft, Distention absent, Flat, Non tender and Normal bowel sounds
Neuro/Psych: AO x 3
Other: Cath Site
Data Reviewed
-
Date of Service: June 03, 2024
Medical Decision Making: Reviewed Test Results, Independent Historian Assessment and Test Interpretation
EKG: Tracing Personally Visualized and interpreted and Report Reviewed by me
Echo: Tracing Personally Visualized and interpreted and Report Reviewed by me
X-Ray/CT/US/MRI/NUC/PET: Image Personally Visualized and interpreted and Report Reviewed by me
Medical Tests (PFT, Pathology etc): Image Personally Visualized and interpreted and Report Reviewed by me
Labs: Labs Reviewed by me
Old Records: Reviewed
[2024-06-03 07:50] LABS: Glucose - Point of Care 136 mg/dl (70-99)
[2024-06-03 07:57] LABS: Blood Urea Nitrogen 27 mg/dl (9-20); Calcium 8.9 mg/dl (8.4-10.2); Carbon Dioxide 22 mmol/L (22-30); Chloride 105 mmol/L (98-107); Estimated Creatinine Clearance 32 ml/min; Glucose 126 mg/dl (70-99); Magnesium 1.9 mg/dl (1.6-2.3); Phosphorus 4.2 mg/dl (2.5-4.5); Potassium 4.4 mmol/L (3.5-5.1); Sodium 136 mmol/L (135-145); eGFR 38.78
[2024-06-03] MEDS: NOVOLOG FLEXPEN-LOW RESISTANCE SC ×2 (08:11→16:47)
[2024-06-03] MEDS: ZINC 50 MG PO (08:11)
[2024-06-03] MEDS: GLUCOTROL XL (EXTENDED RELEASE) 5 MG PO (08:11)
[2024-06-03] MEDS: PROSCAR 5 MG PO (08:12)
[2024-06-03] MEDS: ELIQUIS 2.5 MG PO ×2 (08:12→20:07)
[2024-06-03] MEDS: TOPROL XL 50 MG PO ×2 (08:13→20:07)
[2024-06-03] MEDS: VITAMIN D3 (cholecalciferol) 50 MCG PO (08:13)
[2024-06-03] MEDS: MIRALAX PO (08:24)
[2024-06-03] MEDS: VITAMIN B-12 1000 MCG PO (08:28)
[2024-06-03 11:00] VITALS: BP 139/72
[2024-06-03 12:16] LABS: Glucose - Point of Care 185 mg/dl (70-99)
[2024-06-03] MEDS: NOVOLOG FLEXPEN-LOW RESISTANCE 1 UNITS SC (12:38)
[2024-06-03 15:00] VITALS: BP 141/77
[2024-06-03 16:45] LABS: Glucose - Point of Care 108 mg/dl (70-99)
[2024-06-03 19:30] VITALS: BP 119/65
[2024-06-03] MEDS: LIPITOR 80 MG PO (20:07)
[2024-06-03 20:56] LABS: Glucose - Point of Care 174 mg/dl (70-99)
[2024-06-03 23:36] VITALS: BP 148/70
[2024-06-04] VITALS (12 sets, daily range): BP systolic 102–158; BP diastolic 52–92; PULSE 72–73; BMI 25.4
[2024-06-04 07:49] LABS: Glucose - Point of Care 138 mg/dl (70-99)
[2024-06-04] MEDS: VITAMIN B-12 1000 MCG PO (08:20)
[2024-06-04] MEDS: NOVOLOG FLEXPEN-LOW RESISTANCE SC ×2 (08:21→11:49)
[2024-06-04] MEDS: VITAMIN D3 (cholecalciferol) 50 MCG PO (08:22)
[2024-06-04] MEDS: PROSCAR 5 MG PO (08:22)
[2024-06-04] MEDS: ZINC 50 MG PO (08:22)
[2024-06-04] MEDS: GLUCOTROL XL (EXTENDED RELEASE) 5 MG PO (08:22)
[2024-06-04] MEDS: MIRALAX 17 GRAMS PO (08:23)
[2024-06-04] MEDS: ELIQUIS 2.5 MG PO ×2 (08:23→19:45)
[2024-06-04] MEDS: TOPROL XL 50 MG PO ×2 (08:24→19:45)
[2024-06-04 10:16] LABS: Glucose - Point of Care 133 mg/dl (70-99)
--- NOTE | 2024-06-04 11:10 | SUR.PHASEI ---
discharged from PACU - awake and alert, transported on portable monitor and placed on tele monitor in room, set up for breakfast with tray - told not to use straw to drink. patient has glasses, dentures, phone and call pierce. PCT at bedside.
--- NOTE | 2024-06-04 11:13 | W.IMMPOSTOP ---
Surgical Immed Post Op Note
-
Primary Surgeon: Amina Moody
Assisting Surgeon:
Pre-op Diagnosis: perio abcess/fractured #20 and #22 teeth
Post-op Diagnosis: removal of perio abscess on #20 and #22 prior to heart surgery
Procedure Performed: extraction of #20 and #22
Anesthesia Type: mild sedation and loacl anesthetic
Specimen / Cultures: n/a
Estimated Blood Loss: minimal
Complications: none
Operative Findings: n/a
--- NOTE | 2024-06-04 11:16 | OR.RPT ---
Operative Report
Operative Report
Pt was seen in the OR for the removal of teeth # 20 and #22 due to perio abcess and fracture (exudate upon probing).
Pt had some sedation along with local anesthetics.
#20 anes:
1 carpule of speto gold 4%- via infiltration and PDL
#22 anes:
1 carpule septo gold 4%i via PDL and infiltration and PDL.
-- for both these teeth and elevator and forceps were used. irrigation w saline and curette the socket from granulation tissue. packed gel foam.
pt tolerated procedure well. hemostasis observed.
POIG, reinforced OHI.
- dietary consult given.
- OTC tylenol for pain management.
Amina Moody DDS
--- NOTE | 2024-06-04 11:21 | W.PN.HOSP.TC ---
Today's Communication/Plan
-
pain control
PT/OT
glycemic control
TAVR planning
Assessment / Plan
Assessment / Plan
Physical Exam
General: In pain due to recent teeth extraction x2
CVS: S1-S2 normal, systolic murmur
Chest: CTA B/L
Abdomen: Soft, NT, bowel sounds present
Extremities: No edema
Neuro: Awake Alert Conversant Coherent
Psych: Calm
88-year-old male with syncope
# Syncope
# Mild to moderate aortic stenosis with mild to moderate TR
Prior history of syncope with ventricular tachycardia/PVC status post ablation with loop recorder
Also history of syncope secondary to orthostatic hypotension
Medtronic device interrogated showing 18 events of atrial arrhythmias with maximum sustained rates 170. No tachycardia or bradycardia episodes that correlated with syncopal event.
Cardiology eval appreciated TAVR planned for 06/08 Eliquis hold to start with Sun 06/06 evening dose
Negative orthostatic vital signs
PT OT appreciated home health
patient remains symptomatic on short ambulation
OMF eval Orthopantomogram appreciated, x2 teeth extracted 06/04 in preparation for TAVR, pain control prn Tylenol Dilaudid
CTA Abd/Pel with runoff for TAVR appreciated
-As described on recent CT of the chest, there is an aneurysm arising from the inferior base of the left ventricle, adjacent to prominent mitral annular calcification.
-Increased interstitial markings within the visualized lower lungs, likely mild interstitial fibrosis.
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 (outpt vascular follow up recommended)
-Severe calcification filling much of the lumen of the right common femoral artery at the level the mid femoral head (outpt vascular follow up recommended)
# Paroxysmal atrial fibrillation-on Eliquis, metoprolol
# Ventricular tachycardia status post ablation
# Coronary disease with stent in 2003-continue metoprolol and atorvastatin
# Chronic HFpEF-on as needed Lasix and metoprolol
# Newly diagnosed severe pulmonary hypertension 05/12/2024-was seen at [facility] and meds were stopped
# Peripheral artery disease with history of iliac stents
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
# Hyperlipidemia-continue statin
# Diabetes-continue glipizide. Hold metformin secondary to elevated creatinine. Accu-Cheks and sliding scale coverage ordered
# Enlarged prostate-continue finasteride
# ORAL on CKD stage III-creatinine better
# Left carotid stenosis-follows up with Dr. Brooks
# Lung cancer with history of radiation
# Spinal stenosis
# Ex-smoker
# DVT prophylaxis-Eliquis
# Full code
I spent a total of 40 minutes with the patient or on the floor. More than 50% of this time involved counseling and coordination of care.
Anticipated Discharge: > 48 hours
Subjective/Interval History
-
Date of Service: June 04, 2024
in pain following teeth removal in preparation for TAVR. Youngest son Yogi present during evaluation
Objective Data
-
Vital Signs:
Vital Signs
Temp Pulse Resp BP Pulse Ox
97.5 F 75 23 111/72 95
06/04/24 10:15 06/04/24 10:44 06/04/24 10:44 06/04/24 10:45 06/04/24 10:45
I&O
06/03/24 06/04/24 06/05/24
06:59 06:59 06:59
Intake Total 1220 / 1220 750 / 750
Output Total 3000 / 3000 1725 / 1725
Balance -1780 / -1780 -975 / -975
[2024-06-04 11:43] LABS: Glucose - Point of Care 211 mg/dl (70-99)
[2024-06-04] MEDS: TYLENOL 650 MG PO ×2 (12:30→19:50)
[2024-06-04] MEDS: TYLENOL 325 MG PO (13:43)
--- NOTE | 2024-06-04 15:21 | CM ---
CM reviewed chart, patient for OR today for teeth removal, TAVR workup. Patient seen bedside, reports no concerns to CM at this time. CM will continue to follow for all discharge planning needs.
Plan; home with [facility] when stable.
--- NOTE | 2024-06-04 15:31 | W.PN.CD ---
Today's Communication / Plan
-
plan for TF TAVR Friday
Impression / Plan
-
Impression/Plan: 88 y/o male with ROLF, non-obstructive CAD, PAF on OAT, moderate/severe paradoxical low flow, low gradient aortic valve stenosis and severe pHTN admitted with recurrent syncope. Patient has been seen in this hospital as well as
[facility] for syncope.
#Recurrent syncope
-Multifactorial (, pHTN)
-Orthostatics negative here
-No significant arrhythmias on monitor at time of syncope
-Nevertheless, the aortic stenosis is certainly contributing to syncope and limits medication titration and treatment of pHTN.
-The patient has been discussed in TAVR conference. The decision has been made to move forward with TAVR with plan for a Michelle 29 from the [facility] (through existing stent). He does not have good alternative access options due to both upper extremity
vessel caliber and the high risk for GA in this patient with pulmonary hypertension.
#Atrial fibrillation:
-Paroxysmal.
-Currently in NSR.
-Symptoms occur in NSR and AF - no difference.
-Rate control with metoprolol.
-CHADS2-Vasc = 3 (HTN, Age x2).
-Therapeutic anticoagulation with apixaban 2.5 mg BID (reduced dose for age, creatinine > 1.5).
-Plan for TAVR before AF ablation to avoid apixaban disruption (per EP eval).
HOLD Eliquis starting with Friday night dose.
#Aortic stenosis
-Moderate to severe, paradoxical, low flow, low gradient (mean gradient 22 mmHg, LVEF 50%, TAVIA 1.0 cm2, SVI 32.5 mL/m2).
-TAVR workup complete.
-CTA chest - sizes to a #29 Harvey MICHELLE S3. CTA abdomen/pelvis shows significant PAD, but not prohibitive. Left sided access.
-Dental pulled teeth today
#Pulmonary Hypertension
-Chronic.
-Discovered at last catheterization.
-PA = 74/28/43, CO = 4.25, PVR = 6.6 Cai units.
-Symptoms improved with sildenafil at last hospitalization - though he admits to a presyncopal episode while on sildenafil and getting dressed at home.
-Sildenafil stopped by [facility]. Syncope has recurred.
#Coronary artery disease
-Chronic, stable.
-Continue apixaban, statin, and BB.
#HFpEF
-Acute on chronic.
-Weight and BP stable.
-Furosemide PRN.
#Left carotid stenosis
-Chronic, stable.
-Managed by vascular surgery, Dr Costello.
-Continue statin.
#PAD
-New diagnosis, but chronic.
-No symptoms of claudication.
-Continue statin, apixaban.
Subjective/Interval History:
Teeth pulled.
multidisiplinary TAVR meeting today with plan for LCFA access. Discussed at [facility] with family and patient who understand elevated risks including risk of failure without good alterantive access options. Tentatively planned for first case Friday
morning.
HOLD Eliquis starting with Friday night dose.
NPO@MN on Friday.
Data:
Cath 04/27/24:
CONCLUSIONS:
1. Right dominant circulation with a 30% lesion in the distal RCA, a patent stent in the body of OM 2 and luminal irregularities in the LAD.
2. Normal filling pressures (LVEDP = 10 mmHg, PCWP = 15 mmHg at 80.3 kg).
3. Moderate to severe, paradoxical low-flow, low gradient aortic valve stenosis (mean gradient = 22.1 mmHg, TAVIA = 1.0 cm�, SVI = 32.5 mL, LVEF = 50% on TTE).
4. 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
Echo 04/27/24:
CONCLUSIONS
Low normal left ventricular systolic function.
Left ventricular ejection fraction is 50%.
Stage II diastolic dysfunction suggestive of abnormal relaxation and increased
filling pressures.
Mild biatrial enlargement.
Mild mitral regurgitation.
Moderate aortic stenosis (mean 20 mmHg, TAVIA 1.1 cmsq).
Estimated PASP 40 mmHg, assuming a right atrial pressure of 3 mmHg.
No significant change since the prior study of 11/14/2023 when the mean gradient
was 17 mmHg and the TAVIA was estimated at 1.3 cm2.
Chest CTA (TAVR), 05/28/2024:
IMPRESSION:
Measurements for proposed TAVR procedure, to be given as a separate addendum.
Band of increased opacity within the right upper lobe of the lung, unchanged from examination of March 08, 2024, and likely representing post therapy changes from previous radiation therapy.
Rounded contrast-filled protrusion from the posterior and inferior basal portion of the left ventricle, adjacent to prominent mitral annular calcification. This is compatible with a ventricular aneurysm.
ADDENDUM
Measurements for proposed TAVR procedure:
Trileaflet aortic valve. Moderate valvular calcification. No significant calcification within the left ventricular outflow tract.
Aortic annulus: 30.2 mm x 24.8 mm. Measured cross-sectional area of 554 sq mm.
Left ventricular outflow tract: Measured cross-sectional area 527 sq mm.
Sinuses of Valsalva: 36.3 mm x 34.4 mm x 36.4 mm.
Sinotubular junction: 32.6 mm x 32.1 mm.
Distance from aortic annulus to left coronary artery origin: 21.1 mm.
Distance from aortic annulus to right coronary artery origin: 15.8 mm.
Estimated coplanar angle: BHUTANESE 8, caudal 10
Cusp overlap view: COSTELLO 10, caudal 25.
Orthopantogram, 06/01/2024:
IMPRESSION:
The patient is partially edentulous. No suspicious periapical lucencies. No displaced fractures. No suspicious calcifications seen to suggest sialolithiasis. Visualized sinuses appear clear.
CTA Abdomen/Pelvis, 06/02/2024:
IMPRESSION
Measurements for proposed TAVR procedure, to be added as a separate addendum.
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
Increased interstitial markings within the visualized lower lungs, likely mild interstitial fibrosis.
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
Severe calcification filling much of the lumen of the right common femoral artery at the level the mid femoral head.
Bony degenerative changes as described.
Physical Exam
Vital Signs/Labs
Vital Signs
Temp Pulse Resp BP Pulse Ox
36.9 C 76 20 102/73 96
06/04/24 11:21 06/04/24 11:21 06/04/24 11:21 06/04/24 11:21 06/04/24 11:21
06/03/24 06/04/24 06/05/24
06:59 06:59 06:59
Actual Weight 81.25 kg 80.428 kg
06/03/24 06:54
06/03/24 06:54
Magnesium 1.9 mg/dl (1.6-2.3) 06/03/24 06:54
Physical Exam
Constitutional: No acute distress
Cardiovascular: Rhythm & rate is regular and Systolic murmur present
Respiratory: Respiratory effort normal
Neuro/Psych: AO x 3
Data Reviewed
-
Date of Service: June 04, 2024
Medical Decision Making: Reviewed Test Results
EKG: Tracing Personally Visualized and interpreted
Echo: Tracing Personally Visualized and interpreted
X-Ray/CT/US/MRI/NUC/PET: Image Personally Visualized and interpreted
Medical Tests (PFT, Pathology etc): Image Personally Visualized and interpreted
Labs: Labs Reviewed by me
[2024-06-04 15:46] LABS: Glucose - Point of Care 176 mg/dl (70-99)
--- NOTE | 2024-06-04 15:56 | W.PN.UPDATE ---
Update Note
Progress Note Update
Spoke to patient and his daughter, Zee (on phone) and updated both on plan for inpatient TAVR on Friday, 06/08. Anesthesia notified and will see patient on Friday. Allowed for and answered questions.
[2024-06-04] MEDS: NOVOLOG FLEXPEN-LOW RESISTANCE 1 UNITS SC (16:20)
[2024-06-04 18:46] LABS: Urine Albumin 1+ (Neg - Trace); Urine Bilirubin Negative (Negative); Urine Character Clear (Clear); Urine Color Yellow; Urine Glucose Negative (Negative); Urine Ketone Negative (Negative); Urine Leukocyte Negative (Negative); Urine Nitrite Negative (Negative); Urine Occult Blood 2+ (Negative); Urine Specific Gravity 1.015 (<1.030); Urine Urobilinogen Negative (Neg - 1+)
[2024-06-04 18:57] LABS: Urine Squamous Cell 0-2 /LPF (Few); Urine White Cell 0-2 /HPF (0-5)
[2024-06-04] MEDS: LIPITOR 80 MG PO (19:46)
[2024-06-04 22:04] LABS: Glucose - Point of Care 121 mg/dl (70-99)
[2024-06-05 02:49] VITALS: BP 137/74
[2024-06-05] MEDS: TYLENOL 650 MG PO (03:15)
[2024-06-05 06:00] VITALS: BMI 25.5
[2024-06-05 07:00] VITALS: BP 143/78
--- NOTE | 2024-06-05 07:19 | W.PN.HOSP.TC ---
Today's Communication/Plan
-
pain control
PT/OT
glycemic control
TAVR planning
Assessment / Plan
Assessment / Plan
Physical Exam
General: no acute distress, appears comfortable at this time
CVS: S1-S2 normal, systolic murmur
Chest: CTA B/L
Abdomen: Soft, NT, bowel sounds present
Extremities: No edema
Neuro: Awake Alert Conversant Coherent
Psych: Calm
88-year-old male with syncope
# Syncope
# Mild to moderate aortic stenosis with mild to moderate TR
Prior history of syncope with ventricular tachycardia/PVC status post ablation with loop recorder
Also history of syncope secondary to orthostatic hypotension
[employer] device interrogated showing 18 events of atrial arrhythmias with maximum sustained rates 170. No tachycardia or bradycardia episodes that correlated with syncopal event.
Cardiology eval appreciated TAVR planned for 06/08 Eliquis hold to start with Sun 06/06 evening dose
Negative orthostatic vital signs
PT OT appreciated home health
patient remains symptomatic on short ambulation
OMF eval Orthopantomogram appreciated, x2 teeth extracted 06/04 in preparation for TAVR, pain control prn Tylenol Dilaudid
CTA Abd/Pel with runoff for TAVR appreciated
-As described on recent CT of the chest, there is an aneurysm arising from the inferior base of the left ventricle, adjacent to prominent mitral annular calcification.
-Increased interstitial markings within the visualized lower lungs, likely mild interstitial fibrosis.
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 (outpt vascular follow up recommended)
-Severe calcification filling much of the lumen of the right common femoral artery at the level the mid femoral head (outpt vascular follow up recommended)
# Paroxysmal atrial fibrillation
-on Eliquis (to be held Sun night in preparation for TAVR ), metoprolol
# Ventricular tachycardia status post ablation
# Coronary disease with stent in 2003-continue metoprolol and atorvastatin
# Chronic HFpEF-on as needed Lasix and metoprolol
# Newly diagnosed severe pulmonary hypertension 05/12/2024
# Peripheral artery disease with history of iliac stents
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
# Hyperlipidemia-continue statin
# Diabetes-continue glipizide. Hold metformin secondary to elevated creatinine. Accu-Cheks and sliding scale coverage ordered
# Enlarged prostate-continue finasteride
# ORAL on CKD stage III-creatinine better
# Left carotid stenosis-follows up with Dr. Brooks
# Lung cancer with history of radiation
# Spinal stenosis
# Ex-smoker
# DVT prophylaxis-Eliquis
# Full code
I spent a total of 40 minutes with the patient or on the floor. More than 50% of this time involved counseling and coordination of care.
Anticipated Discharge: > 48 hours
Subjective/Interval History
-
Date of Service: June 05, 2024
No acute distress. Pain controlled with as needed Tylenol
Objective Data
-
Labs:
Laboratory Results
06/05/24
07:04
WBC Pending
Hgb Pending
Hct Pending
Plt Count Pending
PT Pending
INR Pending
Sodium Pending
Potassium Pending
Chloride Pending
Carbon Dioxide Pending
BUN Pending
Creatinine Pending
Glucose Pending
Calcium Pending
Vital Signs:
Vital Signs
Temp Pulse Resp BP Pulse Ox
97.6 F 74 18 137/74 94
06/05/24 02:49 06/05/24 02:49 06/05/24 02:49 06/05/24 02:49 06/05/24 02:49
I&O
06/04/24 06/05/24 06/06/24
06:59 06:59 06:59
Intake Total 750 / 750 840 / 840
Output Total 1725 / 1725 1550 / 1550
Balance -975 / -975 -710 / -710
[2024-06-05 07:56] LABS: Hematocrit 38.9 % (39.0-52.0); Hemoglobin 13.4 g/dL (13.0-18.0); Mean Corp Hgb Conc. 34.4 g/dL (33.0-37.0); Mean Corpuscular Hgb 31.8 pg (27.0-31.0); Mean Corpuscular Volume 92.4 fL (80.0-94.0); Mean Platelet Volume 10.8 fL (7.4-10.4); Platelet Count 172 10^3/uL (130-400); Red Blood Cell Count 4.21 10^6/uL (4.70-6.10); Red Cell Dist. Width 14.1 % (11.5-14.5); White Blood Cell Count 9.2 10^3/uL (4.8-10.8)
[2024-06-05 08:03] LABS: INR 1.29; PT 16.3 Sec (11.4-14.6)
[2024-06-05 08:06] LABS: Glucose - Point of Care 120 mg/dl (70-99)
[2024-06-05] MEDS: NOVOLOG FLEXPEN-LOW RESISTANCE SC ×3 (08:08→16:35)
[2024-06-05] MEDS: VITAMIN B-12 1000 MCG PO (08:09)
[2024-06-05] MEDS: VITAMIN D3 (cholecalciferol) 50 MCG PO (08:09)
[2024-06-05] MEDS: ZINC 50 MG PO (08:09)
[2024-06-05] MEDS: TOPROL XL 50 MG PO ×2 (08:09→19:55)
[2024-06-05] MEDS: PROSCAR 5 MG PO (08:09)
[2024-06-05] MEDS: ELIQUIS 2.5 MG PO ×2 (08:09→19:53)
[2024-06-05] MEDS: GLUCOTROL XL (EXTENDED RELEASE) 5 MG PO (08:09)
[2024-06-05] MEDS: MIRALAX 17 GRAMS PO (08:10)
[2024-06-05 08:13] LABS: NT-proBNP 2570 pg/ml
[2024-06-05 08:28] LABS: Blood Urea Nitrogen 27 mg/dl (9-20); Calcium 8.8 mg/dl (8.4-10.2); Carbon Dioxide 21 mmol/L (22-30); Chloride 106 mmol/L (98-107); Estimated Creatinine Clearance 32 ml/min; Glucose 110 mg/dl (70-99); Phosphorus 3.9 mg/dl (2.5-4.5); Potassium 4.6 mmol/L (3.5-5.1); Sodium 137 mmol/L (135-145); eGFR 38.78
[2024-06-05 11:00] VITALS: BP 138/72
--- NOTE | 2024-06-05 11:16 | W.PN.CD ---
Addendum entered and electronically signed by Tino Phillip MD 06/05/24 17:15:
I saw and examined the patient.
The HOSPITAL EDUCATOR's note was reviewed and I agree with the note.
Comment: Denzel is feeling well without complaint. On exam rrr, 2/ crescendo-decrescendo murmur, lungs CTA. Plan is for TAVR on Friday. Eliquis hold tomorrow night.
Will return Friday in care.
Original Note:
Today's Communication / Plan
-
Apixaban hold starting Friday
TF TAVR tentatively planned for Friday
Impression / Plan
-
Impression/Plan: 88 y/o male with ROLF, non-obstructive CAD, PAF on OAT, moderate/severe paradoxical low flow, low gradient aortic valve stenosis and severe pHTN admitted with recurrent syncope. Patient has been seen in this hospital as well as
[facility] for syncope.
#Recurrent syncope
-Multifactorial (, pHTN)
-Orthostatics negative here
-No significant arrhythmias on monitor at time of syncope
-Nevertheless, the aortic stenosis is certainly contributing to syncope and limits medication titration and treatment of pHTN.
-The patient has been discussed in TAVR conference. The decision has been made to move forward with TAVR with plan for a Michelle 29 from the [facility] (through existing stent). He does not have good alternative access options due to both upper extremity
vessel caliber and the high risk for GA in this patient with pulmonary hypertension.
#Atrial fibrillation:
-Paroxysmal.
-Currently in NSR.
-Symptoms occur in NSR and AF - no difference.
-Rate control with metoprolol.
-CHADS2-Vasc = 3 (HTN, Age x2).
-Therapeutic anticoagulation with apixaban 2.5 mg BID (reduced dose for age, creatinine > 1.5).
-Plan for TAVR before AF ablation to avoid apixaban disruption (per EP eval).
HOLD Eliquis starting with Friday night dose.
#Aortic stenosis
-Moderate to severe, paradoxical, low flow, low gradient (mean gradient 22 mmHg, LVEF 50%, TAVIA 1.0 cm2, SVI 32.5 mL/m2).
-TAVR workup complete -> TF TAVR 06/08/2024
-CTA chest - sizes to a #29 Harvey MICHELLE S3. CTA abdomen/pelvis shows significant PAD, but not prohibitive. Left sided access.
-Dental pulled teeth 06/04/2024
#Pulmonary Hypertension
-Chronic.
-Discovered at last catheterization.
-PA = 74/28/43, CO = 4.25, PVR = 6.6 Cai units.
-Symptoms improved with sildenafil at last hospitalization - though he admits to a presyncopal episode while on sildenafil and getting dressed at home.
-Sildenafil stopped by [facility]. Syncope has recurred.
#Coronary artery disease
-Chronic, stable.
-Continue apixaban, statin, and BB.
#HFpEF
-Acute on chronic.
-Weight and BP stable.
-Furosemide PRN.
#Left carotid stenosis
-Chronic, stable.
-Managed by vascular surgery, Dr Costello.
-Continue statin.
#PAD
-New diagnosis, but chronic.
-No symptoms of claudication.
-Continue statin, apixaban.
Subjective/Interval History:
Feels well. Asking to shower.
Data:
Cath 04/27/24:
CONCLUSIONS:
1. Right dominant circulation with a 30% lesion in the distal RCA, a patent stent in the body of OM 2 and luminal irregularities in the LAD.
2. Normal filling pressures (LVEDP = 10 mmHg, PCWP = 15 mmHg at 80.3 kg).
3. Moderate to severe, paradoxical low-flow, low gradient aortic valve stenosis (mean gradient = 22.1 mmHg, TAVIA = 1.0 cm�, SVI = 32.5 mL, LVEF = 50% on TTE).
4. 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
Echo 04/27/24:
CONCLUSIONS
Low normal left ventricular systolic function.
Left ventricular ejection fraction is 50%.
Stage II diastolic dysfunction suggestive of abnormal relaxation and increased
filling pressures.
Mild biatrial enlargement.
Mild mitral regurgitation.
Moderate aortic stenosis (mean 20 mmHg, TAVIA 1.1 cmsq).
Estimated PASP 40 mmHg, assuming a right atrial pressure of 3 mmHg.
No significant change since the prior study of 11/14/2023 when the mean gradient
was 17 mmHg and the TAVIA was estimated at 1.3 cm2.
Chest CTA (TAVR), 05/28/2024:
IMPRESSION:
Measurements for proposed TAVR procedure, to be given as a separate addendum.
Band of increased opacity within the right upper lobe of the lung, unchanged from examination of March 08, 2024, and likely representing post therapy changes from previous radiation therapy.
Rounded contrast-filled protrusion from the posterior and inferior basal portion of the left ventricle, adjacent to prominent mitral annular calcification. This is compatible with a ventricular aneurysm.
ADDENDUM
Measurements for proposed TAVR procedure:
Trileaflet aortic valve. Moderate valvular calcification. No significant calcification within the left ventricular outflow tract.
Aortic annulus: 30.2 mm x 24.8 mm. Measured cross-sectional area of 554 sq mm.
Left ventricular outflow tract: Measured cross-sectional area 527 sq mm.
Sinuses of Valsalva: 36.3 mm x 34.4 mm x 36.4 mm.
Sinotubular junction: 32.6 mm x 32.1 mm.
Distance from aortic annulus to left coronary artery origin: 21.1 mm.
Distance from aortic annulus to right coronary artery origin: 15.8 mm.
Estimated coplanar angle: SCOTTISH 8, caudal 10
Cusp overlap view: COSTELLO 10, caudal 25.
Orthopantogram, 06/01/2024:
IMPRESSION:
The patient is partially edentulous. No suspicious periapical lucencies. No displaced fractures. No suspicious calcifications seen to suggest sialolithiasis. Visualized sinuses appear clear.
CTA Abdomen/Pelvis, 06/02/2024:
IMPRESSION
Measurements for proposed TAVR procedure, to be added as a separate addendum.
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
Increased interstitial markings within the visualized lower lungs, likely mild interstitial fibrosis.
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
Severe calcification filling much of the lumen of the right common femoral artery at the level the mid femoral head.
Bony degenerative changes as described.
Physical Exam
Vital Signs/Labs
Vital Signs
Temp Pulse Resp BP Pulse Ox
97.8 F 71 18 143/78 97
06/05/24 07:00 06/05/24 07:00 06/05/24 07:00 06/05/24 07:00 06/05/24 08:10
06/04/24 06/05/24 06/06/24
06:59 06:59 06:59
Actual Weight 80.428 kg 80.739 kg
06/05/24 07:04
06/05/24 07:04
PT 16.3 Sec (11.4-14.6) H 06/05/24 07:04
INR 1.29 06/05/24 07:04
Magnesium 2.0 mg/dl (1.6-2.3) 06/05/24 07:04
06/05/24
07:04
Cxn-Q-Vqgoucolpru Pept 2570
Physical Exam
Constitutional: No acute distress and Comfortable
EENT: Anicteric and Moist mucous membranes
Cardiovascular: Rhythm & rate is regular, Systolic murmur present, S1S2 is normal and Murmur/rub/gallop absent
Respiratory: Respiratory effort normal and Lungs clear to auscul.
GI: Soft, Distention absent, Flat, Non tender and Normal bowel sounds
Other: Skin (Warm and dry)
Data Reviewed
-
Date of Service: June 05, 2024
[2024-06-05 12:12] LABS: Glucose - Point of Care 148 mg/dl (70-99)
[2024-06-05 15:00] VITALS: BP 118/51
[2024-06-05 16:33] LABS: Glucose - Point of Care 144 mg/dl (70-99)
[2024-06-05 19:34] VITALS: BP 124/65
[2024-06-05] MEDS: LIPITOR 80 MG PO (19:53)
[2024-06-05 22:02] LABS: Glucose - Point of Care 174 mg/dl (70-99)
[2024-06-05 22:48] VITALS: BP 139/75
[2024-06-06 06:00] VITALS: BMI 25.7
[2024-06-06 06:25] LABS: Hematocrit 38.5 % (39.0-52.0); Hemoglobin 12.9 g/dL (13.0-18.0); Mean Corp Hgb Conc. 33.5 g/dL (33.0-37.0); Mean Corpuscular Hgb 31.3 pg (27.0-31.0); Mean Corpuscular Volume 93.4 fL (80.0-94.0); Mean Platelet Volume 10.6 fL (7.4-10.4); Platelet Count 181 10^3/uL (130-400); Red Blood Cell Count 4.12 10^6/uL (4.70-6.10); Red Cell Dist. Width 14.1 % (11.5-14.5); White Blood Cell Count 9.7 10^3/uL (4.8-10.8)
[2024-06-06 07:00] VITALS: BP 127/79
[2024-06-06 07:04] LABS: Blood Urea Nitrogen 29 mg/dl (9-20); Calcium 8.8 mg/dl (8.4-10.2); Carbon Dioxide 22 mmol/L (22-30); Chloride 104 mmol/L (98-107); Estimated Creatinine Clearance 30 ml/min; Glucose 127 mg/dl (70-99); Magnesium 1.9 mg/dl (1.6-2.3); Phosphorus 3.9 mg/dl (2.5-4.5); Potassium 4.6 mmol/L (3.5-5.1); Sodium 137 mmol/L (135-145); eGFR 36.21
--- NOTE | 2024-06-06 07:15 | W.PN.HOSP.TC ---
Today's Communication/Plan
-
Hold Eliquis as per Cardio
pain control
prn ice packs jaw pain swelling, teeth extraction sites
Assessment / Plan
Assessment / Plan
Physical Exam
General: no acute distress, appears comfortable at this time
CVS: S1-S2 normal, systolic murmur
Chest: CTA B/L
Abdomen: Soft, NT, bowel sounds present
Extremities: No edema
Neuro: Awake Alert Conversant Coherent
Psych: Calm
88-year-old male with syncope
# Syncope
# Mild to moderate aortic stenosis with mild to moderate TR
Prior history of syncope with ventricular tachycardia/PVC status post ablation with loop recorder
Also history of syncope secondary to orthostatic hypotension
[employer] device interrogated showing 18 events of atrial arrhythmias with maximum sustained rates 170. No tachycardia or bradycardia episodes that correlated with syncopal event.
Cardiology eval appreciated TAVR planned for 06/08 Eliquis hold started Friday for 48h prior to procedure
Negative orthostatic vital signs
PT OT appreciated home health
patient remains symptomatic on short ambulation
OMF eval Orthopantomogram appreciated, x2 teeth extracted 06/04 in preparation for TAVR, pain control prn ice packs Tylenol Dilaudid
CTA Abd/Pel with runoff for TAVR appreciated
-As described on recent CT of the chest, there is an aneurysm arising from the inferior base of the left ventricle, adjacent to prominent mitral annular calcification.
-Increased interstitial markings within the visualized lower lungs, likely mild interstitial fibrosis.
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 (outpt vascular follow up recommended)
-Severe calcification filling much of the lumen of the right common femoral artery at the level the mid femoral head (outpt vascular follow up recommended)
# Paroxysmal atrial fibrillation
-on Eliquis (to be held Sun night in preparation for TAVR ), metoprolol
# Ventricular tachycardia status post ablation
# Coronary disease with stent in 2003-continue metoprolol and atorvastatin
# Chronic HFpEF-on as needed Lasix and metoprolol
# Newly diagnosed severe pulmonary hypertension 05/12/2024
# Peripheral artery disease with history of iliac stents
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
# Hyperlipidemia-continue statin
# Diabetes-continue glipizide. Hold metformin secondary to elevated creatinine. Accu-Cheks and sliding scale coverage ordered
# Enlarged prostate-continue finasteride
# ORAL on CKD stage III-creatinine better
# Left carotid stenosis-follows up with Dr. Brooks
# Lung cancer with history of radiation
# Spinal stenosis
# Ex-smoker
# DVT prophylaxis-Eliquis
# Full code
I spent a total of 35 minutes with the patient or on the floor. More than 50% of this time involved counseling and coordination of care.
Anticipated Discharge: > 48 hours
Subjective/Interval History
-
Date of Service: June 06, 2024
no new acute issues. sitting up comfortably in chair. Pain swelling jaw at teeth extraction sites persist, manageable with Tylenol per patient.
Objective Data
-
Labs:
Laboratory Results
06/06/24
05:48
WBC 9.7
Hgb 12.9 L
Hct 38.5 L
Plt Count 181
Sodium 137
Potassium 4.6
Chloride 104
Carbon Dioxide 22
BUN 29 H
Creatinine 1.8 H
Glucose 127 H
Calcium 8.8
Vital Signs:
Vital Signs
Temp Pulse Resp BP Pulse Ox
99.7 F 83 18 139/75 93
06/05/24 22:48 06/05/24 22:48 06/05/24 22:48 06/05/24 22:48 06/05/24 22:48
I&O
12/14/24 12/15/24 12/16/24
06:59 06:59 06:59
Intake Total 840 / 840 360 / 360
Output Total 1550 / 1550 550 / 550
Balance -710 / -710 -190 / -190
[2024-06-06] MEDS: ELIQUIS PO (07:37)
[2024-06-06] MEDS: VITAMIN B-12 1000 MCG PO (07:38)
[2024-06-06] MEDS: GLUCOTROL XL (EXTENDED RELEASE) 5 MG PO (07:38)
[2024-06-06] MEDS: VITAMIN D3 (cholecalciferol) 50 MCG PO (07:38)
[2024-06-06] MEDS: ZINC 50 MG PO (07:38)
[2024-06-06] MEDS: TOPROL XL 50 MG PO ×2 (07:38→20:00)
[2024-06-06] MEDS: PROSCAR 5 MG PO (07:38)
[2024-06-06] MEDS: MIRALAX 17 GRAMS PO (07:39)
[2024-06-06 08:30] LABS: Glucose - Point of Care 132 mg/dl (70-99)
[2024-06-06] MEDS: NOVOLOG FLEXPEN-LOW RESISTANCE SC (08:31)
[2024-06-06 11:41] LABS: Glucose - Point of Care 223 mg/dl (70-99)
[2024-06-06] MEDS: NOVOLOG FLEXPEN-LOW RESISTANCE 2 UNITS SC (11:41)
[2024-06-06 12:52] LABS: Glucose - Point of Care 251 mg/dl (70-99)
[2024-06-06 15:00] VITALS: BP 120/67
--- NOTE | 2024-06-06 15:08 | W.PN.CD ---
Today's Communication / Plan
-
Hold Eliquis with the a.m. dose today for a full 48 hours prior to procedure.
Impression / Plan
-
Impression/Plan: 88 y/o male with ROLF, non-obstructive CAD, PAF on OAT, moderate/severe paradoxical low flow, low gradient aortic valve stenosis and severe pHTN admitted with recurrent syncope. Patient has been seen in this hospital as well as
[facility] for syncope.
#Recurrent syncope
-Multifactorial (, pHTN)
-Orthostatics negative here
-No significant arrhythmias on monitor at time of syncope
-Nevertheless, the aortic stenosis is certainly contributing to syncope and limits medication titration and treatment of pHTN.
-The patient has been discussed in TAVR conference. The decision has been made to move forward with TAVR with plan for a Michelle [address] [facility] (through existing stent). He does not have good alternative access options due to both upper extremity
vessel caliber and the high risk for GA in this patient with pulmonary hypertension.
#Atrial fibrillation:
-Paroxysmal.
-Currently in NSR.
-Symptoms occur in NSR and AF - no difference.
-Rate control with metoprolol.
-CHADS2-Vasc = 3 (HTN, Age x2).
-Therapeutic anticoagulation with apixaban 2.5 mg BID (reduced dose for age, creatinine > 1.5).
-Plan for TAVR before AF ablation to avoid apixaban disruption (per EP eval).
HOLD Eliquis starting with Friday a.m. Allowing for a full 48-hour hold
#Aortic stenosis
-Moderate to severe, paradoxical, low flow, low gradient (mean gradient 22 mmHg, LVEF 50%, TAVIA 1.0 cm2, SVI 32.5 mL/m2).
-TAVR workup complete -> TF TAVR 06/08/2024
-CTA chest - sizes to a #29 Harvey MICHELLE S3. CTA abdomen/pelvis shows significant PAD, but not prohibitive. Left sided access.
-Dental pulled teeth 06/04/2024
#Pulmonary Hypertension
-Chronic.
-Discovered at last catheterization.
-PA = 74/28/43, CO = 4.25, PVR = 6.6 Cai units.
-Symptoms improved with sildenafil at last hospitalization - though he admits to a presyncopal episode while on sildenafil and getting dressed at home.
-Sildenafil stopped by [place]. Syncope has recurred.
#Coronary artery disease
-Chronic, stable.
-Continue apixaban, statin, and BB.
#HFpEF
-Acute on chronic.
-Weight and BP stable.
-Furosemide PRN.
#Left carotid stenosis
-Chronic, stable.
-Managed by vascular surgery, Dr Costello.
-Continue statin.
#PAD
-New diagnosis, but chronic.
-No symptoms of claudication.
-Continue statin, apixaban.
Subjective/Interval History:
Feels well. No complaints of chest pain or shortness of breath. Lying flat in the bed when I arrived without any dyspnea.
Data:
Cath 04/27/24:
CONCLUSIONS:
1. Right dominant circulation with a 30% lesion in the distal RCA, a patent stent in the body of OM 2 and luminal irregularities in the LAD.
2. Normal filling pressures (LVEDP = 10 mmHg, PCWP = 15 mmHg at 80.3 kg).
3. Moderate to severe, paradoxical low-flow, low gradient aortic valve stenosis (mean gradient = 22.1 mmHg, TAVIA = 1.0 cm�, SVI = 32.5 mL, LVEF = 50% on TTE).
4. 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
Echo 04/27/24:
CONCLUSIONS
Low normal left ventricular systolic function.
Left ventricular ejection fraction is 50%.
Stage II diastolic dysfunction suggestive of abnormal relaxation and increased
filling pressures.
Mild biatrial enlargement.
Mild mitral regurgitation.
Moderate aortic stenosis (mean 20 mmHg, TAVIA 1.1 cmsq).
Estimated PASP 40 mmHg, assuming a right atrial pressure of 3 mmHg.
No significant change since the prior study of 11/14/2023 when the mean gradient
was 17 mmHg and the TAVIA was estimated at 1.3 cm2.
Chest CTA (TAVR), 05/28/2024:
IMPRESSION:
Measurements for proposed TAVR procedure, to be given as a separate addendum.
Band of increased opacity within the right upper lobe of the lung, unchanged from examination of March 08, 2024, and likely representing post therapy changes from previous radiation therapy.
Rounded contrast-filled protrusion from the posterior and inferior basal portion of the left ventricle, adjacent to prominent mitral annular calcification. This is compatible with a ventricular aneurysm.
ADDENDUM
Measurements for proposed TAVR procedure:
Trileaflet aortic valve. Moderate valvular calcification. No significant calcification within the left ventricular outflow tract.
Aortic annulus: 30.2 mm x 24.8 mm. Measured cross-sectional area of 554 sq mm.
Left ventricular outflow tract: Measured cross-sectional area 527 sq mm.
Sinuses of Valsalva: 36.3 mm x 34.4 mm x 36.4 mm.
Sinotubular junction: 32.6 mm x 32.1 mm.
Distance from aortic annulus to left coronary artery origin: 21.1 mm.
Distance from aortic annulus to right coronary artery origin: 15.8 mm.
Estimated coplanar angle: HELGA 8, caudal 10
Cusp overlap view: COSTELLO 10, caudal 25.
Orthopantogram, 06/01/2024:
IMPRESSION:
The patient is partially edentulous. No suspicious periapical lucencies. No displaced fractures. No suspicious calcifications seen to suggest sialolithiasis. Visualized sinuses appear clear.
CTA Abdomen/Pelvis, 06/02/2024:
IMPRESSION
Measurements for proposed TAVR procedure, to be added as a separate addendum.
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
Increased interstitial markings within the visualized lower lungs, likely mild interstitial fibrosis.
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
Severe calcification filling much of the lumen of the right common femoral artery at the level the mid femoral head.
Bony degenerative changes as described.
Physical Exam
Vital Signs/Labs
Vital Signs
Temp Pulse Resp BP Pulse Ox
97.7 F 87 18 127/79 97
06/06/24 07:00 06/06/24 07:00 06/06/24 07:00 06/06/24 07:00 06/06/24 07:45
06/05/24 06/06/24 06/07/24
06:59 06:59 06:59
Actual Weight 80.739 kg 81.221 kg
06/06/24 05:48
06/06/24 05:48
PT 16.3 Sec (11.4-14.6) H 06/05/24 07:04
INR 1.29 06/05/24 07:04
Magnesium 1.9 mg/dl (1.6-2.3) 06/06/24 05:48
06/05/24
07:04
[id number]-[id number] Pept 2570
Physical Exam
Constitutional: No acute distress
Cardiovascular: Rhythm & rate is regular, Pedal edema is absent and Systolic murmur present (3 out of 6 crescendo decrescendo murmur in the right upper sternal border)
Respiratory: Respiratory effort normal, Lungs clear to auscul., Wheeze Absent, Crackles Absent and Rhonchi Absent
Neuro/Psych: AO x 3
Data Reviewed
-
Date of Service: June 06, 2024
Medical Decision Making: Review of Case with other Provider (Rosette arvizu discussed with Alina fourth floor nurse)
[2024-06-06 16:37] LABS: Glucose - Point of Care 178 mg/dl (70-99)
[2024-06-06] MEDS: NOVOLOG FLEXPEN-LOW RESISTANCE 1 UNITS SC (16:41)
[2024-06-06 17:13] LABS: Glucose - Point of Care 153 mg/dl (70-99)
[2024-06-06] MEDS: LIPITOR 80 MG PO (21:33)
[2024-06-06 22:14] LABS: Glucose - Point of Care 177 mg/dl (70-99)
[2024-06-06 23:06] VITALS: BP 146/72
[2024-06-07 06:00] VITALS: BMI 25.6
[2024-06-07 07:40] VITALS: BP 141/81
[2024-06-07 07:51] LABS: Glucose - Point of Care 140 mg/dl (70-99)
[2024-06-07] MEDS: NOVOLOG FLEXPEN-LOW RESISTANCE SC ×2 (08:04→16:43)
--- NOTE | 2024-06-07 08:15 | W.PN.CD ---
Today's Communication / Plan
-
cont. to hold eliquis
[email or web address]
TF TAVR tomorrow first case
Impression / Plan
-
Impression/Plan: 88 y/o male with ROLF, non-obstructive CAD, PAF on OAT, moderate/severe paradoxical low flow, low gradient aortic valve stenosis and severe pHTN admitted with recurrent syncope. Patient has been seen in this hospital as well as
[facility] for syncope.
#Recurrent syncope
-Multifactorial (, pHTN)
-Orthostatics negative here
-No significant arrhythmias on monitor at time of syncope
-Nevertheless, the aortic stenosis is certainly contributing to syncope and limits medication titration and treatment of pHTN.
-The patient has been discussed in TAVR conference. The decision has been made to move forward with TAVR with plan for a Michelle 29 from the [facility] (through existing stent). He does not have good alternative access options due to both upper extremity
vessel caliber and the high risk for GA in this patient with pulmonary hypertension. TAVR planned for 06/08 first case.
#Atrial fibrillation:
-Paroxysmal.
-Currently in NSR.
-Symptoms occur in NSR and AF - no difference.
-Rate control with metoprolol.
-CHADS2-Vasc = 3 (HTN, Age x2).
-Therapeutic anticoagulation with apixaban 2.5 mg BID (reduced dose for age, creatinine > 1.5).
-Plan for TAVR before AF ablation to avoid apixaban disruption (per EP eval).
HOLD Eliquis starting with Friday a.m. Allowing for a full 48-hour hold
#Aortic stenosis
-Moderate to severe, paradoxical, low flow, low gradient (mean gradient 22 mmHg, LVEF 50%, TAVIA 1.0 cm2, SVI 32.5 mL/m2).
-TAVR workup complete -> TF TAVR 06/08/2024
-CTA chest - sizes to a #29 Harvey MICHELLE S3. CTA abdomen/pelvis shows significant PAD, but not prohibitive. Left sided access.
-Dental pulled teeth 06/04/2024
#Pulmonary Hypertension
-Chronic.
-Discovered at last catheterization.
-PA = 74/28/43, CO = 4.25, PVR = 6.6 Cai units.
-Symptoms improved with sildenafil at last hospitalization - though he admits to a presyncopal episode while on sildenafil and getting dressed at home.
-Sildenafil stopped by [place]. Syncope has recurred.
#Coronary artery disease
-Chronic, stable.
-Continue apixaban, statin, and BB.
#HFpEF
-Acute on chronic.
-Weight and BP stable.
-Furosemide PRN.
#Left carotid stenosis
-Chronic, stable.
-Managed by vascular surgery, Dr Costello.
-Continue statin.
#PAD
-New diagnosis, but chronic.
-No symptoms of claudication.
-Continue statin, apixaban.
Subjective/Interval History:
Feels well. No complaints of chest pain or shortness of breath. Sitting in chair in [facility]. Says he's getting SOB with exertion but nothing at rest.
Data:
Cath 04/27/24:
CONCLUSIONS:
1. Right dominant circulation with a 30% lesion in the distal RCA, a patent stent in the body of OM 2 and luminal irregularities in the LAD.
2. Normal filling pressures (LVEDP = 10 mmHg, PCWP = 15 mmHg at 80.3 kg).
3. Moderate to severe, paradoxical low-flow, low gradient aortic valve stenosis (mean gradient = 22.1 mmHg, TAVIA = 1.0 cm�, SVI = 32.5 mL, LVEF = 50% on TTE).
4. 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
Echo 11/5/24:
CONCLUSIONS
Low normal left ventricular systolic function.
Left ventricular ejection fraction is 50%.
Stage II diastolic dysfunction suggestive of abnormal relaxation and increased
filling pressures.
Mild biatrial enlargement.
Mild mitral regurgitation.
Moderate aortic stenosis (mean 20 mmHg, TAVIA 1.1 cmsq).
Estimated PASP 40 mmHg, assuming a right atrial pressure of 3 mmHg.
No significant change since the prior study of 11/14/2023 when the mean gradient
was 17 mmHg and the TAVIA was estimated at 1.3 cm2.
Chest CTA (TAVR), 05/28/2024:
IMPRESSION:
Measurements for proposed TAVR procedure, to be given as a separate addendum.
Band of increased opacity within the right upper lobe of the lung, unchanged from examination of March 08, 2024, and likely representing post therapy changes from previous radiation therapy.
Rounded contrast-filled protrusion from the posterior and inferior basal portion of the left ventricle, adjacent to prominent mitral annular calcification. This is compatible with a ventricular aneurysm.
ADDENDUM
Measurements for proposed TAVR procedure:
Trileaflet aortic valve. Moderate valvular calcification. No significant calcification within the left ventricular outflow tract.
Aortic annulus: 30.2 mm x 24.8 mm. Measured cross-sectional area of 554 sq mm.
Left ventricular outflow tract: Measured cross-sectional area 527 sq mm.
Sinuses of Valsalva: 36.3 mm x 34.4 mm x 36.4 mm.
Sinotubular junction: 32.6 mm x 32.1 mm.
Distance from aortic annulus to left coronary artery origin: 21.1 mm.
Distance from aortic annulus to right coronary artery origin: 15.8 mm.
Estimated coplanar angle: MARSHALLESE 8, caudal 10
Cusp overlap view: COSTELLO 10, caudal 25.
Orthopantogram, 06/01/2024:
IMPRESSION:
The patient is partially edentulous. No suspicious periapical lucencies. No displaced fractures. No suspicious calcifications seen to suggest sialolithiasis. Visualized sinuses appear clear.
CTA Abdomen/Pelvis, 06/02/2024:
IMPRESSION
Measurements for proposed TAVR procedure, to be added as a separate addendum.
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
Increased interstitial markings within the visualized lower lungs, likely mild interstitial fibrosis.
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
Severe calcification filling much of the lumen of the right common femoral artery at the level the mid femoral head.
Bony degenerative changes as described.
Physical Exam
Vital Signs/Labs
Vital Signs
Temp Pulse Resp BP Pulse Ox
36.3 C 80 18 146/72 95
06/06/24 23:06 06/06/24 23:06 06/06/24 23:06 06/06/24 23:06 06/06/24 23:06
06/06/24 06/07/24 06/08/24
06:59 06:59 06:59
Actual Weight 81.221 kg 80.824 kg
PT 16.3 Sec (11.4-14.6) H 06/05/24 07:04
INR 1.29 06/05/24 07:04
Magnesium 1.9 mg/dl (1.6-2.3) 06/06/24 05:48
06/05/24
07:04
Nsn-I-Kwlwiohtmqg Pept 2570
Physical Exam
Constitutional: No acute distress
Cardiovascular: Rhythm & rate is regular
Respiratory: Respiratory effort normal
Neuro/Psych: AO x 3
Data Reviewed
-
Date of Service: June 07, 2024
Medical Decision Making: Reviewed Test Results
Labs: Labs Reviewed by me
[2024-06-07] MEDS: MIRALAX 17 GRAMS PO (08:32)
[2024-06-07] MEDS: GLUCOTROL XL (EXTENDED RELEASE) 5 MG PO (08:33)
[2024-06-07] MEDS: ZINC 50 MG PO (08:33)
[2024-06-07] MEDS: VITAMIN D3 (cholecalciferol) 50 MCG PO (08:34)
[2024-06-07] MEDS: VITAMIN B-12 1000 MCG PO (08:34)
[2024-06-07] MEDS: PROSCAR 5 MG PO (08:34)
[2024-06-07] MEDS: TOPROL XL 50 MG PO ×2 (08:34→19:29)
[2024-06-07] MEDS: LOW STRENGTH ASPIRIN 81 MG PO (08:42)
[2024-06-07 09:08] LABS: Hematocrit 42.3 % (39.0-52.0); Mean Corp Hgb Conc. 33.1 g/dL (33.0-37.0); Mean Corpuscular Hgb 31.3 pg (27.0-31.0); Mean Corpuscular Volume 94.4 fL (80.0-94.0); Mean Platelet Volume 10.5 fL (7.4-10.4); Platelet Count 192 10^3/uL (130-400); Red Blood Cell Count 4.48 10^6/uL (4.70-6.10); White Blood Cell Count 10.8 10^3/uL (4.8-10.8)
[2024-06-07 09:38] LABS: Blood Urea Nitrogen 26 mg/dl (9-20); Carbon Dioxide 25 mmol/L (22-30); Chloride 103 mmol/L (98-107); Estimated Creatinine Clearance 32 ml/min; Glucose 150 mg/dl (70-99); Magnesium 1.9 mg/dl (1.6-2.3); Phosphorus 3.5 mg/dl (2.5-4.5); Potassium 4.7 mmol/L (3.5-5.1); Sodium 137 mmol/L (135-145); eGFR 38.78
--- NOTE | 2024-06-07 11:04 | CM ---
CM reviewed chart, patient seen bedside. TAVR planned for tomorrow, 06/08. CM will continue to follow for all discharge planning needs.
Plan; home with [facility] when stable.
[2024-06-07 11:33] LABS: Glucose - Point of Care 177 mg/dl (70-99)
[2024-06-07] MEDS: NOVOLOG FLEXPEN-LOW RESISTANCE 1 UNITS SC (12:26)
--- NOTE | 2024-06-07 14:09 | CM ---
Reviewed preoperative and postoperative instructions and restrictions, along with showering guidelines. Patient is agreeable to a home visit by CT Transitional RN. Patient lives with his daughter and grandson in a multilevel home, 1st floor set
up, 2 DANI[address], ambulates with a rollator and SPC. Plan is for the patient to return home with CT Transitional RN. May need VN after depending on patient's functional needs. CM to assess
[2024-06-07 15:31] VITALS: BP 137/70
[2024-06-07 16:31] LABS: Glucose - Point of Care 115 mg/dl (70-99)
--- NOTE | 2024-06-07 16:47 | W.PN.HOSP.TC ---
Today's Communication/Plan
-
TAVR planned
Assessment / Plan
Assessment / Plan
88-year-old male with syncope
CVS: S1-S2 normal, sm AA
Chest: CTA B/L
Abdomen: Soft, NT / Bowel sounds present
Extremities: No edema
CTA Abd/Pel with runoff for TAVR appreciated
-As described on recent CT of the chest, there is an aneurysm arising from the inferior base of the left ventricle, adjacent to prominent mitral annular calcification.
-Increased interstitial markings within the visualized lower lungs, likely mild interstitial fibrosis.
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 (outpt vascular follow up recommended)
-Severe calcification filling much of the lumen of the right common femoral artery at the level the mid femoral head (outpt vascular follow up recommended)
# Syncope
# Mild to moderate aortic stenosis with mild to moderate TR
Prior history of syncope with ventricular tachycardia/PVC status post ablation with loop recorder
Also history of syncope secondary to orthostatic hypotension
Medtronic device interrogated showing 18 events of atrial arrhythmias with maximum sustained rates 170. No tachycardia or bradycardia episodes that correlated with syncopal event.
Cardiology eval appreciated TAVR planned for 06/08 Eliquis hold started Friday for 48h prior to procedure
Negative orthostatic vital signs
PT OT appreciated home health
OMF eval Orthopantomogram appreciated, x2 teeth extracted 06/04 in preparation for TAVR, pain control prn ice packs Tylenol Dilaudid
# Paroxysmal atrial fibrillation
-on Eliquis (held Sun night in preparation for TAVR ), metoprolol
# Ventricular tachycardia status post ablation
# Coronary disease with stent in 2003-continue metoprolol and atorvastatin
# Chronic HFpEF-on as needed Lasix and metoprolol
# Newly diagnosed severe pulmonary hypertension 05/12/2024
# Peripheral artery disease with history of iliac stents. Aneurysmal dilatation of the infrarenal abdominal aorta with changes of dissection in the region of the aneurysm, severe calcification filling much of the lumen of the right common femoral
artery at the level of the mid femoral head.
Left carotid stenosis-follows up with Dr. Brooks
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
# Hyperlipidemia-continue statin
# Diabetes-continue glipizide. Hold metformin secondary to elevated creatinine. Accu-Cheks and sliding scale coverage ordered
# Enlarged prostate-continue finasteride
# ORAL on CKD stage III-creatinine better
# Lung cancer with history of radiation
# Spinal stenosis
# Ex-smoker
# DVT prophylaxis-Eliquis
# Full code
I have sent a message to cardiology re CT
Anticipated Discharge: > 48 hours
Subjective/Interval History
-
Date of Service: June 07, 2024
Objective Data
-
Labs:
Laboratory Results
06/07/24
08:38
WBC 10.8
Hgb 14.0
Hct 42.3
Plt Count 192
Sodium 137
Potassium 4.7
Chloride 103
Carbon Dioxide 25
BUN 26 H
Creatinine 1.7 H
Glucose 150 H
Calcium 9.0
Vital Signs:
Vital Signs
Temp Pulse Resp BP Pulse Ox
97.4 F 90 18 137/70 94
06/07/24 15:31 06/07/24 15:31 06/07/24 15:31 06/07/24 15:31 06/07/24 15:31
I&O
06/06/24 06/07/24 06/08/24
06:59 06:59 06:59
Intake Total 360 / 360 420 / 420
Output Total 550 / 550 500 / 500
Balance -190 / -190 -80 / -80
[2024-06-07] MEDS: LIPITOR 80 MG PO (21:07)
[2024-06-07 21:53] LABS: Glucose - Point of Care 125 mg/dl (70-99)
[2024-06-07 23:14] VITALS: BP 163/94
[2024-06-08] VITALS (9 sets, daily range): BP systolic 121–163; BP diastolic 72–85; PULSE 75; O2SAT 95; BMI 25.6; BMI 25.1
--- NOTE | 2024-06-08 00:22 | PTCARENOTE ---
Patient received as transfer from fourth floor. Ambulated from bed into the room, standby assist. Patient endorses dyspnea on exertion but denies chest pain or burning, lightheadedness, and/or dizziness. Patient educated on plan of care including
TAVR prep. Patient clipped and CHG shower completed. dental equipment repairer demonstrates sinus rhythm with 1st degree AV Block with PAC's and PVC's noted. Call pierce within reach. Plan of care ongoing
--- NOTE | 2024-06-08 04:46 | PTCARENOTE ---
Addendum entered by Demi Arriaga RN 06/08/24 04:48:
No new orders obtained at this time
Original Note:
Bilateral blood pressures obtained per protocol/order. Right arm 163/78. Left arm 132/76. CT Surgery IRENE Marcio Almanza notified of difference between arms.
[2024-06-08 05:05] LABS: Hematocrit 38.7 % (39.0-52.0); Hemoglobin 13.4 g/dL (13.0-18.0); Mean Corp Hgb Conc. 34.6 g/dL (33.0-37.0); Mean Corpuscular Hgb 31.5 pg (27.0-31.0); Mean Corpuscular Volume 91.1 fL (80.0-94.0); Mean Platelet Volume 10.5 fL (7.4-10.4); Platelet Count 198 10^3/uL (130-400); Red Blood Cell Count 4.25 10^6/uL (4.70-6.10); Red Cell Dist. Width 14.1 % (11.5-14.5); White Blood Cell Count 10.3 10^3/uL (4.8-10.8)
[2024-06-08 05:27] LABS: Blood Urea Nitrogen 26 mg/dl (9-20); Carbon Dioxide 22 mmol/L (22-30); Chloride 105 mmol/L (98-107); Estimated Creatinine Clearance 32 ml/min; Glucose 129 mg/dl (70-99); Magnesium 1.9 mg/dl (1.6-2.3); Potassium 4.6 mmol/L (3.5-5.1); Sodium 137 mmol/L (135-145); eGFR 38.78
--- NOTE | 2024-06-08 06:17 | W.PN.UPDATE ---
Update Note
Progress Note Update
CARDIAC SURGERY ATTENDING:
It was my pleasure to meet with Mr. Ric Dial and his family at bedside yesterday afternoon. We reviewed his pathology, discussed the TAVR procedure in great detail, reviewed the periprocedural risks (including, but not limited to, ,
stroke, VT, arrhythmia, PPM requirement, PNA, ORAL/F, bleeding/vascular injury, and infection), and discussed the expected postoperative recovery. All questions were answered to the best of my abilities. The patient was agreeable to proceed. We
also discussed the possibility that given his extensive PVD, that a TF approach for TAVR may or may not be possible. I do believe it is worth attempting a TF approach, but we will plan to have a low threshold for abandoning this attempt should
difficulties arise intraprocedurally. The patient understands these concerns and agrees. We also briefly discussed surgical rescue. The patient would consent to surgical rescue as deemed appropriate by the covering surgeon/team.
[2024-06-08 06:18] LABS: Glucose - Point of Care 121 mg/dl (70-99)
[2024-06-08] MEDS: NOVOLOG FLEXPEN-LOW RESISTANCE SC ×3 (06:19→17:50)
[2024-06-08] MEDS: LOW STRENGTH ASPIRIN 81 MG PO (06:20)
[2024-06-08] MEDS: VITAMIN D3 (cholecalciferol) 50 MCG PO (08:23)
[2024-06-08] MEDS: PROSCAR 5 MG PO (08:23)
[2024-06-08] MEDS: FLUSH (NSS) 2 FLUSH IV ×2 (08:24→11:50)
[2024-06-08] MEDS: ZINC 50 MG PO (08:24)
[2024-06-08] MEDS: VITAMIN B-12 1000 MCG PO (08:33)
[2024-06-08] MEDS: TOPROL XL PO (09:18)
[2024-06-08] MEDS: GLUCOTROL XL (EXTENDED RELEASE) PO (09:18)
[2024-06-08] MEDS: MIRALAX PO (09:18)
[2024-06-08] MEDS: ZOFRAN 4 MG IV (11:50)
--- NOTE | 2024-06-08 11:59 | PTCARENOTE ---
The patient c/o nausea. A one time does of Zofran given as ordered.
[2024-06-08 12:14] LABS: Glucose - Point of Care 115 mg/dl (70-99)
--- NOTE | 2024-06-08 14:18 | W.PN.HOSP.TC ---
Today's Communication/Plan
-
TAVR today
Assessment / Plan
Assessment / Plan
88-year-old male with syncope
seen earlier . Late documentation
Feels nauseous
CVS: S1-S2 normal, sm AA
Chest: CTA B/L
Abdomen: Soft, NT / Bowel sounds present
Extremities: No edema
CTA Abd/Pel with runoff for TAVR appreciated
-As described on recent CT of the chest, there is an aneurysm arising from the inferior base of the left ventricle, adjacent to prominent mitral annular calcification.
-Increased interstitial markings within the visualized lower lungs, likely mild interstitial fibrosis.
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 (outpt vascular follow up recommended)
-Severe calcification filling much of the lumen of the right common femoral artery at the level the mid femoral head (outpt vascular follow up recommended)
# Syncope
# Mild to moderate aortic stenosis with mild to moderate TR
Prior history of syncope with ventricular tachycardia/PVC status post ablation with loop recorder
Also history of syncope secondary to orthostatic hypotension
Medtronic device interrogated showing 18 events of atrial arrhythmias with maximum sustained rates 170. No tachycardia or bradycardia episodes that correlated with syncopal event.
Cardiology eval appreciated TAVR planned for 06/08 Eliquis hold started Friday for 48h prior to procedure
Negative orthostatic vital signs
OMF eval Orthopantomogram appreciated, x2 teeth extracted 06/04 in preparation for TAVR
# Nausea- Zofran
# Paroxysmal atrial fibrillation
-on Eliquis (held Sun night in preparation for TAVR ), metoprolol
# Ventricular tachycardia status post ablation
# Coronary disease with stent in 2003-continue metoprolol and atorvastatin
# Chronic HFpEF-on as needed Lasix and metoprolol
# Newly diagnosed severe pulmonary hypertension 05/12/2024
# Peripheral artery disease with history of iliac stents. Aneurysmal dilatation of the infrarenal abdominal aorta with changes of dissection in the region of the aneurysm, severe calcification filling much of the lumen of the right common femoral
artery at the level of the mid femoral head.
Left carotid stenosis-follows up with Dr. Brooks
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
# Hyperlipidemia-continue statin
# Diabetes-continue glipizide. Hold metformin secondary to elevated creatinine. Accu-Cheks and sliding scale coverage ordered
# Enlarged prostate-continue finasteride
# ORAL on CKD stage III-creatinine better
# Lung cancer with history of radiation
# Spinal stenosis
# Ex-smoker
# DVT prophylaxis-Eliquis
# Full code
D/W RN
Anticipated Discharge: 24 - 48 hours
Subjective/Interval History
-
Date of Service: June 08, 2024
Objective Data
-
Labs:
Laboratory Results
06/08/24
04:39
WBC 10.3
Hgb 13.4
Hct 38.7 L
Plt Count 198
Sodium 137
Potassium 4.6
Chloride 105
Carbon Dioxide 22
BUN 26 H
Creatinine 1.7 H
Glucose 129 H
Calcium 9.0
Vital Signs:
Vital Signs
Temp Pulse Resp BP Pulse Ox
98.2 F 77 16 155/80 96
06/08/24 11:10 06/08/24 11:10 06/08/24 11:10 06/08/24 11:10 06/08/24 11:10
I&O
06/07/24 06/08/24 06/09/24
06:59 06:59 06:59
Intake Total 420 / 420 480 / 480
Output Total 500 / 500 1030 / 1030 225 / 225
Balance -80 / -80 -550 / -550 -225 / -225
--- NOTE | 2024-06-08 16:51 | CM ---
spoke to pt and daughters in room. they are waiting for Dr Farooq, TAVR was cancelled today. emotional support offered. schedule plans are undetermined at this time.
--- NOTE | 2024-06-08 17:42 | W.PN.UPDATE ---
Update Note
Progress Note Update
CARDIAC SURGERY ATTENDING:
I arrived at bedside this afternoon to speak with Mr. Dial and his family to discuss why his TAVR had to be canceled for today and reviewed plans for rescheduling. The patient and his family were extremely upset at the initial onset of our
conversation. The patient himself was profoundly frustrated and screaming, demanding that we do his TAVR first thing in the morning tomorrow ('I was bumped, so now you need to bump somebody else') I tried to explain that arrangements of the
necessary logistics would not accommodate TAVR tomorrow morning. Despite these attempts, the patient and his 3 daughters became increasingly upset. I tried to calm the situation without success. The patient's daughters all became increasingly
upset. I suggested that I would be willing to assist in transfer to another institution should they be unhappy with the care they are receiving at [facility], while concurrently attempting to reiterating that we share the same goals to improve
their father's condition.
I asked the bedside nurse to join us in the room as the conversation was clearly heading in the wrong direction with escalating volumes. She was gracious enough to join us and aided greatly in calming the situation. I reviewed our commitment to
help Mr. Dial and attempted to hear and address all of the patient's and family's concerns. I empathized with their frustrations and again shared that we (myself and the entire structural heart team) have the same goal to improve his overall
health. I again explained all the necessary logistics involved in scheduling a TAVR procedure; this discussion was well received. I suggested the possibility of proceeding with TAVR this coming (our dedicated TAVR day), but made a clear
that I could not promise this without further discussions with all parties involved. I also again clearly shared that given his difficult vascular anatomy, there was a possibility that even when we attempted the TAVR that it may not be feasible
from a technical standpoint. I do personally feel confident that we will be able to access him by a left transfemoral approach however. I also shared once again that it is impossible to be certain how much of his symptoms is being driven by his
aortic stenosis as opposed to his pulmonary hypertension.
By the end of our conversations, the patient and his daughters were agreeable. I will make all appropriate managements to accommodate TAVR this if possible.
Thank you,
Mingo Farooq MD
[phone]
[2024-06-08 17:43] LABS: Glucose - Point of Care 132 mg/dl (70-99)
[2024-06-08] MEDS: TOPROL XL 50 MG PO (19:54)
[2024-06-08] MEDS: ATIVAN 0.5 MG PO (20:44)
--- NOTE | 2024-06-08 21:32 | PTCARENOTE ---
Received pt at change of shift. SR with a first degree heart block and a BBB on the monitor. HR in the 80s. Pt reports having a very stressful day and feeling anxious. PARAS Correa made aware and Ativan ordered and administered, see MAR. Call
pierce within reach.
[2024-06-08 22:18] LABS: Glucose - Point of Care 165 mg/dl (70-99)
[2024-06-08] MEDS: TYLENOL 650 MG PO (22:22)
[2024-06-08] MEDS: MELATONIN 5 MG PO (22:22)
[2024-06-08] MEDS: LIPITOR 80 MG PO (22:22)
[2024-06-09] VITALS (7 sets, daily range): BP systolic 95–158; BP diastolic 51–73; BMI 25.1
[2024-06-09 04:38] LABS: Hematocrit 39.2 % (39.0-52.0); Hemoglobin 13.6 g/dL (13.0-18.0); Mean Corp Hgb Conc. 34.7 g/dL (33.0-37.0); Mean Corpuscular Hgb 31.6 pg (27.0-31.0); Mean Platelet Volume 10.5 fL (7.4-10.4); Platelet Count 183 10^3/uL (130-400); Red Blood Cell Count 4.31 10^6/uL (4.70-6.10); White Blood Cell Count 6.8 10^3/uL (4.8-10.8)
--- NOTE | 2024-06-09 04:54 | PTCARENOTE ---
Patients temperature 100.9 degrees F, asymptomatic. PRN Tylenol administered as per protocol, see MAR. Now temp is 98.4 degrees. No complaints from pt at this time. call pierce within reach.
[2024-06-09 05:04] LABS: Blood Urea Nitrogen 30 mg/dl (9-20); Calcium 8.5 mg/dl (8.4-10.2); Carbon Dioxide 20 mmol/L (22-30); Chloride 103 mmol/L (98-107); Estimated Creatinine Clearance 27 ml/min; Glucose 114 mg/dl (70-99); Magnesium 1.9 mg/dl (1.6-2.3); Potassium 4.8 mmol/L (3.5-5.1); Sodium 133 mmol/L (135-145)
[2024-06-09 07:40] LABS: Glucose - Point of Care 120 mg/dl (70-99)
[2024-06-09] MEDS: NOVOLOG FLEXPEN-LOW RESISTANCE SC ×3 (07:50→17:49)
--- NOTE | 2024-06-09 08:24 | W.PN.CD ---
Today's Communication / Plan
-
TAVR tomorrow
Impression / Plan
-
Impression/Plan: 88 y/o male with ROLF, non-obstructive CAD, PAF on OAT, moderate/severe paradoxical low flow, low gradient aortic valve stenosis and severe pHTN admitted with recurrent syncope. Patient has been seen in this hospital as well as
[facility] for syncope.
#Recurrent syncope
-Multifactorial (, pHTN)
-Orthostatics negative here
-No significant arrhythmias on monitor at time of syncope
-Nevertheless, the aortic stenosis is certainly contributing to syncope and limits medication titration and treatment of pHTN.
-The patient has been discussed in TAVR conference. The decision has been made to move forward with TAVR with plan for a Michelle 29 from the FA (through existing stent). He does not have good alternative access options due to both upper extremity
vessel caliber and the high risk for GA in this patient with pulmonary hypertension. TAVR planned for 06/08 first case.
#Atrial fibrillation:
-Paroxysmal.
-Currently in NSR.
-Symptoms occur in NSR and AF - no difference.
-Rate control with metoprolol.
-CHADS2-Vasc = 3 (HTN, Age x2).
-Therapeutic anticoagulation with apixaban 2.5 mg BID (reduced dose for age, creatinine > 1.5).
-Plan for TAVR before AF ablation to avoid apixaban disruption (per EP eval).
HOLD Eliquis starting with Friday a.m. Allowing for a full 48-hour hold
#Aortic stenosis
-Moderate to severe, paradoxical, low flow, low gradient (mean gradient 22 mmHg, LVEF 50%, TAVIA 1.0 cm2, SVI 32.5 mL/m2).
-TAVR workup complete -> TF TAVR 06/09/2024
-CTA chest - sizes to a #29 Harvey MICHELLE S3. CTA abdomen/pelvis shows significant PAD, but not prohibitive. Left sided access.
-Dental pulled teeth 06/04/2024
#Pulmonary Hypertension
-Chronic.
-Discovered at last catheterization.
-PA = 74/28/43, CO = 4.25, PVR = 6.6 Cai units.
-Symptoms improved with sildenafil at last hospitalization - though he admits to a presyncopal episode while on sildenafil and getting dressed at home.
-Sildenafil stopped by [facility]. Syncope has recurred.
#Coronary artery disease
-Chronic, stable.
-Continue apixaban, statin, and BB.
#HFpEF
-Acute on chronic.
-Weight and BP stable.
-Furosemide PRN.
#Left carotid stenosis
-Chronic, stable.
-Managed by vascular surgery, Dr Costello.
-Continue statin.
#PAD
-New diagnosis, but chronic.
-No symptoms of claudication.
-Continue statin, apixaban.
Subjective/Interval History:
Feels well. Says he's getting SOB with exertion but at rest feels terrific.
Data:
Cath 04/27/24:
CONCLUSIONS:
1. Right dominant circulation with a 30% lesion in the distal RCA, a patent stent in the body of OM 2 and luminal irregularities in the LAD.
2. Normal filling pressures (LVEDP = 10 mmHg, PCWP = 15 mmHg at 80.3 kg).
3. Moderate to severe, paradoxical low-flow, low gradient aortic valve stenosis (mean gradient = 22.1 mmHg, TAVIA = 1.0 cm�, SVI = 32.5 mL, LVEF = 50% on TTE).
4. 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
Echo 04/27/24:
CONCLUSIONS
Low normal left ventricular systolic function.
Left ventricular ejection fraction is 50%.
Stage II diastolic dysfunction suggestive of abnormal relaxation and increased
filling pressures.
Mild biatrial enlargement.
Mild mitral regurgitation.
Moderate aortic stenosis (mean 20 mmHg, TAVIA 1.1 cmsq).
Estimated PASP 40 mmHg, assuming a right atrial pressure of 3 mmHg.
No significant change since the prior study of 11/14/2023 when the mean gradient
was 17 mmHg and the TAVIA was estimated at 1.3 cm2.
Chest CTA (TAVR), 05/28/2024:
IMPRESSION:
Measurements for proposed TAVR procedure, to be given as a separate addendum.
Band of increased opacity within the right upper lobe of the lung, unchanged from examination of March 08, 2024, and likely representing post therapy changes from previous radiation therapy.
Rounded contrast-filled protrusion from the posterior and inferior basal portion of the left ventricle, adjacent to prominent mitral annular calcification. This is compatible with a ventricular aneurysm.
ADDENDUM
Measurements for proposed TAVR procedure:
Trileaflet aortic valve. Moderate valvular calcification. No significant calcification within the left ventricular outflow tract.
Aortic annulus: 30.2 mm x 24.8 mm. Measured cross-sectional area of 554 sq mm.
Left ventricular outflow tract: Measured cross-sectional area 527 sq mm.
Sinuses of Valsalva: 36.3 mm x 34.4 mm x 36.4 mm.
Sinotubular junction: 32.6 mm x 32.1 mm.
Distance from aortic annulus to left coronary artery origin: 21.1 mm.
Distance from aortic annulus to right coronary artery origin: 15.8 mm.
Estimated coplanar angle: CHINESE 8, caudal 10
Cusp overlap view: COSTELLO 10, caudal 25.
Orthopantogram, 06/01/2024:
IMPRESSION:
The patient is partially edentulous. No suspicious periapical lucencies. No displaced fractures. No suspicious calcifications seen to suggest sialolithiasis. Visualized sinuses appear clear.
CTA Abdomen/Pelvis, 06/02/2024:
IMPRESSION
Measurements for proposed TAVR procedure, to be added as a separate addendum.
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
Increased interstitial markings within the visualized lower lungs, likely mild interstitial fibrosis.
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
Severe calcification filling much of the lumen of the right common femoral artery at the level the mid femoral head.
Bony degenerative changes as described.
Physical Exam
Vital Signs/Labs
Vital Signs
Temp Pulse Resp BP Pulse Ox
98.9 F 74 18 111/59 94
06/09/24 07:32 06/09/24 04:04 06/09/24 07:32 06/09/24 04:04 06/09/24 07:32
06/08/24 06/09/24 06/10/24
06:59 06:59 06:59
Actual Weight 175 lb 4.28 oz 175 lb 0.752 oz
06/09/24 04:11
06/09/24 04:11
PT 16.3 Sec (11.4-14.6) H 06/05/24 07:04
INR 1.29 06/05/24 07:04
Magnesium 1.9 mg/dl (1.6-2.3) 06/09/24 04:11
06/05/24
07:04
Guf-X-Eusgxuntvks Pept 2570
Physical Exam
Constitutional: No acute distress
EENT: Anicteric
Cardiovascular: Rhythm & rate is regular, Pedal edema is absent and Systolic murmur present
Respiratory: Respiratory effort normal and Lungs clear to auscul.
GI: Soft
Neuro/Psych: AO x 3
Data Reviewed
-
Date of Service: June 09, 2024
EKG: Tracing Personally Visualized and interpreted (sr)
Echo: Report Reviewed by me
Labs: Labs Reviewed by me
[2024-06-09] MEDS: TOPROL XL 50 MG PO ×2 (08:28→19:32)
[2024-06-09] MEDS: TYLENOL 650 MG PO ×2 (08:28→22:46)
[2024-06-09] MEDS: VITAMIN B-12 1000 MCG PO (08:28)
[2024-06-09] MEDS: MIRALAX 17 GRAMS PO (08:28)
[2024-06-09] MEDS: PROSCAR 5 MG PO (08:28)
[2024-06-09] MEDS: GLUCOTROL XL (EXTENDED RELEASE) 5 MG PO (08:28)
[2024-06-09] MEDS: LOW STRENGTH ASPIRIN 81 MG PO (08:28)
[2024-06-09] MEDS: ZINC 50 MG PO (08:28)
[2024-06-09] MEDS: VITAMIN D3 (cholecalciferol) 50 MCG PO (09:09)
--- NOTE | 2024-06-09 10:18 | W.PN.HOSP.TC ---
Today's Communication/Plan
-
TAVR 06/10/2024
Assessment / Plan
Assessment / Plan
88-year-old male with syncope
CVS: S1-S2 normal, sm AA
Chest: CTA B/L
Abdomen: Soft, NT / Bowel sounds present
Extremities: No edema
CTA Abd/Pel with runoff for TAVR
-As described on recent CT of the chest, there is an aneurysm arising from the inferior base of the left ventricle, adjacent to prominent mitral annular calcification.
-Increased interstitial markings within the visualized lower lungs, likely mild interstitial fibrosis.
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 (outpt vascular follow up recommended)
-Severe calcification filling much of the lumen of the right common femoral artery at the level the mid femoral head (outpt vascular follow up recommended)
# Syncope
# Mild to moderate aortic stenosis with mild to moderate TR
Prior history of syncope with ventricular tachycardia/PVC status post ablation with loop recorder
Also history of syncope secondary to orthostatic hypotension
[employer] device interrogated showing 18 events of atrial arrhythmias with maximum sustained rates 170. No tachycardia or bradycardia episodes that correlated with syncopal event.
Cardiology eval appreciated TAVR planned for 06/10 Eliquis hold for the procedure
Negative orthostatic vital signs
OMF x2 teeth extracted 06/04 in preparation for TAVR
TAVR postponed to , 06/10/2024
# Nausea- Zofran
# Paroxysmal atrial fibrillation-on Eliquis (held Sun night in preparation for TAVR ), metoprolol
# Ventricular tachycardia status post ablation
# Coronary disease with stent in 2003-continue metoprolol and atorvastatin
# Chronic HFpEF-on as needed Lasix and metoprolol
# Newly diagnosed severe pulmonary hypertension 05/12/2024
# Peripheral artery disease with history of iliac stents. Aneurysmal dilatation of the infrarenal abdominal aorta with changes of dissection in the region of the aneurysm, severe calcification filling much of the lumen of the right common femoral
artery at the level of the mid femoral head.
Left carotid stenosis-follows up with Dr. Brooks
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
# Hyperlipidemia-continue statin
# Diabetes-continue glipizide. Hold metformin secondary to elevated creatinine. Accu-Cheks and sliding scale coverage ordered
# Enlarged prostate-continue finasteride
# ORAL on CKD stage III-creatinine better
# Lung cancer with history of radiation
# Constipation- Bowel regimen
# Spinal stenosis
# Ex-smoker
# DVT prophylaxis-Eliquis
# Full code
D/W RN at bed side
Anticipated Discharge: > 48 hours
Subjective/Interval History
-
Date of Service: June 09, 2024
Objective Data
-
Labs:
Laboratory Results
06/09/24
04:11
WBC 6.8
Hgb 13.6
Hct 39.2
Plt Count 183
Sodium 133 L
Potassium 4.8
Chloride 103
Carbon Dioxide 20 L
BUN 30 H
Creatinine 2.0 H
Glucose 114 H
Calcium 8.5
Vital Signs:
Vital Signs
Temp Pulse Resp BP Pulse Ox
98.9 F 70 18 113/61 94
06/09/24 07:32 06/09/24 09:00 06/09/24 07:32 06/09/24 08:28 06/09/24 07:32
I&O
06/08/24 06/09/24 06/10/24
06:59 06:59 06:59
Intake Total 480 / 480 400 / 400
Output Total 1030 / 1030 400 / 400 250 / 250
Balance -550 / -550 -400 / -400 150 / 150
[2024-06-09] MEDS: SENOKOT 17.2 MG PO (11:31)
--- NOTE | 2024-06-09 11:56 | CM ---
Reviewed chart. Mr. Dial is tentatively scheduled for a TAVR on 06/20/24. Prior to admission he resides with his daughter and grandson in a multi-level with two steps to enter. He ambulates with a rollator or single point cane.
Yesterday he ambulated 65 x 2 with rolling walker and contact guard. Will need to see his functional level post TAVR to see if he will have any skilled care needs. Medical work-up in progress. The discharge plan is to return home with his daughter
and grandson with a home visit by the Transitional Care Nurse when medically stable.
[2024-06-09 12:07] LABS: Glucose - Point of Care 114 mg/dl (70-99)
--- NOTE | 2024-06-09 13:36 | PTCARENOTE ---
Tele- SR 60-70s. Assessment completed as documented. VSS. Pt has no c/o at this time. Plan of care reviewed w/ pt. Verbalizes understanding. Currently in bed; call kari w/in reach.
[2024-06-09 17:47] LABS: Glucose - Point of Care 126 mg/dl (70-99)
[2024-06-09] MEDS: LIPITOR 80 MG PO (21:32)
[2024-06-09] MEDS: MELATONIN 5 MG PO (21:32)
[2024-06-09 21:36] LABS: Glucose - Point of Care 147 mg/dl (70-99)
[2024-06-10] VITALS (24 sets, daily range): BP systolic 94–150; BP diastolic 48–96; BMI 25.4
[2024-06-10 04:02] LABS: Hematocrit 40.8 % (39.0-52.0); Hemoglobin 13.9 g/dL (13.0-18.0); Mean Corp Hgb Conc. 34.1 g/dL (33.0-37.0); Mean Corpuscular Hgb 31.2 pg (27.0-31.0); Mean Corpuscular Volume 91.5 fL (80.0-94.0); Mean Platelet Volume 11.1 fL (7.4-10.4); Platelet Count 189 10^3/uL (130-400); Red Blood Cell Count 4.46 10^6/uL (4.70-6.10); Red Cell Dist. Width 13.9 % (11.5-14.5); White Blood Cell Count 8.1 10^3/uL (4.8-10.8)
[2024-06-10 04:11] LABS: Blood Urea Nitrogen 37 mg/dl (9-20); Calcium 8.6 mg/dl (8.4-10.2); Carbon Dioxide 18 mmol/L (22-30); Chloride 103 mmol/L (98-107); Estimated Creatinine Clearance 26 ml/min; Glucose 112 mg/dl (70-99); Potassium 4.9 mmol/L (3.5-5.1); Sodium 133 mmol/L (135-145); eGFR 30.09
[2024-06-10 05:00] LABS: Glucose - Point of Care 104 mg/dl (70-99)
--- NOTE | 2024-06-10 05:26 | PTCARENOTE ---
Received pt at change of shift. SR on the monitor with a first degree heart block and a BBB. Patient clipped and CHG baths completed. Pt educated and verbalizes understanding of procedure and post procedure precautions. No complaints from pt at
this time, call pierce within reach.
--- NOTE | 2024-06-10 06:16 | W.CVOR.SURPR ---
CVOR Surgeon Immed Pre Op
-
I have examined this patient prior to performance of the scheduled procedure.
The patient's condition is unchanged from the time of the dictated/written History and
Physical and the patient is able to undergo the scheduled procedure.
[2024-06-10] MEDS: LOW STRENGTH ASPIRIN 81 MG PO (06:28)
[2024-06-10 08:01] LABS: ACT+ - POC 175 Seconds (82-134)
[2024-06-10 08:07] LABS: ACT+ - POC 186 Seconds (82-134)
[2024-06-10 08:42] LABS: ACT-LR - POC 210 Seconds (116-155)
[2024-06-10 08:43] LABS: B.E. - POC -7.6 mmol/L; Glucose - POC 172 mg/dl (70-99); HCO3 - POC 20 mmol/L (21-28); Hematocrit - POC 35 % PCV (42-52); Hemodilution- POC No; Hemoglobin Calculated - POC 11.7; Ionized Calcium - POC 1.14 mmol/L (1.15-1.33); O2 Saturation %Calculated-POC 95.4 % (94-98); PCO2 - POC 48 mmHg (35-48); PO2 - POC 93 mmHg (83-108); POC Comment PRE; Potassium - POC 4.1 mmol/L (3.5-5.1); Sodium - POC 137 mmol/L (136-145); Specimen Type - POC Venous; pH - POC 7.23 (7.35-7.45)
[2024-06-10 08:56] LABS: ACT-LR - POC 244 Seconds (116-155)
--- NOTE | 2024-06-10 09:38 | W.IMMPOSTOP ---
Addendum entered and electronically signed by iMngo Farooq MD 06/10/24 10:08:
[id number]
Original Note:
Surgical Immed Post Op Note
-
STRUCTURAL HEART PROCEDURE NOTE: TAVR
Preoperative Dx:
Moderate, possibly severe, aortic stenosis (P/M: 40/20, TAVIA 1.1, trace AI)
SEVERE pulmonary hypertension
CAD s/p PCI/stenting in 2003
HFpEF
COPD
PAD s/p B/L TIFFANIE stenting
A-fib
CKD stage 3 - creat 2.1
Lung CA s/p radiation
Hx of enterococcal bacteremia
Spinal stenosis
BPH
NIDDM
Postoperative Dx:
Same
Procedures:
1) R CFV access w/ U/S and fluoroscopic guidance, micropuncture technique, 6Fr sheath placement
2) R HEALTH UNIT SUPERVISOR access w/ tactile, U/S, and fluoroscopic guidance, micropuncture technique, limited angiography, 6Fr sheath placement
3) Attempted placement of temporary TV pacer via R CFV access - unsuccessful initially - upon successful placement, pacing instituted @ 100bpm - pt. w/ profound hemodynamic instability w/ SBP to 40s
4) Aborted pacing - CPR x ~3-4min w/ good hemodynamic response & recovery w/ pharmacologic resuscitation
5) Emergent TTE assessment to r/o tamponade/effusion - unremarkable
6) SGC placement w/ measurement of pulmonary hemodynamics (PAS 120s)
7) Exchange of short 6Fr CFV sheath for long CFV sheath & replacement of temporary pacing wire w/ threshold testing
8) Placement of pigtail catheter in RCC w/ limited aortography & confirmation of co-planar valve deployment angles
9) L HEALTH UNIT SUPERVISOR access w/ tactile, U/S, and fluoroscopic guidance, micropuncture technique, limited angiography, 6Fr sheath placement
10) Placement of perclose sutures x 2 in L HEALTH UNIT SUPERVISOR, 8Fr sheath placement
11) Serial dilation of L ileofemoral system (12Fr, 14Fr, 16Fr, 18Fr) w/ subsequent placement of Harvey E-sheath
12) Wire purchase across stenotic AV
13) L TF TAVR w/ placement of 29mm ADAMARIS 3 valve
14) Completion TTE (mean gradient 2mmHg, no PVL)
15) Removal of iptrn-[id number]-[id number] & Harvey E-sheath w/ L HEALTH UNIT SUPERVISOR mgmt w/ perclose sutures x 2; manual pressure
16) Completion L ileofemoral angiography
17) Removal of R HEALTH UNIT SUPERVISOR sheath w/ 6Fr angioseal; manual pressure
18) Temporary pacing wire/long 6Fr sheath secured in position secondary to CHB w/ pacing requirement - EP notified
Cardiac Surgeon:
Mingo Farooq M.D.
Instructional Services Librarian:
Thierno Lam M.D.
Anesthesia:
MAC & local to B/L groins
Cath Data:
Start: 0730hrs, Deploy: 0859hrs, End: 0915hrs
FT: 23.8min, mGy: 558.93, DAP: 69.3384, Contrast: 52mL
Post-TTE: mean gradient 2mmHg, no PVL/AI
Complications:
HD instability w/ initial pacing threshold testing requiring CPR and ACLS w/ successful resuscitation
Implants:
Harvey Lifesciences 29mm ADAMARIS 3; SN: [id number]
Perclose x 2 (L HEALTH UNIT SUPERVISOR)
Angioseal 6Fr (R HEALTH UNIT SUPERVISOR)
Condition:
Stable/guarded to recovery
[2024-06-10] MEDS: ANCEF 10 IV ×2 (10:00→10:34)
--- NOTE | 2024-06-10 10:10 | W.PN.UPDATE ---
Update Note
Progress Note Update
Reviewed Mr. Serrano with the heart team in the preTAVR SDM meeting and confirmed a 29mm S3 via left transfemoral access. Patient will resume Eliquis post TAVR. #29mm S3 (serial# [id number]) successfully deployed via left TF access. Post implant MG
2mmHg.
[2024-06-10] MEDS: NSS 500 VEN SHEATH (10:35)
[2024-06-10] MEDS: VITAMIN D3 (cholecalciferol) PO (11:12)
[2024-06-10] MEDS: MIRALAX PO (11:12)
[2024-06-10] MEDS: ZINC PO (11:12)
[2024-06-10] MEDS: VITAMIN B-12 PO (11:12)
[2024-06-10] MEDS: TOPROL XL PO (11:12)
[2024-06-10] MEDS: GLUCOTROL XL (EXTENDED RELEASE) PO (11:20)
[2024-06-10] MEDS: NOVOLOG FLEXPEN-LOW RESISTANCE SC (11:20)
--- NOTE | 2024-06-10 11:28 | CM ---
Chart reviewed. Patient is independent of ADLS, lives with his daughter and grandson, 2 STH, 1st floor set up, 2 DANIEL, ambulates with a rollator and SPC. Plan is for the patient to return home with CT Transitional RN. CM to follow
--- NOTE | 2024-06-10 11:31 | PTCARENOTE ---
Rec'd pt from CVOR sedated but arousable. Pt CLAYTON spontaneously and to command. Pt V-paced on monitor with underline CHB. EKG done. Pt with Rt femoral venous sheath, temp transvenous pacer set at 50/20. Pt on 2l n/c oxygen, Pulse ox 92-94%. Pt unable
to void, pt bladder scanned for 700. Ng catheter placed as ordered. Pt on IV dobutamine at 3mcg/kg/min, IV levo at 3 mcg/min. Pt NPO, on bedrest. Dr. Moore in to see patient at this time. Pt to go for PPM this afternoon. Family and patient
aware. DP and PT pulses via doppler. Rt and left groin dsgs intact, no bleeding, no hematoma. Levo weaned to 1mcg/min. See worklist for VS/I and O and assessments and groin checks.
--- NOTE | 2024-06-10 12:00 | W.PN.UPDATE ---
Update Note
Progress Note Update
Patient now transferred to CT surgery service. Will sign off.
[2024-06-10] MEDS: PROSCAR PO (14:22)
--- NOTE | 2024-06-10 14:22 | PTCARENOTE ---
Levo weaned to 1 mcg/min. Dobutamine remains at 3mcg/kg/min. report given to laborer cutting tool. Pt sent to laborer cutting tool for PPM at this time.
--- NOTE | 2024-06-10 14:31 | PTCARENOTE ---
Pt bathed with CHG wipes.
[2024-06-10 14:47] LABS: ACT-LR - POC > 397 Seconds (116-155)
--- NOTE | 2024-06-10 16:08 | ITS.CL.PACE ---
[employer] - Pacemaker Implant
Pacemaker Implant
Procedure Report:
Left Bundle Branch pacing dual chamber Permanent Pacemaker Placement:
Mr. Dial is an 88-year-old gentleman with history of PVC/VT ablation in 2022 with PAF and severe aortic stenosis status post TAVR today with complete heart block is in need for a pacemaker.
Indications:
Complete heart block.
Date of the Procedure: 06/10/24
Pre-Operative Diagnosis: Complete heart block
Post-Operative Diagnosis: Complete heart block
Procedure Performed: LEFT BUNDLE BRANCH PACING WITH DUAL CHAMBER PERMANENT PACEMAKER IMPLANTATION.
ILR explant
Temporary pacing wire removal
Performing physician:
Romina Moore MD
Anesthesia:
See anesthesia records
Detailed Description of the Procedure:
The patient was identified using hospital identification and informed consent obtained for the procedure. The risks were explained to the patient and the family including, but not limited to: Bleeding, infection, arrhythmia, stroke,
vascular/cardiac/lung puncture, surgery, pacemaker dependency/device malfunction. All questions were answered.
Anesthesia service provided sedation as reported separately. Antibiotics administered IV for risk of bacterial colonization. After obtaining informed and written consent, the patient was brought to the electrophysiology laboratory.
The initial rhythm was sinus rhythm with complete heart block and temporary wire pacing.
A timeout was performed immediately before the procedure. The left chest was prepped from the nipple to the angle of the jaw with chlorhexidine, and draped following sterile technique in usual routine.�
A surgical pause and time out was performed immediately prior to the procedure with review of her medical history, recent labs, allergies and medications with site of procedure identified and consent noted in the chart. Antibiotics pre operatively
given. All team members concurred.
The procedure site was meticulously prepared with surgical scrub and allowed to dry with no pooling. Sterile draping was applied to cover the procedure site. The image intensifier was draped with sterile bag and positioned over the patient.
The left infraclavicular region was prepped and draped in the usual sterile fashion. Local anesthesia was administered subcutaneously using 1% lidocaine / Bupivacaine. The left cephalic vein cutdown was done and guide wires were advanced to the
inferior vena cava (IVC) under flouro guidance.
A subcutaneous pocket was created with blunt dissection and use of electrocautery. Hemostasis was excellent.
Attention then was turned to the left bundle branch pacing lead. The guide wire was advanced to the RA and was advanced to the RV. The preformed curved long hemostatic peel away HIS sheath was advanced into the RV cavity. A left bundle pacing wire
was advanced into the sheath to the tip with ventricular signals noted with unipolar manner. The sheath with the pacing lead was moved deeper into the RV cavity from the HIS location on the septum at a more inferior and distal to the HIS signals.
Once adequate signals were noted on the electrograms of the pacing lead in the sheath with W pattern signals on the RV septum, the lead was advanced and clockwise turns were done under fluoroscopic guidance. The septum was engaged and the lead was
paced intermittently after every 2-3 turns. The Impedance of the lead was measured that remained stable around 1000 Ohm and the lead was not able to advance into the septum. The ventricular capture was monitored throughout and the captures gradually
changed from RV pacing to non-selective pacing to LBB pacing with R wave on V1.
With RBBB pattern noted on the pacing lead, it was decided to accept the location as optimal location. The long guiding sheath was cut and removed from the RV without change in lead position, impedance, sensing, or capture. The lead was sutured to
the underlying pectoralis fascia with 2-0 Ethibond stitches.
The RA lead was anchored in the right atrial appendage with engaging the active-fixation apparatus. There was excellent sensing, pacing, and impedance from the leads, with no diaphragmatic stimulation at 10 V output.�Bovie cautery, antibiotics, and
fluoroscopy were used.
The leads were attached to the pulse generator in standard configuration with acceptable sensing and threshold parameters. The pocket was irrigated with antibiotic solution; the pocket was inspected with no active bleeding noted. The device and the
leads were placed in the pocket.
Deep subcutaneous tissues were closed with 3 layers of 2-0V loc sutures; and the dermis was reopposed using a running 4-0 V-Loc subcuticular suture. Sponge counts / sharp counts were appropriate.
ILR extraction:
The ILR was palpated and the skin was anesthetized using 1% lidocaine / Bupivacaine. Skin incision was made over the previous scar. The ILR was dissected and was removed. The skin was closed using 4-0 Biosyn sutures and steri strips applied. �
Temporary pacing wire removal:
Under fluoro guidance the temporary pacing wire was successfully removed without any movement to the pacing leads.
Procedure End:
The procedure was tolerated well. Aquacel bandaged was applied. A pressure dressing was applied.
Estimated Blood loss:
5 cc
Specimens Removed:
No cultures and no specimens were obtained. No intraoperative pathology was identified.
Urine output:
None
Packs / Drains/ Tubes:
None
Instrument / Sponge Count Correct:
Yes
Complications of the Procedure:
None
Condition of Patient at Time of Transfer:
Hemodynamically stable with no neurological or vascular compromise.
Device information:�
Generator: [employer]; Model: W1DR01; Serial # [id number]�
����������� Atrial Lead: [employer]el [employer]; Model: 5076-52; Serial # [id number]
Measured data in the right atrium was sensing of 2.5 mV, impedance of 470 ohms and threshold of 1.0 V at 0.4ms�
����������� LBB pacing lead: Medtronic; Model: 3830-69; Serial # [id number]
����������� Measured data on the RV lead was sensing of 16 mV, impedance of 720 ohms and threshold of 0.5V at 0.4ms
PROGRAMMING PARAMETERS:�
Roberto parameter settings were DDDR 60-130 �
����������� Paced AV interval: 180ms
����������� Sensed AV interval: 150 ms.
����������� Rate Adaptive A-V Interval: off
����������� Mode switch ON
�
Summary:
Successful implantation of MRI compatible LBB pacing dual chamber pacemaker.
Results/Recommendations:
-Please follow up CXR�
1. Please provide patient with adequate pain control�
Instructions to be given to patient:�
- Please follow up with [facility] at [address] [place] [address] ([phone]) to get your wound checked in 2 weeks of your discharge. Then follow with
- Do not wet incision site until after it is evaluated at cardiology clinic. No baths or showers until then. Sponge baths / showers are OK but dab dry the dressing after it is wet.�
- Allow 'steri strips' to fall off on their own�
- Do not lift left elbow above shoulder, particularly with sudden jerking movements, for 1 month�
- Do not lift anything weighing more than 5 pounds with the left arm for 1 month�
- If you notice any fevers, shortness of breath, lightheadedness, chest pain, or worsening swelling in the wound site, please contact the arrhythmia clinic, contact your electrical sign servicer, or present to the hospital for evaluation.�
Romina Moore MD
Electrophysiology
--- NOTE | 2024-06-10 16:47 | ITS.CL.PN ---
[place] [facility] - Procedure Note
Procedure
Procedure Note:
TRANSCATHETER AORTIC VALVE REPLACEMENT REPORT
Date: 06/10/24
Referring physician: Dr. Elton Victoria DO
Preop diagnosis: severe aortic stenosis; acute on chronic decompensated heart failure; severe pulmonary hypertension
Postop diagnosis: severe aortic stenosis; acute on chronic decompensated heart failure; severe pulmonary hypertension
Procedure: Transcatheter aortic valve replacement (TAVR) using a #29 Harvey MICHELLE S3 Ultra.
Operators: Thierno Lam MD, PhD; Mingo Farooq MD
Anesthesia: Conscious sedation was provided by the anesthesia staff.
Estimated blood loss: Negligible.
Complications: Yes. 1) Cardiac arrest with brief CPR during pacing. 2) Complete heart block
Condition: Stable
Procedure:
The patient was brought to the cardiac clinical lab assistant after consent and was prepped and draped in standard sterile fashion. Conscious sedation was provided by the anesthesia staff. After a 'Time Out,' bilateral common femoral arteries and the right
femoral common vein were access using a modified Seldinger technique with a micropuncture kit under ultrasound guidance. A 6 Arabic sheath was placed in the right femoral vein. Angiography performed through the micropuncture sheath confirmed
satisfactory arterial placement in the right common femoral artery. The micropuncture sheath was replaced with a 6Fr sheath in the right RESOURCE TEACHER. A temporary pacing wire was advanced through the right femoral vein but would not easily enter the right
ventricle due to severe atrial dilation. After re-positioning, we testing capture which was inadequate (threshold 5 mA). However, after this brief pacing run (about 10 seconds at 100 bpm), the patient remained very hypotensive in sinus rhythm.
Anesthesia rapidly administered fluid and started vasopressors, but blood pressure remained 40/20 and CPR was initiated. Initial concern was for cardiac tamponade. Echo was called urgently to the room and we prepared for femoral bypass cannulation
should ROSC not be achieved. After approximately 3 minutes of CPR, ROSC was achieved with a hypertensive blood pressure. Echo demonstrated no effusion. Given known severe pulmonary hypertension, as well as observed low right atrial pressure on
access, our suspicion was that a combination of hypovolemia, coupled with severe preload dependence from pHTN and , and aggravated by pacing, led the patient to PEA arrest. The patient was given significant fluid resuscitation and vasopressors
weaned significantly. After much discussion, we elected to proceed with plan to carefully retest pacing tolerance after adequate rehydration and preemptive blood pressure augmentation.
Given the prior difficulties with pacemaker advancement, a balloon tipped pacer was floated to the PA to allow easier access to the RV. Right heart catheterization was performed with PA pressure measured at 110 systolic and PCWP ~25 mmHg. The
balloon tipped catheter was then exchanged for a 0.035 wire, allowing placement of a long sheath in the RV through which the pacemaker was deposited with capture verified down to 1mA. There were no hemodynamic consequences of this pacing. Next, a
5Fr pigtail catheter was advanced through the right femoral sheath and seated in the right coronary cusp. Angiography confirmed co-planar angles.
Angiography through the micropuncture kit confirmed satisfactory arterial placement in the left common femoral artery. The left RESOURCE TEACHER was dilated with an 8FR dilator and preclosed with two Perc-Close devices. An 8Fr sheath was placed in the LCFA.
The AL-1 catheter was used to deposit a Lunderquest wire in the descending aorta. Serial dilation was performed with 12F, 14F, 16F and 18F dilators to prepare the tract and dilated the common iliac stent adequately in preparation for sheath
advancement. The E-sheath was pre-dilated with a 20F dilator, and then advanced without difficulty over the Lunderquest wire. Additional heparin was given.
The MICHELLE S3 was prepared on the back table. Orientation was confirmed by both physicians. The AL-1 catheter was re-advanced through the E-sheath to the level of the ascending aorta. The Lunderquist wire was removed and a soft tip straight wire
was advanced through the AL-1. The straight tip wire was used to cross the aortic valve and the catheter was advanced into the left ventricle. The straight wire was removed and an Amplatz Extrastiff wire with curved proximal end was advanced
through the catheter and into the left ventricle. The wire was seated in the apex and the catheter was removed. ACT was checked and confirmed to be > 250 seconds.
The valve was advanced over the Extrastiff wire and into the descending aorta. The balloon was withdrawn and the valve was mounted on the balloon. The valve was advanced over the aortic arch and into the aortic valve annulus. The pusher device
was withdrawn to allow for balloon expansion. Low volume aortography confirmed good position of the valve. The valve was deployed during rapid ventricular pacing. The patient recovered from pacing without hypotension, but was observed to be in new
complete heart block. Echocardiography and aortography confirmed a good result with no aortic valve insufficiency and a 1 mmHg mean gradient. The valve deployment system was removed. The Harvey E sheath was then removed and hemostasis obtained
with the two Perclose sutures. Final angiography demonstrated no evidence of ileofemoral dissection/perforation and good distal runoff. The patient remained in hemodynamically stable complete heart block so the pacemaker was sewn in place. The
pigtail catheter were removed, and the right femoral artery sheath was removed using a 6Fr Angioseal. This concluded the procedure. The EP team was informed about the need for likely same day permanent pacemaker, and family updated.
Conclusions:
1. Successful placement of #29 Michelle S3 Ultra aortic valve via right transfemoral approach. Procedure was complicated by intraprocedural brief cardiac arrest successfully aborted with ACLS.
2. Acute on chronic heart failure with severe pulmonary hypertension and elevated PCWP.
3. Complete heart block with TVP sewn in place.
Signed: Thierno Lam MD, PhD
[2024-06-10 17:27] LABS: Glucose - Point of Care 174 mg/dl (70-99)
--- NOTE | 2024-06-10 18:09 | PTCARENOTE ---
Pt received post pacer at 1700 alert awake and oriented. Denies any pain or discomfort. Bilateral groin site dressings dry and intact. Left chest pacer site WNL with aqucell and immobilizer intact. V paced in the 80's.
[2024-06-10] MEDS: TOPROL XL 50 MG PO (19:32)
[2024-06-10 22:02] LABS: Glucose - Point of Care 272 mg/dl (70-99)
[2024-06-10] MEDS: LIPITOR 80 MG PO (22:47)
[2024-06-10] MEDS: MELATONIN 5 MG PO (22:47)
[2024-06-10] MEDS: ANCEF 5 IV (22:47)
[2024-06-10] MEDS: ROXICODONE 2.5 MG PO (22:47)
--- NOTE | 2024-06-10 23:11 | PTCARENOTE ---
Received patient at change of shift. V paced on the monitor, HR in the 70s. L chest dressing CDI, no evidence of hematoma. Immobilizer in place. Bilateral groins CDI, no evidence of hematoma. Neuro checks completed, neurologically intact. Ng in
place, clear yellow urine. Pt complains of 5/10 pain at pacemaker site, PRN pain medication administered as per AUG. Call pierce within reach.
[2024-06-11] VITALS (14 sets, daily range): BP systolic 98–175; BP diastolic 49–99; PULSE 75–89; O2SAT 97; BMI 26.1
[2024-06-11 04:10] LABS: Hematocrit 35.3 % (39.0-52.0); Mean Corpuscular Hgb 31.1 pg (27.0-31.0); Mean Corpuscular Volume 91.5 fL (80.0-94.0); Platelet Count 142 10^3/uL (130-400); Red Blood Cell Count 3.86 10^6/uL (4.70-6.10); Red Cell Dist. Width 13.8 % (11.5-14.5)
[2024-06-11 04:40] LABS: Blood Urea Nitrogen 33 mg/dl (9-20); Calcium 8.6 mg/dl (8.4-10.2); Carbon Dioxide 20 mmol/L (22-30); Chloride 101 mmol/L (98-107); Estimated Creatinine Clearance 27 ml/min; Glucose 206 mg/dl (70-99); Potassium 5.4 mmol/L (3.5-5.1); Sodium 133 mmol/L (135-145)
[2024-06-11] MEDS: ANCEF 5 IV (05:27)
--- NOTE | 2024-06-11 06:15 | W.PN.CT ---
Today's Communication / Plan
-
-pod #1
-no issues overnight
-nsr 70s with V-pacing overnight
-K 5.4 this am- repeat pending
-Cr 2.0- stable (2.1 preop)
-Hg 12.0 (13.9 prior). Groins are stable, soft, no hematoma b/l
-Echo today
-current meds (ASA, Toprol 50 bid, Lipitor, Proscar). Pt was on Eliquis preop for paf and Metformin and Glipizide for DM.
-encourage IS, OOB
Assessment / Plan
-
- Severe symptomatic - s/p L TF TAVR w/ placement of 29mm ADAMARIS 3 valve on 06/10/24, pod #1
- HD instability w/ initial pacing threshold testing requiring CPR and ACLS w/ successful resuscitation
- Post-TTE: mean gradient 2mmHg, no PVL/AI
- CHB post TAVR - s/p Successful implantation of Medtronic MRI compatible LBB pacing dual chamber pacemaker and explant of ILR on 06/10/[address] Moore
- SEVERE pulmonary hypertension- follows with Dr. Jessica
- CAD - s/p PCI/stenting in 2003
- S/p VT/PVCs ablation 2022
- Chronic diastolic CHF /HFpEF, EF 55-60%
- COPD
- PAD - s/p B/L TIFFANIE stenting
- Paroxysmal A-fib- on Eliquis preop
- Pre-existing RBBB
- 70% L carotid stenosis
- CKD stage 3 - creat 2.1
- Lung CA s/p radiation
- Hx of enterococcal bacteremia
- Spinal stenosis
- BPH
- NIDDM
Discussed patient care with: Nursing and Care Team
Subjective
-
Date of Service: June 10, 2024
Objective Data
-
Lab Results
06/10/24 02:38
06/10/24 02:38
PT 16.3 Sec (11.4-14.6) H 06/05/24 07:04
INR 1.29 06/05/24 07:04
Vital Signs
Vital Signs
Temp Pulse Resp BP Pulse Ox
97.5 F 81 18 150/96 95
06/10/24 22:45 06/10/24 23:00 06/10/24 22:45 06/10/24 22:43 06/10/24 22:45
CT Intake/Output/Weight
06/10/24 06/10/24 06/11/24
06:59 18:59 06:59
Intake Total 80.2 / 80.2
Output Total 300 / 550 985 / 985
Balance -300 / -150 -904.8 / -904.8
SaO2: 95
Physical Exam
-
General: Awake
Cardiovascular: Regular rate & rhythm, No Murmurs and No Rub
Respiratory: Clear
Incision: Other (groins are cdi, soft, nontender, no hematoma b/l)
Extremities: No Edema (1+ DPs b/l)
Data Reviewed
-
Lab Results: Results Reviewed
Medications: Active Meds Reviewed
Chest X-Ray: Report Reviewed and Image Reviewed
ECG: Report Reviewed and Image Reviewed
[2024-06-11 07:30] LABS: Glucose - Point of Care 187 mg/dl (70-99)
--- NOTE | 2024-06-11 07:51 | W.PN.CD ---
Today's Communication / Plan
-
- Resume Eliconnieis tonight
- D/c Ng and Ambulate
- If able to urinate, can be discharged.
Impression / Plan
-
Impression/Plan: 88 y/o male with ROLF, non-obstructive CAD, PAF on OAT, moderate/severe paradoxical low flow, low gradient aortic valve stenosis and severe pHTN admitted with recurrent syncope. Patient has been seen in this hospital as well as
[facility] for syncope.
#Aortic stenosis
-Moderate to severe, paradoxical, low flow, low gradient (mean gradient 22 mmHg, LVEF 50%, TAVIA 1.0 cm2, SVI 32.5 mL/m2).
-s/p TAVR 06/10/2024
-Both groins are clear - no hematoma or vascular compromise.
-CTA chest - sizes to a #29 Harvey ADAMARIS S3. CTA abdomen/pelvis shows significant PAD, but not prohibitive. Left sided access.
-Dental pulled teeth 06/04/2024
-Ng still in place
- Plan to remove and ambulate. If can void - can be discharged.
#Complete heart block
- h/o Recurrent syncope - ILR was placed but with PPM in place the ILR was removed.
- Multifactorial (, pHTN)
- h/p VT ablation - no sign of VT or PVCs
- s/p AV replaced with TAVR
- Complete heart block noted - with hx of severe conduction disease
- s/p dual chamber conduction system PPM placed on 06/10/24
- Off pressors since the PPM implant.
#Atrial fibrillation:
-Paroxysmal.
-Currently in NSR.
-Symptoms occur in NSR and AF - no difference.
-Rate control with metoprolol.
-CHADS2-Vasc = 3 (HTN, Age x2).
-Therapeutic anticoagulation with apixaban 2.5 mg BID (reduced dose for age, creatinine > 1.5).
-can resume today.
#Pulmonary Hypertension
-Chronic.
-Discovered at last catheterization.
-PA = 74/28/43, CO = 4.25, PVR = 6.6 Cai units.
-Symptoms improved with sildenafil at last hospitalization - though he admits to a presyncopal episode while on sildenafil and getting dressed at home.
-Sildenafil stopped by Myra. Syncope has recurred.
#Coronary artery disease
-Chronic, stable.
-Continue apixaban, statin, and BB.
#HFpEF
-Acute on chronic.
-Weight and BP stable.
-Furosemide PRN.
#Left carotid stenosis
-Chronic, stable.
-Managed by vascular surgery, Dr Costello.
-Continue statin.
#PAD
-New diagnosis, but chronic.
-No symptoms of claudication.
-Continue statin, apixaban.
Subjective/Interval History:
Feels well. no active complaints.
Data:
Cath 04/27/24:
CONCLUSIONS:
1. Right dominant circulation with a 30% lesion in the distal RCA, a patent stent in the body of OM 2 and luminal irregularities in the LAD.
2. Normal filling pressures (LVEDP = 10 mmHg, PCWP = 15 mmHg at 80.3 kg).
3. Moderate to severe, paradoxical low-flow, low gradient aortic valve stenosis (mean gradient = 22.1 mmHg, TAVIA = 1.0 cm�, SVI = 32.5 mL, LVEF = 50% on TTE).
4. 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
Echo 04/27/24:
CONCLUSIONS
Low normal left ventricular systolic function.
Left ventricular ejection fraction is 50%.
Stage II diastolic dysfunction suggestive of abnormal relaxation and increased
filling pressures.
Mild biatrial enlargement.
Mild mitral regurgitation.
Moderate aortic stenosis (mean 20 mmHg, TAVIA 1.1 cmsq).
Estimated PASP 40 mmHg, assuming a right atrial pressure of 3 mmHg.
No significant change since the prior study of 11/14/2023 when the mean gradient
was 17 mmHg and the TAVIA was estimated at 1.3 cm2.
Chest CTA (TAVR), 05/28/2024:
IMPRESSION:
Measurements for proposed TAVR procedure, to be given as a separate addendum.
Band of increased opacity within the right upper lobe of the lung, unchanged from examination of March 08, 2024, and likely representing post therapy changes from previous radiation therapy.
Rounded contrast-filled protrusion from the posterior and inferior basal portion of the left ventricle, adjacent to prominent mitral annular calcification. This is compatible with a ventricular aneurysm.
ADDENDUM
Measurements for proposed TAVR procedure:
Trileaflet aortic valve. Moderate valvular calcification. No significant calcification within the left ventricular outflow tract.
Aortic annulus: 30.2 mm x 24.8 mm. Measured cross-sectional area of 554 sq mm.
Left ventricular outflow tract: Measured cross-sectional area 527 sq mm.
Sinuses of Valsalva: 36.3 mm x 34.4 mm x 36.4 mm.
Sinotubular junction: 32.6 mm x 32.1 mm.
Distance from aortic annulus to left coronary artery origin: 21.1 mm.
Distance from aortic annulus to right coronary artery origin: 15.8 mm.
Estimated coplanar angle: HELGA 8, caudal 10
Cusp overlap view: COSTELLO 10, caudal 25.
Orthopantogram, 06/01/2024:
IMPRESSION:
The patient is partially edentulous. No suspicious periapical lucencies. No displaced fractures. No suspicious calcifications seen to suggest sialolithiasis. Visualized sinuses appear clear.
CTA Abdomen/Pelvis, 06/02/2024:
IMPRESSION
Measurements for proposed TAVR procedure, to be added as a separate addendum.
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
Increased interstitial markings within the visualized lower lungs, likely mild interstitial fibrosis.
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
Severe calcification filling much of the lumen of the right common femoral artery at the level the mid femoral head.
Bony degenerative changes as described.
Physical Exam
Vital Signs/Labs
Vital Signs
Temp Pulse Resp BP Pulse Ox
97.7 F 76 20 159/84 97
06/11/24 07:25 06/11/24 03:30 06/11/24 07:25 06/11/24 03:30 06/11/24 07:25
06/10/24 06/11/24 06/12/24
06:59 06:59 06:59
Actual Weight 80.2 kg 82.5 kg
06/11/24 03:52
PT 16.3 Sec (11.4-14.6) H 06/05/24 07:04
INR 1.29 06/05/24 07:04
Magnesium 2.0 mg/dl (1.6-2.3) 06/10/24 02:38
06/05/24
07:04
[id number] Pept 2570
Physical Exam
Constitutional: No acute distress and Comfortable
EENT: Anicteric and Moist mucous membranes
Cardiovascular: Rhythm & rate is regular, Pedal edema is absent, JVD pressure is normal and Systolic murmur absent
Respiratory: Respiratory effort normal, Lungs clear to auscul. and Wheeze Absent
GI: Soft, Non tender and Normal bowel sounds
Neuro/Psych: Alert, Oriented and AO x 3
Other: Cath Site and Cardiac Device Site
Data Reviewed
-
Date of Service: June 11, 2024
Medical Decision Making: Reviewed Test Results, Independent Historian Assessment and Test Interpretation
EKG: Tracing Personally Visualized and interpreted
Echo: Report Reviewed by me
Labs: Labs Reviewed by me
Old Records: Reviewed
[2024-06-11] MEDS: PROSCAR 5 MG PO (08:18)
[2024-06-11] MEDS: TOPROL XL 50 MG PO ×2 (08:18→20:22)
[2024-06-11] MEDS: VITAMIN D3 (cholecalciferol) 50 MCG PO (08:18)
[2024-06-11] MEDS: ZINC 50 MG PO (08:18)
[2024-06-11] MEDS: LOW STRENGTH ASPIRIN 81 MG PO (08:18)
[2024-06-11] MEDS: FLOMAX 0.4 MG PO (08:18)
[2024-06-11] MEDS: VITAMIN B-12 1000 MCG PO (08:19)
[2024-06-11] MEDS: LASIX 40 MG IV (08:20)
[2024-06-11] MEDS: NOVOLOG FLEXPEN-LOW RESISTANCE 1 UNITS SC (08:25)
[2024-06-11] MEDS: MIRALAX PO (08:26)
[2024-06-11] MEDS: REVATIO 20 MG PO ×3 (09:20→22:37)
--- NOTE | 2024-06-11 09:53 | W.PN.ANS.POP ---
Anesthesia Post Operative
- Anesthesia Post Op Note
Vital Signs Stable-See Nursing Note: Yes
Airway Patent: Yes
Adequate Pain Control: Yes
Change in Mental Status: No
Current Postoperative Nausea & Vomiting: No
Anesthesia Complications: No
General Anesthetic Recall: No
Unplanned Admission: No
Post Op Hydration Adequate: Yes
[2024-06-11 11:32] LABS: Potassium 4.9 mmol/L (3.5-5.1)
--- NOTE | 2024-06-11 11:49 | CM ---
Addendum entered by NAT Zelaya 06/11/24 16:09:
Correction to below note.
Pt. was referred to [facility] while on the general medical floor.
Plan will be for home w/ [facility] rather than [facility].
Noted PT-OT re-evaluations and patient is being recommended for home PT/OT.
PLAN- Home w/ [facility]
Original Note:
CM following for DC planning needs.
Reviewed DC plan for home w/ [facility] RN once stable.
CM to cont. to follow.
[2024-06-11 12:31] LABS: Glucose - Point of Care 149 mg/dl (70-99)
--- NOTE | 2024-06-11 12:39 | W.DCSUMMARY ---
Documented by User: NATALI Robledo 06/11/24 12:48
Discharge Summary
Discharge Data
Date of Admission: 05/27/24
Date of Discharge: 06/11/24
Total time spent discharging patient (in min): 40
-
Pending Results: No
Hospital Course
Primary care physician:
Giles Nails MD
Outpatient maintenance man:
Santiago Washington MD
Inpatient consultants:
CBC, anesthesia
Procedures:
1. L TF TAVR w/ placement of 29mm ADAMARIS 3 valve
Primary Diagnosis:
1. Moderate, possibly severe, aortic stenosis (P/M: 40/, TAVIA 1.1, trace AI)
Secondary Diagnoses:
1. SEVERE pulmonary hypertension
2. CAD s/p PCI/stenting in
3. COPD
4. PAD s/p B/L TIFFANIE stenting
5. A-fib
6. CKD stage 3 - creat 2.1
7.Lung CA s/p radiation
8. Hx of enterococcal bacteremia
9. Spinal stenosis
10. BPH
11. NIDDM.
HPI: 88-year-old male with past medical history above initially presented to [facility] on 05/25 with a syncopal episode. He was noted to have severe and previously he was getting worked up for a TAVR outpatient. He was surgically
optimized and was taken to the Supply Person on 06/10 for a transfemoral transcatheter aortic valve replacement.
Hospital course: Patient initially presented to [facility] status post a syncopal event while showering. He was surgically optimized and was taken to the Supply Person on 06/[address] Farooq for a transcatheter aortic valve replacement.
IntraOp patient had an episode of ventricular tachycardia he received a short treatment of CPR and they proceeded with the procedure. 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 B/l groins remain stable. He was
sent to IVU for the remainder of their recovery. On 06/11, POD #1, B/L groins remained stable. Repeat TTE showed a peak/mean gradient of . The decision was made to start the patient on 20 mg 3 times daily of sildenafil and he was kept an
additional day for observation.
Home medication changes:
See below
Discharge Plan
-
Patient Disposition: Home (Routine Discharge)
Discharge Diagnosis/Procedures: Aortic stenosis/TAVR, Pacemaker implant
Condition: Fair
Diet: Low Fat, Low Cholesterol and 2 Gram Sodium
Activity: No strenuous activity
Driving Restrictions: No driving for 1 week
Bathing Restrictions: OK to Shower
Blood Work: BMP-to be drawn on 06/17/24. Assess renal function with resuming home DM meds. Please send results to the office of Santiago Washington and Structural Heart Team Nancy Glaser/Shahla HURST
Specialty Instructions: Weigh Daily- Call MD for wt gain/loss 3 lbs overnight/5 lbs in 1 week
Activity Restrictions/Additional Instructions:
Please call for Phase II Cardiac Rehab (When PT/OT/nursing are no longer needed):
[facility]
[phone]
Stand Alone Forms: DC Inst - Implanted Device, DC Inst - TransFemoral (TAVR)
Referrals:
[facility] [Outside]
Lianna Grande CRNP [Specified Professional Personl] - 07/08/24 10:00 am
Haresh Lilly DO [Family Provider] - 06/04/24 9:30 am
Additional Discharge Medication Instructions: Please pay attention to the following medication changes:
Take Sildenafil 20 mg TID-pulmonary hypertension
Take Tamsulosin 0.4 mg daily-benign prostatic hypertrophy
Stop the following medications:
Furosemide 20 mg daily PRN. Therapy no longer needed. Discuss resuming with Cardiology, Dr. Santiago Washington MD.
Hold the following medications:
Glipizide 5 mg daily-resume on 06/14/24
Metformin 500 mg BID-resume on 06/14/24
BMP-to be drawn on 06/17/24. Assess renal function with resuming home DM meds. Please send results to the office of Santiago Washington and Structural Heart Team Nancy Glaser/Sahhla HURST
Prescriptions:
New
tamsulosin 0.4 mg Capsule
0.4 mg PO DAILY Qty: 7 0RF
sildenafil (pulm.hypertension) 20 mg Tablet
20 mg PO TID Qty: 90 1RF
Continued
cyanocobalamin (vitamin B-12) 1,000 MCG tablet
1,000 mcg PO DAILY
atorvastatin 80 MG tablet
80 mg PO HS
metoprolol succinate 50 mg Tablet Extended Release 24 Hr
50 mg PO BID
finasteride 5 mg Tablet
5 mg PO DAILY
Eliquis 2.5 mg Tablet
2.5 mg PO BID Qty: 30 0RF
omega 8-zjv-qyr-fish oil [Fish Oil] 1,000 mg (120 mg-180 mg) Capsule
1 cap PO BID
cholecalciferol (vitamin D3) 50 mcg (2,000 unit) Tablet
50 mcg PO DAILY
acetaminophen [Tylenol Extra Strength] 500 mg Tablet
1,000 mg PO Q6HPRN PRN (Reason: mild pain)
zinc sulfate 50 mg zinc (220 mg) Tablet
50 mg PO DAILY
Held
glipizide 5 mg Tablet Extended Release 24hr
5 mg PO DAILY
Hold Instructions: Resume on 06/14/24.
metformin 500 mg tablet extended release 24 hr
500 mg PO BID
Hold Instructions: Resume on 06/14/24.
Discontinued
furosemide 20 mg Tablet
20 mg PO DAILYPRN PRN (Reason: swelling)
Discharge Orders:
Discharge Patient (As Directed); Ordered 06/12/24
Ordered By: Cathy Orourke
Care Plan Goals
Care Plan Goals:
Problem: Readiness for enhanced knowledge related to diagnosis and treatment plan
Goal: Understand your diagnosis and treatment plan needs, including medications if applicable.
Instructions: Know your diagnosis, underlying causes and treatment plan options, including medications if applicable. Consult with your health care team to learn about your diagnosis and treatment plan, including medications if applicable.
Discharge Date and Time
Print Language: KINYARWANDA

Documented by User: Cathy Orourke PA-C 06/12/24 10:43
Discharge Summary
Discharge Data
Date of Admission: 05/27/24
Date of Discharge: 06/12/24
Hospital Course
Primary care physician:
Giles Nails MD
Outpatient maintenance man:
Santiago Washington MD
Inpatient consultants:
CBC, anesthesia
Procedures:
1. L TF TAVR w/ placement of 29mm ADAMARIS 3 valve
Primary Diagnosis:
1. Moderate, possibly severe, aortic stenosis (P/M: 40/20, TAVIA 1.1, trace AI)
Secondary Diagnoses:
1. SEVERE pulmonary hypertension
2. CAD s/p PCI/stenting in
3. COPD
4. PAD s/p B/L TIFFANIE stenting
5. A-fib
6. CKD stage 3 - creat 2.1
7.Lung CA s/p radiation
8. Hx of enterococcal bacteremia
9. Spinal stenosis
10. BPH
11. NIDDM.
HPI: 88-year-old male with past medical history above initially presented to [facility] on 05/25 with a syncopal episode. He was noted to have severe and previously he was getting worked up for a TAVR outpatient. He was surgically
optimized and was taken to the Supply Person on 06/10 for a transfemoral transcatheter aortic valve replacement.
Hospital course: Patient initially presented to [facility] status post a syncopal event while showering. He was surgically optimized and was taken to the Supply Person on 06/[address] Farooq for a transcatheter aortic valve replacement.
IntraOp patient had an episode of ventricular tachycardia he received a short treatment of CPR and they proceeded with the procedure. 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 B/l groins remain stable. He was
sent to IVU for the remainder of their recovery. On 06/11, POD #1, B/L groins remained stable. Repeat TTE showed a peak/mean gradient of 10/6 mmHg, no aortic regurgitation, and en ejection fraction of 55-60%. The decision was made to start the
patient on 20 mg 3 times daily of sildenafil and he was kept an additional day for observation. On postoperative day #2 the patient remained stable and tolerated sildenafil. He was medically cleared to be discharged to home on Eliquis 2.5 twice
daily. Follow-up BMP outpatient on 06/17/2024 to make sure renal function is stable. Please send results to the office of Dr. Santiago Washington MD. cardiology, and structural heart team (Nancy Glaser/Arely HURST).
Home medication changes:
See below
Please pay attention to the following medication changes:
Take Sildenafil 20 mg TID-pulmonary hypertension
Take Tamsulosin 0.4 mg daily-benign prostatic hypertrophy
Stop the following medications:
Furosemide 20 mg daily PRN. Therapy no longer needed. Discuss resuming with Cardiology, Dr. Santiago Washington MD.
Hold the following medications:
Glipizide 5 mg daily-resume on 06/14/24
Metformin 500 mg BID-resume on 06/14/24
BMP-to be drawn on 06/17/24. Assess renal function with resuming home DM meds. Please send results to the office of Santiago Washington and Structural Heart Team Nancy Glaser/Shahla HURST
Discharge Plan
-
Patient Disposition: Home (Routine Discharge)
Discharge Diagnosis/Procedures: Aortic stenosis/TAVR, Pacemaker implant
Condition: Fair
Diet: Low Fat, Low Cholesterol and 2 Gram Sodium
Activity: No strenuous activity
Driving Restrictions: No driving for 1 week
Bathing Restrictions: OK to Shower
Blood Work: BMP-to be drawn on 06/17/24. Assess renal function with resuming home DM meds. Please send results to the office of Santiago Washington and Structural Heart Team Nancy Glaser/Shahla HURST
Specialty Instructions: Weigh Daily- Call MD for wt gain/loss 3 lbs overnight/5 lbs in 1 week
Activity Restrictions/Additional Instructions:
Please call for Phase II Cardiac Rehab (When PT/OT/nursing are no longer needed):
[facility]
[phone]
Stand Alone Forms: DC Inst - Implanted Device, DC Inst - TransFemoral (TAVR)
Referrals:
[facility] [Outside]
Lianna Grande CRNP [Specified Professional Personl] - 07/08/24 10:00 am
Haresh Lilly DO [Family Provider] - 06/04/24 9:30 am
Additional Discharge Medication Instructions: Please pay attention to the following medication changes:
Take Sildenafil 20 mg TID-pulmonary hypertension
Take Tamsulosin 0.4 mg daily-benign prostatic hypertrophy
Stop the following medications:
Furosemide 20 mg daily PRN. Therapy no longer needed. Discuss resuming with Cardiology, Dr. Santiago Washington MD.
Hold the following medications:
Glipizide 5 mg daily-resume on 06/14/24
Metformin 500 mg BID-resume on 06/14/24
BMP-to be drawn on 06/17/24. Assess renal function with resuming home DM meds. Please send results to the office of Santiago Washington and Structural Heart Team Nancy Glaser/Shahla HURST
Prescriptions:
New
tamsulosin 0.4 mg Capsule
0.4 mg PO DAILY Qty: 7 0RF
sildenafil (pulm.hypertension) 20 mg Tablet
20 mg PO TID Qty: 90 1RF
Continued
cyanocobalamin (vitamin B-12) 1,000 MCG tablet
1,000 mcg PO DAILY
atorvastatin 80 MG tablet
80 mg PO HS
metoprolol succinate 50 mg Tablet Extended Release 24 Hr
50 mg PO BID
finasteride 5 mg Tablet
5 mg PO DAILY
Eliquis 2.5 mg Tablet
2.5 mg PO BID Qty: 30 0RF
omega 1-qhf-dqp-fish oil [Fish Oil] 1,000 mg (120 mg-180 mg) Capsule
1 cap PO BID
cholecalciferol (vitamin D3) 50 mcg (2,000 unit) Tablet
50 mcg PO DAILY
acetaminophen [Tylenol Extra Strength] 500 mg Tablet
1,000 mg PO Q6HPRN PRN (Reason: mild pain)
zinc sulfate 50 mg zinc (220 mg) Tablet
50 mg PO DAILY
Held
glipizide 5 mg Tablet Extended Release 24hr
5 mg PO DAILY
Hold Instructions: Resume on 06/14/24.
metformin 500 mg tablet extended release 24 hr
500 mg PO BID
Hold Instructions: Resume on 06/14/24.
Discontinued
furosemide 20 mg Tablet
20 mg PO DAILYPRN PRN (Reason: swelling)
Discharge Orders:
Discharge Patient (As Directed); Ordered 06/12/24
Ordered By: Cathy Orourke
Care Plan Goals
Care Plan Goals:
Problem: Readiness for enhanced knowledge related to diagnosis and treatment plan
Goal: Understand your diagnosis and treatment plan needs, including medications if applicable.
Instructions: Know your diagnosis, underlying causes and treatment plan options, including medications if applicable. Consult with your health care team to learn about your diagnosis and treatment plan, including medications if applicable.
Discharge Date and Time
Print Language: KINYARWANDA
--- NOTE | 2024-06-11 14:21 | W.PN.UPDATE ---
Update Note
Progress Note Update
Patient was started on Sildenafil 20mg TID per a discussion between Dr. Lam and Dr. Gupta. DC today was delayed for observation of sildenafil tolerance.
[2024-06-11] MEDS: NOVOLOG FLEXPEN-LOW RESISTANCE SC (15:34)
[2024-06-11 16:35] LABS: Glucose - Point of Care 206 mg/dl (70-99)
--- NOTE | 2024-06-11 18:00 | PTCARENOTE ---
Pt received this am with no c/o of any pain, sob or lightheadedness. Left pacer aqucell dressing dry and intact. Bilateral groins dressings WNL. Assisted oob to the chair and tolerated well for most of the day. Gait steady with one assist and the
walker. Ng removed at 0755. Pt voiding QS of clear yellow urine in the urinal.
[2024-06-11] MEDS: NOVOLOG FLEXPEN-LOW RESISTANCE 2 UNITS SC (18:39)
[2024-06-11] MEDS: ELIQUIS 2.5 MG PO (20:22)
[2024-06-11 22:33] LABS: Glucose - Point of Care 133 mg/dl (70-99)
[2024-06-11] MEDS: LIPITOR 80 MG PO (22:37)
[2024-06-11] MEDS: MELATONIN 5 MG PO (22:37)
[2024-06-11] MEDS: TYLENOL 650 MG PO (22:37)
--- NOTE | 2024-06-11 23:52 | PTCARENOTE ---
Patient primarily v-paced on the monitor with occasional AV pacing noted. Left upper chest wall aquacell with small dot of old drainage present, surrounding area soft to palpation. Bilateral groin dressings clean/dry/intact. Ecchymosis noted around
left groin, soft to palpation, no evidence of hematoma. Patient denies feeling lightheaded or dizzy. Patient with mild back pain, acetaminophen given, see MAR. Patient voiding clear yellow urine. Call pierce within reach. Plan of care ongoing
[2024-06-12 03:41] VITALS: BP 104/60
[2024-06-12 03:51] VITALS: BMI 25.7
[2024-06-12 04:22] LABS: Blood Urea Nitrogen 36 mg/dl (9-20); Calcium 8.5 mg/dl (8.4-10.2); Carbon Dioxide 24 mmol/L (22-30); Chloride 102 mmol/L (98-107); Estimated Creatinine Clearance 30 ml/min; Glucose 122 mg/dl (70-99); Magnesium 1.9 mg/dl (1.6-2.3); Potassium 4.5 mmol/L (3.5-5.1); Sodium 133 mmol/L (135-145); eGFR 36.21
--- NOTE | 2024-06-12 06:51 | W.PN.CT ---
Today's Communication / Plan
-
-No issues overnight, hemodynamically and neurologically intact
-Tolerating Sildenafil for pulm htn
-Cont. Eliquis
-Cont. current meds (ASA, Eliquis, Toprol 50 bid, Lipitor, Proscar, Metformin, Glipizide)
-PPM site C/D/I without significant hematoma or signs of infection
-Groin with mild ecchymosis on left, otherwise C/D/I without significant hematoma
-K is back to normal @ 4.5
-Creatinine is at baseline of 1.8
-Repeat echo yesterday 06/11 showed a well seated TAVR with PG/MG of 10/6 mmHg, no AI. LVEF 55-60%
-D/C home today
Assessment / Plan
-
- Severe symptomatic - s/p L TF TAVR w/ placement of 29mm ADAMARIS 3 valve on 06/10/24, pod #2
- HD instability w/ initial pacing threshold testing requiring CPR and ACLS w/ successful resuscitation
- Post-TTE: mean gradient 2mmHg, no PVL/AI
- CHB post TAVR - s/p Successful implantation of Medtronic MRI compatible LBB pacing dual chamber pacemaker and explant of ILR on 06/10/[address] Moore
- SEVERE pulmonary hypertension- follows with Dr. Jessica
- CAD - s/p PCI/stenting in 2003
- S/p VT/PVCs ablation 2022
- Chronic diastolic CHF /HFpEF, EF 55-60%
- COPD
- PAD - s/p B/L TIFFANIE stenting
- Paroxysmal A-fib- on Eliquis preop
- Pre-existing RBBB
- 70% L carotid stenosis
- CKD stage 3 - creat 2.1
- Lung CA s/p radiation
- Hx of enterococcal bacteremia
- Spinal stenosis
- BPH
- NIDDM
Discussed patient care with: Cardiology, Nursing, Respiratory Therapy, Pharmacy and Care Team
Subjective
-
Date of Service: June 12, 2024
No issues overnight
Objective Data
-
Lab Results
06/11/24 03:52
06/12/24 03:49
PT 16.3 Sec (11.4-14.6) H 06/05/24 07:04
INR 1.29 06/05/24 07:04
Vital Signs
Vital Signs
Temp Pulse Resp BP Pulse Ox
98.3 F 64 16 104/60 94
06/12/24 03:39 06/12/24 06:00 06/12/24 03:39 06/12/24 03:41 06/12/24 03:39
CT Intake/Output/Weight
06/11/24 06/11/24 06/12/24
06:59 18:59 06:59
Output Total 600 / 1585 1700 / 2475 775 / 2475
Balance -600 / -1504.8 -1700 / -2475 -775 / -2475
SaO2: 94 (RA)
Physical Exam
-
General: Awake, Oriented and AOx3
Cardiovascular: Regular rate & rhythm, No Murmurs, No Rub and No Gallop
Respiratory: Clear
Incision: Clean, Dry, Intact and Dressing Intact
Extremities: No Edema
Data Reviewed
-
Lab Results: Results Reviewed
Medications: Active Meds Reviewed
Chest X-Ray: Report Reviewed and Image Reviewed
ECG: Report Reviewed and Image Reviewed
[2024-06-12 07:39] LABS: Glucose - Point of Care 131 mg/dl (70-99)
[2024-06-12 07:41] VITALS: BP 135/59
[2024-06-12] MEDS: LOW STRENGTH ASPIRIN 81 MG PO (08:33)
[2024-06-12] MEDS: NOVOLOG FLEXPEN-LOW RESISTANCE SC (08:33)
[2024-06-12] MEDS: TOPROL XL 50 MG PO (08:33)
[2024-06-12] MEDS: ELIQUIS 2.5 MG PO (08:33)
[2024-06-12] MEDS: PROSCAR 5 MG PO (08:33)
[2024-06-12] MEDS: VITAMIN B-12 1000 MCG PO (08:34)
[2024-06-12] MEDS: ZINC 50 MG PO (08:34)
[2024-06-12] MEDS: VITAMIN D3 (cholecalciferol) 50 MCG PO (08:34)
[2024-06-12] MEDS: REVATIO 20 MG PO (08:34)
[2024-06-12] MEDS: FLOMAX 0.4 MG PO (08:34)
[2024-06-12] MEDS: MIRALAX PO (08:35)
--- NOTE | 2024-06-12 10:48 | W.PN.CD ---
Addendum entered and electronically signed by Ramiro Willis MD 06/12/24 12:44:
I saw and examined the patient.
The INSURANCE CODER's note was reviewed and I agree with the note.
Comment:
88 y/o male with ROLF, non-obstructive CAD, PAF on OAT, moderate/severe paradoxical low flow, low gradient aortic valve stenosis and severe pHTN admitted with recurrent syncope, s/p TAVR 06/10/2024 with course complicated by complete heart block,
status post PPM on 06/10/2024. Patient doing well postoperatively. He was started on sildenafil yesterday which he is tolerating well with no lightheadedness/dizziness and normal BPs. On discharge he will continue metoprolol and apixaban for
atrial fibrillation. He has been resumed on sildenafil for PH and is tolerating this well. He knows to check his blood pressures daily at home and let us know if he is feeling lightheaded or dizzy. He has follow-up with our office on 07/08/2024 at
10 AM with NATALI Hunter for TAVR. Our office will reach out to him about postop incision check for his pacemaker.
Original Note:
Today's Communication / Plan
-
continue current meds.
follow up as scheduled.
Impression / Plan
-
Impression/Plan: 88 y/o male with ROLF, non-obstructive CAD, PAF on OAT, moderate/severe paradoxical low flow, low gradient aortic valve stenosis and severe pHTN admitted with recurrent syncope. Patient has been seen in this hospital as well as
[facility] for syncope.
#Aortic stenosis:
-Moderate to severe, paradoxical, low flow, low gradient (mean gradient 22 mmHg, LVEF 50%, TAVIA 1.0 cm2, SVI 32.5 mL/m2).
-s/p TAVR 06/10/2024
-Both groins are clear - no hematoma or vascular compromise.
#Complete heart block:
- h/o Recurrent syncope - ILR was removed when dual chamber conduction system PPM placed on 06/10/24
- Multifactorial (, pHTN)
- h/p VT ablation - no sign of VT or PVCs
- s/p TAVR 06/10/24
#Atrial fibrillation:
-Paroxysmal.
-Currently in NSR.
-Symptoms occur in NSR and AF - no difference.
-Rate control with metoprolol.
-CHADS2-Vasc = 3 (HTN, Age x2).
-Therapeutic anticoagulation with apixaban 2.5 mg BID (reduced dose for age, creatinine > 1.5).
#Pulmonary Hypertension:
-Chronic.
-PA = 74/28/43, CO = 4.25, PVR = 6.6 Cai units.
-Symptoms improved with sildenafil - though he admits to a presyncopal episode while on sildenafil, therefore Isabelle stopped it.
-Sildenafil resumed and tolerating well.
#Coronary artery disease
-Chronic, stable.
-Continue apixaban, statin, and BB.
#HFpEF
-Acute on chronic.
-Weight and BP stable.
-Furosemide PRN.
#Left carotid stenosis
-Chronic, stable.
-Managed by vascular surgery, Dr Costello.
-Continue statin.
#PAD
-New diagnosis, but chronic.
-No symptoms of claudication.
-Continue statin, apixaban.
Subjective/Interval History:
Feels great. no active complaints.
Data:
Cath 04/27/24:
CONCLUSIONS:
1. Right dominant circulation with a 30% lesion in the distal RCA, a patent stent in the body of OM 2 and luminal irregularities in the LAD.
2. Normal filling pressures (LVEDP = 10 mmHg, PCWP = 15 mmHg at 80.3 kg).
3. Moderate to severe, paradoxical low-flow, low gradient aortic valve stenosis (mean gradient = 22.1 mmHg, TAVIA = 1.0 cm�, SVI = 32.5 mL, LVEF = 50% on TTE).
4. 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
Echo 04/27/24:
CONCLUSIONS
Low normal left ventricular systolic function.
Left ventricular ejection fraction is 50%.
Stage II diastolic dysfunction suggestive of abnormal relaxation and increased
filling pressures.
Mild biatrial enlargement.
Mild mitral regurgitation.
Moderate aortic stenosis (mean 20 mmHg, TAVIA 1.1 cmsq).
Estimated PASP 40 mmHg, assuming a right atrial pressure of 3 mmHg.
No significant change since the prior study of 11/14/2023 when the mean gradient
was 17 mmHg and the TAVIA was estimated at 1.3 cm2.
Chest CTA (TAVR), 05/28/2024:
IMPRESSION:
Measurements for proposed TAVR procedure, to be given as a separate addendum.
Band of increased opacity within the right upper lobe of the lung, unchanged from examination of March 08, 2024, and likely representing post therapy changes from previous radiation therapy.
Rounded contrast-filled protrusion from the posterior and inferior basal portion of the left ventricle, adjacent to prominent mitral annular calcification. This is compatible with a ventricular aneurysm.
ADDENDUM
Measurements for proposed TAVR procedure:
Trileaflet aortic valve. Moderate valvular calcification. No significant calcification within the left ventricular outflow tract.
Aortic annulus: 30.2 mm x 24.8 mm. Measured cross-sectional area of 554 sq mm.
Left ventricular outflow tract: Measured cross-sectional area 527 sq mm.
Sinuses of Valsalva: 36.3 mm x 34.4 mm x 36.4 mm.
Sinotubular junction: 32.6 mm x 32.1 mm.
Distance from aortic annulus to left coronary artery origin: 21.1 mm.
Distance from aortic annulus to right coronary artery origin: 15.8 mm.
Estimated coplanar angle: BOLIVIAN 8, caudal 10
Cusp overlap view: COSTELLO 10, caudal 25.
Orthopantogram, 06/01/2024:
IMPRESSION:
The patient is partially edentulous. No suspicious periapical lucencies. No displaced fractures. No suspicious calcifications seen to suggest sialolithiasis. Visualized sinuses appear clear.
CTA Abdomen/Pelvis, 06/02/2024:
IMPRESSION
Measurements for proposed TAVR procedure, to be added as a separate addendum.
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
Increased interstitial markings within the visualized lower lungs, likely mild interstitial fibrosis.
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
Severe calcification filling much of the lumen of the right common femoral artery at the level the mid femoral head.
Bony degenerative changes as described.
Physical Exam
Vital Signs/Labs
Vital Signs
Temp Pulse Resp BP Pulse Ox
98.0 F 64 18 104/60 91
06/12/24 07:43 06/12/24 06:00 06/12/24 07:43 06/12/24 03:41 06/12/24 07:43
06/11/24 06/12/24 06/13/24
06:59 06:59 06:59
Actual Weight 181 lb 14.102 oz 179 lb 7.3 oz
06/11/24 03:52
06/12/24 03:49
PT 16.3 Sec (11.4-14.6) H 06/05/24 07:04
INR 1.29 06/05/24 07:04
Magnesium 1.9 mg/dl (1.6-2.3) 06/12/24 03:49
06/05/24
07:04
Jru-B-Rmgwjeoiati Pept 2570
Physical Exam
Constitutional: No acute distress
EENT: Anicteric and Moist mucous membranes
Cardiovascular: Rhythm & rate is regular
Respiratory: Respiratory effort normal
GI: Soft
Neuro/Psych: AO x 3
Other: Skin (warm, dry )
Data Reviewed
-
Date of Service: June 12, 2024
Medical Decision Making: Reviewed Test Results
EKG: Tracing Personally Visualized and interpreted
Echo: Report Reviewed by me
Labs: Labs Reviewed by me
Old Records: Reviewed
[2024-06-12 11:35] VITALS: BP 136/72
== END 2024-06-12 13:44 | disposition home health service (06) | DRG 266 ==
LOC: IVU 14:00
PROVIDERS: Clinical Nurse Specialist Acute Care; General Practice; Hospitalist; Internal Medicine; Internal Medicine Cardiovascular Disease; Nurse Practitioner; Nurse Practitioner Adult Health; Nurse Practitioner Family; Physician Assistant; ADMITTING PHYSICIAN Hospitalist; ATTENDING PHYSICIAN Thoracic Surgery (Cardiothoracic Vascular Surgery); CONSULT PHYSICIAN Internal Medicine Cardiovascular Disease; EMERGENCY PHYSICIAN Emergency Medicine; FAMILY PHYSICIAN Family Medicine; OTHER PHYSICIAN Student in an Organized Health Care Education/Training Program
PROC: 0CTX0Z1 Resection of Lower Tooth, Multiple, Open Approach (ICD-10-PCS; 2024-06-04)
PROC: 02HK3JZ Insertion of Pacemaker Lead into Right Ventricle, Percutaneous Approach (ICD-10-PCS; 2024-06-10)
PROC: 5A12012 Performance of Cardiac Output, Single, Manual (ICD-10-PCS; 2024-06-10)
PROC: 0JH606Z Insertion of Pacemaker, Dual Chamber into Chest Subcutaneous Tissue and Fascia, Open Approach (ICD-10-PCS; 2024-06-10)
PROC: 02H63JZ Insertion of Pacemaker Lead into Right Atrium, Percutaneous Approach (ICD-10-PCS; 2024-06-10)
PROC: 02RF38Z Replacement of Aortic Valve with Zooplastic Tissue, Percutaneous Approach (ICD-10-PCS; 2024-06-10)
DX: I08.2 Rheumatic disorders of both aortic and tricuspid valves (principal); I50.33 Acute on chronic diastolic (congestive) heart failure; I13.0 Hypertensive heart and chronic kidney disease with heart failure and stage 1 through stage 4 chronic kidney disease, or unspecified chronic kidney disease; I44.2 Atrioventricular block, complete; I47.20 Ventricular tachycardia, unspecified; I97.710 Intraoperative cardiac arrest during cardiac surgery; I48.0 Paroxysmal atrial fibrillation; I25.10 Atherosclerotic heart disease of native coronary artery without angina pectoris; E11.51 Type 2 diabetes mellitus with diabetic peripheral angiopathy without gangrene; J44.9 Chronic obstructive pulmonary disease, unspecified; E78.00 Pure hypercholesterolemia, unspecified; N40.0 Benign prostatic hyperplasia without lower urinary tract symptoms; N18.32 Chronic kidney disease, stage 3b; I65.22 Occlusion and stenosis of left carotid artery; K04.7 Periapical abscess without sinus; S02.5XXA Fracture of tooth (traumatic), initial encounter for closed fracture; X58.XXXA Exposure to other specified factors, initial encounter; Y83.2 Surgical operation with anastomosis, bypass or graft as the cause of abnormal reaction of the patient, or of later complication, without mention of misadventure at the time of the procedure; I27.20 Pulmonary hypertension, unspecified; I71.43 Infrarenal abdominal aortic aneurysm, without rupture; E11.22 Type 2 diabetes mellitus with diabetic chronic kidney disease; S00.81XA Abrasion of other part of head, initial encounter; S50.312A Abrasion of left elbow, initial encounter; W18.39XA Other fall on same level, initial encounter; Z79.01 Long term (current) use of anticoagulants; Z79.4 Long term (current) use of insulin; Z79.899 Other long term (current) drug therapy; Z85.118 Personal history of other malignant neoplasm of bronchus and lung; Z87.891 Personal history of nicotine dependence; Z92.3 Personal history of irradiation; Z95.5 Presence of coronary angioplasty implant and graft; Z95.820 Peripheral vascular angioplasty status with implants and grafts
CPT/HCPCS: 93308; 33208; 33286; 33361; 70355; 70450; 71045; 71046; 74174; 75572; 80048; 80053; 81003; 81015; 82962; 83036; 83735; 83880; 84100; 84132; 84484; 85025; 85027; 85347; 85610; 86850; 86900; 86901; 87070; 92950; 93005; 93306; 93321; 93325; 93451; 97116; 97162; 97164; 97166; 97530; 99285; C1760; C1769; C1785; C1887; C1892; C1894; C1898; Q9967

== ENCOUNTER 2024-06-25 09:28 | Emergency (ER) | payer OTHER, SELFPAY ==
[2024-06-25 09:43] VITALS: BP 135/63
[2024-06-25 10:13] LABS: % Basophils 0.5 % (0-2); % Eosinophils 2.6 % (0-6); % Immature Granulocytes 0.6 % (0-0.5); % Lymphocytes 11.4 % (20.5-51.1); % Monocytes 9.4 % (1.7-9.3); % Neutrophils 75.5 % (42.2-75.2); Absolute Eosinophils 0.2 10^3/uL (0-0.7); Absolute Immature Granulocytes 0.1 10^3/uL (0-0.05); Absolute Monocytes 0.8 10^3/uL (0.1-0.6); Absolute Neutrophils 6.4 10^3/uL (1.4-6.5); Hematocrit 31.7 % (39.0-52.0); Hemoglobin 10.6 g/dL (13.0-18.0); Mean Corp Hgb Conc. 33.4 g/dL (33.0-37.0); Mean Corpuscular Hgb 31.4 pg (27.0-31.0); Mean Corpuscular Volume 93.8 fL (80.0-94.0); Nucleated Red Blood Cells % 0 % (-); Platelet Count 180 10^3/uL (130-400); Red Blood Cell Count 3.38 10^6/uL (4.70-6.10); Red Cell Dist. Width 15.4 % (11.5-14.5); White Blood Cell Count 8.5 10^3/uL (4.8-10.8)
[2024-06-25 10:33] LABS: ALT (SGPT) 13 U/L (0-50); AST (SGOT) 27 U/L (17-59); Albumin 3.3 g/dl (3.5-5.0); Alkaline Phosphatase 89 U/L (38-126); Blood Urea Nitrogen 28 mg/dl (9-20); Calcium 8.7 mg/dl (8.4-10.2); Carbon Dioxide 24 mmol/L (22-30); Chloride 106 mmol/L (98-107); Glucose 123 mg/dl (70-99); Potassium 4.5 mmol/L (3.5-5.1); Sodium 137 mmol/L (135-145); Total Bilirubin 0.9 mg/dl (0.2-1.3); Total Protein 6.1 g/dl (6.3-8.2); eGFR 36.21
[2024-06-25 12:13] VITALS: BMI 25.3
[2024-06-25 12:21] VITALS: BP 155/77
[2024-06-25 13:00] VITALS: BP 139/62
[2024-06-25 14:00] VITALS: BP 169/72
--- NOTE | 2024-06-25 17:11 | ED.GENMED ---
History of Present Illness
General
Chief Complaint: Fainting/Passed Out
Source: patient, records and family
Exam Limitations: none
Time Seen by Provider: 06/25/24 12:39
Nursing documentation reviewed up to this point in time: agreed with
History of Present Illness
History of Present Illness:
88-year-old male with a past medical history of COPD on as needed home oxygen, pulmonary hypertension, hypertension, hyperlipidemia, CHF, atrial fibrillation, aortic stenosis status post TAVR, CKD, pacemaker who presents to the emergency department
for evaluation after syncopal event. Of note patient was just admitted to this hospital for syncope and had a TAVR with Dr. Farooq 06/10/2024; he follows with Dr. Candelaria for cardiology. Patient is accompanied by his daughter who provides collateral
history. Apparently daughter was helping patient get dressed today and he was sitting on the edge of the bed. Apparently stood up to the they could put on his pants and he began to have chest pain that she describes a burning sensation. He had
associated nausea and had an episode of dry heaving and then passed out. Daughter called EMS. Patient apparently had immediate return to baseline after event. He says that here in the emergency room he is asymptomatic he does not have any chest
pain or dizziness. Denies feeling short of breath. He denies any other complaints. There was no secondary fall or serious trauma, daughter says he was right next to the bed during the episode and fell back down onto the bed.
Past History
Past History
ED Past Medical History: Arrthythmia (Bigeminy), CAD, CHF, COPD, HTN, Hypercholesterolemia and NIDDM
ED Past Surgical History: Cholecystectomy
Social History
Tobacco: Former smoker
Alcohol: None
Drug: None
Employment: Retired
Review of Systems
Review of Systems
All Other Systems: ROS reviewed and negative except as documented in HPI and ROS
Constitutional: Denies fever
Respiratory: Denies cough or trouble breathing
Cardiac: Reports chest pain and syncope; Denies diaphoresis or palpitations
ABD/GI: Reports nausea; Denies abdominal pain or vomiting
: Denies flank pain
Musculoskeletal: Denies neck pain or back pain
Neurological: Denies headache
Phy Exam
Physical Exam
Physical Exam:
General: Awake, alert, oriented x3; no acute distress
Head: Normocephalic, atraumatic
Eyes: Conjunctiva normal, EOMI, pupils equal round and reactive to light bilaterally
Throat: Airway intact, handling secretions
Neck: Trachea midline, supple without meningismus
Lungs: Clear to auscultation bilaterally, no wheezing, rales, rhonchi
Heart: Regular rate and rhythm, systolic murmur; pacemaker noted
Abd: Soft, non distended, nontender, no palpable mass
Neuro: Cranial nerves grossly intact, speech fluid, motor and sensory intact in all
Skin: no rash
Extremities: No edema in extremities, equal pulses in all extremities
Scores
Heart Failure Risk
Heart Failure Risk Score: Not Applicable
Heart Score for Chest Pain Patients
STEMI patient?: Not applicable
Withdrawal Assessment of Alcohol
Withdrawal Assessment Completed?: Not applicable
Course
Orders/Labs/Results
Orders:
Orders
06/25/24 09:47
Electrocardiogram (*1) Urgent
Reason for Study: Chest Pain
EKG- Treatment ONCE
06/25/24 09:56
Complete Blood Count/With Diff Urgent
Comprehensive Metabolic Panel Urgent
06/25/24 10:22
pacemaker [Interrogate Pacemaker- Treatment] ONCE
06/25/24 14:07
CARDIOLOGY CONSULT Urgent
Consulting Provider: Emmanuel Bowden
Was physician already notified: Yes
CR Chest - 2 Views Urgent
Comment:
Reason For Exam: cp, syncope
06/25/24 17:01
Case Management Consult ONCE
Case Management Consult: Discharge Planning
Abnormal Lab Results
06/25/24
09:56
RBC 3.38 L 10^6/uL
(4.70-6.10)
Hgb 10.6 L g/dL
(13.0-18.0)
Hct 31.7 L %
(39.0-52.0)
MCH 31.4 H pg
(27.0-31.0)
RDW 15.4 H %
(11.5-14.5)
Abs Immat Gran (auto) 0.1 H 10^3/uL
(0-0.05)
Absolute Lymphs (auto) 1.0 L 10^3/uL
(1.2-3.4)
Absolute Monos (auto) 0.8 H 10^3/uL
(0.1-0.6)
Immature Gran % 0.6 H %
(0-0.5)
Neutrophils % 75.5 H %
(42.2-75.2)
Lymphocytes % 11.4 L %
(20.5-51.1)
Monocytes % 9.4 H %
(1.7-9.3)
BUN 28 H mg/dl
(9-20)
Creatinine 1.8 H mg/dL
(0.7-1.3)
Glucose 123 H mg/dl
(70-99)
Total Protein 6.1 L g/dl
(6.3-8.2)
Albumin 3.3 L g/dl
(3.5-5.0)
06/25/24 09:56
06/25/24 09:56
Vital Signs
Initial and Last Documented VS:
Initial Vital Signs
Temp Pulse Resp BP Pulse Ox
36.6 C 64 20 135/63 97
06/25/24 09:43 06/25/24 09:43 06/25/24 09:43 06/25/24 09:43 06/25/24 09:43
Last Documented Vital Signs
Temp Pulse Resp BP Pulse Ox
36.6 C 77 23 169/72 98
06/25/24 09:43 06/25/24 18:30 06/25/24 18:30 06/25/24 14:00 06/25/24 18:30
MDM/Problems Addressed
Differential Diagnosis Includes:
Dysrhythmia, orthostasis, vasovagal, valvular disease
MDM/Problems Addressed:
88-year-old male presents for evaluation after syncopal episode. Patient had chest pain and nausea followed by syncope. He is now asymptomatic. He was notably just admitted to this hospital for TAVR in May. Vitals and exam as above. EKG
paced. We interrogated his device and no events noted. Labs were sent off including a CBC which shows marginal postoperative anemia unlikely of acute clinical significance. Chemistry shows stable CKD. Chest x-ray no acute disease. Discussed
case with cardiology�patient recently had essentially clean cardiac cath, had recent echocardiogram and has no events on interrogation of his device. With these things in mind and patient well-appearing and asymptomatic with normal vital signs low
suspicion for emergent cardiac cause for syncope and no clear indication for admission to the hospital from their perspective; they did not feel troponin is warranted at this time. Family and patient initially concerned with functional status and
case management was consulted to help with home care. I did offer multiple times to keep patient in the hospital for observation overnight after this episode but they declined. Will discharge with close outpatient cardiology follow-up and return
precautions. All questions answered.
Chronic conditions affecting care:
COPD, CHF, A-fib, aortic stenosis
Acute Exacerbation and/or Progression of Chronic Illness:
Acutely hypertensive
Acute Exacerbation and/or Progression of Chronic Illness: HTN
*Pulse Oximetry
Patient hypoxic: no
*EKG
Interpreted by ED Provider?: Yes
Heart Rate: 64
Rate: normal
Rhythm: ventricular paced
*Critical Care Note
Total Time (30-74mins, 75-104mins- exclusive of procedures): Not Applicable
Data Reviewed
Review of Other/Old Records Reveals: Labs, Records, Operative Reports and Discharge Summary
Source: patient, records, family and ambulance crew
Patient Management
Discussion with other providers: Container Finisher (Discussed with human services case manager at length)
Escalation/DeEscalation of care consider admission/obs:
Offered admission, patient declined
ED Attending Note
-
Portions of this chart may have been created with voice recognition software.� Occasional wrong word or��sound alike� substitutions may have occurred due to the inherent limitations of voice recognition software.
Discharge Plan
Departure
Patient Disposition: Home (Routine Discharge)
Date of Disposition: 06/25/24
Time of Disposition: 19:00
Presentation/result/management discussed w/ accepting MD/DO: Hospitalist
Patient with high blood pressure during this ER visit?: Yes
Discharge Problem:
Syncope, Chest pain
Instructions: Syncope (Fainting) (DC), Chest Pain CBC Follow Up
Prescriptions:
No Action
cyanocobalamin (vitamin B-12) 1,000 MCG tablet
1,000 mcg PO DAILY
atorvastatin 80 MG tablet
80 mg PO HS
metoprolol succinate 50 mg Tablet Extended Release 24 Hr
50 mg PO BID
glipizide 5 mg Tablet Extended Release 24hr
5 mg PO DAILY
finasteride 5 mg Tablet
5 mg PO DAILY
Eliquis 2.5 mg Tablet
2.5 mg PO BID Qty: 30 0RF
omega 5-vja-zqp-fish oil [Fish Oil] 1,000 mg (120 mg-180 mg) Capsule
1 cap PO BID
metformin 500 mg tablet extended release 24 hr
500 mg PO BID
cholecalciferol (vitamin D3) 50 mcg (2,000 unit) Tablet
50 mcg PO DAILY
acetaminophen [Tylenol Extra Strength] 500 mg Tablet
1,000 mg PO Q6HPRN PRN (Reason: mild pain)
zinc sulfate 50 mg zinc (220 mg) Tablet
50 mg PO DAILY
tamsulosin 0.4 mg Capsule
0.4 mg PO DAILY Qty: 7 0RF
sildenafil (pulm.hypertension) 20 mg Tablet
20 mg PO TID Qty: 90 1RF
Referrals:
Jessee Candelaria MD [Active] - Call in 1-3 days for appt
Haresh Lilly DO [Family Provider] -
Activity Restrictions/Additional Instructions:
Thank you for visiting the Emergency Department at [facility].
1. Please schedule a follow up appointment as directed. Call first thing tomorrow morning to make an appointment.
2. If indicated, please take your medications as instructed and indicated on discharge paperwork.
3. If any of your symptoms do not improve, or persist, or become more severe within 6-12 hours, please return to the emergency department for further care.
4. Please return to the emergency department if you develop a headache, neck pain/stiffness, fever greater than 100.4F, chest pain, shortness of breath, persistent nausea, vomiting, slurred speech, difficulty walking, numbness/tingling, weakness,
signs of infection or any other symptoms that are worrisome to you.
Please call [phone] if you have any questions.
Interventions
Interventions:
*Risk Screen - Suicide Last Done: 06/25/24 09:43
*General Assessment Last Done: 06/25/24 09:43
*Neglect/Abuse Screening Last Done: 06/25/24 12:13
ED- Fall Risk Assessment Last Done: 06/25/24 12:13
*ED COVID-19 Vaccine History Last Done: 06/25/24 12:13
ED- Cardiac Assessment Last Done: 06/25/24 12:13
ED- Neurological Assessment Last Done: 06/25/24 12:13
Discharge Date and Time
Print Language: LITHUANIAN
--- NOTE | 2024-06-25 17:26 | CM ---
Addendum entered by Shea Murphy RN 06/25/24 18:21:
Patient's daughters are in room. and have decided on home discharge with [facility] and private pay aides. CM provided daughter's with written information on private pay aides.
Patient is active with [facility].
Addendum entered by Shea Murphy RN 06/25/24 17:48:
CM entered room to request update on family's decisions. Patient stated he needed more time to decide on placement.
Addendum entered by Shea Murphy RN 06/25/24 17:41:
CM entered room
Original Note:
CM reviewed medical records. Patient lives with daughter. CM discussed placement and home options. Daughters are not in agreement. Patient is active with [facility]. Daughter is considering private pay [employer] care.
CM will return to room with resources.
== END 2024-06-25 19:16 | disposition home or self-care (01) ==
LOC: EMR 09:28
PROVIDERS: Emergency Medicine; CONSULT PHYSICIAN Internal Medicine; EMERGENCY PHYSICIAN Emergency Medicine; FAMILY PHYSICIAN Family Medicine
DX: R55 Syncope and collapse (principal); R07.89 Other chest pain; I50.9 Heart failure, unspecified; I13.0 Hypertensive heart and chronic kidney disease with heart failure and stage 1 through stage 4 chronic kidney disease, or unspecified chronic kidney disease; Z01.810 Encounter for preprocedural cardiovascular examination; Z87.891 Personal history of nicotine dependence; N18.9 Chronic kidney disease, unspecified
CPT/HCPCS: 99285; 93288; 71046; 80053; 85025; 93005

== ENCOUNTER → 2024-07-21 12:56 | Outpatient (REF) | payer OTHER, SELFPAY ==
[2024-07-21 14:53] LABS: Blood Urea Nitrogen 23 mg/dl (9-20); Calcium 8.5 mg/dl (8.4-10.2); Carbon Dioxide 25 mmol/L (22-30); Chloride 105 mmol/L (98-107); Glucose 115 mg/dl (70-99); Potassium 4.3 mmol/L (3.5-5.1); Sodium 138 mmol/L (135-145); eGFR 45.06
== END ==
LOC: REG 12:56
PROVIDERS: ATTENDING PHYSICIAN Family Medicine
DX: N18.32 Chronic kidney disease, stage 3b (principal)
CPT/HCPCS: 36415; 80048

== ENCOUNTER → 2024-07-27 10:15 | Outpatient (REF) | payer OTHER, SELFPAY | LOC: HWRCS 10:15 | PROVIDERS: ATTENDING PHYSICIAN Internal Medicine; FAMILY PHYSICIAN Family Medicine | DX: I48.0 Paroxysmal atrial fibrillation (principal); I50.32 Chronic diastolic (congestive) heart failure; I25.10 Atherosclerotic heart disease of native coronary artery without angina pectoris; Z95.2 Presence of prosthetic heart valve; Z95.0 Presence of cardiac pacemaker | CPT/HCPCS: 93306 ==

== ENCOUNTER → 2024-08-24 09:58 | Outpatient (REF) | payer OTHER, SELFPAY | LOC: HWRAD 09:58 | PROVIDERS: ATTENDING PHYSICIAN Internal Medicine Critical Care Medicine; FAMILY PHYSICIAN Family Medicine | DX: R91.8 Other nonspecific abnormal finding of lung field (principal) | CPT/HCPCS: 71250 ==

== ENCOUNTER 2024-09-20 10:03 | Outpatient (RCR) | payer OTHER, SELFPAY ==
[2024-08-25 14:21] LABS: Glucose - Point of Care 92 mg/dl (70-99)
[2024-08-25 15:05] LABS: Glucose - Point of Care 85 mg/dl (70-99)
[2024-08-27 09:27] LABS: Glucose - Point of Care 135 mg/dl (70-99)
[2024-08-27 10:20] LABS: Glucose - Point of Care 129 mg/dl (70-99)
[2024-09-01 09:22] LABS: Glucose - Point of Care 149 mg/dl (70-99)
[2024-09-01 10:10] LABS: Glucose - Point of Care 117 mg/dl (70-99)
[2024-09-03 09:21] LABS: Glucose - Point of Care 144 mg/dl (70-99)
[2024-09-03 10:01] LABS: Glucose - Point of Care 117 mg/dl (70-99)
[2024-09-06 09:29] LABS: Glucose - Point of Care 174 mg/dl (70-99)
[2024-09-06 10:19] LABS: Glucose - Point of Care 141 mg/dl (70-99)
[2024-09-10 09:26] LABS: Glucose - Point of Care 113 mg/dl (70-99)
[2024-09-10 10:19] LABS: Glucose - Point of Care 120 mg/dl (70-99)
[2024-09-15 09:44] LABS: Glucose - Point of Care 159 mg/dl (70-99)
== END 2024-09-20 23:59 | disposition home or self-care (01) ==
LOC: CRHB 10:03
PROVIDERS: ATTENDING PHYSICIAN Internal Medicine
DX: Z95.4 Presence of other heart-valve replacement (principal)
CPT/HCPCS: 82962; G0422; G0423

== ENCOUNTER → 2024-09-24 08:40 | Outpatient (REF) | payer OTHER, SELFPAY | LOC: RAD 08:40 | PROVIDERS: ATTENDING PHYSICIAN Surgery Vascular Surgery | DX: I71.43 Infrarenal abdominal aortic aneurysm, without rupture (principal); I73.9 Peripheral vascular disease, unspecified; R55 Syncope and collapse | CPT/HCPCS: 76770; 93880; 93922; 93925 ==

== ENCOUNTER → 2024-10-19 11:56 | Outpatient (REF) | payer OTHER, SELFPAY ==
[2024-10-19 13:28] LABS: Blood Urea Nitrogen 22 mg/dl (9-20); Calcium 9.4 mg/dl (8.4-10.2); Carbon Dioxide 23 mmol/L (22-30); Chloride 106 mmol/L (98-107); Glucose 136 mg/dl (70-99); Potassium 4.5 mmol/L (3.5-5.1); Sodium 139 mmol/L (135-145); eGFR 44.78
== END ==
LOC: REG 11:56
PROVIDERS: ATTENDING PHYSICIAN Physician Assistant; FAMILY PHYSICIAN Family Medicine
DX: I65.23 Occlusion and stenosis of bilateral carotid arteries (principal)
CPT/HCPCS: 36415; 80048

== ENCOUNTER 2024-10-20 10:34 | Outpatient (RCR) | payer OTHER, SELFPAY | END 2024-10-20 23:59 | disposition home or self-care (01) | LOC: CRHB 10:34 | PROVIDERS: ATTENDING PHYSICIAN Internal Medicine | DX: Z95.4 Presence of other heart-valve replacement (principal) | CPT/HCPCS: G0422; G0423 ==

== ENCOUNTER 2024-11-03 08:06 | Outpatient (RCR) | payer OTHER, SELFPAY ==
[2024-11-03] MEDS: SODIUM BICARBONATE 1150 MEQ IV (08:52)
[2024-11-03 08:54] VITALS: BP 145/71
== END 2024-11-20 23:59 | disposition home or self-care (01) ==
LOC: OID 08:06
PROVIDERS: ATTENDING PHYSICIAN Surgery Vascular Surgery; FAMILY PHYSICIAN Family Medicine
DX: I65.23 Occlusion and stenosis of bilateral carotid arteries (principal); I71.43 Infrarenal abdominal aortic aneurysm, without rupture; I73.9 Peripheral vascular disease, unspecified
CPT/HCPCS: 96365; 96366

== ENCOUNTER → 2024-11-03 10:00 | Outpatient (REF) | payer OTHER, SELFPAY | LOC: RAD 10:00 | PROVIDERS: ATTENDING PHYSICIAN Physician Assistant; FAMILY PHYSICIAN Family Medicine | DX: I65.23 Occlusion and stenosis of bilateral carotid arteries (principal) | CPT/HCPCS: 70496; 70498; Q9967 ==

== ENCOUNTER 2024-11-17 10:12 | Outpatient (RCR) | payer OTHER, SELFPAY | END 2024-11-17 23:59 | disposition home or self-care (01) | LOC: CRHB 10:12 | PROVIDERS: ATTENDING PHYSICIAN Internal Medicine | DX: I25.10 Atherosclerotic heart disease of native coronary artery without angina pectoris (principal); Z95.4 Presence of other heart-valve replacement (principal); Z95.5 Presence of coronary angioplasty implant and graft | CPT/HCPCS: G0422; G0423 ==

== ENCOUNTER 2024-11-22 00:33 | Inpatient (IN) | payer OTHER, SELFPAY ==
[2024-11-21 20:42] VITALS: BP 159/63
[2024-11-21 21:00] VITALS: BP 145/50
[2024-11-21 21:10] LABS: % Basophils 0.6 % (0-2); % Eosinophils 2.4 % (0-6); % Immature Granulocytes 0.5 % (0-0.5); % Lymphocytes 25.4 % (20.5-51.1); % Monocytes 9.4 % (1.7-9.3); % Neutrophils 61.7 % (42.2-75.2); Absolute Basophils 0.1 10^3/uL (0-0.2); Absolute Eosinophils 0.2 10^3/uL (0-0.7); Absolute Monocytes 0.7 10^3/uL (0.1-0.6); Absolute Neutrophils 4.9 10^3/uL (1.4-6.5); Hematocrit 36.6 % (39.0-52.0); Hemoglobin 12.4 g/dL (13.0-18.0); Mean Corp Hgb Conc. 33.9 g/dL (33.0-37.0); Mean Corpuscular Hgb 31.8 pg (27.0-31.0); Mean Corpuscular Volume 93.8 fL (80.0-94.0); Mean Platelet Volume 11.3 fL (7.4-10.4); Nucleated Red Blood Cells % 0 % (-); Platelet Count 137 10^3/uL (130-400); Red Cell Dist. Width 15.1 % (11.5-14.5); White Blood Cell Count 7.9 10^3/uL (4.8-10.8)
--- NOTE | 2024-11-21 21:29 | ED.GENMED ---
History of Present Illness
General
Chief Complaint: Fainting/Passed Out
Source: patient, records and family
Exam Limitations: none
Time Seen by Provider: 11/21/24 20:40
Nursing documentation reviewed up to this point in time: agreed with
History of Present Illness
History of Present Illness:
89-year-old male with a past medical history of COPD and chronic respiratory failure on home oxygen, pulmonary hypertension, hypertension, hyperlipidemia, CHF, atrial fibrillation, aortic stenosis status post TAVR, CKD, pacemaker who presents to the
emergency room for evaluation after syncopal event. Patient reports that he was going to the bathroom and had a bowel movement and shortly thereafter became lightheaded and laid himself down onto the ground and had brief loss of consciousness. No
trauma or injury from a fall. He says that he did have some mild chest burning sensation prior to the episode but says that this is not uncommon for him. He denies any symptoms here in the emergency room says that he feels well denies any chest
pain, shortness of breath, palpitations or any other complaints. He has had same issue multiple times in the past. His sewing pattern layout technician is Dr. Moore.
Past History
Past History
ED Past Medical History: Arrthythmia (Bigeminy), CAD, CHF, COPD, HTN, Hypercholesterolemia and NIDDM
ED Past Surgical History: Cholecystectomy
Social History
Tobacco: Former smoker
Alcohol: None
Drug: None
Employment: Retired
Review of Systems
Review of Systems
All Other Systems: ROS reviewed and negative except as documented in HPI and ROS
Constitutional: Denies fever
Respiratory: Denies cough or trouble breathing
Cardiac: Reports chest pain and syncope
ABD/GI: Denies abdominal pain
: Denies flank pain
Musculoskeletal: Denies neck pain or back pain
Neurological: Denies headache
Phy Exam
Physical Exam
Physical Exam:
General: Awake, alert; no acute distress
Head: Normocephalic, atraumatic
Eyes: Conjunctiva normal, pupils equal round and reactive to light bilaterally
Throat: Airway intact, handling secretions
Neck: Trachea midline, supple without meningismus, no JVD
Lungs: Clear to auscultation bilaterally, no wheezing, rales, rhonchi
Heart: Regular rate and rhythm, systolic murmur
Abd: Soft, non distended, nontender, no palpable masses
Neuro: No gross deficits
Skin: No signs of trauma
Extremities: Atraumatic, no edema in extremities, equal pulses in all extremities
Scores
Heart Failure Risk
Heart Failure Risk Score: Not Applicable
Heart Score for Chest Pain Patients
STEMI patient?: Not applicable
Withdrawal Assessment of Alcohol
Withdrawal Assessment Completed?: Not applicable
Course
Orders/Labs/Results
Orders:
Orders
11/21/24 20:44
Electrocardiogram (*1) Urgent
Reason for Study: Syncope
EKG- Treatment ONCE
11/21/24 20:54
Basic Metabolic Panel Urgent
Complete Blood Count/With Diff Urgent
11/21/24 21:29
Interrogate Pacemaker- Treatment ONCE
11/21/24 22:15
Troponin I Urgent
11/21/24 22:50
Aspirin Chewable [Low Strength Aspirin] 324 mg PO NOW STA
11/21/24 22:53
CT Chest PE Study Urgent
Comment:
Reason For Exam: syncope, chest pain, elevated troponin
11/21/24 22:54
CARDIOLOGY CONSULT Urgent
Consulting Provider: Tino Phillip
Was physician already notified: Yes
11/21/24 23:45
0.9% Sodium Chloride 500 ml [Nss] 500 ml IV 100 mls/hr
11/22/24 01:00
Flush (0.9% Sodium Chloride) [Flush (Nss)] See Dose Instructions IV PER PROTOCOL
11/22/24 01:15
Troponin I Urgent
Abnormal Lab Results
11/21/24 11/21/24
20:54 22:15
RBC 3.90 L 10^6/uL
(4.70-6.10)
Hgb 12.4 L g/dL
(13.0-18.0)
Hct 36.6 L %
(39.0-52.0)
MCH 31.8 H pg
(27.0-31.0)
RDW 15.1 H %
(11.5-14.5)
MPV 11.3 H fL
(7.4-10.4)
Absolute Monos (auto) 0.7 H 10^3/uL
(0.1-0.6)
Monocytes % 9.4 H %
(1.7-9.3)
Chloride 111 H mmol/L
(98-107)
Carbon Dioxide 17 L mmol/L
(22-30)
BUN 31 H mg/dl
(9-20)
Creatinine 1.8 H mg/dL
(0.7-1.3)
Glucose 165 H mg/dl
(70-99)
Troponin I 0.100 H* ng/ml
11/21/24 20:54
11/21/24 20:54
Vital Signs
Initial and Last Documented VS:
Initial Vital Signs
Temp Pulse Resp BP Pulse Ox
36.4 C 74 14 159/63 93
11/21/24 20:42 11/21/24 20:42 11/21/24 20:42 11/21/24 20:42 11/21/24 20:42
Last Documented Vital Signs
Temp Pulse Resp BP Pulse Ox
36.4 C 79 23 179/87 93
11/21/24 20:42 11/22/24 00:00 11/22/24 00:00 11/22/24 00:00 11/22/24 00:00
MDM/Problems Addressed
Differential Diagnosis Includes:
Vasovagal syncope, valvular disease, dysrhythmia, ACS considered much less likely
MDM/Problems Addressed:
89-year-old male presents for evaluation after syncopal episode�had a bowel movement and then felt lightheaded and passed out. He did have some mild associated chest discomfort but currently asymptomatic. Hypertensive but otherwise normal vitals.
Physical exam as above. EKG shows paced rhythm with occasional ectopy. Will plan to interrogate device. Send labs including a CBC and a CMP, troponins. Monitor on telemetry and reassess after the above.
Reviewed [employer] report�no events noted on device interrogation.
Labs reviewed: CBC shows marginal anemia. CMP shows mild ORAL with a creatinine of 1.8 up from baseline of 1.5. Mild metabolic acidosis with a bicarb of 17. His initial troponin came back elevated at 0.1. Patient is reportedly asymptomatic right
now but given syncope associate with chest pain and elevated troponin we will check CT angio of the chest to rule out PE. Will need to trend troponins we will plan admit to the hospital service. Discussed with cardiology for consultation.
CT negative for PE. Admit for continued monitoring, trend troponins. Discussed with hospitalist.
Chronic conditions affecting care:
Cardiac history, chronic respiratory failure
Acute Exacerbation and/or Progression of Chronic Illness:
Acute hypertensive
Acute Exacerbation and/or Progression of Chronic Illness: HTN
Comment
Comment:
Reviewed echocardiogram from 07/27/2024�mild reduced left ventricular systolic function with EF of 50 to 55%; possible distal inferior hypokinesis, TAVR noted; distal inferior hypokinesis noted compared to prior
Cardiac catheterization from 04/28/2024 reviewed�30% lesion distal RCA, patent stent in the OM, luminal irregularity of the LAD, normal filling pressures, moderate to severe aortic stenosis, pulmonary hypertension
*Pulse Oximetry
Patient hypoxic: no
*EKG
Interpreted by ED Provider?: Yes
Heart Rate: 72
Rate: normal
Rhythm: PVC's and ventricular paced
*Critical Care Note
Total Time (30-74mins, 75-104mins- exclusive of procedures): Not Applicable
Data Reviewed
Review of Other/Old Records Reveals: Labs and Records
Source: patient and family (Daughter)
Patient Management
Discussion with other providers: Hospitalist (Discussed with hospitalist) and Mac Developer (Discussed with sewing pattern layout technician)
Escalation/DeEscalation of care consider admission/obs:
Admission indicated
ED Attending Note
-
Portions of this chart may have been created with voice recognition software.� Occasional wrong word or��sound alike� substitutions may have occurred due to the inherent limitations of voice recognition software.
Discharge Plan
Departure
Patient Disposition: Admit
Date of Disposition: 11/21/24
Time of Disposition: 23:14
Admit to doctor: Daniel
Presentation/result/management discussed w/ accepting MD/DO: Hospitalist
Discharge Problem:
Syncope, Chest pain
Prescriptions:
No Action
cyanocobalamin (vitamin B-12) 1,000 MCG tablet
1,000 mcg PO DAILY
atorvastatin 80 MG tablet
80 mg PO HS
metoprolol succinate 50 mg Tablet Extended Release 24 Hr
50 mg PO BID
glipizide 5 mg Tablet Extended Release 24hr
5 mg PO DAILY
finasteride 5 mg Tablet
5 mg PO DAILY
Eliquis 2.5 mg Tablet
2.5 mg PO BID Qty: 30 0RF
omega 8-qbn-hjj-fish oil [Fish Oil] 1,000 mg (120 mg-180 mg) Capsule
1 cap PO BID
metformin 500 mg tablet extended release 24 hr
500 mg PO BID
cholecalciferol (vitamin D3) 50 mcg (2,000 unit) Tablet
50 mcg PO DAILY
acetaminophen [Tylenol Extra Strength] 500 mg Tablet
1,000 mg PO Q6HPRN PRN (Reason: mild pain)
zinc sulfate 50 mg zinc (220 mg) Tablet
50 mg PO DAILY
sildenafil (pulm.hypertension) 20 mg Tablet
20 mg PO TID Qty: 90 1RF
Referrals:
Haresh Lilly DO [Family Provider, Family Practice]
Interventions
Interventions:
*Risk Screen - Suicide Last Done: 11/21/24 20:42
*General Assessment Last Done: 11/21/24 20:42
*Neglect/Abuse Screening Last Done: 11/21/24 20:42
*ED- Fall Risk Assessment Last Done: 11/21/24 20:42
*ED COVID-19 Vaccine History Last Done: 11/21/24 20:42
ED- Cardiac Assessment Last Done: 11/21/24 20:42
ED- Neurological Assessment Last Done: 11/21/24 20:42
Discharge Date and Time
Print Language: SPANISH
[2024-11-21 21:30] LABS: Blood Urea Nitrogen 31 mg/dl (9-20); Calcium 8.6 mg/dl (8.4-10.2); Carbon Dioxide 17 mmol/L (22-30); Chloride 111 mmol/L (98-107); Glucose 165 mg/dl (70-99); Sodium 138 mmol/L (135-145); eGFR 35.98
[2024-11-21 22:00] VITALS: BP 173/69
[2024-11-21 22:52] VITALS: BP 157/69
[2024-11-21] MEDS: LOW STRENGTH ASPIRIN 324 MG PO (22:58)
[2024-11-21 23:00] VITALS: BP 173/72
[2024-11-21] MEDS: NSS 500 IV (23:28)
[2024-11-22] VITALS (20 sets, daily range): BP systolic 128–183; BP diastolic 56–91
--- NOTE | 2024-11-22 00:20 | HPS.HSE ---
Family Physician
-
Family Physician: Harseh Llily,
Chief Complaint
-
Chest Pain, Syncope
History of Present Illness
Patient is an 89y M with PMH significant for ASCVD, A-Fib and pulmonary hypertension who presents to ED complaining of syncopal event at home this evening. Patient states that he has been having exertional symptoms of SOB, lightheadedness and
'fire in my chest'. This has been going on for some time with recent increase in frequency and severity of symptoms. He spoke with his pulm HTN specialist office this week and was advised to increase his home O2 from 2 lpm to 3 lpm. He noted no
change sin his symptoms. He denies any recent changes in his medication regimen.
This evening, patient went to the bathroom. Following a bowel movement, he stood to get dressed and became very SOB and lightheaded. He was able to lie down on the ground before falling, but he did ultimately lose consciousness.
He estimates that he was unconscious for about 3-5 minutes total. Family was able to get into the bathroom and called 911.
In the ED, patient is resting comfortably. He has no symptoms while at rest.
Medical History
Past Medical History
Past Medical History: Reports Other
Additional Past Medical History:
ASCVD (CAD, Carotid Stenosis, PAD)
Paroxysmal Atrial Fibrillation
Aortic Stenosis s/p TAVR
Severe Pulmonary Hypertension
Complete Heart Block
Chronic HFpEF
AAA
CKD III
DM-II
Hypertension
RUL Lung Nodule / Mass
Spinal Stenosis
COPD
Past Surgical History: Reports Other
Additional Past Surgical History:
PTCA with Stent
TAVR
PPM Placement
PVI Ablation
RLE Arterial Stent
LINQ
Cholecystectomy
Social History
Tobacco: Former Smoker (Quit smoking 38y ago.)
Alcohol: None
Drug: None
Family History
Family History: Not pertinent
Allergies / Home Medications
Allergies reflects when Allergies were last updated in [facility].
Home Medications with original date entered in [facility]
Allergy/Medication List:
Allergies
Allergy/AdvReac Type Severity Reaction Status Date / Time
No Known Allergies Allergy Verified 11/21/24 20:41
Home Medications
cyanocobalamin (vitamin B-12) 1,000 mcg tablet 1,000 mcg PO DAILY Supplement 08/23/18
atorvastatin 80 mg tablet 80 mg PO HS High cholesterol 03/20/20
metoprolol succinate 50 mg tablet,extended release 24 hr 50 mg PO BID Blood Pressure 09/10/22
finasteride 5 mg tablet 5 mg PO DAILY prostate issue 03/11/23
glipizide 5 mg tablet, extended release 24 hr 5 mg PO DAILY Diabetes 03/11/23
Held on 06/12/24. Instructions: Resume on 06/14/24.
apixaban 2.5 mg tablet (Eliquis) 2.5 mg PO BID #30 tabs 06/17/23
omega 4-zzb-ifh-fish oil 1,000 mg (120 mg-180 mg) capsule (Fish Oil) 1 cap PO BID Supplement 07/24/23
cholecalciferol (vitamin D3) 50 mcg (2,000 unit) tablet 50 mcg PO DAILY Supplement 03/13/24
metformin 500 mg tablet,extended release 24 hr 500 mg PO BID Diabetes 03/13/24
Held on 06/12/24. Instructions: Resume on 06/14/24.
acetaminophen 500 mg tablet (Tylenol Extra Strength) 1,000 mg PO Q6HPRN PRN mild pain 05/25/24
zinc sulfate 50 mg zinc (220 mg) tablet 50 mg PO DAILY 05/25/24
sildenafil (pulm.hypertension) 20 mg tablet 20 mg PO TID pulmonary hypertension #90 tabs 06/11/24
Review of Systems
-
History Source: Patient
A 12 point ROS was completed and negative except as noted: Yes
Constitutional: Reports Fatigue; Denies Fever or Chills
EENT: Denies Sore Throat
Respiratory: Reports Trouble Breathing; Denies Cough
Cardiac: Reports Chest Pain and Syncope; Denies Diaphoresis or Palpitations
Abdomen/GI: Reports Nausea; Denies Abdominal Pain, Vomiting, Diarrhea or Constipated
: Denies Dysuria or Frequency
Musculoskeletal: Denies Joint Pain or Edema
Neurological: Denies Dizzy or Headache
Psych: Denies Depression or Anxiety
Physical Exam
Vital Signs
Vital Signs
Temp Pulse Resp BP Pulse Ox
97.5 F 79 23 179/87 93
11/21/24 20:42 11/22/24 00:00 11/22/24 00:00 11/22/24 00:00 11/22/24 00:00
Physical Exam
General: Other (89y M in no acute distress.)
HEENT: Moist mucous membranes and PERRLA
Respiratory: Clear; No Wheezes, Rales or Rhonchi
Cardiac: S1/S2 and Irregular Rhythm; No Murmur
GI: Soft, Non Tender, Non Distended and Normal Bowel Sounds
Musculoskeletal: No Clubbing, No Cyanosis and No Edema
Neuro: AO x 3 and Nonfocal/grossly intact
Laboratory Results
-
11/21/24 20:54
11/21/24 20:54
Laboratory Results
Total Bilirubin Cancelled 11/21/24 20:54
AST Cancelled 11/21/24 20:54
ALT Cancelled 11/21/24 20:54
Alkaline Phosphatase Cancelled 11/21/24 20:54
Troponin I 0.100 ng/ml H* 11/21/24 22:15
Impression/Plan
-
A/P: Patient is an 89y M with PMH significant for ASCVD, A-Fib and severe pulmonary hypertension who presents to ED for evaluation s/p syncopal episode at home.
Syncope
Chest Pain
ASCVD
Abnormal Troponin - Unknown Type
- Admit for further evaluation and treatment.
- Patient with recent increase in exertional chest pain / dyspnea attributed to his pulm HTN - but not improved with increased O2.
- Had episode this evening culminating in syncopal event with PPM in place.
- PPM interrogated with no noted significant abnormalities.
- Troponin 0.1 on initial set. EKG with paced rhythm with frequent PVCs. BP elevated from his usual baseline.
- Monitor on telemetry.
- Follow troponin to peak.
- Monitor for any new / recurrent symptoms.
- Continue statin / Eliquis. Add ASA for now.
- Cardiology evaluation for additional recommendations.
- CTA Chest done in the ED without evidence of PE.
Severe Pulmonary Hypertension
- Recent symptomatology increased in severity / frequency.
- Events of this evening potentially due to dyspnea, increased pulm pressures, cor pulmonale.
- Continue current sildenafil for now.
- Continue O2 ATC.
- Cardiology eval as noted above.
- Update Echo.
Chronic HFpEF
s/p TAVR
- Stable. No evidence of volume overload on exam.
- Reluctant to diurese / drop RV preload.
- Follow I/Os, daily weights.
- Echo as noted above.
Paroxysmal Atrial Fibrillation
- Stable. Continue Eliquis for stroke risk reduction.
Complete Heart Block s/p PPM
- PPM interrogated this evening and no evident abnormality appreciated.
- Seems significant increase in ectopy / PVCs on EKG and telemetry.
- Monitor on tele overnight.
- Cardiology eval as noted above.
Benign Hypertension
- BP elevated at present.
- Continue usual outpatient med regimen and adjust as needed for BP control.
- IV hydralazine for very high BPs.
DM-II
- Stable. Hold PO medications acutely.
- Follow glucose and cover with SSI as needed.
- Update A1C.
CKD III
- Stable. SCr appears to range from 1.5 - 2.0 based on prior values.
- Currently within said range.
- Follow for changes in renal function.
RUL Mass
- History of lung cancer s/p XRT and reportedly in remission.
- RUL lesion on serial images and not significantly changed from prior studies.
DVT Prophylaxis: On Eliquis
Code Status: Full
[2024-11-22] MEDS: TOPROL XL 50 MG PO ×3 (01:15→20:12)
[2024-11-22 01:58] LABS: Troponin I 0.575 ng/ml
[2024-11-22 02:16] LABS: TSH Reflex To Free T4 2.24 uIU/ml (0.47-4.68)
[2024-11-22] MEDS: APRESOLINE 5 MG IV (03:07)
--- NOTE | 2024-11-22 03:17 | PTCARENOTE ---
Received pt from ED to ICU 6091. Pt. AAOx3, pleasant, without complaints. CLAYTON. AV/V paced on tele with frequent PVCs. HR 70s. BP elevated 180/60s - PRN hydralazine given. No edema. Afebrile. On 3L NC. Spo2 96%. Lungs diminished with crackles at R
base. + bowel sounds. LBM 6/. NPO per orders. Urinal at bedside. Repeat labs drawn and sent. Call pierce in reach
[2024-11-22 04:15] LABS: Blood Urea Nitrogen 33 mg/dl (9-20); Calcium 8.5 mg/dl (8.4-10.2); Carbon Dioxide 18 mmol/L (22-30); Chloride 111 mmol/L (98-107); Glucose 165 mg/dl (70-99); Magnesium 1.8 mg/dl (1.6-2.3); Potassium 4.4 mmol/L (3.5-5.1); Sodium 137 mmol/L (135-145); eGFR 38.53
[2024-11-22] MEDS: MAGNESIUM OXIDE 500 MG PO (06:02)
[2024-11-22 06:36] LABS: Hematocrit 33.7 % (39.0-52.0); Hemoglobin 11.7 g/dL (13.0-18.0); Mean Corp Hgb Conc. 34.7 g/dL (33.0-37.0); Mean Corpuscular Hgb 32.1 pg (27.0-31.0); Mean Corpuscular Volume 92.3 fL (80.0-94.0); Platelet Count 131 10^3/uL (130-400); Red Blood Cell Count 3.65 10^6/uL (4.70-6.10); Red Cell Dist. Width 14.8 % (11.5-14.5); White Blood Cell Count 8.1 10^3/uL (4.8-10.8)
[2024-11-22 06:49] LABS: Troponin I 0.888 ng/ml
[2024-11-22 07:04] LABS: HDL Cholesterol 31 mg/dl; LDL Cholesterol, Calculated 33 mg/dl; Total Cholesterol 88 mg/dl (50-199); Triglyceride 121 mg/dl (10-149); Very Low Density Lipoprotein 24 mg/dl (0-30)
[2024-11-22] MEDS: REVATIO 20 MG PO ×3 (07:53→21:36)
[2024-11-22] MEDS: LOW STRENGTH ASPIRIN 81 MG PO (07:54)
[2024-11-22] MEDS: PROSCAR 5 MG PO (07:54)
[2024-11-22] MEDS: ELIQUIS 2.5 MG PO (07:54)
--- NOTE | 2024-11-22 07:54 | CON.CAR ---
Addendum entered and electronically signed by NATALI Rivas 11/26/24 16:13:
Abnormal troponin, non ischemic myocardial injury in the setting of chronic pulmonary HTN.
Original Note:
Consultation
Consultation Request
Date/Time Consultation Requested: 11/21/2024 22:50
Date/Time Consultation Performed: 11/22/2024 07:40
Requesting Provider: Dr. Boswell
Performing Provider: NATALI Pavon for Dr. Knight
Reason for Consultation: Syncope
Medical History
-
Chief Complaint: Syncope
History of Present Illness:
Ric Dial is an 89 year old male (known to Dr. Candelaria, his primary utilization management um nurse) with frequent PVC's s/p ablation 09/10/22, PAC's, paroxysmal atrial fibrillation (on Eliquis), CAD s/p stenting 15 years ago, PAD s/p bilateral iliac stenting, HFpEF,
aortic stenosis s/p TAVR, hypertension, dyslipidemia, 1st degree AVB, RBBB, AAA (3.4 cm infrarenal), DM, CKD3B, COPD, lung cancer s/p XRT, NSVT, severe pulmonary hypertension, and recurrent syncope who is here for evaluation of syncope. Yesterday,
he woke up feeling a little bit more fatigued than usual. He went to [employer] and sat in the front row because he was tired and wanted to sit rather than walk to his usual pew. He went to an 8th grade graduation at his daughter's house for his
granddaughter. He was standing urinating when he realized he had to have a bowel movement. He sat down, had a bowel movement and after standing had his usual symptoms of syncope which are dizziness and chest burning. He was able to lower himself
to the ground. His daughters heard 'a thud' which was his oxygen tank falling over. He presented to the emergency room for evaluation. He had a CT PE study which was negative. No acute findings on his pacemaker interrogation. Orthostatic vital
signs are pending. Cardiology was consulted for an abnormal troponin.
Past Medical History
Past Medical History: Arrhythmias (paroxysmal atrial fibrillation, PVC's, PACs), CAD (prior PCI), Cancer (Lung s/p XRT), CHF (HFpEF), COPD, HTN, Hypercholesterolemia, NIDDM, Valvular Disease (severe s/p TAVR) and Other (severe pulmonary HTN)
Past Surgical History: Cardiac (TAVR) and Cholecystectomy
Social History
Tobacco: Former Smoker
Employment: Retired
Family History
Family History: Reviewed & Not Pertinent
Allergies / Home Medications
Allergy/AdvReac Type Severity Reaction Status Date / Time
No Known Allergies Allergy Verified 11/21/24 20:41
�Medication �Instructions �Recorded �Confirmed �Type
cyanocobalamin (vitamin B-12) 1,000 mcg PO DAILY Supplement 08/23/18 11/22/24 History
1,000 mcg tablet
atorvastatin 80 mg tablet 80 mg PO HS High cholesterol 03/20/20 11/22/24 History
metoprolol succinate 50 mg 50 mg PO BID Blood Pressure 09/10/22 11/22/24 History
tablet,extended release 24 hr
finasteride 5 mg tablet 5 mg PO DAILY prostate issue 03/11/23 11/22/24 History
glipizide 5 mg tablet, extended 5 mg PO DAILY Diabetes 03/11/23 11/22/24 History
release 24 hr
Held on 06/12/24.
Instructions: Resume on
06/14/24.
apixaban 2.5 mg tablet (Eliquis) 2.5 mg PO BID #30 tabs 06/17/23 11/22/24 Rx
omega 1-ago-cho-fish oil 1,000 mg 1 cap PO BID Supplement 07/24/23 11/22/24 History
(120 mg-180 mg) capsule (Fish Oil)
cholecalciferol (vitamin D3) 50 50 mcg PO DAILY Supplement 03/13/24 11/22/24 History
mcg (2,000 unit) tablet
metformin 500 mg tablet,extended 500 mg PO BID Diabetes 03/13/24 11/22/24 History
release 24 hr
Held on 06/12/24.
Instructions: Resume on
06/14/24.
acetaminophen 500 mg tablet 1,000 mg PO Q6HPRN PRN mild pain 05/25/24 11/22/24 History
(Tylenol Extra Strength)
zinc sulfate 50 mg zinc (220 mg) 50 mg PO DAILY 05/25/24 11/22/24 History
tablet
sildenafil (pulm.hypertension) 20 20 mg PO TID pulmonary 06/11/24 11/22/24 Rx
mg tablet hypertension #90 tabs
Review of Systems
-
History Source: Patient
All other systems: Negative unless noted
Constitutional: Fatigue
EENT: No Symptoms
Respiratory: No Symptoms
Cardiac: No Symptoms
Abdomen/GI: No Symptoms
: No Symptoms
Musculoskeletal: No Symptoms
Skin: No Symptoms
Neurological: No Symptoms
Endocrine: No Symptoms
Hematologic/Lymphatic: No Symptoms
Physical Exam
Vital Signs
Temp Pulse Resp BP Pulse Ox
97.4 F 74 21 155/74 90
11/22/24 07:23 11/22/24 06:00 11/22/24 06:00 11/22/24 06:00 11/22/24 06:00
Lab Results
11/22/24 06:08
11/22/24 06:00
Troponin I 0.888 ng/ml H* D 11/22/24 06:08
Physical Exam
General: Well Developed, Well Nourished, No Apparent Distress and Comfortable
HEENT: Normocephalic, Anicteric and Moist Mucous Membranes
Respiratory: Clear and Non Labored Respirations
Cardiac: S1/S2 and Regular Rhythm
Breast: Deferred by me
GI: Soft, Non Tender, Non Distended and Normal Bowel Sounds
Rectal: Deferred by Provider
Genito-urinary: No Costovertebral Tender
Musculoskeletal: No Clubbing and No Cyanosis
Skin: Warm and Dry
Neuro: AO x 3
Hematologic/Lymphatic: No Lymphadenopathy
Psych: Calm
Impression / Plan
-
I/P: 89M with frequent PVC's s/p ablation 09/10/22, PAC's, paroxysmal atrial fibrillation (on Eliquis), CAD s/p stenting 15 years ago, PAD s/p bilateral iliac stenting, HFpEF, aortic stenosis s/p TAVR, hypertension, dyslipidemia, 1st degree AVB,
RBBB, AAA (3.4 cm infrarenal), DM, CKD3B, COPD, lung cancer s/p XRT, NSVT, severe pulmonary hypertension, and recurrent syncope who is here for evaluation of syncope.
Primary Systems Admin: Dr. Candelaria
Syncope
-Usual prodrome of chest burning and dizziness
-No acute findings on PPM
-CT PE negative
-Orthostatic VS ordered
Abnormal troponin, type unknown
-Trop 0.100, 0.575, & 0.888
-Echo pending
-Chest pain free
-EKG with RBBB
CAD
-Stable without chest pain
-[facility] 2023: Right dominant circulation with a 30% lesion in the distal RCA, a patent stent in the body of OM 2 and luminal irregularities in the LAD.
-Continue medical management
HFmrEF (EF 50-55%), chronic
-Stable without shortness of breath
-04/2024: Normal filling pressures (LVEDP = 10 mmHg, PCWP = 15 mmHg at 80.3 kg)
-Furosemide is PRN at home
Paroxysmal atrial fibrillation
-In sinus rhythm
-Oral Anticoagulation: Eliquis 2.5mg BID (age 89, creatinine > 1.5), last dose this am
-[id number]: score at least 6 (Heart failure, HTN, age 75 or more, Diabetes Mellitus, Vascular disease)
Pulmonary HTN, severe
-Records requested from [place]
HTN
-BP above goal, follow after am medications
Chronic hypoxic respiratory insufficiency, in the setting of pulmonary HTN, on 2-3L NC at baseline
CKD3b, chronic
Severe s/p TAVR, peak/mean 8/5mmHg
[employer] DC PPM, stable on device check
PAD, followed by Vascular Surgery
Lung cancer s/p XRT
Data Reviewed
-
EKG: Report Reviewed by me (Sinus rhythm, PACs, rate 78, RBBB)
CT Scan: Report Reviewed by me
Labs: Labs Reviewed by me
Old Records: Reviewed
[2024-11-22] MEDS: NOVOLOG FLEXPEN-LOW RESISTANCE SC ×2 (07:55→17:22)
[2024-11-22 08:06] LABS: Glucose - Point of Care 121 mg/dl (70-99)
--- NOTE | 2024-11-22 09:28 | PTCARENOTE ---
Received report at 0700. Pt. AAOx3, pleasant, with complaints of minimal chest pain L anterior chest wall. CLAYTON. AV/V paced on tele with frequent PVCs. HR 70s. BP elevated 170/60s - AM HTN meds given. No edema. Afebrile. On 3L NC. Spo2 95%. + bowel
sounds. Cardiology started low chol diet. Urinal at bedside. Call pierce in reach
[2024-11-22 11:21] LABS: Glycohemoglobin (HgbA1c) 5.6 % (4.0-5.6)
[2024-11-22] MEDS: NORVASC 5 MG PO (12:08)
[2024-11-22 12:14] LABS: Glucose - Point of Care 217 mg/dl (70-99)
[2024-11-22] MEDS: NOVOLOG FLEXPEN-LOW RESISTANCE 2 UNITS SC (12:25)
--- NOTE | 2024-11-22 13:25 | CM ---
Initial assessment completed with patient with daughter in room. Patient lives with a daughter and a 21 y/o grandson in a 2 story home with basement and 2 steps to enter. Patient's B/B on 1st floor. 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
He also has a rollator, O2 concentrator and Inogen. He uses O2 continuously during the day at 2-3L. SOB on exertion. He does not use O2 at HS. Patient does drive. He does have HC-POA. He was in the [place]. His support system is his 5 children. 3
of which live in the area. 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 PCP is Dr. Haresh Lilly. [facility]acy [facility] [address] in [place]. Discharge POC: TBD. Anticipate home with HH RN. Has used HH in the past and is amenable
to having them again. Will send referral.
[2024-11-22 13:41] LABS: Troponin I 0.614 ng/ml
--- NOTE | 2024-11-22 14:47 | PTCARENOTE ---
Cards rounded, Trop peaked, Plan is for Right heart cath in AM to assess PAS pressures.
--- NOTE | 2024-11-22 14:51 | W.PN.UPDATE ---
Update Note
Progress Note Update
Echo with elevated PA pressures
Doubt this is acute coronary syndrome
Plan for right heart cath tomorrow
Continue monitoring telemetry
Follow-up cardiology recommendations
[2024-11-22 17:24] LABS: Glucose - Point of Care 126 mg/dl (70-99)
--- NOTE | 2024-11-22 20:00 | PTCARENOTE ---
Rec'd pt resting in bed, denies pain, cooperative, AV paced, V paced, pvcs, + pulses, skin warm/dry, sat on 3 liters nc was 90, incr to 4 liters- sat 92, lungs w/ fine crackles 1/4 up R & left base, + CAMPA, + bowel sounds, no bm, abd soft, haris diet,
voiding yellow urine in urinal
[2024-11-22] MEDS: LIPITOR 80 MG PO (21:36)
[2024-11-22 21:51] LABS: Glucose - Point of Care 143 mg/dl (70-99)
[2024-11-23] VITALS (17 sets, daily range): BP systolic 106–161; BP diastolic 64–103
--- NOTE | 2024-11-23 00:03 | PTCARENOTE ---
Addendum entered by Kate Holland RN 11/23/24 02:45:
npo after md
Original Note:
sys reviewed, lungs w/ bibas crackles, CHG bath done, linens changed
--- NOTE | 2024-11-23 01:00 | PTCARENOTE ---
sleeping, sat 88%, changed to 8 liters mid flow by resp therapist- sat 94
--- NOTE | 2024-11-23 03:33 | PTCARENOTE ---
sys reviewed, lungs unch, remains on midflow 8 liters
[2024-11-23 03:39] LABS: Hematocrit 32.3 % (39.0-52.0); Hemoglobin 11.3 g/dL (13.0-18.0); Mean Corpuscular Hgb 32.2 pg (27.0-31.0); Mean Platelet Volume 10.9 fL (7.4-10.4); Platelet Count 126 10^3/uL (130-400); Red Blood Cell Count 3.51 10^6/uL (4.70-6.10); White Blood Cell Count 9.3 10^3/uL (4.8-10.8)
[2024-11-23 03:55] LABS: ALT (SGPT) 30 U/L (0-50); AST (SGOT) 33 U/L (17-59); Albumin 3.2 g/dl (3.5-5.0); Alkaline Phosphatase 90 U/L (38-126); Blood Urea Nitrogen 33 mg/dl (9-20); Calcium 8.8 mg/dl (8.4-10.2); Carbon Dioxide 19 mmol/L (22-30); Chloride 112 mmol/L (98-107); Glucose 106 mg/dl (70-99); Potassium 4.5 mmol/L (3.5-5.1); Sodium 137 mmol/L (135-145); eGFR 41.44
[2024-11-23] MEDS: NOVOLOG FLEXPEN-LOW RESISTANCE SC ×2 (07:39→12:18)
[2024-11-23 07:46] LABS: Glucose - Point of Care 120 mg/dl (70-99)
[2024-11-23] MEDS: REVATIO 20 MG PO (07:53)
[2024-11-23] MEDS: NORVASC 5 MG PO (07:53)
[2024-11-23] MEDS: PROSCAR 5 MG PO (07:53)
[2024-11-23] MEDS: LOW STRENGTH ASPIRIN 81 MG PO (07:53)
[2024-11-23] MEDS: TOPROL XL 50 MG PO (07:54)
--- NOTE | 2024-11-23 11:10 | PTCARENOTE ---
pt awaiting cath, NPO and aware of POC. No change in physical assessment, CB in reach, encouraged to use.
[2024-11-23 11:58] LABS: Glucose - Point of Care 118 mg/dl (70-99)
--- NOTE | 2024-11-23 13:15 | PTCARENOTE ---
report called, pt transported for right cardiac cath.
--- NOTE | 2024-11-23 14:03 | PTCARENOTE ---
pt returned from cardiac cath. awake and alert, denies pain. right AC pressure dressing CDI. HR 60-70's, irregular. BP 161/65. PO 94% on 4L. CB in reach.
--- NOTE | 2024-11-23 14:05 | ITS.CL.PN ---
[facility] - Procedure Note
Procedure
Procedure Note:
CARDIAC CATHETERIZATION REPORT
Date of Procedure: 11/23/2024
Referring: Dr. Mauricio Knight MD
Indication: pulmonary hypertension, syncope
PROCEDURE: right heart catheterization
ACCESS: 5F right antecubital vein (closure: manual hemostasis)
CATHETERS: 5F [place]
MODERATE SEDATION: 25 minutes of moderate sedation was utilized. An independent emergency medical technician/driver was present to assist with and help manage the patient's level of consciousness and physiologic status.
HEMODYNAMIC DATA
SBP 174/79 (mean 113) mmHg
RA 15 mmHg
RV 90/10 (EDP 20) mmHg
PA 88/32 (mean 49) mmHg
PCWP 20 mmHg
SaO2 95.0%
SvO2 57.3%
Hb 11.8 g/dL
CO/CI 4.14/2.07 L/min/m2
SVR 1893 dsc*-5
PVR 11.8 [place] units
RADIATION: dose 16 mGy; DAP 2.8 Gy*cm2; fluoroscopy time 1.3 min
CONCLUSION: mildly elevated biventricular filling pressures, severe precapillary pulmonary hypertension, and borderline reduced cardiac output.
Copy to: Dr. Alirio Candelaria MD, PhD (automatic fabric cutter); Haresh Lilly DO (PCP)
Signed: Thierno Lam MD, PhD
--- NOTE | 2024-11-23 15:00 | CM ---
Addendum entered by Seymour Cespedes 11/23/24 15:04:
IMM signed within 48 hrs. of admission/discharge.
Original Note:
Patient has been medically cleared for discharge to home with [facility] RN and PT/OT eval and treat. Family will transport home.
--- NOTE | 2024-11-23 15:18 | VNURNOTE ---
Home Health Liaison spoke with patient to discuss [facility] nurse/therapy, visits, schedule and homebound status. Patient is agreeable and understands that visits at home will be 2-3 x per week to assess and teach medical management. He mentioned that
he has a Dr clements at [place] tomorrow, requested no start of care visit then. [facility] intake notified. He is aware that [facility] will contact them after discharge from .
[facility] referral accepted in [facility].
--- NOTE | 2024-11-23 15:28 | W.PN.HOSP.TC ---
Addendum entered and electronically signed by Hardik Larsen MD 11/26/24 15:16:
Chronic Systolic CHF
Addendum entered and electronically signed by Hardik Larsen MD 11/24/24 15:07:
[id number]
Original Note:
Today's Communication/Plan
-
RHC with no new findings; severe pHTN
Assessment / Plan
Assessment / Plan
Physical Exam
General: Other (89y M in no acute distress.)
HEENT: Moist mucous membranes and PERRLA
Respiratory: Clear; No Wheezes, Rales or Rhonchi
Cardiac: S1/S2 and Irregular Rhythm; No Murmur
GI: Soft, Non Tender, Non Distended and Normal Bowel Sounds
Musculoskeletal: No Clubbing, No Cyanosis and No Edema
Neuro: AO x 3 and Nonfocal/grossly intact
A/P: Patient is an 89y M with PMH significant for ASCVD, A-Fib and severe pulmonary hypertension who presents to ED for evaluation s/p syncopal episode at home.
Syncope
Chest Pain
ASCVD
Abnormal Troponin - Unknown Type
- Admit for further evaluation and treatment.
- Patient with recent increase in exertional chest pain / dyspnea attributed to his pulm HTN - but not improved with increased O2.
- Had episode this evening culminating in syncopal event with PPM in place.
- PPM interrogated with no noted significant abnormalities.
- Troponin 0.1 on initial set. EKG with paced rhythm with frequent PVCs. BP elevated from his usual baseline.
- Monitor on telemetry.
- Follow troponin to peak.
- Monitor for any new / recurrent symptoms.
- Continue statin / Eliquis.
- Cardiology evaluation for additional recommendations.
- CTA Chest done in the ED without evidence of PE.\\
-likely 2/2 to severe pHTN
Severe Pulmonary Hypertension
- Recent symptomatology increased in severity / frequency.
- Events of this evening potentially due to dyspnea, increased pulm pressures, cor pulmonale.
- Continue current sildenafil for now.
- Continue O2 ATC.
- Cardiology eval as noted above.
- Update Echo. - no acute changes, no WMA
-RHC - severe pHTN - known
Chronic HFpEF
s/p TAVR
- Stable. No evidence of volume overload on exam.
- Reluctant to diurese / drop RV preload.
- Follow I/Os, daily weights.
- Echo as noted above.
Paroxysmal Atrial Fibrillation
- Stable. Continue Eliquis for stroke risk reduction.
Complete Heart Block s/p PPM
- PPM interrogated this evening and no evident abnormality appreciated.
- Seems significant increase in ectopy / PVCs on EKG and telemetry.
- Monitor on tele overnight.
- Cardiology eval as noted above.
Benign Hypertension
- BP elevated at present.
- Continue usual outpatient med regimen and adjust as needed for BP control.
- IV hydralazine for very high BPs.
DM-II
- Stable.
- Follow glucose and cover with SSI as needed.
CKD III
- Stable. SCr appears to range from 1.5 - 2.0 based on prior values.
- Currently within said range.
- Follow for changes in renal function.
RUL Mass
- History of lung cancer s/p XRT and reportedly in remission.
- RUL lesion on serial images and not significantly changed from prior studies.
DVT Prophylaxis: On Eliquis
Code Status: Full
More than 30 minutes spent in discharge including
Final examination of the patient
Summarizing hospital stay
Instructions for continuing care to all relevant caregivers
Preparation of discharge records, prescriptions, and referral forms
Total time spent (in minutes): 36
Anticipated Discharge: Today
Subjective/Interval History
-
Date of Service: November 23, 2024
rhc today
Objective Data
-
Labs:
Laboratory Results
11/23/24
03:28
WBC 9.3
Hgb 11.3 L
Hct 32.3 L
Plt Count 126 L
Sodium 137
Potassium 4.5
Chloride 112 H
Carbon Dioxide 19 L
BUN 33 H
Creatinine 1.6 H
Glucose 106 H
Calcium 8.8
Total Bilirubin 1.0
AST 33
ALT 30
Alkaline Phosphatase 90
Vital Signs:
Vital Signs
Temp Pulse Resp BP Pulse Ox
97.6 F 76 18 126/103 94
11/23/24 14:40 11/23/24 15:00 11/23/24 15:00 11/23/24 15:00 11/23/24 14:30
I&O
11/22/24 11/23/24 11/24/24
06:59 06:59 06:59
Intake Total 500 / 500 300 / 300
Output Total 300 / 300 1650 / 1650 200 / 200
Balance 200 / 200 -1350 / -1350 -200 / -200
Review of Systems
-
History Source: Patient
All other systems: Not reviewed unless documented
Data Reviewed
-
Diagnostic Radiology: Image personally visualized and interpreted and Report Reviewed by me
CT Scan: Image personally visualized and interpreted and Report Reviewed by me
Ultrasound: Image personally visualized and interpreted and Report Reviewed by me
MRI: Image personally visualized and interpreted and Report Reviewed by me
Medical Tests (Nuc Med, Echo etc): Image personally visualized and interpreted and Report Reviewed by me
Labs: Labs Reviewed by me
Old Records: Reviewed
--- NOTE | 2024-11-23 16:53 | PN.CDI ---
CDI
- -
CDI:
Physician Documentation Request
Admit Date: 11/22/24 00:33
Dear Doctor Suzie,
Please review the following and provide your response in the progress notes.
Clinical Indicators:
Pt admitted with chest pain cath showed 2/2 pulmonary HTN
There is potentially conflicting documentation in the record regarding the type of CHF .
Documented in H&P and progress notes,' Chronic HFpEF...'
Cardiology consult,' HFmrEF...'
ECHO 11/22,' LVEF is approximately 45% by visual estimation....'
Please provide further specificity regarding the most likely type of CHF you are evaluating, treating or monitoring.
Chronic Systolic CHF
Chronic Diastolic CHF ( no change in documentation)
Other ( please specify)
Use of terms such as suspected, likely, concern for, or probable (associated with a specific diagnosis that is being evaluated, monitored, or treated as if it exists) are acceptable and can be coded in the inpatient setting, when documented at the
time of discharge.
Thank you,
Jimena Lee RN
CDI Specialist
[facility]
Please use your independent medical judgment in providing your response.
--- NOTE | 2024-11-23 16:58 | PN.CDI ---
CDI
- -
CDI:
Physician Documentation Request
Admit Date: 11/22/24 00:33
Dear Doctor Suzie,
Please review the following and provide your response in the progress notes.
Clinical Indicators:
Pt admitted with chest pain cath showed 2/2 pulmonary HTN
Documented per h&P and progress note 11/23, ' Abnormal Troponin - Unknown Type...'
Laboratory Tests
11/21/24 11/22/24 11/22/24
22:15 01:16 06:08
Troponin I 0.100 H* 0.575 H* D 0.888 H* D
11/22/24
13:03
Troponin I 0.614 H* D
Please provide the suspected dx associated the the documented abnormal troponin:
Non-ischemic myocardial injury
Other Troponin DX ( please specify)
Unable to determine
Use of terms such as suspected, likely, concern for, or probable (associated with a specific diagnosis that is being evaluated, monitored, or treated as if it exists) are acceptable and can be coded in the inpatient setting, when documented at the
time of discharge.
Thank you,
Jimena Lee RN
CDI Specialist
[place] [facility]
Please use your independent medical judgment in providing your response.
--- NOTE | 2024-11-26 15:34 | PN.CDI ---
CDI
- -
CDI:
Physician Documentation Request
Admit Date: 11/22/24 00:33
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
Please review the following and provide your response in the progress notes.
Clinical Indicators:
Pt admitted with chest pain cath showed 2/2 pulmonary HTN
Documented per h&P and progress note 11/23, ' Abnormal Troponin - Unknown Type...'
Laboratory Tests
11/21/24 11/22/24 11/22/24
22:15 01:16 06:08
Troponin I 0.100 H* 0.575 H* D 0.888 H* D
11/22/24
13:03
Troponin I 0.614 H* D
Please provide the suspected dx associated the the documented abnormal troponin:
Non-ischemic myocardial injury
Other Troponin DX ( please specify)
Unable to determine
Use of terms such as suspected, likely, concern for, or probable (associated with a specific diagnosis that is being evaluated, monitored, or treated as if it exists) are acceptable and can be coded in the inpatient setting, when documented at the
time of discharge.
Thank you,
Jimena Lee RN
CDI Specialist
[place] [facility]
Please use your independent medical judgment in providing your response.
--- NOTE | 2024-11-26 15:53 | W.DS.TRANS ---
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
-
Discharge Instructions:
Discharge Diagnosis/Procedures recurrent syncope
Severe pulmonary hypertension
Diet Low Cholesterol,Low Fat,Diabetic, Carb
Controlled
Blood Work cbc and cmp in appx 5 days with pcp
Others Tests as per pulmonary and cardiology outpatient
Instructions:
Stand-Alone Forms: DC Instructions- Cath/EP Lab
Changes to Home Medications: No
Discharge Medications:
DC Medications w/original date entered in [facility]
cyanocobalamin (vitamin B-12) 1,000 mcg tablet 1,000 mcg PO DAILY Supplement 08/23/18
atorvastatin 80 mg tablet 80 mg PO HS High cholesterol 03/20/20
metoprolol succinate 50 mg tablet,extended release 24 hr 50 mg PO BID Blood Pressure 09/10/22
finasteride 5 mg tablet 5 mg PO DAILY prostate issue 03/11/23
glipizide 5 mg tablet, extended release 24 hr 5 mg PO DAILY Diabetes 03/11/23
apixaban 2.5 mg tablet (Eliquis) 2.5 mg PO BID #30 tabs 06/17/23
omega 9-qtq-kuo-fish oil 1,000 mg (120 mg-180 mg) capsule (Fish Oil) 1 cap PO BID Supplement 07/24/23
cholecalciferol (vitamin D3) 50 mcg (2,000 unit) tablet 50 mcg PO DAILY Supplement 03/13/24
metformin 500 mg tablet,extended release 24 hr 500 mg PO BID Diabetes 03/13/24
acetaminophen 500 mg tablet (Tylenol Extra Strength) 1,000 mg PO Q6HPRN PRN mild pain 05/25/24
zinc sulfate 50 mg zinc (220 mg) tablet 50 mg PO DAILY Supplement 05/25/24
sildenafil (pulm.hypertension) 20 mg tablet 20 mg PO TID pulmonary hypertension #90 tabs 06/11/24
Home Medication Changes
na
Pending Results: No
== END 2024-11-23 16:50 | disposition home or self-care (01) | DRG 287 ==
LOC: ICU 00:33
PROVIDERS: Student in an Organized Health Care Education/Training Program; ADMITTING PHYSICIAN Hospitalist; ATTENDING PHYSICIAN Internal Medicine; EMERGENCY PHYSICIAN Emergency Medicine; FAMILY PHYSICIAN Family Medicine; OTHER PHYSICIAN Internal Medicine Cardiovascular Disease
PROC: 4A023N6 Measurement of Cardiac Sampling and Pressure, Right Heart, Percutaneous Approach (ICD-10-PCS; 2024-11-23)
DX: I27.29 Other secondary pulmonary hypertension (principal); J96.10 Chronic respiratory failure, unspecified whether with hypoxia or hypercapnia; I13.0 Hypertensive heart and chronic kidney disease with heart failure and stage 1 through stage 4 chronic kidney disease, or unspecified chronic kidney disease; I50.22 Chronic systolic (congestive) heart failure; I5A Non-ischemic myocardial injury (non-traumatic); J44.9 Chronic obstructive pulmonary disease, unspecified; N18.32 Chronic kidney disease, stage 3b; E78.00 Pure hypercholesterolemia, unspecified; I48.0 Paroxysmal atrial fibrillation; I71.40 Abdominal aortic aneurysm, without rupture, unspecified; I49.3 Ventricular premature depolarization; I35.0 Nonrheumatic aortic (valve) stenosis; R91.1 Solitary pulmonary nodule; I45.10 Unspecified right bundle-branch block; E11.22 Type 2 diabetes mellitus with diabetic chronic kidney disease; I25.10 Atherosclerotic heart disease of native coronary artery without angina pectoris; Z95.2 Presence of prosthetic heart valve; Z99.81 Dependence on supplemental oxygen; Z90.49 Acquired absence of other specified parts of digestive tract; Z87.891 Personal history of nicotine dependence; Z79.84 Long term (current) use of oral hypoglycemic drugs; Z79.01 Long term (current) use of anticoagulants; Z95.5 Presence of coronary angioplasty implant and graft; Z95.820 Peripheral vascular angioplasty status with implants and grafts; Z95.0 Presence of cardiac pacemaker; Z85.118 Personal history of other malignant neoplasm of bronchus and lung; Z92.3 Personal history of irradiation
CPT/HCPCS: 93308; 71275; 80048; 80053; 80061; 82962; 83036; 83735; 84443; 84484; 85025; 85027; 93005; 93321; 93325; 93451; 99152; 99153; 99285; C1894; Q9950; Q9967

== ENCOUNTER → 2024-11-26 14:35 | Outpatient (REF) | payer OTHER, SELFPAY ==
[2024-11-26 15:16] LABS: % Basophils 0.8 % (0-2); % Eosinophils 3.8 % (0-6); % Immature Granulocytes 0.3 % (0-0.5); % Lymphocytes 20.6 % (20.5-51.1); % Monocytes 10.6 % (1.7-9.3); % Neutrophils 63.9 % (42.2-75.2); Absolute Basophils 0.1 10^3/uL (0-0.2); Absolute Eosinophils 0.3 10^3/uL (0-0.7); Absolute Lymphocytes 1.7 10^3/uL (1.2-3.4); Absolute Monocytes 0.9 10^3/uL (0.1-0.6); Absolute Neutrophils 5.1 10^3/uL (1.4-6.5); Hematocrit 35.9 % (39.0-52.0); Hemoglobin 11.9 g/dL (13.0-18.0); Mean Corp Hgb Conc. 33.1 g/dL (33.0-37.0); Mean Corpuscular Hgb 31.4 pg (27.0-31.0); Mean Corpuscular Volume 94.7 fL (80.0-94.0); Mean Platelet Volume 10.5 fL (7.4-10.4); Nucleated Red Blood Cells % 0 % (-); Platelet Count 153 10^3/uL (130-400); Red Blood Cell Count 3.79 10^6/uL (4.70-6.10); Red Cell Dist. Width 14.9 % (11.5-14.5)
[2024-11-26 15:38] LABS: ALT (SGPT) 24 U/L (0-50); AST (SGOT) 29 U/L (17-59); Albumin 3.7 g/dl (3.5-5.0); Alkaline Phosphatase 82 U/L (38-126); Blood Urea Nitrogen 30 mg/dl (9-20); Calcium 9.2 mg/dl (8.4-10.2); Carbon Dioxide 24 mmol/L (22-30); Chloride 108 mmol/L (98-107); Glucose 116 mg/dl (70-99); Potassium 4.8 mmol/L (3.5-5.1); Sodium 138 mmol/L (135-145); Total Bilirubin 1.2 mg/dl (0.2-1.3); Total Protein 6.6 g/dl (6.3-8.2); eGFR 31.71
== END ==
LOC: REG 14:35
PROVIDERS: ATTENDING PHYSICIAN Family Medicine
DX: E11.22 Type 2 diabetes mellitus with diabetic chronic kidney disease (principal); R55 Syncope and collapse; I27.20 Pulmonary hypertension, unspecified
CPT/HCPCS: 36415; 80053; 85025

== ENCOUNTER → 2024-12-03 14:00 | Outpatient (REF) | payer OTHER, SELFPAY ==
[2024-12-03 14:38] LABS: % Basophils 0.4 % (0-2); % Eosinophils 4.3 % (0-6); % Immature Granulocytes 0.4 % (0-0.5); % Monocytes 9.9 % (1.7-9.3); Absolute Eosinophils 0.4 10^3/uL (0-0.7); Absolute Lymphocytes 1.8 10^3/uL (1.2-3.4); Absolute Monocytes 0.9 10^3/uL (0.1-0.6); Hematocrit 37.3 % (39.0-52.0); Hemoglobin 12.4 g/dL (13.0-18.0); Mean Corp Hgb Conc. 33.2 g/dL (33.0-37.0); Mean Corpuscular Hgb 31.6 pg (27.0-31.0); Mean Corpuscular Volume 95.2 fL (80.0-94.0); Mean Platelet Volume 10.5 fL (7.4-10.4); Nucleated Red Blood Cells % 0 % (-); Platelet Count 164 10^3/uL (130-400); Red Blood Cell Count 3.92 10^6/uL (4.70-6.10); White Blood Cell Count 9.2 10^3/uL (4.8-10.8)
[2024-12-03 15:22] LABS: Blood Urea Nitrogen 25 mg/dl (9-20); Calcium 9.1 mg/dl (8.4-10.2); Carbon Dioxide 25 mmol/L (22-30); Chloride 109 mmol/L (98-107); Glucose 58 mg/dl (70-99); Potassium 4.7 mmol/L (3.5-5.1); Sodium 140 mmol/L (135-145); eGFR 35.98
== END ==
LOC: REG 14:00
PROVIDERS: ATTENDING PHYSICIAN Family Medicine
DX: N18.32 Chronic kidney disease, stage 3b (principal); E11.22 Type 2 diabetes mellitus with diabetic chronic kidney disease; D64.9 Anemia, unspecified
CPT/HCPCS: 36415; 80048; 85025

== ENCOUNTER → 2025-03-25 14:05 | Outpatient (REF) | payer OTHER, SELFPAY ==
[2025-03-25 16:07] LABS: Hematocrit 36.8 % (39.0-52.0); Hemoglobin 12.2 g/dL (13.0-18.0); Mean Corp Hgb Conc. 33.2 g/dL (33.0-37.0); Mean Corpuscular Volume 93.2 fL (80.0-94.0); Platelet Count 200 10^3/uL (130-400); Red Cell Dist. Width 15.2 % (11.5-14.5)
[2025-03-25 16:24] LABS: Blood Urea Nitrogen 31 mg/dl (9-20); Calcium 8.8 mg/dl (8.4-10.2); Carbon Dioxide 25 mmol/L (22-30); Chloride 104 mmol/L (98-107); Glucose 130 mg/dl (70-99); Potassium 5.1 mmol/L (3.5-5.1); Sodium 134 mmol/L (135-145); eGFR 35.98
== END ==
LOC: REG 14:05
PROVIDERS: ATTENDING PHYSICIAN Family Medicine
DX: D64.9 Anemia, unspecified (principal); N18.31 Chronic kidney disease, stage 3a; I10 Essential (primary) hypertension; E11.22 Type 2 diabetes mellitus with diabetic chronic kidney disease
CPT/HCPCS: 36415; 80048; 83970; 84100; 85027

== ENCOUNTER 2025-03-25 22:10 | Emergency (ER) | payer OTHER, SELFPAY ==
--- NOTE | 2025-03-25 22:20 | RESPNOTE ---
Called down to room for Cardiac Arrest. CPR was performed in the field prior to coming to the hospital. After arrival, CPR was performed for 2 more minutes. ER doctor called for time of after pulse check was done after verifying with us (RTs,
RNs, weigher production and EMS) that nothing more could be done.
--- NOTE | 2025-03-25 22:20 | ED.GENMED ---
History of Present Illness
General
Chief Complaint: CODE
Source: ambulance crew
Time Seen by Provider: 03/25/25 22:16
History of Present Illness
History of Present Illness:
89-year-old male presents to the emergency room via ambulance in cardiac arrest. Medics state that the patient is complaining of chest pain when he collapsed. Unclear if there was bystander CPR. Medics arrived to find the patient in cardiac
arrest. The summary of their resuscitation was that he had received 5 epis, 300 of amiodarone, 38 minutes of downtime from their arrival. Rhythm was mostly asystole with 2 shocks for what was thought to be fine V-fib.
Past History
Past History
ED Past Medical History: Arrthythmia (Bigeminy), CAD, CHF, COPD, HTN, Hypercholesterolemia and NIDDM
ED Past Surgical History: Cholecystectomy
Social History
Tobacco: Former smoker
Alcohol: None
Drug: None
Employment: Retired
Phy Exam
Physical Exam
Physical Exam:
CODE EXAM:
VITAL SIGNS: No palpable blood pressure, no pulses, no respiration.
GENERAL EXAM: Mottled
EYES: Pupils fixed
ENT: Patient intubated
NECK: No venous distention
RESPIRATORY: Equal breath sounds with [id number] ventilation
CARDIAC: Absent heart sounds
VASCULAR: Absent pulses
ABDOMEN: Soft no masses
GUAIAC: Not done
MUSCULOSKELETAL: Unable to evaluate strength
EXTREMITIES: No edema or contractures, skin tears noted to bilateral elbows
SKIN: No rash
PSYCH: Mood, affect unable to evaluate
MDM/Problems Addressed
Differential Diagnosis Includes:
Cardiac arrest from acute HI, primary ventricular dysrhythmia, PE
MDM/Problems Addressed:
Patient arrived in cardiac arrest. Asystole on the monitor here. Patient had already received an extensive resuscitation in the prehospital setting including 5 rounds of epi, 300 mg of amiodarone, CPR with the Adelfo device. He is intubated with
bilateral breath sounds. Prognosis for any meaningful neurological recovery at this point is 0. Patient pronounced at 10:13 PM.
Review of his medical records from today's significant past medical history including severe pulmonary hypertension, coronary artery disease, COPD with chronic oxygen use, congestive heart failure.
Discussed with family....Pt had several syncopal episodes today. has been seeing palliative care and Dr Nails's office. All questions answered.
Discussed w/Jaqui, they will certify.
Discussed with [place] office, income tax investigator Tracy Laura....released.
*Pulse Oximetry
SaO2: 80
Patient hypoxic: yes
*Paint Spray Tender Interpretation
Rate: other
Rhythm: other (asystole)
*Critical Care Note
Total Time (30-74mins, 75-104mins- exclusive of procedures): 35 min
comment:
Critical care statement: A total of 35 minutes of critical care time was provided for this patient. This includes initial assessment, management code. Also time involved with speaking with the family about the patient's , reviewing medical
records, speaking to adjunct faculty for medical terminology and primary care provider as well as documentation.
ED Attending Note
-
Portions of this chart may have been created with voice recognition software.� Occasional wrong word or��sound alike� substitutions may have occurred due to the inherent limitations of voice recognition software.
Discharge Plan
Departure
Patient Disposition:
Date of Disposition: 03/25/25
Time of Disposition: 22:26
Discharge Problem:
Cardiac arrest
Prescriptions:
No Action
cyanocobalamin (vitamin B-12) 1,000 MCG tablet
1,000 mcg PO DAILY
atorvastatin 80 MG tablet
80 mg PO HS
metoprolol succinate 50 mg Tablet Extended Release 24 Hr
50 mg PO BID
glipizide 5 mg Tablet Extended Release 24hr
5 mg PO DAILY
finasteride 5 mg Tablet
5 mg PO DAILY
Eliquis 2.5 mg Tablet
2.5 mg PO BID Qty: 30 0RF
omega 8-hpo-zxu-fish oil [Fish Oil] 1,000 mg (120 mg-180 mg) Capsule
1 cap PO BID
metformin 500 mg tablet extended release 24 hr
500 mg PO BID
cholecalciferol (vitamin D3) 50 mcg (2,000 unit) Tablet
50 mcg PO DAILY
acetaminophen [Tylenol Extra Strength] 500 mg Tablet
1,000 mg PO Q6HPRN PRN (Reason: mild pain)
zinc sulfate 50 mg zinc (220 mg) Tablet
50 mg PO DAILY
sildenafil (pulm.hypertension) 20 mg Tablet
20 mg PO TID Qty: 90 1RF
Interventions
Interventions:
*Nursing Disposition Last Done: 03/25/25 23:11
Discharge Date and Time
Discharge Date/Time: 03/25/25 23:13
Print Language: [place]
== END 2025-03-25 23:13 | disposition expired ==
LOC: EMR 22:10
PROVIDERS: EMERGENCY PHYSICIAN Emergency Medicine; FAMILY PHYSICIAN Family Medicine
DX: I46.9 Cardiac arrest, cause unspecified (principal); E11.9 Type 2 diabetes mellitus without complications; I25.10 Atherosclerotic heart disease of native coronary artery without angina pectoris; I11.0 Hypertensive heart disease with heart failure; I50.9 Heart failure, unspecified; I27.20 Pulmonary hypertension, unspecified; R09.02 Hypoxemia; R00.8 Other abnormalities of heart beat; E78.00 Pure hypercholesterolemia, unspecified; J44.9 Chronic obstructive pulmonary disease, unspecified; Z79.84 Long term (current) use of oral hypoglycemic drugs; Z79.01 Long term (current) use of anticoagulants; Z99.81 Dependence on supplemental oxygen; Z87.891 Personal history of nicotine dependence
CPT/HCPCS: 99291